=== PATIENT | female | born 1960 | race Caucasian/White ===

== ENCOUNTER 2018-09-12 11:31 | Outpatient (CLI) | payer BC, SELFPAY ==
--- NOTE | 2018-09-12 11:53 | DI.MAMMO_ITS ---
SYMPTOMS/DIAGNOSIS: SCREENING, Z12.31 MAMMOGRAMS: Mammograms were interpreted according to the usual protocol including computer analysis with CAD system, tomosynthesis and C view imaging. The breast tissue is radiodense, which lowers the sensitivity of the study. There is no dominant mass or suspicious calcification. SUMMARY: No evidence of malignancy, category 1, yearly screening mammography is recommended. Breast density category C. MQSA ASSESSMENT OF FINDINGS: Negative. Category 1. Patient will receive a letter notifying them of these results. Bi-RADS category C. The breasts are heterogeneously dense, which may obscure small masses.
== END 2018-09-12 11:51 ==
PROVIDERS: PCP Family Medicine; Visit Provider Family Medicine
DX: Z12.31 Encounter for screening mammogram for malignant neoplasm of breast (principal)
CPT/HCPCS: 77063; 77067

== ENCOUNTER 2019-01-11 06:03 | Day surgery (SDC) | payer BC, SELFPAY ==
[2019-01-11 06:29] VITALS: BP 121/80; PULSE 64; RESP 18; TEMP 36.5; O2SAT 99
[2019-01-11] MEDS: Lactated Ringers 1,000 ML 80 ML IV (06:42)
--- NOTE | 2019-01-11 08:18 | PDOC.DSDIS_ITS ---
Discharge Plan Disposition Patient Disposition: HOME Condition: Good Discharge Details Reason For Visit: Colonoscopy Attending Provider: Ciara Kohler Primary Care Provider: Bhakti Nieves Home Meds and New Rx's Prescriptions: Continued aspirin [Adult Low Dose Aspirin] 81 mg tablet,delayed release (DR/EC) 81 mg PO DAILY RF: 0 sumatriptan [Imitrex] 5 mg/actuation [place],Non-Aerosol 5 mg INTRANASAL ONCE RF: 0 Discontinued polyethylene glycol 3350 17 gram/dose powder 238 g PO ONCE Qty: 238 RF: 0 bisacodyl [Dulcolax (bisacodyl)] 5 mg tablet,delayed release (DR/EC) 5 mg PO ONCE Qty: 4 RF: 0 Discharge Instructions Additional Instructions: Findings: Your colonoscopy was normal. Follow up: Plan for follow up colonoscopy in 5 years Please call if you develop: fevers >101.5 Nausea or Vomiting Abdominal pain that is not transient DAY SURGERY UNIT POST COLONOSCOPY INSTRUCTIONS 1. Because there will be medication in your system for the next 24 hours, you may feel a little sleepy. Your coordination will be affected. Therefore: a. Do not drive or operate dangerous equipment for 24 hours. b. Do not drink alcohol beverages for 24 hours (not even beer). c. Plan to go home and rest for the day. 2. Generally there are no restrictions on your activity after a day or so has gone by, but you may feel a bit fatigued for a few days. 3 After you arrive home you may have a light meal and return to a normal diet as you can tolerate it without feeling sick to your stomach. 4. After surgery, you may feel pain or discomfort. This should be only transient, but if it persists please contact your doctor. 5. If there are any questions regarding the findings of your procedure, please feel free to contact your doctor. 6. If you are unable to contact your doctor with a problem, contact the hospital at [phone]. 7. Continue all your regular medications unless directed otherwise. I understand the above instructions and have no questions. Signature of Patient or Responsible Adult Escort Date/Time Name of Responsible Adult Escort Signature of Nurse Date/Time Activity:: Activity as Tolerated Diet:: As Tolerated Discharge Orders Discharge Orders: Discharge Order (Routine); Ordered 01/11/19 Ordered By: Ciara Kohler DS: Diagnosis Discharge Diagnosis (1) History of colon polyps: Status: Acute
[2019-01-11 09:25] VITALS: BP 121/86; PULSE 61; RESP 16; TEMP 36.4; O2SAT 100
--- NOTE | 2019-01-11 10:10 | COLE_ITS ---
DATE OF PROCEDURE: January 11, 2019 PREOPERATIVE DIAGNOSIS: History of colon polyps. POSTOPERATIVE DIAGNOSIS: Normal colon. PROCEDURE: Colonoscopy. SURGEON: Ciara Kohler M.D. ANESTHESIA: General. INDICATIONS: This is a 58-year-old woman whose previous colonoscopy in 2012 showed an adenomatous po lyp. She presents for routine follow-up. PROCEDURE: She was placed in the left Harper position. Propofol was titrated to sedation. Digital re ctal examination revealed no abnormalities. The scope was advanced to the cecum without difficulty. The ileocecal valve and appendiceal orifice were clearly identified. Her prep was adequate, althoug h there were some areas of fluid that had to be suctioned. The scope was slowly withdrawn with no ab normalities seen within the ascending, transverse, descending, and sigmoid colon and rectum, includin g on retroflex view. She tolerated the procedure well and was stable to recovery. With her prior history of polyps, she will need a colonoscopy again in five years. cc: Bhakti Nieves M.D.
== END 2019-01-11 09:57 | disposition home or self-care (01) ==
PROVIDERS: PCP Family Medicine; Visit Provider Surgery
PROC: 0DJD8ZZ Inspection of Lower Intestinal Tract, Via Natural or Artificial Opening Endoscopic (ICD-10-PCS; CPT 45378; principal; 2019-01-11 07:30)
DX: Z12.11 Encounter for screening for malignant neoplasm of colon (principal); Z86.010 Personal history of colon polyps
CPT/HCPCS: 45378

== ENCOUNTER 2020-01-22 01:25 | Outpatient (CLI) | payer BC, SELFPAY ==
--- NOTE | 2020-01-22 | DI.MAMMO_ITS ---
EXAM: MG MAMMO SCREENING CLINICAL HISTORY: SCREENING,Z12.31 TECHNIQUE: Bilateral full field digital CC and MLO mammographic images were obtained with 3D tomosyn thesis and utilizing computer aided detection (CAD). COMPARISON: Available for comparison. FINDINGS: Masses/Architectural Distortion: None seen. Microcalcifications: No suspicious pleomorphic-type are seen. Skin Thickening/Nipple Retraction: None. IMPRESSION: 1. No significant interval change with no specific features of malignancy noted. 2. Unless there is more urgent need, screening mammography is recommended, as per [place] [employer] guidelines. BI-RADS Category 1 - Negative Breast Density - Category C - Heterogeneously dense The mammogram demonstrates the patient's breast tissue is dense. Dense breast tissue is very common a nd is not abnormal but dense breast tissue can make it harder to find cancer on a mammogram. Also, de nse breast tissue may increase their breast cancer risk. This information about the result of the [facility] mogram report was provided to the patient to raise their awareness. Use this report when you speak wi th the patient about their risks for breast cancer, which includes their family history. At that time , you may recommend for more screening tests (Ultrasound or MRI) as they might be useful based on the ir risk. A negative radiographic report should not delay biopsy if a dominant or clinically suspicious mass is present. Up to ten percent of cancers are not identified on mammography. A negative report may reinforce clinical impression. Adenosis and dense breasts may obscure an underlying neoplasm. False positive reports average 6 to 10%. Patient will receive a letter notifying them of these results.
== END 2020-01-22 01:45 ==
PROVIDERS: PCP Family Medicine; Visit Provider Family Medicine
DX: Z12.31 Encounter for screening mammogram for malignant neoplasm of breast (principal); R92.2 Inconclusive mammogram
CPT/HCPCS: 77063; 77067

== ENCOUNTER 2021-01-21 09:30 | Outpatient (REF) | payer BC, SELFPAY ==
[2021-01-21 21:53] LABS: ALT 39 U/L (14-59); AST 23 U/L (15-37); Albumin 3.7 g/dL (3.4-5.0); Alkaline Phosphatase 68 U/L (46-116); Anion Gap 6.4 mmol/L (3-11); BUN 25 mg/dL (7-18); Bilirubin, Total 0.6 mg/dL (0.2-1.0); CO2 28.6 mmol/L (21.0-32.0); Calcium 9.1 mg/dL (8.5-10.1); Calculated LDL 139 mg/dL (<100); Chloride 107 mmol/L (98-107); Cholesterol 229 mg/dL (<200); Estimated GFR 56.95 (mL/min/1.73m2); Glucose 99 mg/dL (74-106); HDL Cholesterol 82 mg/dL (40-60); Potassium 4.8 mmol/L (3.5-5.1); Sodium 142 mmol/L (136-145); Total Protein 6.7 g/dL (6.4-8.2); Triglyceride 44 mg/dL (<150)
== END 2021-01-21 09:31 | disposition home or self-care (01) ==
LOC: NCHCN 09:30
PROVIDERS: PCP Family Medicine; Visit Provider Family Medicine
DX: Z00.00 Encounter for general adult medical examination without abnormal findings (principal); I35.1 Nonrheumatic aortic (valve) insufficiency; Z13.220 Encounter for screening for lipoid disorders
CPT/HCPCS: 80053; 80061

== ENCOUNTER 2021-02-19 01:12 | Outpatient (CLI) | payer BC, SELFPAY ==
--- NOTE | 2021-02-19 | DI.MAMMO_ITS ---
Exam(s) MAMMO SCREENING EXAM: MAMMO SCREENING CLINICAL HISTORY: SCREENING, Z12.31 TECHNIQUE: Bilateral full field digital CC and MLO mammographic images were obtained with 3D tomosyn thesis and utilizing computer aided detection (CAD). COMPARISON: Available for comparison. FINDINGS: Masses/Architectural Distortion: None seen. Microcalcifications: No suspicious pleomorphic-type are seen. Skin Thickening/Nipple Retraction: None. IMPRESSION: 1. No significant interval change with no specific features of malignancy noted. 2. Unless there is more urgent need, screening mammography is recommended, as per [place] [employer] guidelines. BI-RADS Category 1 - Negative Breast Density - Category C - Heterogeneously dense Breast density category C or D implies that the patient has dense breast tissue. Dense breast tissue is very common and is not abnormal but dense breast tissue can make it harder to find cancer on a ma mmogram. Also, dense breast tissue may increase their breast cancer risk. This information about the result of the mammogram report was provided to the patient to raise their awareness. Use this report when you speak with the patient about their risks for breast cancer, which includes their family hist ory. At that time, you may recommend for more screening tests (Ultrasound or MRI) as they might be us eful based on their risk. A negative radiographic report should not delay biopsy if a dominant or clinically suspicious mass is present. Up to ten percent of cancers are not identified on mammography. A negative report may reinforce clinical impression. Adenosis and dense breasts may obscure an underlying neoplasm. False positive reports average 6 to 10%. Patient will receive a letter notifying them of these results.
== END 2021-02-19 01:32 ==
PROVIDERS: PCP Family Medicine; Visit Provider Family Medicine
DX: Z12.31 Encounter for screening mammogram for malignant neoplasm of breast (principal); R92.8 Other abnormal and inconclusive findings on diagnostic imaging of breast
CPT/HCPCS: 77063; 77067

== ENCOUNTER 2022-01-19 08:50 | Outpatient (REF) | payer BC, SELFPAY ==
[2022-01-19 16:07] LABS: ALT 49 U/L (14-59); AST 27 U/L (15-37); Albumin 4.1 g/dL (3.4-5.0); Alkaline Phosphatase 76 U/L (46-116); Anion Gap 5.9 mmol/L (3-11); BUN 17 mg/dL (7-18); Bilirubin, Total 0.9 mg/dL (0.2-1.0); CO2 31.1 mmol/L (21.0-32.0); CREATININE 0.9 mg/dL (0.55-1.02); Calcium 9.4 mg/dL (8.5-10.1); Calculated LDL 157 mg/dL (<100); Chloride 105 mmol/L (98-107); Cholesterol 258 mg/dL (<200); Estimated GFR 73.64 (mL/min/1.73m2); Glucose 89 mg/dL (74-106); HDL Cholesterol 92 mg/dL (40-60); Potassium 4.7 mmol/L (3.5-5.1); Sodium 142 mmol/L (136-145); Total Protein 7.1 g/dL (6.4-8.2); Triglyceride 48 mg/dL (<150)
== END 2022-01-19 08:51 | disposition home or self-care (01) ==
LOC: NCHCN 08:50
PROVIDERS: PCP Family Medicine; Visit Provider Family Medicine
DX: Z00.00 Encounter for general adult medical examination without abnormal findings (principal); Z13.220 Encounter for screening for lipoid disorders
CPT/HCPCS: 80053; 80061

== ENCOUNTER 2022-02-23 15:01 | Outpatient (REF) | payer BC, SELFPAY ==
--- NOTE | 2022-02-23 08:30 | PAPFT_PTH ---
PATIENT: Alyson Valverde LOC: [facility]#:[id number] AGE/SX: 61/F ROOM: RE02/23/[address]: Devonte Contreras : 1960 BED: DIS: 02/23/2022 SPEC #: [id number] RECD: 02/23/22 17:59 STATUS: MULU REQ #: [id number] FOREIGN: 02/23/22 08:[address]: Devonte Contreras DEPT: [facility] Cytology RECD BY: Edie Wiggins ENTERED: 02/23/22 18:00 SP TYPE: PAPFT OTHR DR: Bhakti Nieves Tissues: 1 - CX/ENDOCX FOR PAP SMEARS Procedures: PAP THIN PREP/UVM Screening HPV DNA PROBE Comments: [id number]
== END 2022-02-23 15:02 | disposition home or self-care (01) ==
LOC: NCHCN 15:01
PROVIDERS: PCP Family Medicine; Visit Provider Family Medicine
DX: Z00.00 Encounter for general adult medical examination without abnormal findings (principal); Z12.4 Encounter for screening for malignant neoplasm of cervix; Z01.419 Encounter for gynecological examination (general) (routine) without abnormal findings; Z11.51 Encounter for screening for human papillomavirus (HPV)
CPT/HCPCS: 88142; 87624

== ENCOUNTER → 2022-03-14 01:44 | Outpatient (CLI) | payer BC, SELFPAY ==
--- NOTE | 2022-03-14 08:00 | DI.MAMMO_ITS ---
Exam(s) MAMMO SCREENING EXAM: MAMMO SCREENING CLINICAL HISTORY: SCREENING, Z12.39 TECHNIQUE: Mammograms were interpreted according to the usual protocol including computer analysis w [employer] CAD system, tomosynthesis and C-view imaging. COMPARISON: 2018 through 2020 FINDINGS: The breasts are composed of heterogeneously dense fibroglandular densities, Breast Density category C . No suspicious masses or suspicious microcalcifications are seen. No skin thickening or abnormal axillary lymph nodes are seen. There has been no significant change from prior exams. IMPRESSION: BI-RADS Category 1, Negative mammogram. Yearly screening mammography is recommended. Breast Density Category C, heterogeneously Dense. The mammogram demonstrates the patient's breast tissue is dense. Dense breast tissue is very common a nd is not abnormal but dense breast tissue can make it harder to find cancer on a mammogram. Also, de nse breast tissue may increase breast cancer risk. This information about the result of the mammogram report was provided to the patient to raise their awareness. Use this report when you speak with the patient about their risks for breast cancer, which includes their family history. At that time, you may recommend additional screening tests (Ultrasound or MRI) as they might be useful based on their r isk. A negative radiographic report should not delay biopsy if a dominant or clinically suspicious mass is present. Up to ten percent of cancers are not identified on mammography. A negative report may reinforce clinical impression. Adenosis and dense breasts may obscure an underlying neoplasm. False positive reports average 6 to 10%.
--- NOTE | 2022-03-14 08:30 | DI.RAD_ITS ---
Exam(s) XR KNEE RT 3V AP,LAT,TREVOR EXAM: XR KNEE RT 3V AP,LAT,TREVOR CLINICAL HISTORY: KNEE PAIN, M25.569. TECHNIQUE: 2D digital imaging was performed. Three views. COMPARISON: No exams were available for comparison FINDINGS: BONES: No acute fracture is present. No bony destructive lesion is seen. Prominent enthesophytes ar e noted at the superior and inferior aspects of the patella. JOINTS: Moderate narrowing of the medial femoral tibial joint space. Prominent periarticular spurrin g throughout.. A minimal joint effusion is seen. SOFT TISSUE: Calcification seen posteriorly which may represent a loose body within a Tellez cyst. IMPRESSION: Moderate degenerative changes. Question of loose body in a Tellez's cyst. DATA REPOSITORY: RADIATION DOSE DELIVERED:
--- NOTE | 2022-03-14 08:30 | DI.RAD_ITS ---
Exam(s) XR KNEE LT 3V AP,LAT,TREVOR EXAM: XR KNEE LT 3V AP,LAT,TREVOR CLINICAL HISTORY: KNEE PAIN, M25.569. TECHNIQUE: 2D digital imaging was performed. Three views. COMPARISON: CR XR KNEE RT 3V AP,LAT,TREVOR from 03/14/2022 FINDINGS: BONES: No acute fracture is present. No bony destructive lesion is seen. There is prominent spurring at at the medial femoral condyle medial tibial plateau. Prominent enthesophytes are seen at the sup erior and inferior poles of the patella. There is also spurring at the articular aspect of the hair la. JOINTS: There is severe narrowing of the medial femoral tibial joint space. A large joint effusion i s seen. SOFT TISSUE: Normal. IMPRESSION: Severe degenerative changes of the medial femoral tibial joint. Prominent patellar enthesophytes. DATA REPOSITORY: RADIATION DOSE DELIVERED:
== END ==
PROVIDERS: PCP Family Medicine; Visit Provider Family Medicine
DX: M17.0 Bilateral primary osteoarthritis of knee (principal); Z12.31 Encounter for screening mammogram for malignant neoplasm of breast; R92.8 Other abnormal and inconclusive findings on diagnostic imaging of breast
CPT/HCPCS: 73562; 77063; 77067

== ENCOUNTER 2023-02-27 11:25 | Outpatient (REF) | payer BC, SELFPAY ==
[2023-02-27 15:47] LABS: HCT 37.1 % (36.0-46.0); HGB 12.2 g/dL (11.2-15.7); MCH 30.5 pg (27.0-33.0); MCHC 32.9 % (32.0-36.0); MCV 93 fL (80-95); MPV 10.9 fL (8.0-11.0); Platelet Count 234 10^3/uL (130-400); RDW 12.3 % (11.7-14.6); RDW-SD 42.1 fL; WBC 3.61 10^3/uL (4.4-10.8)
[2023-02-27 15:50] LABS: Anion Gap 8.3 mmol/L (3-11); BUN 17 mg/dL (7-18); CO2 28.7 mmol/L (21.0-32.0); CREATININE 0.9 mg/dL (0.55-1.02); Calcium 9.6 mg/dL (8.5-10.1); Chloride 104 mmol/L (98-107); Estimated GFR 73.19 (mL/min/1.73m2); Glucose 92 mg/dL (74-106); Potassium 4.1 mmol/L (3.5-5.1); Sodium 141 mmol/L (136-145)
== END 2023-02-27 11:26 | disposition home or self-care (01) ==
LOC: NCHCN 11:25
PROVIDERS: PCP Family Medicine; Visit Provider Family Medicine
DX: Z00.00 Encounter for general adult medical examination without abnormal findings (principal); I35.1 Nonrheumatic aortic (valve) insufficiency
CPT/HCPCS: 80048; 85027

== ENCOUNTER → 2023-03-16 03:00 | Outpatient (CLI) | payer BC, SELFPAY ==
--- NOTE | 2023-03-16 08:25 | DI.MAMMO_ITS ---
Exam(s) MAMMO SCREENING EXAM: MAMMO SCREENING CLINICAL HISTORY: Z00.00 Well adult preventative,Z80.3 FA HX Breast CA TECHNIQUE: Mammograms were interpreted according to the usual protocol including computer analysis w [employer] CAD system, tomosynthesis and C-view imaging. COMPARISON: 2018 through 2021 FINDINGS: The breasts are composed of heterogeneously dense fibroglandular densities, Breast Density category C . No suspicious masses or suspicious microcalcifications are seen. No skin thickening or abnormal axillary lymph nodes are seen. There has been no significant change from prior exams. IMPRESSION: BI-RADS Category 1, Negative mammogram. Yearly screening mammography is recommended. Breast Density Category C, heterogeneously Dense. The mammogram demonstrates the patient's breast tissue is dense. Dense breast tissue is very common a nd is not abnormal but dense breast tissue can make it harder to find cancer on a mammogram. Also, de nse breast tissue may increase breast cancer risk. This information about the result of the mammogram report was provided to the patient to raise their awareness. Use this report when you speak with the patient about their risks for breast cancer, which includes their family history. At that time, you may recommend additional screening tests (Ultrasound or MRI) as they might be useful based on their r isk. A negative radiographic report should not delay biopsy if a dominant or clinically suspicious mass is present. Up to ten percent of cancers are not identified on mammography. A negative report may reinforce clinical impression. Adenosis and dense breasts may obscure an underlying neoplasm. False positive reports average 6 to 10%.
== END ==
PROVIDERS: PCP Family Medicine; Visit Provider Family Medicine
DX: Z12.31 Encounter for screening mammogram for malignant neoplasm of breast (principal); Z80.3 Family history of malignant neoplasm of breast; R92.333 Mammographic heterogeneous density, bilateral breasts
CPT/HCPCS: 77063; 77067

== ENCOUNTER 2023-12-05 13:24 | Emergency (ER) | payer BC, SELFPAY ==
[2023-12-05] VITALS (73 sets, daily range): BP systolic 122–159; BP diastolic 71–106; PULSE 61–99; RESP 8–23; TEMP 36.7; O2SAT 96–100
[2023-12-05 13:50] LABS: Absolute Basophil Count 0.03 10^3/uL (0.0-0.2); Absolute Eosinophil Count 0.09 10^3/uL (0.0-0.7); Absolute Lymphocyte Count 0.81 10^3/uL (1.2-3.4); Absolute Monocyte Count 0.59 10^3/uL (0.1-0.8); Absolute Neutrophil Count 7.82 10^3/uL (1.2-6.7); Basophils % 0.3 %; HCT 35.6 % (36.0-46.0); HGB 12.1 g/dL (11.2-15.7); Immature Grans % 1.1 %; Lymphocytes % 8.6 %; MCH 30.9 pg (27.0-33.0); MCV 91 fL (80-95); MPV 10.5 fL (8.0-11.0); Monocytes % 6.3 %; Neutrophils % 82.7 %; Platelet Count 272 10^3/uL (130-400); RBC 3.92 10^6/uL (3.93-5.22); RDW 12.6 % (11.7-14.6); RDW-SD 41.5 fL; WBC 9.44 10^3/uL (4.4-10.8)
[2023-12-05] MEDS: Lactated Ringers 1,000 ML 1000 ML IV (13:58)
--- NOTE | 2023-12-05 14:00 | DI.CT_ITS ---
Exam(s) CT HEAD CERV SPINE FACIAL WO EXAM: CT HEAD CERV SPINE FACIAL WO CLINICAL HISTORY: bucked off horse, hit head, altered. TECHNIQUE: Imaging Protocol: Axial computed tomography images with coronal and sagittal reformatted images were created and reviewed COMPARISON: CT HEAD WITHOUT STROKE PROTOCOL from 06/10/[address] THORACIC LUMBAR SPINE REC from 12/05/[address] CHEST/ABD/PEL W from 12/05/2023 FINDINGS: CT Head: Ventricles and Extra axial spaces: Large right frontal cystic lesion causes compression of the right lateral ventricle. Hemorrhage: Small amount of hemorrhage is seen layering within the large right frontal cystic lesion. No additional areas of hemorrhage elsewhere in the brain. Cerebral parenchyma: Large cystic lesion noted in right frontal lobe. This was present previously bu t has increased in size, now measuring 8.1 x 5.7 x 6.5 cm compared to 5.2 x 4.3 by 5.5 cm.. This cau ses significant mass effect upon the right lateral ventricle as well as midline shift right to left o f approximately 10 - 13 millimeters. Brainstem/Cerebellum: Normal. Calvarium: Normal. Visualized Paranasal sinuses/Mastoids: Clear. Soft Tissues: Unremarkable. CT Face: Facial Bones: No fracture is noted in facial bones. Sinuses and Mastoids: Unremarkable. Globes, extraocular muscles, optic nerves and retrobulbar fat: Normal. Upper aerodigestive tract: Normal. Mandible and bilateral temporomandibular joints: Normal. Soft tissues: Normal. CT Cervical Spine: Bones: No acute fracture or subluxation. Degenerative disc changes. Soft Tissues: Unremarkable. Lung Apices: Clear. IMPRESSION: 1. Interval increase in size previously noted cystic lesion in the right frontal lobe causing signifi cant mass effect upon the right lateral ventricle and midline shift of 10-13 millimeters. Acute hemo rrhage seen layering within dependent portion of cyst. 2. No acute fracture or subluxation in the cervical spine. 3. No acute facial fracture. 4. Findings called to Dr. Banerjee of the emergency department. RADIATION DOSE DELIVERED: Total DLP DATA REPOSITORY: All CT scans at this facility are submitted to the National Radiology Data Registry (NRDR) Dose Index Registry (DIR) with the [employer] (ACR). RADIATION OPTIMIZATION: All CT scans at this facility use at least one of these dose optimization te chniques: automated exposure control; mA and/or kV adjustment per patient size (includes targeted exa ms where dose is matched to clinical indication); or iterative reconstruction.
--- NOTE | 2023-12-05 14:04 | ED.GENADUL_ITS ---
Discharge Plan Discharge Details Chief Complaint: Trauma Clinical Impression: Acute intra-cranial hemorrhage, Brain cyst Primary Care Provider: Bhakti Nieves ED Provider: Tristen Banerjee Home Meds and New Rx's Prescriptions: No Action sumatriptan [Imitrex] 5 mg/actuation [facility],Non-Aerosol 5 mg INTRANASAL ONCE HPI General Date/Time Provider Initiated Documentation: 12/05/23 13:32 . HPI Narrative: 63-year-old female with no significant past medical history except for migraines who presents today for evaluation of trauma after being thrown from horse. Patient states that she was riding a horse that was 72 inches high, when the horse got spooked by an animal that ran out into the [place], and started bucking. Patient was thrown off the horse and landed straight/flat against a plywood wall. She had her helmet on, she hit the ground. She got up, was quite wobbly, she then had a shaking-like movement for about 60 seconds and after this had about 5 minutes of unconsciousness. EMS was called, and she was brought to the ER for further assessment. She had stable vital signs upon arrival. She has no complaints whatsoever but is slightly confused. She denies any headache, neck pain, chest pain, vomiting, diarrhea, extremity pain. No modifying factors. She is not on blood thinners. Related Data Home Medications ?Medication ?Instructions ?Recorded ?Confirmed sumatriptan 5 mg/actuation nasal 5 mg intranasal ONCE 01/08/19 12/05/23 spray (Imitrex) Allergies Allergy/AdvReac Type Severity Reaction Status Date / Time povidone-iodine (From Allergy Mild itchy and Verified 12/05/23 13:32 Betadine) red soap (From Betadine) Allergy Mild itchy and Verified 12/05/23 13:32 red General Stated Complaint: Trauma IKER: 2 Review of Systems All systems reviewed & are unremarkable except as noted in HPI and below Exam Narrative Exam Narrative: 1.Const: Well-nourished, Well-developed, appearing stated age 2.Eyes: PERRL, no conjunctival injection, and symmetrical lids. 3.ENT: Atraumatic external nose and ears. Moist MM. Neck: Symmetric, trachea midline, No thyromegaly. There is no evidence of raccoon eyes, arana sign, CSF rhinorrhea, mastoid tenderness, cranial crepitus, hemotympanum, exophthalmos, or hyphema. Patient demonstrates intact dentition with no signs of tooth avulsion or fracture, no signs of jaw deformity, no evidence of a LeFort's fracture, with an intact palate, nose and orbital region. There is no evidence of a nasal septal hematoma. No proptosis. Jaw closes symmetrically. Airway is clear. 4.CVS: Regular rate and rhythm, Normal s1 and s2. No murmurs, carotid bruits, rubs, or gallops. Radial pulses 2+ bilaterally and symmetric. Dorsalis pedis pulses 2+ bilaterally and symmetric. 2+ capillary refill. No evidence of distant heart sounds. No extremity edema. No evidence of gross hemorrhage. 5.RESP: Airway clear, no obstructions. No abrasions or ecchymosis. Chest movement symmetric with respirations. No chest wall tenderness. Trachea midline. No crepitus. No step offs. No paradoxical movements. Lungs are clear to auscultation bilaterally. No rales, rhonchi, wheezing or stridor. Breath sound symmetric. No Sucking chest wounds. No clinical evidence of significant chest trauma. 6.GI: Soft, nondistended, nontender. Bowel tones normoactive. No masses or organomegaly. No ecchymosis or abrasions. No periumbilical ecchymosis or seatbelt sign. No flank or CVA tenderness. No clinical signs of significant trauma. Genital Exam: Intact and traumatically unremarkable genital and rectal exam with no significant bruising, blood, or deformity. Rectal tone normal, stool without gross blood. No clinical evidence of significant abdominal trauma. 7.MSK: No gross deformities or discolorations or lesions. Tolerates full range of motion of extremities without tenderness. All compartments of upper and lower extremities are soft with no tenderness. Vascular exam demonstrates brisk capillary refill and intact pulses in all extremities. Pelvic exam demonstrates a stable pelvis, nontender to lateral compression and palpation of symphysis pubis.. No clinical evidence of significant musculoskeletal trauma. 8.Skin: Warm, Dry. No rashes or lesions. 9.Neuro: individual small group instructor II-XII grossly intact. Sensation grossly intact, no focal neurologic deficits. 10.Psych: (AAO) x3. Appropriate mood and affect Course Vital Signs Vital signs: Vital Signs Temperature 36.7 C 12/05/23 13:24 Pulse 89 12/05/23 13:24 Respiratory Rate 20 12/05/23 13:24 Blood Pressure 144/90 H 12/05/23 13:24 Pulse Oximetry 98 12/05/23 13:24 Temperature 36.7 C 12/05/23 13:24 Temperature Source Temporal Artery Scan 12/05/23 13:24 Pulse 89 12/05/23 13:24 Respiratory Rate 20 12/05/23 13:24 Respiratory Effort Normal 12/05/23 13:48 Respiratory Depth Normal 12/05/23 13:48 Respiratory Pattern Normal 12/05/23 13:48 Blood Pressure 144/90 H 12/05/23 13:24 Blood Pressure Position Supine 12/05/23 13:24 Pulse Oximetry 98 12/05/23 13:24 Oxygen Delivery Method Room Air 12/05/23 13:24 Oxygen Flow Rate 0 12/05/23 13:24 Pain Level 0 12/05/23 13:24 Lab/Test Results Lab/Test Results: Laboratory Tests Range/Units 12/05/23 13:42 WBC (4.4-10.8) 10^3/uL 9.44 RBC (3.93-5.22) 10^6/uL 3.92 L Hgb (11.2-15.7) g/dL 12.1 Hct (36.0-46.0) % 35.6 L MCV (80-95) fL 91 MCH (27.0-33.0) pg 30.9 MCHC (32.0-36.0) % 34.0 RDW (11.7-14.6) % 12.6 Plt Count (130-400) 10^3/uL 272 MPV (8.0-11.0) fL 10.5 Immature Gran % % 1.1 Neutrophils % % 82.7 Lymphocytes % % 8.6 Monocytes % % 6.3 Eosinophils % % 1.0 Basophils % % 0.3 Nucleated RBC % (0.0-0.3) % 0.0 Absolute Neutrophils (1.2-6.7) 10^3/uL 7.82 H Absolute Lymphocytes (1.2-3.4) 10^3/uL 0.81 L Absolute Monocytes (0.1-0.8) 10^3/uL 0.59 Absolute Eosinophils (0.0-0.7) 10^3/uL 0.09 Absolute Basophils (0.0-0.2) 10^3/uL 0.03 Medical Decision Making 63-year-old female with no significant past medical history except for migraines who presents today for evaluation of trauma after being thrown from horse. Patient states that she was riding a horse that was 72 inches high, when the horse got spooked by an animal that ran out into the [place], and started bucking. Patient was thrown off the horse and landed straight/flat against a plywood wall. She had her helmet on, she hit the ground. She got up, was quite wobbly, she then had a shaking-like movement for about 60 seconds and after this had about 5 minutes of unconsciousness. EMS was called, and she was brought to the ER for further assessment. She had stable vital signs upon arrival. She has no complaints whatsoever but is slightly confused. She denies any headache, neck pain, chest pain, vomiting, diarrhea, extremity pain. No modifying factors. She is not on blood thinners. Physical exam demonstrates well-appearing female, no acute distress, no overt signs of trauma or tenderness. Concern for potential intracranial injury with the atypical episode of syncope that she After the event. We will get CT scans of the head neck chest abdomen pelvis secondary to the mechanism of the fall. Will monitor closely gently rehydrate and reassess. CT scan shows evidence of a large cyst in the right frontal lobe, currently 8 x 5.7 x 6.5 cm, which is a 1 to 3 cm increase compared to his previous measurement 6 years ago. There also appears to be a mass effect and midline shift right to left of approximately 1 cm. There is a small amount of hemorrhage seen layering within the large right frontal cystic lesion, no other areas of intracranial hemorrhage though. Repeat exam demonstrates a stable patient, who is actually looking better than before. She is conversant, interactive, remembers my name and other questions. She shows no signs of altered mental status at this time, and actually shows some clinical improvement. Patient does complain of a very mild headache, we will give a gram of Tylenol. The remainder of her CT scans including of the chest neck abdomen and pelvis are normal in appearance per radiology. Will reach out to [facility] neurosurgery for further discussion. Patient's head has been elevated she is now sitting at a 45 degree angle. 4:50 PM I spoke with neurosurgery at [facility] Dr. Jose Palomino, he reviewed the images. He does recommend loading with Keppra, we will give 2 g. He does recommend potential outpatient Keppra therapy at 500 twice daily as well. He recommends keeping blood pressure at or lower than 140-145 systolic. He also recommends getting a repeat CT scan at [facility] for evaluation of change in bleeding or cyst size. Additionally I did discuss with the patient her headaches and the cyst, the cyst is notably larger than before, she states that her headaches have slightly been worsening over the last year or so. She also states that the headaches are better when she lies flat and not when she sits upright. Case will be signed out to my colleague Dr. Real for follow-up on CT imaging. I discussed the plan with family and they agree. All questions were answered. FINDINGS: CT Head: Ventricles and Extra axial spaces: Large right frontal cystic lesion causes compression of the right lateral ventricle. Hemorrhage: Small amount of hemorrhage is seen layering within the large right frontal cystic lesion. No additional areas of hemorrhage elsewhere in the brain. Cerebral parenchyma: Large cystic lesion noted in right frontal lobe. This was present previously but has increased in size, now measuring 8.1 x 5.7 x 6.5 cm compared to 5.2 x 4.3 by 5.5 cm.. This causes significant mass effect upon the right lateral ventricle as well as midline shift right to left of approximately 10 - 13 millimeters. Brainstem/Cerebellum: Normal. Calvarium: Normal. Visualized Paranasal sinuses/Mastoids: Clear. Soft Tissues: Unremarkable. CT Face: Facial Bones: No fracture is noted in facial bones. Sinuses and Mastoids: Unremarkable. Globes, extraocular muscles, optic nerves and retrobulbar fat: Normal. Upper aerodigestive tract: Normal. Mandible and bilateral temporomandibular joints: Normal. Soft tissues: Normal. CT Cervical Spine: Bones: No acute fracture or subluxation. Degenerative disc changes. Soft Tissues: Unremarkable. Lung Apices: Clear. IMPRESSION: 1. Interval increase in size previously noted cystic lesion in the right frontal lobe causing significant mass effect upon the right lateral ventricle and midline shift of 10-13 millimeters. Acute hemorrhage seen layering within dependent portion of cyst. 2. No acute fracture or subluxation in the cervical spine. 3. No acute facial fracture. 4. Findings called to Dr. Banerjee of the emergency department. FINDINGS: CHEST: Exam is limited by streak artifact caused by patient arm positioning. Tracheobronchial tree: Patent. Pulmonary parenchyma: No consolidation or dominant measurable mass. Pleura: No effusion or pneumothorax. Mediastinum: No adenopathy. Small amount of fluid is noted in the esophagus could indicate reflux. Small hiatal hernia. Aorta: Thoracic portion non-dilated. Pulmonary arteries: No gross evidence of visible emboli. Heart: No pericardial effusion. Bones: Unremarkable for age. No lytic or blastic lesions.No compression fractures. No rib fracture visible. Soft tissues: Unremarkable. ABDOMEN and PELVIS: Liver: Normal density. No measurable mass. Gallbladder and biliary tract: No evidence of stones or wall thickening. No biliary dilatation. Pancreas: Normal density, no abnormal calcifications or inflammatory process. Spleen: Normal. Kidneys: Normal size, contour and axis. No radiodense stones. No obstructive uropathy. No suspicious masses seen. Adrenal glands: No masses seen. Aorta: Abdominal portion non-dilated. Lymph nodes: Within normal limits. Soft tissues: Unremarkable. Bladder: Unremarkable. Bowel: No obstruction or bowel wall thickening. Large quantity of stool noted in rectum. Rectum is distended to 7.3 cm. Moderate quantity of stool elsewhere. Appendix normal. Peritoneal cavity: No ascites. No focal collection. No mesenteric inflammatory response. No free air. Bones: Unremarkable for age. No evidence of spine or pelvic fracture. Mild degenerative disc changes at L4-5 and L5-S1. Reproductive organs: Within normal limits. IMPRESSION: No acute abnormality in the chest, abdomen or pelvis. FINDINGS: CHEST: Exam is limited by streak artifact caused by patient arm positioning. Tracheobronchial tree: Patent. Pulmonary parenchyma: No consolidation or dominant measurable mass. Pleura: No effusion or pneumothorax. Mediastinum: No adenopathy. Small amount of fluid is noted in the esophagus could indicate reflux. Small hiatal hernia. Aorta: Thoracic portion non-dilated. Pulmonary arteries: No gross evidence of visible emboli. Heart: No pericardial effusion. Bones: Unremarkable for age. No lytic or blastic lesions.No compression fractures. No rib fracture visible. Soft tissues: Unremarkable. ABDOMEN and PELVIS: Liver: Normal density. No measurable mass. Gallbladder and biliary tract: No evidence of stones or wall thickening. No biliary dilatation. Pancreas: Normal density, no abnormal calcifications or inflammatory process. Spleen: Normal. Kidneys: Normal size, contour and axis. No radiodense stones. No obstructive uropathy. No suspicious masses seen. Adrenal glands: No masses seen. Aorta: Abdominal portion non-dilated. Lymph nodes: Within normal limits. Soft tissues: Unremarkable. Bladder: Unremarkable. Bowel: No obstruction or bowel wall thickening. Large quantity of stool noted in rectum. Rectum is distended to 7.3 cm. Moderate quantity of stool elsewhere. Appendix normal. Peritoneal cavity: No ascites. No focal collection. No mesenteric inflammatory response. No free air. Bones: Unremarkable for age. No evidence of spine or pelvic fracture. Mild degenerative disc changes at L4-5 and L5-S1. Reproductive organs: Within normal limits. IMPRESSION: No acute abnormality in the chest, abdomen or pelvis. Quality:[facility] Health Related Social Needs: No Data to Display PFSH All Active Problems (Updated 12/05/23 @ 16:54 by Tristen Banerjee DO) Brain cyst (Acute) Acute intra-cranial hemorrhage (Acute) History of colon polyps (Acute) Medical History Amaurosis fugax Aortic insufficiency Migraine Adenomatous polyps 03/13/13 w/ Dr. Galen Hickey @ [facility], Tubular adenoma 01/11/19 Dr Ciara Kohler, normal, repeat 5 years due to hx of tubular adenoma Surgical History Omega teeth extracted History of removal of ovarian cyst History of tubal ligation History of colonoscopy Social History Smoking/Tobacco Use Status: Never Smoking risk assessment performed?: Yes Alcohol Intake: current Alcohol Intake frequency: holidays/special occasions only Alcohol type: wine Substance use type: does not use Do you feel safe at home: Yes Do you feel safe in your relationship?: Yes
[2023-12-05 14:05] LABS: ALT 41 U/L (14-59); AST 22 U/L (15-37); Albumin 3.9 g/dL (3.4-5.0); Alkaline Phosphatase 94 U/L (46-116); Anion Gap 12.2 mmol/L (3-11); BUN 16 mg/dL (7-18); Bilirubin, Total 0.76 mg/dL (0.2-1.0); CO2 23.8 mmol/L (21.0-32.0); Calcium 9.2 mg/dL (8.5-10.1); Chloride 106 mmol/L (98-107); Estimated GFR 64.09 (mL/min/1.73m2); Glucose 104 mg/dL (74-106); Lipase 34 U/L (16-77); Potassium 3.8 mmol/L (3.5-5.1); Sodium 142 mmol/L (136-145); Total Protein 7.1 g/dL (6.4-8.2)
--- NOTE | 2023-12-05 14:10 | DI.CT_ITS ---
Exam(s) CT CHEST/ABD/PEL W CT THORACIC LUMBAR SPINE REC EXAM: CT CHEST/ABD/PEL W CLINICAL HISTORY: bucked off horse, hit head, altered. TECHNIQUE: Imaging Protocol: Axial computed tomography images with coronal and sagittal reformatted images were created and reviewed Axial, coronal and sagittal images of the thoracic and lumbar spine were reconstructed in bone and so ft tissue algorithm. CONTRAST MATERIAL: Intravenous: Omnipaque 350 Contrast volume:100 ml Oral: no COMPARISON: CT CT THORACIC LUMBAR SPINE REC from 12/05/2023 FINDINGS: CHEST: Exam is limited by streak artifact caused by patient arm positioning. Tracheobronchial tree: Patent. Pulmonary parenchyma: No consolidation or dominant measurable mass. Pleura: No effusion or pneumothorax. Mediastinum: No adenopathy. Small amount of fluid is noted in the esophagus could indicate reflux. Small hiatal hernia. Aorta: Thoracic portion non-dilated. Pulmonary arteries: No gross evidence of visible emboli. Heart: No pericardial effusion. Bones: Unremarkable for age. No lytic or blastic lesions.No compression fractures. No rib fracture visible. Soft tissues: Unremarkable. ABDOMEN and PELVIS: Liver: Normal density. No measurable mass. Gallbladder and biliary tract: No evidence of stones or wall thickening. No biliary dilatation. Pancreas: Normal density, no abnormal calcifications or inflammatory process. Spleen: Normal. Kidneys: Normal size, contour and axis. No radiodense stones. No obstructive uropathy. No suspicious masses seen. Adrenal glands: No masses seen. Aorta: Abdominal portion non-dilated. Lymph nodes: Within normal limits. Soft tissues: Unremarkable. Bladder: Unremarkable. Bowel: No obstruction or bowel wall thickening. Large quantity of stool noted in rectum. Rectum is d istended to 7.3 cm. Moderate quantity of stool elsewhere. Appendix normal. Peritoneal cavity: No ascites. No focal collection. No mesenteric inflammatory response. No free ai r. Bones: Unremarkable for age. No evidence of spine or pelvic fracture. Mild degenerative disc change s at L4-5 and L5-S1. Reproductive organs: Within normal limits. IMPRESSION: No acute abnormality in the chest, abdomen or pelvis. RADIATION DOSE DELIVERED: Total DLP DATA REPOSITORY: All CT scans at this facility are submitted to the National Radiology Data Registry (NRDR) Dose Index Registry (DIR) with the [employer] (ACR). RADIATION OPTIMIZATION: All CT scans at this facility use at least one of these dose optimization te chniques: automated exposure control; mA and/or kV adjustment per patient size (includes targeted exa ms where dose is matched to clinical indication); or iterative reconstruction.
[2023-12-05] MEDS: Omnipaque 350 MG/ML 100 ML BTL IJ (14:28)
[2023-12-05] MEDS: Normal Saline - Diluent 50 ML VIAL IJ (14:31)
[2023-12-05] MEDS: Acetaminophen 500 MG TAB 1000 MG PO (15:57)
[2023-12-05 16:03] LABS: Bilirubin Negative (Negative); Blood Negative (Negative); Clarity Clear (Clear); Glucose Negative (Negative); Ketones Trace mg/dL (Negative); Leukocyte Esterase Negative (Negative); Nitrite Negative (Negative); Urobilinogen 0.2 mg/dL (Up to 0.2); pH 6.5 (5-8)
--- NOTE | 2023-12-05 16:45 | DI.CT_ITS ---
Exam(s) CT HEAD WO EXAM: CT HEAD WO CLINICAL HISTORY: eval for changing bleed. TECHNIQUE: Imaging Protocol: Axial computed tomography images with coronal and sagittal reformatted images were created and reviewed COMPARISON: CT CT HEAD CERV SPINE FACIAL WO from 12/05/2023 FINDINGS: The previously noted large cystic lesion in the right frontal lobe is unchanged in size. There is a curvilinear area of high signal in the dependent portion of the cyst which could represent hemorrhage which is seng into a clot rather than layering as it was on the previous exam. There is no c hange in mass effect or midline shift. Ventricular compression is unchanged. No new areas of hemorr jennifer. No acute infarct. IMPRESSION: No further increase in hemorrhage or areas of new hemorrhage. Stable midline shift and ventricular c ompression. Findings called to Dr. Real of the emergency department.. RADIATION DOSE DELIVERED: Total DLP DATA REPOSITORY: All CT scans at this facility are submitted to the National Radiology Data Registry (NRDR) Dose Index Registry (DIR) with the [employer] (ACR). RADIATION OPTIMIZATION: All CT scans at this facility use at least one of these dose optimization te chniques: automated exposure control; mA and/or kV adjustment per patient size (includes targeted exa ms where dose is matched to clinical indication); or iterative reconstruction.
[2023-12-05] MEDS: levETIRAcetam 2,000 MG in Normal Saline 100 ML 400 MG IVPB (16:57)
--- NOTE | 2023-12-05 19:25 | W.EDPROG ---
Date of service: 12/05/23 Time of Service: 19:[address] Patient CT without acute changes from prior CT. Patient neurologically stable. Will reconsult neurosurgery to see if they have any further ideations spoke with Dr. Jose Palomino from [facility] neurosurgery who reviewed the films and case and recommends placing her on Keppra 500 mg twice daily for a week and she will be discharged to follow-up with them in the clinic and her office will call her with appointment. Patient remained stable and is asymptomatic currently. She does have some mild tenderness at the base of the left thumb she has full range of motion of the thumb no visible palpable deformities, intact sensation. Suspect sprain I did offer to do x-ray though my suspicion for fracture or dislocation is low and she declines. She will follow-up with her PCP if she still in pain in a week. Return precautions given Imaging Data Radiologic Study: Attestation: I personally reviewed and interpreted this imaging study as follows: Imaging: CT Scan Radiologist's impression: Patient Name: Alyson Valverde Unit #: [id number] Loc: ER Ordering Provider: Tristen Banerjee DO Status: REG ER Primary Care Provider: Bhakti Nieves Date of Exam: 12/05/23 Sex: F : 1960 Age: 63 Exam(s) a CT:CT head wo Exam(s) CT HEAD WO EXAM: CT HEAD WO CLINICAL HISTORY: eval for changing bleed. TECHNIQUE: Imaging Protocol: Axial computed tomography images with coronal and sagittal reformatted images were created and reviewed COMPARISON: CT CT HEAD CERV SPINE FACIAL WO from 12/05/2023 FINDINGS: The previously noted large cystic lesion in the right frontal lobe is unchanged in size. There is a curvilinear area of high signal in the dependent portion of the cyst which could represent hemorrhage which is seng into a clot rather than layering as it was on the previous exam. There is no change in mass effect or midline shift. Ventricular compression is unchanged. No new areas of hemorrhage. No acute infarct. IMPRESSION: No further increase in hemorrhage or areas of new hemorrhage. Stable midline shift and ventricular compression. Findings called to Dr. Real of the emergency department.. Quality:[facility] Health Related Social Needs: No Data to Display Sign Out Sign Out Data: Sign Out Comment: Thrown from horse, large brain cyst, small bleed noted. Repeat CT scan at 630, follow-up with [facility] neurosurgery. Patient remained stable. Keep blood pressure lower than 145 systolic. Last updated by Tristen Banerjee DO at 12/05/23 17:03 Discharge Plan Disposition Patient Disposition: Home Condition: Stable Discharge Details Clinical Impression: Acute intra-cranial hemorrhage, Brain cyst Primary Care Provider: Bhakti Nieves ED Provider: Parish Real Home Meds and New Rx's Prescriptions: New levetiracetam [Keppra] 500 mg tablet 500 mg PO BID Qty: 14 0RF Continued sumatriptan [Imitrex] 5 mg/actuation [place],Non-Aerosol 5 mg INTRANASAL ONCE Discharge Instructions Additional Instructions: Your CAT scan showed that your cyst in your head is larger than before and there is a small amount of bleeding. On your repeat CAT scan there was no significant change. Your case was reviewed with the neurosurgery team at [facility] who recommended placing him on an antiseizure medicine called Keppra for 1 week. Their office will reach out to you for arranging follow-up If your left thumb is still bothering you after a week follow-up with your primary care provider or express care If you feel more ill or have severe worsening pain or new symptoms such as persistent vomiting return to the emergency department for reevaluation
== END 2023-12-05 20:06 | disposition home or self-care (01) ==
PROVIDERS: Student in an Organized Health Care Education/Training Program; Emergency Provider Emergency Medicine; PCP Family Medicine
DX: M79.645 Pain in left finger(s) (principal); I62.9 Nontraumatic intracranial hemorrhage, unspecified; G93.0 Cerebral cysts; W22.8XXA Striking against or struck by other objects, initial encounter; V80.010A Animal-rider injured by fall from or being thrown from horse in noncollision accident, initial encounter; R56.1 Post traumatic seizures
CPT/HCPCS: 00123; 74177; 80053; 83690; 96360; 96361; 96372; 99284; 99285; 70450; 70486; 71260; 72125; 81003; 85025; 99283; J1953; J3490

== ENCOUNTER 2023-12-11 09:17 | Emergency (ER) | payer BC, SELFPAY ==
[2023-12-11 09:23] VITALS: BP 150/88; PULSE 59; RESP 20; O2SAT 98
[2023-12-11 09:30] VITALS: BP 150/92; PULSE 61; RESP 15
[2023-12-11 09:45] VITALS: BP 148/92; PULSE 57; RESP 15; O2SAT 99
--- NOTE | 2023-12-11 09:45 | DI.CT_ITS ---
Exam(s) CT HEAD WO EXAM: CT HEAD WO CLINICAL HISTORY: seizure, recent trauma. TECHNIQUE: Imaging Protocol: Axial computed tomography images with coronal and sagittal reformatted images were created and reviewed COMPARISON: CT HEAD WITHOUT STROKE PROTOCOL from 06/10/[address] HEAD CERV SPINE FACIAL WO from 12/05/[address] HEAD WO from 12/05/2023 FINDINGS: Ventricles and Extra axial spaces: There is again seen a large cystic structure in the frontal lobe w hich is unchanged in size. There is persistent right to left midline shift and effacement of the rig ht lateral ventricle and the anterior horn of the left lateral ventricle. The left right midline tasia ft is stable at 1.5 cm. There has been interval slight increase in the hemorrhage within the cyst si nce 12/05/2023. There is new rounded area of hemorrhage in the inferior aspect of the cystic lesion. Hemorrhage: Please see above under ventricles and extra-axial spaces. Cerebral parenchyma: Normal. Midline shift: Please see above under ventricles and extra-axial spaces. Brainstem/Cerebellum: Normal. Calvarium: Normal. Visualized Paranasal sinuses/Mastoids: Clear. Soft Tissues: Unremarkable. IMPRESSION: 1. Slight interval increase in the hemorrhage within the right frontal lobe cyst since 12/05/2023. No change in the mass effect or midline shift. 2. Findings were discussed with Dr. Amin at 10:54 a.m. on 12/11/2023. RADIATION DOSE DELIVERED: Total DLP DATA REPOSITORY: All CT scans at this facility are submitted to the National Radiology Data Registry (NRDR) Dose Index Registry (DIR) with the [employer] (ACR). RADIATION OPTIMIZATION: All CT scans at this facility use at least one of these dose optimization te chniques: automated exposure control; mA and/or kV adjustment per patient size (includes targeted exa ms where dose is matched to clinical indication); or iterative reconstruction.
[2023-12-11 10:00] VITALS: BP 135/90; PULSE 55; RESP 17; O2SAT 99
[2023-12-11 10:04] LABS: Abs Immature Grans 0.01 10^3/uL (0.0-0.06); Absolute Basophil Count 0.04 10^3/uL (0.0-0.2); Absolute Eosinophil Count 0.24 10^3/uL (0.0-0.7); Absolute Lymphocyte Count 1.04 10^3/uL (1.2-3.4); Absolute Monocyte Count 0.46 10^3/uL (0.1-0.8); Absolute Neutrophil Count 2.76 10^3/uL (1.2-6.7); Basophils % 0.9 %; Eosinophils % 5.3 %; HCT 36.7 % (36.0-46.0); HGB 12.5 g/dL (11.2-15.7); Immature Grans % 0.2 %; Lymphocytes % 22.9 %; MCH 30.4 pg (27.0-33.0); MCHC 34.1 % (32.0-36.0); MCV 89 fL (80-95); MPV 11.2 fL (8.0-11.0); Monocytes % 10.1 %; Neutrophils % 60.6 %; Platelet Count 253 10^3/uL (130-400); RBC 4.11 10^6/uL (3.93-5.22); RDW 12.6 % (11.7-14.6); WBC 4.55 10^3/uL (4.4-10.8)
[2023-12-11 10:22] LABS: ALT 34 U/L (14-59); AST 42 U/L (15-37); Albumin 3.9 g/dL (3.4-5.0); Alkaline Phosphatase 85 U/L (46-116); Anion Gap 6.9 mmol/L (3-11); BUN 11 mg/dL (7-18); Bilirubin, Total 0.74 mg/dL (0.2-1.0); CO2 30.1 mmol/L (21.0-32.0); CREATININE 0.8 mg/dL (0.55-1.02); Calcium 9.1 mg/dL (8.5-10.1); Chloride 106 mmol/L (98-107); Estimated GFR 83.78 (mL/min/1.73m2); Glucose 104 mg/dL (74-106); Magnesium 1.4 mg/dL (1.8-2.4); Potassium 3.3 mmol/L (3.5-5.1); Sodium 143 mmol/L (136-145); Total Protein 7.1 g/dL (6.4-8.2)
--- NOTE | 2023-12-11 10:43 | W.ED.GENAD ---
Discharge Plan Disposition Patient Disposition: Transfer-Acute Inpatient Care Specific Acute Inpt Facility: [facility] Discharge Details Clinical Impression: Arachnoid cyst, Intracranial hemorrhage, Hypomagnesemia, Acute hypokalemia, Seizure after head injury Primary Care Provider: Bhakti Nieves ED Provider: Viraj Amin Home Meds and New Rx's Prescriptions: No Action sumatriptan [Imitrex] 5 mg/actuation [place],Non-Aerosol 5 mg INTRANASAL ONCE levetiracetam [Keppra] 500 mg tablet 500 mg PO BID Qty: 14 0RF Discharge Data Discharge Date/Time-TO BE ENTERED AT DEPARTURE: 12/11/23 14:14 HPI General Mode of arrival: ambulatory. Date/Time Provider Initiated Documentation: 12/11/23 09:47. Limitations to Documentation: no limitations. Information obtained by: patient. HPI Narrative: 63-year-old female presents with deteriorating mentation and recurrent seizure, 1 week after thrown from horse with head trauma. Patient was seen here in the emergency department on 12/05/2023 after being thrown from a horse, sustaining head injury, and experiencing loss of consciousness with seizure activity. On head CT, patient was found to have cystic lesion right frontal lobe causing significant mass effect upon the right lateral ventricle with midline shift of 10 to 13 mm. Acute hemorrhage was seen layering within the dependent portion of the cyst. The cyst had been seen 6 years prior and had increased in size. Patient was doing quite well, mentating normally and ambulating without difficulty at time of discharge. Patient and notes significant decline over the past week. Patient is now having difficulty ambulating. He is concerned she may be dragging her left leg. He notes increased confusion. Patient notes intermittent headache. She has low energy. She did have an episode of vomiting last week. Related Data Home Medications ?Medication ?Instructions ?Recorded ?Confirmed sumatriptan 5 mg/actuation nasal 5 mg intranasal ONCE 01/08/19 12/11/23 spray (Imitrex) levetiracetam 500 mg tablet 500 mg PO BID #14 tabs 12/05/23 12/11/23 (Keppra) Previous Rx's ?Medication ?Instructions ?Recorded levetiracetam 500 mg tablet 500 mg PO BID #14 tabs 12/05/23 (Keppra) Allergies Allergy/AdvReac Type Severity Reaction Status Date / Time povidone-iodine (From Allergy Mild itchy and Verified 12/11/23 09:27 Betadine) red soap (From Betadine) Allergy Mild itchy and Verified 12/11/23 09:27 red General Stated Complaint: AMS/LOC IKER: 2 Review of Systems All systems reviewed & are unremarkable except as noted in HPI and below Constitutional Constitutional: Denies fever(s) Neurologic Neurologic: Reports as per HPI Exam Const General: cooperative and no acute distress [facility] Head: normocephalic and atraumatic Mouth: moist mucous membranes Eyes Conjunctivae: normal conjunctivae Sclera: normal sclerae EOM: EOM intact bilaterally Resp Auscultation: clear to auscultation bilaterally, no rales, no rhonchi and no wheezes Cardio Rate: regular rate and not tachycardic Rhythm: regular rhythm GI Palpation: soft, not firm, no guarding, no masses, not rigid and nontender Skin General skin exam: no rashes or lesions noted Neuro General: patient alert, patient awake, oriented (monday) Patient Orientation: Person, Place and Confused and tone normal Cognition: abnormal cognition (Slowed responses, flat affect) Speech: speech normal Motor: strength not 5/5 throughout and other (Subtle weakness left upper and left lower extremity compared to right) Sensory Exam: no sensory deficits noted Extrem General: no edema Psych Appearance: grossly normal Mental Status: mental status grossly abnormal (Slowed responses) Course Vital Signs Vital signs: Vital Signs Pulse 59 L 12/11/23 09:23 Respiratory Rate 20 12/11/23 09:23 Blood Pressure 150/88 H 12/11/23 09:23 Pulse Oximetry 98 12/11/23 09:23 Pulse 55 L 12/11/23 10:00 Respiratory Rate 17 12/11/23 10:00 Respiratory Effort Normal, Non-Labored 12/11/23 09:27 Blood Pressure 135/90 12/11/23 10:00 Blood Pressure Position Sitting 12/11/23 09:23 Pulse Oximetry 99 12/11/23 10:00 Oxygen Delivery Method Room Air 12/11/23 10:00 Oxygen Flow Rate 0 12/11/23 10:00 Pain Level 0 12/11/23 09:23 Lab/Test Results Lab/Test Results: Laboratory Tests Range/Units 12/11/23 09:32 WBC (4.4-10.8) 10^3/uL 4.55 RBC (3.93-5.22) 10^6/uL 4.11 Hgb (11.2-15.7) g/dL 12.5 Hct (36.0-46.0) % 36.7 MCV (80-95) fL 89 MCH (27.0-33.0) pg 30.4 MCHC (32.0-36.0) % 34.1 RDW (11.7-14.6) % 12.6 Plt Count (130-400) 10^3/uL 253 MPV (8.0-11.0) fL 11.2 H Immature Gran % % 0.2 Neutrophils % % 60.6 Lymphocytes % % 22.9 Monocytes % % 10.1 Eosinophils % % 5.3 Basophils % % 0.9 Nucleated RBC % (0.0-0.3) % 0.0 Absolute Neutrophils (1.2-6.7) 10^3/uL 2.76 Absolute Lymphocytes (1.2-3.4) 10^3/uL 1.04 L Absolute Monocytes (0.1-0.8) 10^3/uL 0.46 Absolute Eosinophils (0.0-0.7) 10^3/uL 0.24 Absolute Basophils (0.0-0.2) 10^3/uL 0.04 Sodium (136-145) mmol/L 143 Potassium (3.5-5.1) mmol/L 3.3 L Chloride (98-107) mmol/L 106 Carbon Dioxide (21.0-32.0) mmol/L 30.1 Anion Gap (3-11) mmol/L 6.9 BUN (7-18) mg/dL 11 Creatinine (0.55-1.02) mg/dL 0.8 Est GFR (CKD-EPI 2020) (mL/min/1.73m2) 83.78 Glucose (74-106) mg/dL 104 Calcium (8.5-10.1) mg/dL 9.1 Magnesium (1.8-2.4) mg/dL 1.4 L Total Bilirubin (0.2-1.0) mg/dL 0.74 AST (15-37) U/L 42 H ALT (14-59) U/L 34 Alkaline Phosphatase (46-116) U/L 85 Total Protein (6.4-8.2) g/dL 7.1 Albumin (3.4-5.0) g/dL 3.9 Medical Decision Making 1055 --63-year-old female presents 6 days status post traumatic head injury with worsening mentation, headache, subtle left sided weakness, and recurrent seizure today. Patient has been taking Keppra as prescribed. Patient is hemodynamically stable. Saturating well in no respiratory distress. I do appreciate subtle weakness left upper and left lower extremity compared to right. CT of the head to assess for worsening hemorrhage or swelling was interpreted by radiology: Small increased area of hemorrhage, no change in mass effect. HOB [address] imaging sent to [facility]. I will contact for stat consult with neurosurgery. 1113 --awaiting callback from [facility] neurosurgery. Labs reviewed and hypomagnesemia noted. Hypokalemia noted. I will give IV magnesium and potassium. 1140 --I spoke with neurosurgery at [facility], discussed ED presentation course, requested transfer, they will review imaging and be calling back. They recommended obtaining neuro consult. I will initiate teleneurology consultation. 1211 -- Spoke with Dr. Aparicio, discussed ED presentation and course, he recommends loading with keppra and transfer to [facility] ED. Dr. Desir to accept patient in transfer. Lab Data Lab results reviewed: Yes I reviewed the patient's lab results. Labs: Laboratory Tests Range/Units 12/11/23 09:32 WBC (4.4-10.8) 10^3/uL 4.55 RBC (3.93-5.22) 10^6/uL 4.11 Hgb (11.2-15.7) g/dL 12.5 Hct (36.0-46.0) % 36.7 MCV (80-95) fL 89 MCH (27.0-33.0) pg 30.4 MCHC (32.0-36.0) % 34.1 RDW (11.7-14.6) % 12.6 Plt Count (130-400) 10^3/uL 253 MPV (8.0-11.0) fL 11.2 H Immature Gran % % 0.2 Neutrophils % % 60.6 Lymphocytes % % 22.9 Monocytes % % 10.1 Eosinophils % % 5.3 Basophils % % 0.9 Nucleated RBC % (0.0-0.3) % 0.0 Absolute Neutrophils (1.2-6.7) 10^3/uL 2.76 Absolute Lymphocytes (1.2-3.4) 10^3/uL 1.04 L Absolute Monocytes (0.1-0.8) 10^3/uL 0.46 Absolute Eosinophils (0.0-0.7) 10^3/uL 0.24 Absolute Basophils (0.0-0.2) 10^3/uL 0.04 Sodium (136-145) mmol/L 143 Potassium (3.5-5.1) mmol/L 3.3 L Chloride (98-107) mmol/L 106 Carbon Dioxide (21.0-32.0) mmol/L 30.1 Anion Gap (3-11) mmol/L 6.9 BUN (7-18) mg/dL 11 Creatinine (0.55-1.02) mg/dL 0.8 Est GFR (CKD-EPI 2020) (mL/min/1.73m2) 83.78 Glucose (74-106) mg/dL 104 Calcium (8.5-10.1) mg/dL 9.1 Magnesium (1.8-2.4) mg/dL 1.4 L Total Bilirubin (0.2-1.0) mg/dL 0.74 AST (15-37) U/L 42 H ALT (14-59) U/L 34 Alkaline Phosphatase (46-116) U/L 85 Total Protein (6.4-8.2) g/dL 7.1 Albumin (3.4-5.0) g/dL 3.9 Quality:SDOH Health Related Social Needs: No Data to Display Critical Care Time Critical Care Time Critical Care Time: Yes Total Critical Care Time: 40 Attestation: I spent 40 minutes addressing this patient's immediate life threats - see [facility] All Active Problems (Updated 12/11/23 @ 12:13 by Viraj Amin MD) Seizure after head injury (Acute) Acute hypokalemia (Acute) Hypomagnesemia (Acute) Intracranial hemorrhage (Acute) Arachnoid cyst (Acute) Brain cyst (Acute) Acute intra-cranial hemorrhage (Acute) History of colon polyps (Acute) Medical History Amaurosis fugax Aortic insufficiency Migraine Adenomatous polyps 03/13/13 w/ Dr. Galen Hickey @ [facility], Tubular adenoma 01/11/19 Dr Ciara Kohler, normal, repeat 5 years due to hx of tubular adenoma Surgical History [place] teeth extracted History of removal of ovarian cyst History of tubal ligation History of colonoscopy Social History Smoking/Tobacco Use Status: Never Smoking risk assessment performed?: Yes Alcohol Intake: current Alcohol Intake frequency: holidays/special occasions only Alcohol type: wine Substance use type: does not use Do you feel safe at home: Yes Do you feel safe in your relationship?: Yes
[2023-12-11] MEDS: MAGNESIUM SULFATE 1 GM/100 ML BAG IVINF (12:04)
[2023-12-11] MEDS: Potassium Chloride 20 MEQ TABCR PO (12:04)
[2023-12-11] MEDS: levETIRAcetam 1,000 MG in Normal Saline 100 ML 400 MG IVPB ×2 (12:34→14:10)
[2023-12-11] MEDS: ACETAMINOPHEN 1,000 MG/100 ML BTL 400 MG IVPB (13:40)
--- NOTE | 2023-12-11 14:12 | NUR.NOTE ---
Nursing Note: pt able to stand and pivot to ambulance stretcher. Stood and ambulated short distance to bathroom prior to boarding ambulance; standby assist provided and patient remained steady. Ambulated short distance back to stretcher with standby assist.
[2023-12-11 14:14] VITALS: BP 135/90; PULSE 55; RESP 16; RESP 17; O2SAT 99
== END 2023-12-11 14:14 | disposition short-term general hospital (02) ==
PROVIDERS: Emergency Provider Student in an Organized Health Care Education/Training Program; PCP Family Medicine
DX: R56.1 Post traumatic seizures (principal); I62.9 Nontraumatic intracranial hemorrhage, unspecified; R51.9 Headache, unspecified; R53.1 Weakness; E87.6 Hypokalemia; E83.42 Hypomagnesemia; G93.0 Cerebral cysts; Z91.81 History of falling
CPT/HCPCS: 36415; 80053; 96365; 96366; 96368; 96375; 99291; 70450; 83735; 85025; J0131; J1953; J3475

== ENCOUNTER 2024-02-19 11:13 | Outpatient (CLI) | payer BC, SELFPAY ==
[2024-02-19 10:07] LABS: Abs Immature Grans 0.01 10^3/uL (0.0-0.06); Absolute Basophil Count 0.03 10^3/uL (0.0-0.2); Absolute Lymphocyte Count 1.01 10^3/uL (1.2-3.4); Absolute Monocyte Count 0.52 10^3/uL (0.1-0.8); Absolute Neutrophil Count 2.43 10^3/uL (1.2-6.7); Basophils % 0.7 %; Eosinophils % 4.8 %; HCT 35.3 % (36.0-46.0); HGB 11.7 g/dL (11.2-15.7); Immature Grans % 0.2 %; MCH 30.9 pg (27.0-33.0); MCHC 33.1 % (32.0-36.0); MCV 93 fL (80-95); Monocytes % 12.4 %; Neutrophils % 57.9 %; Platelet Count 237 10^3/uL (130-400); RBC 3.79 10^6/uL (3.93-5.22); RDW 12.4 % (11.7-14.6)
[2024-02-19 11:10] LABS: ALT 51 U/L (14-59); AST 41 U/L (15-37); Albumin 3.9 g/dL (3.4-5.0); Alkaline Phosphatase 120 U/L (46-116); Bilirubin, Direct 0.1 mg/dL (0.0-0.2); Bilirubin, Total 0.71 mg/dL (0.2-1.0)
== END 2024-02-19 11:14 | disposition home or self-care (01) ==
LOC: LBO 11:14
PROVIDERS: PCP Family Medicine; Visit Provider Occupational Therapist
DX: G93.0 Cerebral cysts (principal)
CPT/HCPCS: 36415; 80076; 85025

== ENCOUNTER 2024-04-16 01:40 | Outpatient (CLI) | payer BC, SELFPAY ==
--- NOTE | 2024-04-16 07:30 | DI.RAD_ITS ---
Exam(s) XR FOOT RT COMPLETE EXAM: XR FOOT RT COMPLETE CLINICAL HISTORY: RT FOOT AND TOE PAIN,M79.671.,M79.674. TECHNIQUE: 2D digital imaging was performed. COMPARISON: No exams were available for comparison FINDINGS: 3 views No evidence of fracture or diastasis of the Lisfranc joint. Hallux valgus noted. Mild degenerative changes are evident in the great toe metatarsophalangeal joint. There is a small bony excrescence of f the lateral aspect of the head of the 2nd metatarsal. Also marginal osteophyte off the adjacent la teral aspect of the base of the proximal phalanx of the 2nd toe. Other metatarsal heads appear unrem arkable. There is pes planus. Moderate size inferior calcaneal spur. There are similar appearing smooth eros ions on the dorsal aspects of the navicular and medial cuneiform, probably degenerative. IMPRESSION: No fractures but multilevel findings as described individually above. Also pes planus. DATA REPOSITORY: RADIATION DOSE DELIVERED:
== END 2024-04-16 02:00 ==
LOC: DI 01:41
PROVIDERS: PCP Family Medicine; Visit Provider Podiatrist
DX: M79.671 Pain in right foot (principal)
CPT/HCPCS: 73630

== ENCOUNTER 2024-04-26 01:50 | Outpatient (CLI) | payer BC, SELFPAY ==
--- OUTSIDE RECORDS SUMMARY | 2024-04-26 01:58 | XMS_ITS | Encounter Summary ---
Author Organization [facility] Address [facility] [place] [address] Care Team Providers Care Medical Imaging Technician Name Role Phone Bhakti Nieves MD Primary Care Provider [phone] Encounter Details Date Type Department Care Team (Late st Contact Info) Description 04/05/2024 Orders [place] [address] Diana Ferraro APRN [facility] [place] [address] Chronic pain of both knees Social History Tobacco Use Types Packs/Day Years Used Date Smoking Tobacco: Never Smokeless Tobacco: Never Alcohol Use Standard Drinks/Week Comments Never 0 (1 standard drink = 0.6 oz pur e alcohol) [facility] Utilities Answer Date Recorded In the past 12 months has [employer], gas, oil, or water [employer] threatened to shut off services in your home? No 12/12/2023 Hunger Vital Sign Answer Date Recorded Within the past 12 months, y ou worried that your food would run out before you got the money to buy more. Never true 12/12/19 24 Within the past 12 months, t he food you bought just didn't last and you didn't have money to get more. Never true 12/12/2023 PRAPARE - Transportation Answer Date Re corded In the past 12 months, has l ack of transportation kept you from medical appointments or from getting medications? No 11/29 In the past 12 months, has l ack of transportation kept you from meetings, work, or from getting things needed for daily living? No 12/12/2023 Housing Stability Vital Sign Answer Carlos e Recorded In the last 12 months, was t here a time when you were not able to pay the mortgage or rent on time? No 12/12/2023 In the past 12 months, how m any times have you moved where you were living? 0 12/12/2023 At any time in the past 12 m [facility], were you homeless or living in a intermediate (including now)? No 12/12/2023 IPV Inpatient Questions Answer Date Recorded Does Anyone Try to Keep You From Having Contact with Others or Doing Things Outside Your Home? unable to answer (comment required) 12/25/2023 Feels Threatened by Someone unable to an swer (comment required) 12/25/2023 Feels Unsafe at Home or Work/School unab le to answer (comment required) 12/25/2023 Physical Signs of Abuse Present no 12/25/2023 Sex and Gender Information Value Date Recorded Sex Assigned at Not on file Gender Identity Not on file Sexual Orientation Not on file documented as of this encounter Plan of Treatment Upcoming Encounters Date Type Department Care Team (Late st Contact Info) Description 09/03/2024 9:00 AM EDT Office [place] [address] Zac Rousseau MD [facility] [place] [address] documented as of this encounter Visit Diagnoses Diagnosis Chronic pain of both knees documented in this encounter Care Teams Medical Imaging Technician Relationship Specialty Start Date End Date Bhakti Nieves MD [address] [place] [address] PCP - General Family Medicine 04/08/22 documented as of this encounter
--- OUTSIDE RECORDS SUMMARY | 2024-04-26 01:58 | XMS_ITS | Encounter Summary ---
Author Organization [facility] Address [facility] [place] [address] Care Team Providers Care Workers Compensation Defense Attorney Name Role Phone Bhakti Nieves MD Primary Care Provider [phone] Reason for Visit * Reason Onset Date Comments Other 04/18/2024 Encounter Details Date Type Department Care Team (Late st Contact Info) Description 04/18/2024 Telephone [place] [phone] Zac Rousseau MD [facility] [place] [address] Other Social History Tobacco Use Types Packs/Day Years Used Date Smoking Tobacco: Never Smokeless Tobacco: Never Alcohol Use Standard Drinks/Week Comments Never 0 (1 standard drink = 0.6 oz pur e alcohol) [facility] Utilities Answer Date Recorded In the past 12 months has e [facility], gas, oil, or water [email or web address] threatened to shut off services in your [...] any time in the past 12 m onths, were you homeless or living in a custodial (including now)? No 12/12/2023 DH IPV Inpatient Questions Answer Date Recorded Does [...] on file documented as of this encounter Miscellaneous Notes * Telephone Encounter - Arleen Concepcion RN - 04/19/2024 10:31 AM EST Spoke with patient. Made aware that per Dr. Rousseau: ok to have the labs and EKG done at [facility]. Patient/caller in agreement and verbalized understanding of the plan. Orders electronically faxed to [facility]. * Telephone Encounter - Gilma Gaytan RN - 04/18/2024 3:13 PM EST Copied from [facility] #[id number]. Topic: Specialty Dept CRMs - Orders >> Apr 18, 2024 2:08 PM Rizwana Wood wrote: Orders Request Specialist: Zac Rousseau MD Relationship (if other than patient-full name): patient Type of Request: [x] Input orders - At patient's TH on 04/16/24 Dr. Rousseau noted: At ten days' time, if tolerating medication would check blood levels of lacosamide and levetiracetam as well as EKG (both ordered now). The Levetiracetam level lab order is not in chart. Type/Name of Order: Other: EKG 12 Lead, Lacosamide Level, Levetiracetam level Patient Requesting to Have Orders Sent to Facility Outside of [facility]: Yes If Yes, Name of Facility: [facility] Address: [address] [place] [address] Dr, [place] [address] Phone #: [phone] Fax #: unsure Patient wasn't sure if Dr. Rousseau wanted her to have all this done at but patient would like to get it done at [facility] because it is much closer to her home. Please call patient to advise. Thanks! 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
--- OUTSIDE RECORDS SUMMARY | 2024-04-26 01:58 | XMS_ITS | Encounter Summary ---
Author Organization [facility] Address [facility] [place] [address] Care Team Providers Care Drywall Taper Helper Name Role Phone Bhakti Nieves MD Primary Care Provider [phone] Encounter Details Date Type Department Care Team (Latest Contact Info) Description 04/16/2024 10:30 AM EST TH Visit (TeleHealth) [place] [address] Zac Rousesau MD [facility] [place] [address] Focal epilepsy (Primary Dx); Encounter for medication monitoring Social History Tobacco Use Types Packs/Day Years Used Date Smoking Tobacco: Never Smokeless Tobacco: Never Alcohol Use Standard Drinks/Week Comments Never 0 (1 standard drink = 0.6 oz pur e alcohol) [facility] Utilities Answer Date Recorded In the past 12 months has th e [employer], gas, oil, or water [employer] threatened to shut off services in your [...] any time in the past 12 m [facility], were you homeless or living in a chcf (including now)? No 12/12/2023 [facility] Inpatient Questions Answer Date Recorded Does Anyone [...] on file documented as of this encounter Patient Instructions * Patient Instructions* Zac Rousseau MD - 04/16/2024 10:[address] Valverde, It was a pleasure to see you in clinic today. As a summary: Start lacosamide (Vimpat) 50 mg (1/2 tablet) every 12 hours After 5 days, can increase to 100 mg (1 tablet) every 12 hours. At ten days' time, if tolerating medication would check blood levels of lacosamide and levetiracetam as well as EKG. Would then decrease levetiracetam to 250 mg every 12 hours. Further wean based on levels and tolerability (please reach out to office to discuss.) Follow-up scheduled in August. Zac Rousseau MD [facility] Neurology documented in this encounter Progress Notes * Zac Rousseau MD - 04/16/2024 10:30 AM EST Images from the original note were not included. [facility] Department of Neurology Interval history: - had persistent fatigue, personality/mood changes, and vivid disruptive dreams on LEV. Self-decreased to 500/250 on Sep 6 for this reason, but some side effects persist - interested in trying alternate medication - no additional seizures reported Presenting history 63yo female with hx of an arachnoid cyst, dx at [facility], lost to follow-up since 2018, which was found to be enlarged compared to prior imaging on work-up for concern for seizure activity with LEFT sided weakness after a fall off a horse on 12/05/2023 s/p fenestration on 12/25/[address] Miranda with interval CT Head continue to show improvement in mass effect with partial drainage of cyst. Referred to neurology for anti-seizure medication management. As per Dr. Tomlinson's 12/11/2023 consult: She presented to the emergency room and there was bleeding in the right hemisphere that was considered either consistent with subarachnoid hemorrhage versus intracystic. Neurosurgery consultation suggested brain MRI and a visit with Dr. Miranda as outpatient. Yesterday around 5 PM she had another generalized convulsive seizure lasted for 45 seconds at least and resulted in loss of consciousness. Itwas witnessed by her daughter. ... She received a loading dose of 2g Keppra at outside hospital 12/10, 12/11 Keppra dose increased from 500mg BID to 1000mg BID. Video EEG with right hemispheric LPDs, that improved with Keppra dosing. Reassuringly, no seizures seen during hospitalization and LPDs were no longer seen on EEG since increasing Keppra dose. She was discharged on this dose. Level was 35.2 on 12/12. Since discharge, has had persistent side effects attributed in part to the levetiracetam. She had eventually reduced dosing to 500 mg bid from 1000 mg bid with improvement in these symptoms. Today's level is 17.8 mid-day. She had discussed starting valproic acid with neurosurgery but deferred that decision until this appointment. No childhood seizures, lifetime history of staring spells. No nocturnal convulsions/events. No auras or sudden autonomic symptoms. Doing very well overall after ventricular procedure. Review of Systems: ROS Allergies: Allergies Allergen Reactions Betadine [Povidone-Iodine] Rash Medications: Current Outpatient Medications: lacosamide (Vimpat) 100 mg tablet, Take 1 tablet by mouth every 12 hours. Indications: additional medication to treat partial seizures, Disp: 60 tablet, Rfl: 2 Ibuprofen 200 mg Capsule, Take 200 mg by mouth as needed., Disp: , Rfl: levETIRAcetam (Keppra) 500 mg tablet, Take 1 tablet by mouth 2 times daily., Disp: 60 tablet, Rfl: 12 multivitamin (THERAGRAN) Tablet, Take 1 tablet by mouth daily., Disp: , Rfl: SUMAtriptan (IMITREX) 5 mg/actuation [place], Non-Aerosol, USE 2 SPRAYS IN EACH NOSTRIL ONCE DAILY ASNEEDED, Disp: , Rfl: Medical history & active problems Patient Active Problem List Diagnosis Code Primary osteoarthritis of left knee M17.12 Primary osteoarthritis of right knee M17.11 Arachnoid cyst G93.0 Intracranial arachnoid cysts G93.0 Chronic pain of both knees M25.561, M25.562, G89.29 No past medical history on file. Past Surgical History: Procedure Laterality Date PRO NEUROENDOSCOP, DISS ADHESION/FENESTRATION Right 12/25/2023 @NEUROENDOSCOPY, IC, W/ DISSECT ADHESIONS, FENESTRATION PELLUCIDUM OR CYSTS (WRVU 21.23) performed by Daniel Miranda MD at [facility] PRO STEREOTACTIC CPTR ASSTD PX CRANIAL, INTRADURAL N/A 12/25/2023 STEREOTACTIC COMPUTER-ASSTD NAVIGATIONAL CRANIAL INTRADURAL (WRVU 3.75) performed by Daniel Miranda MD at [facility] OBGYN: Postmenopausal Social History Socioeconomic History Marital status: Spouse name: Not on file Number of children: Not on file Years of education: Not on file Highest education level: Not on file Occupational History Not on file Tobacco Use Smoking status: Never Smokeless tobacco: Never Vaping Use Vaping status: Never Used Substance and Sexual Activity Alcohol use: Never Drug use: Never Sexual activity: Never Other Topics Concern Not on file Social History Narrative Not on file Social Determinants of Health Financial Resource Strain: Not on file Food Insecurity: No Food Insecurity (12/12/2023) Hunger Vital Sign Worried About Running Out of Food in the Last Year: Never true Ran Out of Food in the Last Year: Never true Transportation Needs: No Transportation Needs (12/12/2023) PRAPARE - Transportation Lack of Transportation (Medical): No Lack of Transportation (Non-Medical): No Physical Activity: Not on file Intimate Partner Violence: Patient Unable To Answer (12/25/2023) DH IPV Inpatient Questions Prevent Contact with Others: unable to answer (comment required) Feels Threatened by Someone: unable to answer (comment required) Feels Unsafe at Home: unable to answer (comment required) Physical Signs of Abuse Present: no Housing Stability: Low Risk (12/12/2023) Housing Stability Vital Sign Unable to Pay for Housing in the Last Year: No Number of Times Moved in the Last Year: 0 Homeless in the Last Year: No Physical Examination: Vital signs: There were no vitals taken for this visit. GEN: well-appearing, sitting in examination room. Posture is upright while sitting. No assistive devices. SKIN: no rashes or lesions on face/neck or exposed skin. HEENT: : - Nonicteric sclerae, conjunctivae clear. - Visualized fundus with normal appearing vessels OU - Oropharynx clear with moist mucous membranes. - No nasal discharge. External auditory canals unremarkable. - Full ROM in neck. No cervical point tenderness. HEART: Regular rate. LUNGS: No coughing or wheezing. Non-labored breathing. Equal air entry bilaterally. SPINE: No apparent gross deformity. Curvature of the cervical, thoracic, and lumbar spine are within normal limits. Bony features of the shoulders and hips are of equal height bilaterally. EXTREMITIES: Warm and dry in all limbs. No clubbing, cyanosis, or edema. Mental status: Alert, fully oriented to person, day of week, date/month/year, building/floor. Attentive; serial 7 & RABBIT backwards intact Autobiographical and short-term memory intact; registration 3/3, recall 3/3 Follows simple and complex commands across midline. Language fluent in conversation. No dysarthria or paraphasic errors. Repetition and naming intact. Cranial nerves: II: visual acuity grossly intact. Peripheral vision intact to counting. Optic disks with sharp margins/no papilledema OU III/IV/: Pupils equal. Brisk direct & consensual response to light. Full EOM including upgaze. Normal accomodation. Normal smooth pursuit without saccadic breakdown. No nystagmus. No ptosis V: facial sensation intact/symmetric to touch. Normal masseter activation VII: Expression symmetric at rest. Brisk, symmetric activation. VIII: Hearing intact to finger rub. IX, X: Uvula midline. Palate elevates symmetrically. Normophonic. XI - Normal trapezius activation and strength XII - Tongue protrudes midline. Motor: Normal bulk. Normal tone in arms and legs. Pronator drift absent Fine motor movements intact. No bradykinesia. Normal facial expression No abnormal involuntary movements at rest or intention Power is full to confrontation in major muscle groups. Sensory: Intact to light touch, pain/temperature Romberg absent No extinction to double simultaneous stimulation across midline Deep tendon reflexes: symmetric Coordination: Igecwb-vwbe-[id number] testing intact Ppwb-bh-[id number] No truncal ataxia Finger tapping with normal amplitude and speed, symmetric Gait/station: Normal based stance, upright posture Equal stride length with symmetric armswing. Steady gait, turns easily without pivoting Diagnostic Studies: Recent/relevant labs Latest Reference Range & Units 12/13/23 13:37 03/01/24 11:00 Levetiracetam Lvl (AUGUST) 10.0 - 40.0 mcg/mL 35.2 17.8 Recent CrCl CrCl cannot be calculated (Patient's most recent lab result is older than the maximum 30 days allowed.). Recent EKG Latest Reference Range & Units 12/11/23 16:10 12/11/23 20:12 12/13/23 11:09 Ventricular rate BPM 67 48 52 Atrial Rate BPM 67 48 52 P-R Interval ms 152 160 154 QRS Duration ms 72 74 88 Q-T Interval ms 432 450 472 QTC Calculated (Bezet) ms 456 402 438 Calculated P [place] degrees 70 62 61 Calculated R [place] degrees 61 49 40 Calculated T [place] degrees 49 39 35 Recent neuroimaging & neurophysiology No results found. VEEG 12/11/2023 Background: The background was continuous and spontaneously reactive composed of normal voltage, with well organized anterior to posterior gradient with frontally predominant beta and posterior alpha frequencies. There was a 9-10 Hz posterior dominant rhythm that attenuated with eye opening. Focal Asymmetries: Continuous slowing and attenuation of R hemisphere Sleep: Sleep was marked by decreased myogenic artifact and increased slowing. Asymmetric N2 sleep transients including sleep spindles and K complexes, attenuated over the R hemisphere. REM was not recorded. Interictal Activity: 1) Frequent-abundant R parietal maximal lateralized periodic discharges (LPDs) with 1.5-2Hz frequency 2)Occassional-frequent moderate amplitude sporadic sharp waves arising from the R parietal region (P4 maximal) Patient Events or Seizures: No patient events or electrographic seizures were recorded. Provocative Maneuvers: Hyperventilation and photic stimulation were not performed. EKG: Single lead EKG was regular Technical Limitations: None INTERPRETATION: This 7 hour 1 minute recording of continuous video EEG was abnormal due to the presence of: Interictal: 1)Frequent-abundant R parietal sharp waves and LPDs 2)Continuous R hemispheric slowing and attenuation Ictal: 1)No discrete seizures were seen CTH w/o 01/23/2024 COMPARISON: CT head 12/25/2023, 12/11/2023 FINDINGS: Marked interval decrease in size of known right frontal cyst to 41 mm from 58 mm. Interval decrease in right to left midline shift to 4 mm from 15 mm. Interval decrease in mass effect upon adjacent sulci and right lateral ventricle. Resolution of intralesional gas. Basal cisterns are now patent. Interval resolution of downward and leftward brainstem displacement. Weaver-white differentiation is preserved. No new intracranial hemorrhage or extra-axial fluid collection. Orbits of normal appearance. Minimal scattered ethmoid sinus mucosal thickening. Paranasal sinuses otherwise clear. Right frontal rosa elena hole for fenestration/drainage of large right cyst again seen. IMPRESSION Interval partial drainage/fenestration of large right frontal cyst with decreased mass effect. 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 She has been seizure and aura free since the event and tolerating LEV 500 bid slightly better than prior 1000 mg bid dosing, but still with persistent side effects. Now on 750 mg TDD. Discussed lacosamide (Vimpat), oxcarbazepine, lamotrigine, as alternatives. She had a slight preference for lacosamide based on mild side effect profile and speed of cross-titration. This would be myrecommendation as well. Start lacosamide (Vimpat) 50 mg (1/2 tablet) every 12 hours After 5 days, can increase to 100 mg (1 tablet) every 12 hours. At ten days' time, if tolerating medication would check blood levels of lacosamide and levetiracetam as well as EKG (both ordered now) Would then decrease levetiracetam to 250 mg every 12 hours. Further wean based on levels and tolerability (please reach out to office to discuss.) Return to care 3-4 months' time. I spent a total of 35 minutes on this [id number] encounter on the date of service. This included: [x] Preparing to see the patient, review of laboratory test results and medical record [x] Independently interpreting neuroimaging or neurophysiological results [] Obtaining and/or reviewing separately obtained history (eg, outside records, caregiver) [x] Counseling and educating the patient/family/caregiver [] Referring and communicating with other health director critical care [x] Documenting clinical information in the electronic or other health record [] Care coordination Zac Rousseau MD [employer] Department of Neurology [facility] documented in this encounter Plan of Treatment Upcoming Encounters Date Type Department Care Team (Late st Contact Info) Description 09/03/2024 9:00 AM EDT Office [place] [address] Zac Rousseau MD [facility] [place] [address] Scheduled Orders Name Type Priority Associated Diagnoses Orde r Schedule Lacosamide Level Lab Routine Focal epilepsy Encounter for medication monitoring Expected: 04/30/2024 (Approximate), Expires: 10/30/2024 EKG 12 Lead ECG Routine Focal epilepsy Encounter for medication monitoring Expected: 04/30/2024, Expires: 10/15/2024 documented as of this encounter Visit Diagnoses Diagnosis Focal epilepsy- Primary Localization-related (focal) (partial) epilepsy and epileptic syndromes with simple partial seizures, without mention of intractable epilepsy Encounter for medication monitoring Encounter for therapeutic drug monitoring documented in this encounter Care Teams Drywall Taper Helper Relationship Specialty Start Date End Date Bhakti Nieves MD [address] [place] [address] PCP - General Family Medicine 04/08/22 documented as of this encounter
--- OUTSIDE RECORDS SUMMARY | 2024-04-26 01:58 | XMS_ITS | Clinical Summary ---
Author Organization [facility] Address One [facility] [place] [address] Care Team Providers Care Terrazzo Journeyman Name Role Phone Bhakti Nieves MD Primary Care Provider [phone] Allergies Active Allergy Reactions Criticality Noted Date Comments Povidone-Iodine Rash Low 12/25/2023 Medications Medication Sig Dispensed Refills Start Date End Date Status SUMAtriptan (IMITREX) 5 mg/actuation [place], Non-Aerosol USE 2 SPRAYS IN EACH NOSTRIL ONCE DAILY NEEDED 04/27/2022 Active multivitamin (THERAGRAN) Tablet Take 1 tablet by mouth daily. Active levETIRAcetam (Keppra) 500 mg tablet Take 1 tablet by mouth 2 times daily. 60 tablet 12 03/04/2024 Active Ibuprofen 200 mg Capsule Take 200 mg by mouth as needed. Active lacosamide (Vimpat) 100 mg tabletIndications:p artial epilepsy treatment adjunct Take 1 tablet by mouth every 12 hours. Indications: additional medication to treat partial seizures 60 tablet 2 04/16/2024 Active Active Problems Problem Noted Date Diagnosed Date Chronic pain of both knees 04/05/2024 Intracranial arachnoid cysts 12/25/2023 Overview (01/30/2024): an arachnoid cyst, dx at [facility], lost to follow-up since 2018, which was found to be enlarged compared to prior imaging on work-up for concern for seizure activity with LEFT sided weakness after a fall off a horse on 12/05/2023 s/p fenestration on 12/25/[address] Miranda Arachnoid cyst 12/11/2023 Primary osteoarthritis of left knee 05/05/2022 Primary osteoarthritis of right knee 05/05/2022 Encounters Date Type Department Care Team Description 04/18/2024 Telephone Neurology at [place] [phone] Zac Rousseau MD Other 04/16/2024 10:30 AM EST TH Visit (TeleHealth) [place] [address] Zac Rousseau MD Focal epilepsy (Primary Dx); Encounter for medication monitoring 04/05/2024 9:04 AM EST - 04/05/2024 11:59 PM EST Hospital Encounter XRay at [address] [place] [address] Chronic pain of both knees Discharge Disposition: Home 04/05/2024 8:30 AM EST Office Visit Orthopaedics at [place] [phone] Diana Ferraro APRN Chronic pain of both knees 04/05/2024 Orders [place] [address] Diana Ferraro APRN Chronic pain of both knees 04/05/2024 Travel 04/04/2024 [place] [address] Zac Rousseau MD Other; Anxiety ( Anxiety and Nightmares ) 03/29/2024 Travel 03/08/2024 Telephone [place] [address] Jaguar Morrison MD 03/01/2024 11:35 AM EDT Laboratory Appointment Lab [address] [place] [address] Seizures 03/01/2024 9:30 AM EDT Office [place] [address] Zac Rousseau MD Focal epilepsy; Seizures 03/01/2024 Travel 02/24/2024 Travel 02/19/2024 [place] [address] Alice Flowers RN 02/16/2024 [place] [address] Alice Flowers RN 02/16/2024 Orders [place] [address] Maria R Robertson APRN Arachnoid cyst 02/16/2024 [place] [address] Gilma Gaytan RN Medication Reaction 01/30/2024 2:20 PM EDT Office [place] [address] Alison Ramos PA Intracranial arachnoid cysts 01/30/2024 Travel from Last 3 Months Social History Tobacco Use Types Packs/Day Years Used Date Smoking Tobacco: Never Smokeless Tobacco: Never Tobacco Cessation:Counseling Given: No Alcohol Use Standard Drinks/Week Comments Never 0 (1 standard drink = 0.6 oz pur e alcohol) [facility] Utilities Answer Date Recorded In the past 12 months has th e [employer], gas, oil, or water [employer] threatened to shut off services in your [...] any time in the past 12 m [facility], were you homeless or living in a alf (including now)? No 12/12/2023 IPV Inpatient Questions [...] on file Sexual Orientation Not on file Last Filed Vital Signs Vital Sign Reading Time Taken Comments Blood Pressure 116/77 03/01/2024 9:22 AM EDT Pulse 70 03/01/2024 9:22 AM EDT Temperature 36.1 ??C (97 ??F) 01/30/2024 2:24 PM EDT Respiratory Rate 16 01/30/2024 2:24 PM EDT Oxygen Saturation 99% 01/30/2024 2:24 PM EDT Inhaled Oxygen Concentration - - Weight 60.8 kg (134 lb) 04/05/2024 8:22 AM EST v erbal Height 170.2 cm (5' 7) 04/05/2024 8:22 AM EST v erbal Body Mass Index 20.99 04/05/2024 8:22 AM EST Plan of Treatment Upcoming Encounters Date Type Department Care Team (Late st Contact Info) Description 09/03/2024 9:00 AM EDT Office [place] [phone] Zac Rousseau MD [facility] [place] [address] Health Maintenance Due Date Last Done Comments CT Colonography 1962 Colonoscopy 1962 Colorectal Cancer Screening 1962 FIT DNA 1962 FIT 1962 Sigmoidoscopy (10 year) with FIT yearly 1962 Sigmoidoscopy 1962 HIV screen 1980 Hepatitis C Screening 1980 Tetanus/Diphtheria/Pertussis Vaccines (1 - Tdap) 12/02 HPV test 1992 PAP Smear 1992 Breast Cancer Share Decision Needed 2002 Breast Cancer screening 2002 Zoster vaccine (1 of 2) 2012 Advance Directive 2017 Covid-19 Vaccine ( - 2023- season) 2023 Influenza (Flu) vaccine (1 o f 1 - Influenza standard series) 12/31/2023 Medical Devices Implanted Type Area Senior Informatica Developer Device Identifier Shelf Expiration Date Model / Serial / Lot Cover [place] Cranial 0.4x10mm Low Profile With Tab Ti ([id number]) - [id number] Implanted:Qty : 1 on 12/25/2023 by Daniel Miranda MD at [facility] IMPLANTS Right: Cranial Skills[employer]k FENG [id number] / / Screw Cmf 1.5x4mm Cranial Self Drilling Ti ([id number]) - [id number] Implanted:Qty : 2 on 12/25/2023 by Daniel Miranda MD at [facility] IMPLANTS Right: Cranial FENGSK biopharmaceuticalsYKER [id number] / / Procedures Procedure Name Priority Date/Time Associated Diagnosis Comments XR KNEE STANDING ALIGNMENT AP LAT [place] SKYLINE BILAT Routine 04/05/2024 9:31 AM EST Chronic pain of both knees LEVETIRACETAM LEVEL Routine 03/01/2024 1 1:00 AM EDT Seizures LAB SCAN 02/19/2024 12:00 AM EDT from Last 3 Months Results * XR Knee Standing Alignment AP Lat [place] Bilat (04/05/2024 9:31 AM EST) WORKSTATION ID [id number] RAD Anatomical Region Laterality Modality Bilateral Digital Radiogra phy Impressions 04/05/2024 11:57 AM EST Moderate bilateral knee osteoarthropathy with lower extremity varus alignment. I have personally reviewed the image(s) and the resident's interpretation and agree with the findings, Sandy Clemons MD at 04/05/2024 11:57 AM Thank you for letting us participate in the care of this patient. ??If you are a health care provider and have any questions regarding this report, please contact the number below. ??For patients who have questions please contact the health progressive care manager that requested your imaging first. ? Electronically signed by: Sandy Clemons MD, [facility] ([phone]), at 04/05/2024 11:57 AM Narrative 04/05/2024 11:57 AM EST EXAMINATION: XR KNEE STANDING ALIGNMENT AP LAT [place] SKYLINE BILAT CLINICAL HISTORY: bilat OA M25.561, Pain in right knee - M25.562, Pain in left knee - G89.29, Other chronic pain EXAMINATION: XR KNEE STANDING ALIGNMENT AP LAT [place] SKYLINE BILAT CLINICAL HISTORY: bilat OA TECHNIQUE: Separate images of the pelvis, knees and feet were acquired in the AP projection with the patient standing. These images were stitched together to form a composite image of the pelvis and legs allowing for evaluation of lower extremity alignment in the weight bearing position. Bilateral AP, PA Pearson, skyline and lateral knee radiographs are included. COMPARISON: Knee radiographs 03/14/2022 FINDINGS: Survey: Mild bilateral hip joint space narrowing with marginal osteophytes and subchondral sclerosis. Heterotopic calcification posterior to the right knee. Right knee: No acute fracture or dislocation. Moderate joint space narrowing with marginal osteophytes, subchondral cysts and sclerosis. Alignment is preserved. Small joint effusion. Left knee: No acute fracture or dislocation. Progression of moderate joint space narrowing of the medial compartment with marginal osteophytes and subchondral sclerosis. Alignment is preserved. Moderate joint effusion. Alignment: Right mechanical axis passes through the medial third of the tibial plateau. Left mechanical axis passes through the medial third of the tibial plateau. Procedure Note Sandy Clemons MD - 04/05/2024 EXAMINATION: XR KNEE STANDING ALIGNMENT AP LAT [place] SKYLINE BILAT CLINICAL HISTORY: bilat OA M25.561, Pain in right knee - M25.562, Pain in left knee - G89.29, Otherchronic pain EXAMINATION: XR KNEE STANDING ALIGNMENT AP LAT [place] SKYLINE BILAT CLINICAL HISTORY: bilat OA TECHNIQUE: Separate images of the pelvis, knees and feet were acquired inthe AP projection with the patient standing. These images were stitched togetherto form a composite image of the pelvis and legs allowing for evaluation oflower extremity alignment in the weight bearing position. Bilateral AP, [place], skyline and lateral knee radiographs are included. COMPARISON: Knee radiographs 03/14/2022 FINDINGS: Survey: Mild bilateral hip joint space narrowing with marginal osteophytesand subchondral sclerosis. Heterotopic calcification posterior to the rightknee. Right knee: No acute fracture or dislocation. Moderate joint spacenarrowing with marginal osteophytes, subchondral cysts and sclerosis. Alignment is preserved. Small joint effusion. Left knee: No acute fracture or dislocation. Progression of moderate jointspace narrowing of the medial compartment with marginal osteophytes andsubchondral sclerosis. Alignment is preserved. Moderate joint effusion. Alignment: Right mechanical axis passes through the medial third of the tibialplateau. Left mechanical axis passes through the medial third of the tibialplateau. IMPRESSION Moderate bilateral knee osteoarthropathy with lower extremity varusalignment. I have personally reviewed the image(s) and the resident's interpretationand agree with the findings, Sandy Clemons MD at 04/05/2024 11:57 AM Thank you for letting us participate in the care of this patient. If youare a health care provider and have any questions regarding this report,please contact the number below. For patients who have questions please contactthe health progressive care manager that requested your imaging first. Electronically signed by: Sandy Clemons MD, [facility]([phone]), at 04/05/2024 11:57 AM Diana Ferraro CASING RUNNING MACHINE TENDER IMG DX ORDERABLES * Levetiracetam level (03/01/2024 11:00 AM EDT) Levetiracetam Lvl August 17.8 10.0 - 40.0 mcg/mL 03/03/2024 1:04 PM EST REF [facility] Comment: ADDITIONAL INFORMATION This test was developed and its performance characteristics determined by [facility] in a manner consistent with CLIA requirements. This test has not been cleared or approved by the U.S. Food and Drug Administration. Blood VENOUS BLOOD SPECIMEN / Unknown Venipuncture / Unknown 03/01/2024 11:00 AM EDT 03/01/2024 11:00 AM EDT Narrative REF [facility] - 03/03/2024 1:04 PM EST Test Performed by: [place] [address] Outreach Educator: Manny Gabriel Ph.D.; CLIA# [id number] Zac Rousseau MD LAB SEND OUT ORDERAB LES REF LAB [address] * Scan Doc: Lab (02/19/2024 12:00 AM EDT) Narrative 02/19/2024 12:00 AM EDT Ordered by an unspecified provider. Scanning Provider MEDIA MGR SCAN EXT O RDR/RSLT from Last 3 Months Advance Directives Documents on File Type Date Recorded Patient Car Sander Expl anation Personal Car Sander 01/30/2024 3:24 PM zac dasilva * Attempt Cardiopulmonary Resuscitation - Inpatient (Latest Code Status on File) Date Activated Date Inactivated Comments 12/25/2023 1:03 PM 12/26/2023 2:49 PM Question Answer Comments Code Status decision made by: Patient Content of discussion: chest compressions if car diac arrest * Attempt Cardiopulmonary Resuscitation - Inpatient Date Activated Date Inactivated Comments 12/25/2023 7:07 AM 12/25/2023 1:03 PM Question Answer Comments Code Status decision made by: Patient Content of discussion: Chest compressions if car diac arrest * Attempt Cardiopulmonary Resuscitation - Inpatient Date Activated Date Inactivated Comments 12/11/2023 6:51 PM 12/14/2023 5:30 PM Question Answer Comments Code Status decision made by: Patient Content of discussion: full code Care Teams Terrazzo Journeyman Relationship Specialty Start Date End Date Bhakti Nieves MD [address] [place] [address] PCP - General Family Medicine 04/08/22
--- OUTSIDE RECORDS SUMMARY | 2024-04-26 01:59 | XMS_ITS | Encounter Summary ---
Author Organization [facility] [place] [address] Care Team Providers Care Electromechanical Engineer Name Role Phone Bhakti Nieves MD Primary Care Provider [phone] Reason for Visit * Reason Onset Date Comments Medication Reaction 02/16/2024 Encounter Details Date Type Department Care Team (Late st Contact Info) Description 02/16/2024 [place] [phone] Gilma Gaytan soa integration architect Reaction Social History Tobacco Use Types Packs/Day Years Used Date Smoking Tobacco: Never Smokeless Tobacco: Never Alcohol Use Standard Drinks/Week Comments Never 0 (1 standard drink = 0.6 oz pur e alcohol) [facility] Utilities Answer Date Recorded In the past 12 months has e [employer], gas, oil, or water [employer] threatened to shut off services in your [...] any time in the past 12 m [facility], were you homeless or living in a senior living (including now)? No 12/12/2023 DH IPV Inpatient [...] encounter Miscellaneous Notes * Telephone Encounter - Gilma Gaytan RN - 02/16/2024 9:39 AM EDT +++Hot Call+++ Call received from transfer center. Spoke with pt. States she was on Keppra 500mg BID prior to surgery and tolerated the medication did have ome headaches and brain fog but nothing unmanageable. Had her surgery in November (she doesn't really remember any of November) Started noticing they symptoms after surgery. Pt having paranoia, has the thoughts that she has a tumor that she was not told about and her was told and that she is going to . She knows this is not correct, but the thought is still there. Having other symptoms of paranoia. She states she is aware enough to know these are not true and when they started she knew something wasn't right so she read the medication insert and saw the side effects that can happen fro keppra. Neurosurgery instructed her to reach out to neurology regarding medication and pt does not feel shecan wait with these side effects until March appointment. Other side effects include insomnia, headaches, brain fog, but the paranoia is the worse. If blood work is needed she can have done at [facility] or [facility] if needed. Will be awaiting call back. documented in this encounter Plan of Treatment Upcoming Encounters Date Type Department Care Team (Late st Contact Info) Description 09/03/2024 9:00 AM EDT [place] [address] Zac Rousseau MD [facility] [place] [address] documented as of this encounter Visit Diagnoses Not on filedocumented in this encounter Care Teams Electromechanical Engineer Relationship Specialty Start Date End Date Bhakti Nieves MD [address] [place] [address] PCP - General Family Medicine 04/08/22 documented as of this encounter
--- OUTSIDE RECORDS SUMMARY | 2024-04-26 01:59 | XMS_ITS | Encounter Summary ---
Author Organization [facility] [place] [address] Care Team Providers Care Cover Cutter Machine Name Role Phone Bhakti Nieves MD Primary Care Provider [phone] Reason for Referral * Diagnostic Test (Routine) - Closed Specialty Diagnoses / Procedures Referred By Capo reyna Referred To Contact Radiology Diagnoses Arachnoid cyst Procedures CT Head wo Contrast (Generic) Alison Ramos PA [facility] [place] [address] [facility] [place] [address] Referral ID Status Reason Start Date Expiration Date V isits Requested Visits Authorized [id number] Closed Specialty Service Requested 01/12/2024 03/11/2024 1 1 Encounter Details Date Type Department Care Team (Late st Contact Info) Description 01/03/2024 3:40 PM EDT TH Visit (TeleHealth) [place] [address] Alison Ramos PA [facility] [place] [address] Arachnoid cyst Social History Tobacco Use Types Packs/Day Years Used Date Smoking Tobacco: Never Smokeless Tobacco: Never Alcohol Use Standard Drinks/Week Comments Never 0 (1 standard drink = 0.6 oz pur e alcohol) [facility] Utilities Answer Date Recorded In the past 12 months has th e electric, gas, oil, or water company threatened to shut off services in your [...] any time in the past 12 m [facility], were you homeless or living in a long-term (including now)? No 12/12/2023 DH IPV Inpatient [...] on file documented as of this encounter Progress Notes * Alison Ramos PA - 01/03/2024 3:40 PM EDT Images from the original note were not included. SECTION OF NEUROSURGERY Alyson Ridley Chasidymackenzie is a 63 yo female with hx of an arachnoid cyst, dx at [facility], lost to follow-upsince 2018, which was found to be enlarged compared to prior imaging on work-up for concern for seizure activity with LEFT sided weakness after a fall off a horse on 12/05/2023 s/p fenestration on 12/25/[address] Miranda with post-op CT Head showing interval partial drainage. Today Alyson reports that she is doing well. Reports developing diarrhea after discharge from the hospital, which has since resolved. Notes low grade headaches that respond to Tylenol and Celebrex. Endorses increased thirstiness and intermittent lightheadedness. Denies positional headaches or recent seizure-like activity. Notes the [facility] is likely going to be discharging her from home PT/OT in the next day or so. Continues to take diamox twice daily. No concerns with incision, is healing well.Is wondering how long she will need to be on keppra. Plan to decrease diamox to once daily, and keep suture removal and HCK as scheduled with CT Head woprior to HCK. Follow-up with Neurology to discuss plan for Keppra; referral was placed previously. Alison Ramos PA-C documented in this encounter Plan of Treatment Upcoming Encounters Date Type Department Care Team (Late st Contact Info) Description 09/03/2024 9:00 AM EDT [place] [address] Zac Rousseau MD [facility] [place] [address] documented as of this encounter Results * CT Head wo Contrast (Generic) (01/23/2024 9:29 AM EDT) WORKSTATION ID [id number] [facility] Anatomical Region Laterality Modality Head Computed Tomogra phy Impressions 01/23/2024 4:36 PM EDT Interval partial drainage/fenestration of large right frontal cyst with decreased mass effect. I have personally reviewed the image(s) and the resident's interpretation and agree with the findings, Jose Grant MD at 01/23/2024 4:36 PM Thank you for letting us participate in the care of this patient. ??If you are a health care provider and have any questions regarding this report, please contact the number below. ??For patients who have questions please contact the health med care manager that requested your imaging first. ? Narrative 01/23/2024 4:36 PM EDT EXAMINATION: CT HEAD WO CONTRAST (GENERIC) CLINICAL HISTORY: surveillance, arachnoid cyst s/p fenestration G93.0, Cerebral cysts TECHNIQUE: CT head performed without intravenous contrast administration. COMPARISON: CT head 12/25/2023, 12/11/2023 FINDINGS: Marked [...] fenestration/drainage of large right cyst again seen. Procedure Note Jose Grant MD - 01/23/2024 EXAMINATION: CT HEAD WO CONTRAST (GENERIC) CLINICAL HISTORY: surveillance, arachnoid cyst s/p fenestration G93.0, Cerebral cysts TECHNIQUE: CT head performed without intravenous contrast administration. COMPARISON: CT head 12/25/2023, 12/11/2023 FINDINGS: Marked interval decrease in size of known right frontal cyst to 41 mm from58 mm. Interval decrease in right to left midline shift to 4 mm from 15 mm. Interval decrease in mass effect upon adjacent sulci and right lateral ventricle. Resolution of intralesional gas. Basal cisterns are nowpatent. Interval resolution of downward and leftward brainstem displacement. Weaver-white differentiation is preserved. No new intracranial hemorrhageor extra-axial fluid collection. Orbits of normal appearance. Minimalscattered ethmoid sinus mucosal thickening. Paranasal sinuses otherwise clear.Right frontal rosa elena hole for fenestration/drainage of large right cyst againseen. IMPRESSION Interval partial drainage/fenestration of large right frontal cyst with decreased mass effect. I have personally reviewed the image(s) and the resident's interpretationand agree with the findings, Jose Grant MD at 01/23/2024 4:36 PM Thank you for letting us participate in the care of this patient. If youare a health care provider and have any questions regarding this report,please contact the number below. For patients who have questions please contactthe health med care manager that requested your imaging first. Daniel Miranda MD IMG CT ORDERABLES documented in this encounter Visit Diagnoses Diagnosis Arachnoid cyst Cerebral cysts Arachnoid cyst Cerebral cysts documented in this encounter Care Teams Cover Cutter Machine Relationship Specialty Start Date End Date Bhakti Nieves MD [address] [place] [id number] PCP - General Family Medicine 04/08/22 documented as of this encounter
--- OUTSIDE RECORDS SUMMARY | 2024-04-26 01:59 | XMS_ITS | Encounter Summary ---
[place] [address] Care Team Providers Care Commodity Director Name Role Phone Bhakti Nieves MD Primary Care Provider [phone] Reason for Referral * Consultation (Routine) - Closed Specialty Diagnoses / Procedures Referred By Contac t Referred To Contact Neurology Diagnoses Intracranial arachnoid cysts Karen Hillman, [facility] [address] [facility] [place] Neurology [address] [place] [phone] Referral ID Status Reason Start Date Expiration Date V isits Requested Visits Authorized [id number] Closed Consult, Test & Treat 12/26/2023 12/25/2024 1 1 * Home Health Care (Routine) - Authorized Specialty Diagnoses / Procedures Referred By Capo t Referred To Contact Diagnoses Intracranial arachnoid cysts Bhakti Nieves MD [address] [place] [address] [facility] & [address] [place] [address] Referral ID Status Reason Start Date Expiration Date Visits Requested Visits Authorized [id number] Authorized Consult, Test & Treat 12/26/2023 06/23/2024 999 999 Reason for Visit * Auth/Cert (Routine) Specialty Diagnoses / Procedures Referred By Capo reyna Referred To Contact Diagnoses Arachnoid cyst arachnoid cyst. increased intracranial pressure Procedures PRO NEUROENDOSCOP, DISS ADHESION/FENESTRATION PRO STEREOTACTIC CPTR ASSTD PX CRANIAL, INTRADURAL @NEUROENDOSCOPY, IC, W/ DISSECT ADHESIONS, FENESTRATION PELLUCIDUM OR CYSTS (WRVU 21.23) STEREOTACTIC COMPUTER-ASSTD NAVIGATIONAL CRANIAL INTRADURAL (WRVU 3.75) MODIFIER, AXIEM, SHUNT Daniel Miranda MD [facility] [place] [address] [facility] Referral ID Status Reason Start Date Expiration Date Visits Re quested Visits Authorized [id number] 1 1 Encounter Details Date Type Department Care Team (Latest Contact Info) Description 12/25/2023 6:09 AM EDT - 12/26/2023 12:44 PM EDT Hospital [place] [address] Daniel Miranda MD [facility] [place] [address] Arachnoid cyst; Intracranial arachnoid cysts Discharge Disposition: Home Social History Tobacco Use Types Packs/Day Years Used Date Smoking Tobacco: Never Smokeless Tobacco: Never Alcohol Use Standard Drinks/Week Comments Never 0 (1 standard drink = 0.6 oz pur e alcohol) [facility] Utilities Answer Date Recorded In the past 12 months has [employer], gas, oil, or water [employer] threatened to shut off services in your [...] were you homeless or living in a penitentiary (including now)? No 12/12/2023 DH IPV Inpatient [...] on file documented as of this encounter Last Filed Vital Signs Vital Sign Reading Time Taken Comments Blood Pressure 118/82 12/26/2023 8:00 AM EDT Pulse 54 12/25/2023 12:00 PM EDT Temperature 36.3 ??C (97.3 ??F) 12/26/2023 8:00 AM ED T Respiratory Rate 16 12/26/2023 8:00 AM EDT Oxygen Saturation 100% 12/26/2023 8:00 AM EDT Inhaled Oxygen Concentration - - Weight 60.5 kg (133 lb 6.4 oz) 12/25/2023 6:31 A M EDT Height 170.2 cm (5' 7) 12/25/2023 6:31 AM EDT Body Mass Index 20.89 12/25/2023 6:31 AM EDT documented in this encounter Discharge Summaries * Karen Hillman PA - 12/26/2023 12:07 PM EDT Patient Name: Alyson Valverde Patient Age: 63 y.o. Admit date: 12/25/2023 Discharge Date and Time: 12/26/23 12:07 PM Attending Physician: Daniel Miranda MD Discharging Provider: DIANA Loja Discharging Service: NEUROSURGERY Operations/Major Procedures: Procedure(s) (LRB): @NEUROENDOSCOPY, IC, W/ DISSECT ADHESIONS, FENESTRATION PELLUCIDUM OR CYSTS (WRVU 21.23) (Right) STEREOTACTIC COMPUTER-ASSTD NAVIGATIONAL CRANIAL INTRADURAL (WRVU 3.75) (N/A) MODIFIER, AXIEM, SHUNT (Right) Active Hospital Problems: Active Hospital Problems Diagnosis Intracranial arachnoid cysts Resolved Hospital Problems No resolved problems to display. Active Non Hospital Problems: Active Non-Hospital Problems Diagnosis Arachnoid cyst Primary osteoarthritis of left knee Primary osteoarthritis of right knee History of Presentation: Per review of relevant records: Alyson Valverde is an 63 y.o. female with the above past medical history who presented to OSH 12/05/23 after a fall off a horse and concern for seizure like activity with left sided weakness, AMS and HCT noting large right frontal cystic lesion. Prior to this presentation, she had been diagnosedwith an arachnoid cyst at [facility], lost to f/u since 2018. Cyst appears to have enlarged since prior imaging. A craniotomy for arachnoid cyst fenestration operation was offered and the patient elected to proceed. Hospital Course: On 12/25/23, Alyson Valverde was admitted to [facility] for Right craniotomy for arachnoid cyst fenestration; there were no apparent complications intraoperatively. The incision closed with prolene (marvin removed on 01/08/24). Post-operatively, she was extubated and recovered well in PACU. On neurologic exam, she was intact. Post-operative imaging demonstrated expected surgical changes with decrease in size of cyst. Post op CTH noted a suture needle near the scalp incision which was removed at bedside. Home medications were administered during the hospitalization and will be continued after discharge. At time of discharge patient is afebrile, neurologically stable, tolerating a regular diet, ambulating independently, voiding spontaneously, and managing pain with oral pain medications. Important Studies and Lab Data: Labs: No results found for this or any previous visit (from the past 24 hour(s)). Studies: CT Head wo Contrast (Generic) Result Date: 12/25/2023 EXAMINATION: CT HEAD WO CONTRAST (GENERIC) CLINICAL HISTORY: Sp craniotomy TECHNIQUE: CT head performed without intravenous contrast administration. COMPARISON: CT head and MRI brain 12/11/2023 FINDINGS: There is a new right frontal rosa elena hole for fenestration/partial drainage of the large right frontal cystic lesion. There is a fluid level within the lesion, and persistent, though overall decreased, blood products at the posterior periphery. There is unchanged mass effect on and effacement of the lateral ventricle. Unchanged 1.5 cm right to left shift at the level of the third ventricle mild prominence of the lateral ventricle and no periventricular CSF accumulation. Effacement of the ambient cisterns, downward and leftward displacement of the brainstem and subfalcine herniation, unchanged. No new intracranial hemorrhage or loss of kirk-white differentiation. Foramen magnum is patent. Interval partial drainage/fenestration of large right frontal cyst with residual intralesional hemorrhage. Unchanged mass effect. Thank you for letting us participate in the care of this patient. If you are a health care provider and have any questions regarding this report, please contact the number below. For patients who have questions please contact the health healthcare corporate account director that requestedyour imaging first. Electronically signed by: Gaby Moore MD, [facility] ([phone]), at 12/25/2023 1:26 PM Scan Doc: Telemetry Strips Result Date: 12/25/2023 Ordered by an unspecified provider. Scan Doc: Telemetry Strips Result Date: 12/12/2023 Ordered by an unspecified provider. MRI Brain wwo Contrast (Generic) Result Date: 12/11/2023 EXAMINATION: . CLINICAL HISTORY: ICH, head trauma, known cystic lesion, study to better characterize location of hemorrhage and cyst TECHNIQUE: MRI of the brain was performed before and after the intravenous administration of cc Dotarem. COMPARISON: CT the brain 12/11/2023 CT of the brain 2018 FINDINGS: Large right frontal region extra-axial cyst is identified. It is extra-axial appearances best appreciated on the old study of 06/10/2017. This cyst measures 6 cm in transverse diameter by 6.5 cm in height by 8.4 cm in anteroposterior diameter. It has signal intensity slightly greater than CSF onT1-weighted images except for layering blood products identified in the dependent aspect. On T2-weighted images it is hyperintense again with blood products seen posteriorly. Findings are consistent with hemorrhage into an arachnoid cyst. There is a significant midline shift from right to left. Measured at the level of the anterior septal callosal interface this is approximately 1.5 cm. This cystcompresses the right lateral ventricular body and frontal horn. It also results in mass effect on the left lateral ventricular system. Dilatation of the left lateral ventricle particularly in the occipital region and lateral ventricular body may indicate obstruction at the foramen of Burton. This however is not changed since the study earlier today at 4:06 PM No abnormal enhancement of the cyst is identified. There is no restricted diffusion impression: Similar appearance of large right frontal region arachnoid cyst compared to the CT performed today, but it has increased in size when compared with the study of 06/10/2017 and now has considerable mass effect as well as evidence of hemorrhage within the cyst. Thank you for letting us participate in the care of this patient. If you are a health care provider and have any questions regarding this report, please contact the number below. For patients who have questions please contact the health healthcare corporate account director that requested your imaging first. Electronically signed by: Daquan Beasley MD, [facility] ([phone]), at 12/11/2023 8:[address] Head & Cervical Spine wo Contrast (Generic) Result Date: 12/11/2023 EXAMINATION: CT HEAD AND CERVICAL SPINE WO CONTRAST (GENERIC) CLINICAL HISTORY: seizure, Fall, neckpain, known R frontal arachnoid cyst with traumatic hemorrhage ~1 week ago TECHNIQUE: CT head and cervical spine performed without intravenous contrast administration. COMPARISON: CT head 12/11/2023 at 1020 FINDINGS: CT head: A large right frontal arachnoid cyst is again seen. Small amount of internal hemorrhage is again noted which is slightly decreased in density but similar in volume. Local mass effect from the cyst is unchanged including right to left midline shift on the order of 14 mm. Thebasal cisterns are crowded but there is no downward transtentorial herniation. No hydrocephalus or evidence of large acute infarction. No acute osseous abnormality. CT cervical spine: No acute fracture or subluxation. The vertebral bodies are maintained in height. No prevertebral soft tissue swelling. Moderate degenerative disc changes in the mid to lower cervical spine. No significant osseous spinal canal stenosis. CT head: 1. Acute hemorrhage within the large right frontal arachnoid cyst is similar in volume butslightly decreased in density. 2. No additional significant change. CT cervical spine: No acute fracture or subluxation. Thank you for letting us participate in the care of this patient. If you are [facility] care provider and have any questions regarding this report, please contact the number below.For patients who have questions please contact the health healthcare corporate account director that requested your imaging first. Electronically signed by: Henrry Acosta MD, [facility] ([phone]), at 12/11/2023 4:29 PM Film Library- Storage Only CT Head Result Date: 12/11/2023 This exam is auto-finalizing. It's purpose is for storage only. Film Library- Storage Only CT Head Result Date: 12/05/2023 This exam is auto-finalizing. It's purpose is for storage only. Film Library-Storage Only CT Face Result Date: 12/05/2023 This exam is auto-finalizing. It's purpose is for storage only. Film Library- Storage Only CT Spine Result Date: 12/05/2023 This exam is auto-finalizing. It's purpose is for storage only. Film Library- Storage Only CT Head And Spine Result Date: 12/05/2023 This exam is auto-finalizing. It's purpose is for storage only. Film Library- Storage Only CT Chest Abdomen Pelvis Result Date: 12/05/2023 This exam is auto-finalizing. It's purpose is for storage only. Pending Studies and Lab Data: none Discharge Condition: Good Discharge to: Home with VNA Future Appointments and Orders Future Orders Complete By Expires Referral to [facility] [REF34 Custom] As directed Process Instructions: If no progress note charted, please enter Clinical details in comments. Scheduling Instructions: Comments: Please evaluate Alyson Ridley Chasidymackenzie for admission to [facility]. [facility] [phone] (home) Date of : 1960 Inpatient DOCUMENTATION FOR VNA SERVICES (INCLUDING THOSE PATIENTS WITH MEDICARE COVERAGE REQUIRING HOME VNA SERVICES AND/OR HOSPICE SERVICES) PATIENT'S LOCATION: Alyson Valverde [address] [facility] [phone] (home) Cell: Telephone Information: Carton Maker's Name: Alyson In discussion with the attending physician, it is certified that this patient is under their care and that they, or a Nurse Practitioner, Clinical Nurse specialist or Physician Cad Designer Drafter who is working directly with them, had a face to face encounter that meets the physician face to face encounter requirements with this patient on 12/26/23 (MD please enter DC date here) The encounter with the patient was in whole, or in part, for the following medical condition, whichis the primary reason for home health care services: resume prior services, post surgical care In discussion with the provider, it is certified that, based on their findings, the following services are medically necessary for home health services. To provide the following care/treatments with the clinical findings supporting the need for services as follows: HOME CARE ORDERS: PT ORDERS: Continue rehab for endurance, gait stability and strength with mobility and transfers. Home safety evaluation. Home exercise program if appropriate. OT ORDERS: Assess and continue rehab for managing ADLs. HOME HEALTH CARE AGENCY: [facility] [address] [place] [id number] START OF CARE: Home Health services requested to start in 24-48 hours but Home Health, with limited availability of this service at this time, plan for a SOC (12/27/23). The multidisciplinary team members and patient are aware. Please note that any additional orders needs or changes will need to be obtained from this patient's PCP: Bhakti Nieves MD [address] / [facility] [address] . All VNA agencies which cover the area of patient's residence have been reviewed, either verbally or in writing, and patient/family have chosen the home health care agency noted. Questions: Disciplines Requested: Physical Therapy Occupational Therapy Referral to Neurology [REF46 Custom] As directed Process Instructions: If no progress note charted, please enter Clinical details in comments. Scheduling Instructions: Questions: Requested department: [facility] NEUROLOGY 3C Speciality Clinic: Epilepsy My question or request is: seizure managment Discharge Medications: Your Medications Continued medications, unchanged Dose Details acetaminophen 500 mg tablet Commonly known as: Tylenol Take 2 tablets by mouth every 6 hours as needed for Pain. 1,000 mg Quantity: 30 tablet Refills: 1 acetaZOLAMIDE 250 mg tablet Commonly known as: Diamox Take 1 tablet by mouth 2 times daily. 250 mg Quantity: 14 tablet Refills: 0 celecoxib 200 mg capsule Commonly known as: CeleBREX Take 1 capsule by mouth 2 times daily. 200 mg Quantity: 30 capsule Refills: 1 levETIRAcetam 1,000 mg tablet Commonly known as: Keppra Take 1 tablet by mouth 2 times daily. 1,000 mg Quantity: 60 tablet Refills: 12 multivitamin Tablet Commonly known as: THERAGRAN Take 1 tablet by mouth daily. 1 tablet Refills: 0 pantoprazole EC [address] tablet Commonly known as: Protonix Take 1 tablet by mouth daily. While taking steroids (dexamethasone) 40 mg Quantity: 90 tablet Refills: 0 polyethylene glycoL 17 gram oral powder packet Commonly known as: Miralax Take 17 g by mouth daily as needed (constipation). 17 g Refills: 0 senna-docusate 8.6-50 mg Tablet Commonly known as: Pericolace Take 1 tablet by mouth daily. 1 tablet Quantity: 14 tablet Refills: 0 SUMAtriptan 5 mg/actuation nasal spray Commonly known as: Imitrex USE 2 SPRAYS IN EACH NOSTRIL ONCE DAILY NEEDED Refills: 0 STOPPED Medications dexAMETHasone 1 mg tablet Commonly known as: Decadron Updated Allergies/ADRs: Allergies Allergen Reactions Betadine [Povidone-Iodine] Rash Commonly used phone numbers Neuro-oncology [phone] Radiation oncology [phone] Endocrinology [phone] Infectious disease [phone] Neurology [phone] Hematology/Oncology [phone] Plastic Surgery [phone] Trauma/General Surgery [phone] Urology [phone] Instructions Given to Patient at Discharge: Patient Instructions CRANIOTOMY FOR ARACHNOID CYST FENESTRATION DISCHARGE INSTRUCTIONS PRESCRIPTION INSTRUCTIONS: Please see the medication reconciliation list on this discharge summary for a current list of your medications. Stop the use of blood thinning medications until instructed otherwise by your surgical team. This includes medications known as antiplatelet, anticoagulant, and non-steroidal anti-inflammatory (NSAIDs) drugs. Common voqs-dkk-fsguetr medications which should be avoided include Aspirin, ibuprofen, and naproxen among others. These medications are sometimes combined with other drugs or are sold under a trade name. Common prescription medications which should be avoided include Plavix (clopidogrel) and Coumadin (warfarin) among others. The following medications are commonly prescribed after surgery. An [x] indicates that these medications have been prescribed for you. [x] Anti-seizure medication - seizure prophylaxis: Keppra (levetiracetam) or Dilantin (phenytoin) Anti-seizure medication is commonly prescribed after surgery to prevent seizures, or to prevent seizures from recurring in patients who have have experienced a seizure. Take the medication as directed. These medications are well tolerated but may have side effects such as fatigue, drowsiness, ???fog gy?? thinking, mood changes, or dizziness. At your follow-up appointment with Neurosurgery, ask how long you need to continue taking this medication. For patients who have had a seizure, the medication may be continued for months or years. If you have difficulty affording this medication please contact us for prescription assistance. [x] Diamox (acetazolamide) - diuretic Continue taking this medication until your post op appointment. Please discuss with your provider at that time if you should continue or discontinue taking this medication. [x] Celebrex - Pain relief: Take for 1-2 weeks after surgery for pain control then stop. May take over the counter tylenol in addition if needed. WHEN TO SEEK MEDICAL CARE: Signs or symptoms of an infection - Fever over 101F - Redness, swelling, or increasing pain around your incision - Drainage of pus, blood, or clear fluid from your incision New neurologic symptoms - Worsening headaches not controlled with your pain medication - Drowsiness, confusion, and lethargy - Visual changes - Difficulty speaking or slurred speech - Facial droop - New weakness or sensory changes - New unsteadiness when walking - Seizures Constipation not relieved by diet and over the counter stool softeners and laxatives Nausea/vomiting (upset stomach) not controlled with anti-nausea medication Symptoms of a deep venous thrombosis (DVT) or pulmonary embolism (PE): - Swelling/warmth/redness of the leg - Pain in the leg, which can be worse with standing or walking - Chest pain or shortness of breath WOUND CARE: - Keep incisional site clean and dry. You can remove your dressing 2 days after surgery, if not removed prior to discharge. - You may shower and shampoo incisional site, per your usual routine, 4 days after surgery. - Do NOT submerge your head in water until after your sutures/belinda are removed. DIET: - You may resume your usual diet. - A well-balanced diet is recommended for wound healing. - Prune juice or prunes can be added to your diet to assist with any constipation. ACTIVITY: - You may increase your activities as tolerated. - Restrict strenuous activity (such as running, jumping, jogging, shoveling, etc.) until cleared byyour surgical team. - To help prevent a DVT: - Exercise regularly. Walking, at least several times daily, is helpful. - Ankle pump exercises (like pressing and releasing the gas pedal) should be done regularly. - Keep hydrated with water or other clear liquids (coffee/tea/cola can dehydrate you). - Avoid alcohol and crossing your legs. - Remember not to sit or lay in bed, while awake, for prolonged amounts of time. DRIVING: - Do not drive while taking narcotic pain medication. [x] Do NOT drive until cleared by Neurosurgery. [] You have had a seizure and driving is prohibited (see state regulations). Speak to your doctor for further recommendations. FOLLOW UP PLAN: Incision: [] Your sutures are absorbable and do not need to be removed. [x] Please follow up for suture/staple removal in 10-14 days with the Neurosurgery RN. Appointments: No future appointments. [x] Please follow up in the Neurosurgery Clinic in 1 week for telehealth appointment with Dr. Trivedi in 4-6 weeks with STEPHON. Please call the Neurosurgery Office at [phone] if you do not receive a scheduled appointment within two weeks. Your follow-up appointment will be with: [] Dr. Enamorado [] Dr. Arauz [] Dr. Ayers [] Dr. Morin [x] Dr. Miranda [] Dr. Zelaya [] Dr. Alvarez [x] Associate Provider Imaging: [x] No Imaging required at follow-up. [] Head CT [] MRI Brain HOW TO REACH NEUROSURGERY Office Hours (Monday through Monday 8am-5pm): Call On weekends or after office hours (after 5pm or before 8am): Call [phone] and ask the gun sealing machine operator to page the Neurosurgery Resident/Advanced Practice Provider salesperson household appliances. *Your surgeon may not be seamless tube roller (especially after office hours or on the weekend) so be ready totell about yourself and your surgery when you call. Neurosurgery Providers Adult Neurosurgery Dr. Lv Mehta Pediatric Neurosurgery Dr. Ria Gracia Advanced Practice Providers Alyson Gonzáles, Nurse Practitioner (outpatient telehealth) Alison Ramos, Physician Cad Designer Drafter (inpatient/outpatient: neuro-oncology) Karen Hillman, Physician Cad Designer Drafter (inpatient) Irena Hunt, Physician Cad Designer Drafter (inpatient) Nakul Mariee, Physician Cad Designer Drafter (inpatient) Mart Abbasi, Nurse Practitioner (outpatient: pediatric) Maria R Robertson, Nurse Practitioner (outpatient: vascular) Tessa Moscoso, Physician Cad Designer Drafter (outpatient: spine) Chaim Carrasco, Physician Cad Designer Drafter (outpatient) Outpatient Nurses DIANA Loja 12/26/2023 A total of 45 minutes was spent performing discharge day services, greater than 30% of which was spent in direct zsxm-pv-kyfn education and coordination of care. documented in this encounter Discharge Instructions * Patient Instructions* Karen Hillman PA - 12/26/2023 11:30 AM EDT CRANIOTOMY FOR ARACHNOID CYST FENESTRATION DISCHARGE INSTRUCTIONS PRESCRIPTION INSTRUCTIONS: Please see the medication reconciliation list on this discharge summary for a current list of your medications. Stop the use of blood thinning medications until instructed otherwise by your surgical team. This includes medications known as antiplatelet, anticoagulant, and non-steroidal anti-inflammatory (NSAIDs) drugs. Common ijtx-fea-ewqsewf medications which should be avoided include Aspirin, ibuprofen, and naproxen among others. These medications are sometimes combined with other drugs or are sold under a trade name. Common prescription medications which should be avoided include Plavix (clopidogrel) and Coumadin (warfarin) among others. The following medications are commonly prescribed after surgery. An [x] indicates that these medications have been prescribed for you. [x] Anti-seizure medication - seizure prophylaxis: Keppra (levetiracetam) or Dilantin (phenytoin) Anti-seizure medication is commonly prescribed after surgery to prevent seizures, or to prevent seizures from recurring in patients who have have experienced a seizure. Take the medication as directed. These medications are well tolerated but may have side effects such as fatigue, drowsiness, ???fog gy?? thinking, mood changes, or dizziness. At your follow-up appointment with Neurosurgery, ask how long you need to continue taking this medication. For patients who have had a seizure, the medication may be continued for months or years. If you have difficulty affording this medication please contact us for prescription assistance. [x] Diamox (acetazolamide) - diuretic Continue taking this medication until your post op appointment. Please discuss with your provider at that time if you should continue or discontinue taking this medication. [x] Celebrex - Pain relief: Take for 1-2 weeks after surgery for pain control then stop. May take over the counter tylenol in addition if needed. WHEN TO SEEK MEDICAL CARE: Signs or symptoms of an infection - Fever over 101F - Redness, swelling, or increasing pain around your incision - Drainage of pus, blood, or clear fluid from your incision New neurologic symptoms - Worsening headaches not controlled with your pain medication - Drowsiness, confusion, and lethargy - Visual changes - Difficulty speaking or slurred speech - Facial droop - New weakness or sensory changes - New unsteadiness when walking - Seizures Constipation not relieved by diet and over the counter stool softeners and laxatives Nausea/vomiting (upset stomach) not controlled with anti-nausea medication Symptoms of a deep venous thrombosis (DVT) or pulmonary embolism (PE): - Swelling/warmth/redness of the leg - Pain in the leg, which can be worse with standing or walking - Chest pain or shortness of breath WOUND CARE: - Keep incisional site clean and dry. You can remove your dressing 2 days after surgery, if not removed prior to discharge. - You may shower and shampoo incisional site, per your usual routine, 4 days after surgery. - Do NOT submerge your head in water until after your sutures/belinda are removed. DIET: - You may resume your usual diet. - A well-balanced diet is recommended for wound healing. - Prune juice or prunes can be added to your diet to assist with any constipation. ACTIVITY: - You may increase your activities as tolerated. - Restrict strenuous activity (such as running, jumping, jogging, shoveling, etc.) until cleared byyour surgical team. - To help prevent a DVT: - Exercise regularly. Walking, at least several times daily, is helpful. - Ankle pump exercises (like pressing and releasing the gas pedal) should be done regularly. - Keep hydrated with water or other clear liquids (coffee/tea/cola can dehydrate you). - Avoid alcohol and crossing your legs. - Remember not to sit or lay in bed, while awake, for prolonged amounts of time. DRIVING: - Do not drive while taking narcotic pain medication. [x] Do NOT drive until cleared by Neurosurgery. [] You have had a seizure and driving is prohibited (see state regulations). Speak to your doctor for further recommendations. FOLLOW UP PLAN: Incision: [] Your sutures are absorbable and do not need to be removed. [x] Please follow up for suture/staple removal in 10-14 days with the Neurosurgery RN. Appointments: No future appointments. [x] Please follow up in the Neurosurgery Clinic in 1 week for telehealth appointment with Dr. Trivedi in 4-6 weeks with STEPH[facility]. Please call the Neurosurgery Office at [phone] if you do not receive a scheduled appointment within two weeks. Your follow-up appointment will be with: [] Dr. Enamorado [] Dr. Arauz [] Dr. Ayers [] Dr. Morin [x] Dr. Miranda [] Dr. Zelaya [] Dr. Alvarez [x] Associate Provider Imaging: [x] No Imaging required at follow-up. [] Head CT [] MRI Brain HOW TO REACH NEUROSURGERY Office Hours (Monday through Monday 8am-5pm): Call On weekends or after office hours (after 5pm or before 8am): Call [phone] and ask the gun sealing machine operator to page the Neurosurgery Resident/Advanced Practice Provider salesperson household appliances. *Your surgeon may not be seamless tube roller (especially after office hours or on the weekend) so be ready totell about yourself and your surgery when you call. Neurosurgery Providers Adult Neurosurgery Dr. Lv Mehta Pediatric Neurosurgery Dr. Ria Gracia Advanced Practice Providers Alyson Gonzáles, Nurse Practitioner (outpatient telehealth) Alison Ramos, Physician Cad Designer Drafter (inpatient/outpatient: neuro-oncology) Karen Hillman, Physician Cad Designer Drafter (inpatient) Irena Hunt, Physician Cad Designer Drafter (inpatient) Nakul Mariee, Physician Cad Designer Drafter (inpatient) Mart Abbasi, Nurse Practitioner (outpatient: pediatric) Maria R Robertson, Nurse Practitioner (outpatient: vascular) Tessa Moscoso, Physician Cad Designer Drafter (outpatient: spine) Chaim Carrasco, Physician Cad Designer Drafter (outpatient) Outpatient Nurses documented in this encounter Medications at Time of Discharge Medication Sig Dispensed Refills Start Date End Date multivitamin (THERAGRAN) Tablet Take 1 tablet by mouth daily. SUMAtriptan (IMITREX) 5 mg/actuation Ovid, Non-Aerosol USE 2 SPRAYS IN EACH NOSTRIL ONCE DAILY NEEDED 04/27/2022 acetaZOLAMIDE (Diamox) 250 mg tablet Take 1 tablet by mouth 2 times daily. 14 tablet 12/21/2023 01/03/2024 acetaminophen (Tylenol) 500 mg tablet Take 2 tablets by mouth every 6 hours as needed for Pain. 30 tablet 1 12/14/2023 03/04/2024 celecoxib (CeleBREX) 200 mg capsule Take 1 capsule by mouth 2 times daily. 30 capsule 1 12/14/2023 03/01/2024 polyethylene glycoL (Miralax) 17 gram oral powder packet Take 17 g by mouth daily as needed (constipation). 12/14/2023 01/03/2024 levETIRAcetam (Keppra) 1,000 mg tablet Take 1 tablet by mouth 2 times daily. 60 tablet 12 12/14/2023 03/04/2024 documented as of this encounter Progress Notes * Ivone Harris RN - 12/26/2023 12:43 PM EDT Educated patient and family on discharge instructions. Ensured all questions were answered. Discontinued IV. Patient and family acknowledged an understanding of information. * Berry Blake MD - 12/26/2023 10:15 AM EDT [facility] NEUROSURGERY Progress NOTE ID: Alyson Valverde, 63 y.o. female. Interval History: s/p craniotomy for arachnoid cyst fenestration S: NAEON. Ambulating. Pain well controlled. Neurostable compared to preop. Wound cdi. Diet tolerated sodium chloride 0.9 % (flush) 5 mL Intravenous BID sodium chloride 0.9 % (flush) 5 mL Intravenous BID polyethylene glycoL 17 g Oral Daily celecoxib 200 mg Oral BID acetaZOLAMIDE 250 mg Oral BID pantoprazole EC 40 mg Oral Daily levETIRAcetam 1,000 mg Oral BID acetaminophen 975 mg Oral Q8H senna-docusate 2 tablet Oral BID polyethylene glycoL (MIRALAX) oral powder 17 g Oral Daily Temp: [36.3 ??C (97.3 ??F)-37 ??C (98.6 ??F)] Heart Rate: [54-69] Resp: [9-20] BP: (109-154)/(77-101) SpO2: [96 %-100 %] Heart Rate from SpO2: [54 bpm-70 bpm] I/O last 3 completed shifts: In: 800 [I.V.:800] Out: 1670 [Urine:1650; Blood:20] I/O this shift: In: 240 [P.O.:240] Out: - General: NAD Neuro Exam: RA, HD stable Wide awake, alert, oriented x4 Conversational, speech fluent, naming & repetition intact PERRL, EOMI, VFF, FS, TML, UPML, Shoulder shrug 5/5 No pronator drift, full strength throughout x4 Sensation grossly intact to light touch x4 Wound cdi No results found for this or any previous visit (from the past 24 hour(s)). A/P: 63 y.o. female POD1. Neurologically stable. - Pt can dc home this am - celebrex for pain/tylenol - SBP 90-160 - home keppra Neurosurgery Pagers New Consults: [id number] Established Patients: [id number] Berry Blake MD 12/26/2023 10:15 AM * Berry Blake MD - 12/25/2023 11:54 AM EDT [facility] NEUROSURGERY POST-OP NOTE ID: Alyson Valverde, 63 y.o. female. HPI: Alyson Valverde is a 63 y.o. female 63-year-old woman with past medical history of migraines, large right frontal cystic lesion, and head trauma following fall of a horse 12/04 presented to an [place] with an episode concerning for seizure, LUE/LLE weakness, AMS, and HCT showing a large right frontalcyst with intracystic hemorrhage evolution and MLS. We recommended transfer to our ED for further evaluation. The right frontal cystic lesion has been diagnosed as an arachnoid cyst in [place] and pt patient was managed getting f/u with imaging studies until 2018. Patient had who presented last timeto the emergency room on 12/04 after she fell off her horse with symptoms concerning for concussion and seizure. At that time CTH was concerning for enlarging R frontal arachnoid cyst w/ acute SAH vs intracystic hemorrhage and was stable at 6hrs rCTH. We had recommended Keppra loading dose, followed by 500 BID x 7 days and f/u o/p w/ Dr. Mrianda and MRI wwo in 2 weeks. Interval History: s/p craniotomy for arachnoid cyst fenestration Stable since surgery. Neurostable sodium chloride 0.9 % (flush) 5 mL Intravenous BID Temp: [36.1 ??C (97 ??F)-36.4 ??C (97.5 ??F)] Heart Rate: [50-69] Resp: [9-20] BP: (136-156)/(86-101) SpO2: [97 %-100 %] Heart Rate from SpO2: [54 bpm-70 bpm] No intake/output data recorded. I/O this shift: In: 800 [I.V.:800] Out: 20 [Blood:20] General: NAD Neuro Exam: RA, HD stable Wide awake, alert, oriented x4 Conversational, speech fluent, naming & repetition intact PERRL, EOMI, VFF, FS, TML, UPML, Shoulder shrug 5/5 No pronator drift, full strength throughout x4 Sensation grossly intact to light touch x4 Wound cdi No results found for this or any previous visit (from the past 24 hour(s)). A/P: 63 y.o. female POD0. Neurologically stable. - Neuro checks - CTH PACU; if cleared then q4h neurochecks - Post-op imaging - Dianne-op abx - Sips and chips - mIVF - celebrex for pain/tylenol - SBP 90-160 - [facility] Neurosurgery Pagers New Consults: [phone] Established Patients: [id number] Berry Blake MD 12/25/2023 11:55 AM * Katelyn Joshi RN - 12/25/2023 11:11 AM EDT 1100: RN break relief. PRNs given per MAR for headache. VSS. * Marichuy Cosme RN - 12/25/2023 10:49 AM EDT Pt arrived from the OR in a bed with service and anesthesia in attendance. Monitors attached. Alarms on and audible. Neuro WDL. OOB to walk to BR without difficulty. CT scan completed. Report given to oncoming RN. documented in this encounter H&P Notes * Berry Blake MD - 12/25/2023 7:02 AM EDT [facility] Neurosurgery Pre-Op H&P Alyson Valverde was seen and examined in pre-operative area at bedside. No interval events or changes in health status since preoperative note (see EPIC note dated 12/11/[address] Zelaya). All questions were answered. Stable for procedure as scheduled. HPI: Alyson Valverde is a 63 y.o. female 63-year-old woman with past medical history of migraines, large right frontal cystic lesion, and head trauma following fall of a horse 12/04 presented to [place] with an episode concerning for seizure, LUE/LLE weakness, AMS, and HCT showing a large right frontalcyst with intracystic hemorrhage evolution and MLS. We recommended transfer to our ED for further evaluation. The right frontal cystic lesion has been diagnosed as an arachnoid cyst in [place] and pt patient was managed getting f/u with imaging studies until 2018. Patient had who presented last timeto the emergency room on 12/04 after she fell off her horse with symptoms concerning for concussion and seizure. At that time CTH was concerning for enlarging R frontal arachnoid cyst w/ acute SAH vs intracystic hemorrhage and was stable at 6hrs rCTH. We had recommended Keppra loading dose, followed by 500 BID x 7 days and f/u o/p w/ Dr. Miranda and MRI wwo in 2 weeks. Pt returns to [facility] for R cyst fenestration 12/25/23 Exam: NAD RRR CTAB GEN:NAD Wide awake, alert, oriented x4 Conversational, speech slow PERRL, EOMI Face symmetric Tongue midline Mild Left pronator drift MOTOR: Power 5/5; exception 4+/5 LUE Sensation grossly intact to light touch x4 A/P: -Proceed with procedure as planned. -NPO midnight -Marked and consented Berry Blake MD 12/25/23 7:02 AM Past Medical History: History reviewed. No pertinent past medical history. Past Surgical History: History reviewed. No pertinent surgical history. Medications: No current facility-administered medications on file prior to encounter. Current Outpatient Medications on File Prior to Encounter Medication Sig Dispense Refill acetaZOLAMIDE (Diamox) 250 mg tablet Take 1 tablet by mouth 2 times daily. 14 tablet 0 senna-docusate (Pericolace) 8.6-50 mg Tablet Take 1 tablet by mouth daily. 14 tablet 0 acetaminophen (Tylenol) 500 mg tablet Take 2 tablets by mouth every 6 hours as needed for Pain. 30 tablet 1 celecoxib (CeleBREX) 200 mg capsule Take 1 capsule by mouth 2 times daily. 30 capsule 1 pantoprazole EC (Protonix) [address] tablet Take 1 tablet by mouth daily. While taking steroids (dexamethasone) 90 tablet 0 polyethylene glycoL (Miralax) 17 gram oral powder packet Take 17 g by mouth daily as needed (constipation). dexAMETHasone (Decadron) 1 mg tablet 4tabs tonight, then 4 tabs twice daily for 3 days, 2 tabs twice daily for 3 days, 1 tab twice daily for 3 days, 1 tab daily for 3 days, then stop. 49 tablet 0 levETIRAcetam (Keppra) 1,000 mg tablet Take 1 tablet by mouth 2 times daily. 60 tablet 12 multivitamin (THERAGRAN) Tablet Take 1 tablet by mouth daily. SUMAtriptan (IMITREX) 5 mg/actuation Ovid, Non-Aerosol USE 2 SPRAYS IN EACH NOSTRIL ONCE DAILY NEEDED Allergies: Allergies Allergen Reactions Betadine [Povidone-Iodine] Rash Family History: History reviewed. No pertinent family history. Social History: Social History Socioeconomic History Marital status: Spouse [...] 0 Homeless in the Last Year: No Review of Systems: As above, otherwise noncontributory. Vital Signs: Visit Vitals BP 156/88 Pulse 50 Temp 36.1 ??C (97 ??F) (Temporal) Resp 17 Ht 170.2 cm (5' 7) Wt 60.5 kg (133 lb 6.4 oz) SpO2 100% BMI 20.89 kg/m?? Labs: CBC: Lab Results Component Value Date/Time WBC 5.64 12/12/2023 01:15 AM HGB 12.7 12/12/2023 01:15 AM PLATELET 231 12/12/2023 01:15 AM BMP: Lab Results Component Value Date/Time NA 141 12/12/2023 12:06 AM K 3.8 12/12/2023 12:06 AM CL 106 12/12/2023 12:06 AM CO2 24 12/12/2023 12:06 AM BUN 9 12/12/2023 12:06 AM CREATININE 0.63 (L) 12/12/2023 12:06 AM Coags: No results found for: INR, PT, PTT documented in this encounter Procedure Notes * Berry Blake MD - 12/25/2023 5:49 PM EDTPre-Procedure Diagnose(s): S/P craniotomy Post-Procedure Diagnose(s): S/P craniotomy NSGY S/p craniotomy for arachnoid cyst fenestration Post op CTH showed suture needle near scalp incision. Pt notified of finding and verbal consent wasobtained to retrieve needle. Needle identified on ultrasound along right posterior incisional edge.Incision cleaned with chloraprep scrub with 1cc local lidocaine injected. Suture removed along areaof interest. Suture needle palpated and removed using hemostat and forceps. Wound closed with prolen e. Hair cleaned with hydrogen peroxide. Pt reported no complaints following procedure. documented in this encounter Miscellaneous Notes * Care Management - Kamilah Spain RN - 12/26/2023 11:39 AM EDT OFFICE OF CARE MANAGEMENT PROGRESS NOTE LOS: Hospital Day 1 day Chart reviewed, care reviewed with primary team and at interdisciplinary rounds. Patient continues to meet inpatient level of care related to: Intracranial arachnoid cysts. Decision Maker: Self Functional status prior to admission: Home Environment: . . Accessibility Concerns: . Current Functional Ability: DME used at home: DME Needed at Discharge: Patient is insured through: Primary Insurance: [employer] [place] Payor: [employer] [place] / Plan[place] [employer] [place] EXCHANGE / Product Type: *No Product type* / Secondary Insurance: N/A Last Physical Therapy Recommendation: with Last Occupational Therapy Recommendation: with Plan for discharge is: Home w/ Services Outpatient Agency/Support Group Needs: Homecare agency Agency Referrals: I have met with the patient to: discuss discharge planning needs. provide the [facility], Office of Care Management letter from the Friction Welding Machine Operator pertaining to rehab referrals. provide a letter describing our affiliations within the [facility] and educate about their right to choose where referrals are sent. provide a list of Home Health Agencies / Durable Medical Equipment vendors which serve their preferred geographic area. provided patient with CMS Star Quality Rating handout. They have requested referrals to: [facility]. [address] [place] [address] Note routed to a Pie Dough Roller who will communicate referrals to facilities and provide any required information. Transportation: Barriers to discharge: None ICU Needs: none / ready for downgrade Plan going forward: dc to home with resumption of VNA services Anticipated Date of Discharge: 01/01/2024 * Plan of Care - Ivone Harris RN - 12/26/2023 11:06 AM EDT Problem: Adult Inpatient Plan of Care Goal: Plan of Care Review Outcome: Ongoing (Interventions Implemented as Appropriate) Goal: Patient-Specific Goal (Individualized) Outcome: Ongoing (Interventions Implemented as Appropriate) Goal: Absence of Hospital-Acquired Illness or Injury Outcome: Ongoing (Interventions Implemented as Appropriate) Goal: Optimal Comfort and Wellbeing Outcome: Ongoing (Interventions Implemented as Appropriate) Goal: Readiness for Transition of Care Outcome: Ongoing (Interventions Implemented as Appropriate) Problem: Pain Acute Goal: Acceptable Pain Control and Functional Ability Outcome: Ongoing (Interventions Implemented as Appropriate) * Plan of Care - Shaquille Suero RN - 12/25/2023 11:59 PM EDT Pt is A&O X4 pleasant, calm, cooperative. Able to make needs known. Encouraged to call for assistance. Patient ambulates w/ standby assistance. Denied Pain . Bed is locked and in lowest position.VSS on RA, Denied Chest pain or SOB. No acute distress observed. Call light and personal items within reach. Problem: Adult Inpatient Plan of Care Goal: Plan of Care Review Outcome: Ongoing (Interventions Implemented as Appropriate) Goal: Optimal Comfort and Wellbeing Outcome: Ongoing (Interventions Implemented as Appropriate) Problem: Pain Acute Goal: Acceptable Pain Control and Functional Ability Outcome: Ongoing (Interventions Implemented as Appropriate) * Op Note - Daniel Miranda MD - 12/25/2023 10:04 PM EDT [facility] SECTION OF NEUROSURGERY DATE: 12/25/2023 NAME: Alyson Valverde SURGEONS: MD Berry Avilez MD PRE-OP DIAGNOSIS: Arachnoid cyst Mass effect w/ brain compression Seizures POST-OP DIAGNOSIS: Arachnoid cyst Mass effect w/ brain compression Seizures PROCEDURES: Endoscopic fenestration of arachnoid cyst (55937) Computer-assisted stereotactic neuronavigation (97828) INDICATIONS: 63 y/o female referred for evaluation and management of a large symptomatic R frontal arachnoid cyst. The cyst was associated with hemorrhage as well as significant mass effect w/ midline shift and cerebral compression. After discussing options for management treatment was recommended with plan leslie endoscopic fenestration into the lateral ventricle. DESCRIPTION: Endotracheal intubation was performed. The patient was positioned in the supine position with the head supported on a cerebellar headrest. Image co-registration was performed with acceptable accuracy. The image guidance was used to plan a trajectory from the R frontal region of the cyst into the lateral ventricle through non-eloquent structures and the thinnest cerebral tissue. The entry point was identified at the level of the scalp with the image-guidance and a curvilinear incision was then marked. The surrounding hair was removed. The surrounding region was prepped and draped in the usual manner. A time-out was performed and cefazolin was administered for prophylaxis. The incision was inf iltrated with local anesthetic and dissection proceeded to the level of the pericranium. Vascularized pericranium was preserved and elevated. The craniotome was then used for trephination. Hemostasiswas obtained. The dura was coagulated with the monopolar electrocautery. Once the dura was opened there was egress of xanthochromic fluid under high-pressure. This was irrigated copiously to clear the fluid. Next the endoscope was advanced into the arachnoid cyst under image- guidance and aligned along the trajectory. The endoscope and bipolar were used for cyst fenestration into the R frontal horn of the lateral ventricle. The structures within the ventricle were clearly visualized. There was no evidence of hemorrhage. The stoma was widened and appeared to be widely patent. The endoscope was withdrawn and a titanium implant was placed over the rosa elena hole. The wound was closed in a layered manner. The patient was awakened from anesthesia and extubated with no apparent complications. She wastransported to the recovery area for routine monitoring and observation. EBL: 5cc Attestation: Case Date: 12/25/2023 I was present and I participated during the entire procedure (does not need to include opening and closing). Daniel Miranda MD 12/25/2023 * Brief Op Note - Berry Blake MD - 12/25/2023 11:29 AM EDT Brief Operative Note Patient Name: Alyson Valverde : [id number] MR#: [id number] Case Date: 12/25/2023 Surgeon: Surgeons and Role: * Daniel Miranda MD - Primary * Berry Blake MD - Resident - Assisting Preoperative diagnosis: arachnoid cyst. increased intracranial pressure Postoperative diagnosis: arachnoid cyst. increased intracranial pressure Procedure(s) (LRB): @NEUROENDOSCOPY, IC, W/ DISSECT ADHESIONS, FENESTRATION PELLUCIDUM OR CYSTS (WRVU 21.23) (Right) STEREOTACTIC COMPUTER-ASSTD NAVIGATIONAL CRANIAL INTRADURAL (WRVU 3.75) (N/A) MODIFIER, AXIEM, SHUNT (Right) Anesthesia: General Findings: Right frontal Complications: prolene needle broken on closure Estimated Blood Loss: 20 mL* No values recorded between 12/25/2023 8:50 AM and 12/25/2023 10:27 AM * Specimens removed during surgery: * No specimens in log * Fluids: Intraprocedure Crystalloid Total Intake lactated ringers 800.00 mL Total Intake 800 mL Output Blood Loss 20 mL Total Output 20 mL Net Net Volume 780 mL PRBCs: none (See Anesthesia Record/Report for Other Blood Products) Urine Output: (no urine output recorded) Drains: None Disposition: awakened from anesthesia, extubated and taken to the recovery room in a stable condition, having suffered no apparent untoward event. Condition: doing well without problems (Please see the Surgical Encounter Summary for any Implant and Specimen details pertinent to this patient.) Surgical Infection Prevention Bundle Used? No documented in this encounter Plan of Treatment Upcoming Encounters Date Type Department Care Team (Late st Contact Info) Description 09/03/2024 9:00 AM EDT [place] [address] Zac Rousseau MD [facility] [place] [address] Scheduled Referrals Name Type Priority Associated Diagnoses Orde r Schedule Referral to Home Health Outpatient Referral Routine Intracranial arachnoid cysts Ordered: 12/26/2023 Referral to Neurology Outpatient Referral Routine Intracranial arachnoid cysts Ordered: 12/26/2023 documented as of this encounter Procedures Procedure Name Priority Date/Time Associated Diagnosis Comments CT HEAD WO CONTRAST (GENERIC) STAT 12/25/2023 1:14 PM EDT MODIFIER, AXIEM, SHUNT Yes 12/25/2023 7:34 AM EDT Arachnoid cyst Stereotactic Cptr Asstd Px Cranial, Intradural (73319) Yes 12/25/2023 7:34 AM EDT Arachnoid cyst Neuroendoscop, Diss Adhesion/Fenestration (72193) Yes 12/25/2023 7:34 AM EDT Arachnoid cyst STEREOTACTIC COMPUTER-ASSTD NAVIGATIONAL CRANIAL INTRADURAL Routine 12/25/2023 5:47 AM EDT Arachnoid cyst NEURENDOSC, IC, W/ DISSECT ADHESIONS, FENESTR PELLUCIDUM OR CYSTS Routine 12/25/2023 5:47 AM EDT Arachnoid cyst IMPLANTABLE DEVICES SCAN 12/25/2023 12:00 AM EDT documented in this encounter Results * CT Head wo Contrast (Generic) (12/25/2023 1:14 PM EDT) WORKSTATION ID [id number] RAD Anatomical Region Laterality Modality Head Computed Tomogra phy Impressions 12/25/2023 1:26 PM EDT Interval partial drainage/fenestration of large right frontal cyst with residual intralesional hemorrhage. Unchanged mass effect. Thank you for letting us participate in the care of this patient. ??If you are a health care provider and have any questions regarding this report, please contact the number below. ??For patients who have questions please contact the health healthcare corporate account director that requested your imaging first. ? Electronically signed by: Gaby Moore MD, [facility] ([phone]), at 12/25/2023 1:26 PM Narrative 12/25/2023 1:26 PM EDT EXAMINATION: CT HEAD WO CONTRAST (GENERIC) CLINICAL HISTORY: Sp craniotomy TECHNIQUE: CT head performed without intravenous contrast administration. COMPARISON: CT head and MRI brain 12/11/2023 FINDINGS: There is a new right frontal rosa elena hole for fenestration/partial drainage of the large right frontal cystic lesion. There is a fluid level within the lesion, and persistent, though overall decreased, blood products at the posterior periphery. There is unchanged mass effect on and effacement of the lateral ventricle. Unchanged 1.5 cm right to left shift at the level of the third ventricle mild prominence of the lateral ventricle and no periventricular CSF accumulation. Effacement of the ambient cisterns, downward and leftward displacement of the brainstem and subfalcine herniation, unchanged. No new intracranial hemorrhage or loss of kirk-white differentiation. Foramen magnum is patent. Procedure Note Gaby Moore MD - 12/25/2023 EXAMINATION: CT HEAD WO CONTRAST (GENERIC) CLINICAL HISTORY: Sp craniotomy TECHNIQUE: CT head performed without intravenous contrast administration. COMPARISON: CT head and MRI brain 12/11/2023 FINDINGS: There is a new right frontal rosa elena hole for fenestration/partial drainageof the large right frontal cystic lesion. There is a fluid level within thelesion, and persistent, though overall decreased, blood products at the posteriorperiphery. There is unchanged mass effect on and effacement of the lateralventricle. Unchanged 1.5 cm right to left shift at the level of the third ventriclemild prominence of the lateral ventricle and no periventricular CSFaccumulation. Effacement of the ambient cisterns, downward and leftward displacement ofthe brainstem and subfalcine herniation, unchanged. No new intracranial hemorrhage or loss of kirk-white differentiation.Foramen magnum is patent. IMPRESSION Interval partial drainage/fenestration of large right frontal cyst withresidual intralesional hemorrhage. Unchanged mass effect. Thank you for letting us participate in the care of this patient. If youare a health care provider and have any questions regarding this report,please contact the number below. For patients who have questions please contactthe health healthcare corporate account director that requested your imaging first. Electronically signed by: Gaby Moore MD, [facility]([phone]), at 12/25/2023 1:26 PM Daniel Miranda MD IMG CT ORDERABLES * Scan Doc: Implantable Devices (12/25/2023 12:00 AM EDT) Narrative 12/25/2023 12:00 AM EDT Ordered by an unspecified provider. Scanning Provider MEDIA MGR SCAN EXT O RDR/RSLT documented in this encounter Visit Diagnoses Diagnosis Intracranial arachnoid cysts- Primary Cerebral cysts Arachnoid cyst Cerebral cysts Intracranial arachnoid cysts Cerebral cysts documented in this encounter Admitting Diagnoses Diagnosis Intracranial arachnoid cysts Cerebral cysts documented in this encounter Administered Medications Inactive Administered Medications - up to 3 most recent administrations Medication Order MAR Action Action Date Dose Rate Site acetaminophen (Tylenol) tablet 975 mg 975 mg, Oral, EVERY 8 HOURS, First dose (after last modification) on Mon12/25/23 at 2130, Until Discontinued, - Maximum dose of acetaminophen is 4,000 mg from all sources in 24 hours. - Unless otherwise specified, when ordered PRN for pain, acetaminophen should be given first if other PRN pain medications are ordered., Routine Given 12/26/2023 5:52 AM EDT 975 mg Given 12/25/2023 10:01 PM EDT 975 mg acetaZOLAMIDE (Diamox) tablet 250 mg 250 mg, Oral, 2 TIMES DAILY, First dose on Mon12/25/23 at 2100, Until Discontinued, Routine Given 12/26/2023 8:45 AM EDT 250 mg Given 12/25/2023 8:12 PM EDT 250 mg bisacodyL (Dulcolax) suppository 10 mg 10 mg, Rectal, DAILY PRN, Starting on Mon12/25/23 at 2111, Until Mon12/26/23 at 1444, Constipation, Give if no BM within last 24 hr and rectal fullness is reported or assessed. Give concomitantly with any scheduled bowel medications ordered. , Routine bisacodyl EC (Dulcolax) tablet 10 mg 10 mg, Oral, 2 TIMES DAILY PRN, Starting on Mon12/25/23 at 2111, Until Mon12/26/23 at 1444, Constipation, Give if no BM after 24 hr after prior interventions. BM expected in 6-8 hours. If BM desired sooner, use next ordered agent. Give concomitantly with any scheduled bowel medications ordered., Routine ceFAZolin (Ancef) 2 g vial attach to sodium chloride 0.9% 100 mL Mini-Bag Plus 2 g, Intravenous, EVERY 8 HOURS, 3 doses, First dose on Mon12/25/23 at 1330, Last dose on Mon12/26/23 at 0530, Administer over 30 Minutes, Recovery (Recovery-Hospital Unit), Indication for (Active or Suspected): Prophylaxis New Bag 12/26/2023 5:53 AM EDT 2 g 200 mL/hr New Bag 12/25/2023 10:01 PM EDT 2 g 200 mL/hr New Bag 12/25/2023 2:53 PM EDT 2 g 200 mL/hr celecoxib (CeleBREX) capsule 200 mg 200 mg, Oral, 2 TIMES DAILY, First dose on Mon12/25/23 at 1445, Until Discontinued, Routine Given 12/26/2023 8:45 AM EDT 200 mg Given 12/25/2023 8:12 PM EDT 200 mg Given 12/25/2023 2:47 PM EDT 200 mg hydrALAZINE (Apresoline) (20 mg/mL) injection 10 mg 10 mg, Intravenous, EVERY 2 HOURS PRN, Starting on Mon12/25/23 at 1302, Until Mon12/26/23 at 1444, High Blood Pressure, For systolic blood pressure (SBP) greater than 160 mmHg. May repeat once in 15 minutes if blood pressure remains greater than 160 mmHg. Use if labetaloL ineffective after 2 doses, Routine HYDROmorphone (Dilaudid) (2 mg/mL) multi-dose injection solution 0.2 mg 0.2 mg, Intravenous, EVERY 10 MIN PRN, Starting on Mon12/25/23 at 1106, Until Mon12/25/23 at 1237, Pain, For Mild to Moderate Pain (1-5 out of 10), Hold for respiratory rate less than 10 per minute. Maximum dose 3 mg over one hour including administrations in the OR. If multiple pain medications are ordered, start with HYDROmorphone or morphine and use fentaNYL for breakthrough pain., PACU Recovery, Routine Given 12/25/2023 11:09 AM EDT 0.2 mg labetaloL (Normodyne) (5 mg/mL) injection solution 20 mg 20 mg, Intravenous, EVERY 2 HOURS PRN, Starting on Mon12/25/23 at 1302, Until Mon12/26/23 at 1444, High Blood Pressure, Use for systolic blood pressure (SBP) greater than 160 mmHg. May repeat once in 15 minutes if blood pressure remains greater than 160 mmHg., Routine lactulose (Chronulac) (0.67 gram/mL) oral liquid 20 g 20 g, Oral, DAILY PRN, Starting on Mon12/25/23 at 2111, Until Mon12/26/23 at 1444, Constipation, Give if no BM 24 hr after prior interventions or if BM is desired within 2 hr. Give concomitantly with any scheduled bowel medications ordered, Routine lactulose (Chronulac) (0.67 gram/mL) oral liquid 20 g 20 g, Oral, DAILY PRN, Starting on Mon12/25/23 at 2111, Until Mon12/26/23 at 1444, Constipation, Give an additional (2nd) dose of lactulose 2 hr after 1st dose if still no BM. Disregard if 1st dose of lactulose not ordered. Give concomitantly with any scheduled bowel medications ordered. , Routine levETIRAcetam (Keppra) tablet 1,000 mg 1,000 mg, Oral, 2 TIMES DAILY, First dose on Mon12/25/23 at 1445, Until Discontinued, Routine Given 12/26/2023 8:45 AM EDT 1,000 mg Given 12/25/2023 8:13 PM EDT 1,000 mg Given 12/25/2023 2:47 PM EDT 1,000 mg lidocaine (Xylocaine) 1% (10 mg/mL) injection 3 mg 3 mg (0.3 mL), Subcutaneous, ONCE PRN, 1 dose, Starting on Mon12/25/23 at 0639, Until Mon12/26/23 at 1444, for discomfort with PIV insertion, Recovery (Recovery-Hospital Unit), Routine lidocaine (Xylocaine) 1% (10 mg/mL) injection 3 mg 3 mg (0.3 mL), Subcutaneous, ONCE PRN, 1 dose, Starting on Mon12/25/23 at 1300, Until Mon12/26/23 at 1444, for discomfort with PIV insertion, Recovery (Recovery-Hospital Unit), Routine magnesium citrate oral liquid 296 mL 296 mL, Oral, ONCE PRN, 1 dose, Starting on Mon12/25/23 at 2111, Until Mon12/26/23 at 1444, Constipation, Give if no BM 2 hr after previous interventions. If 2 hr after mag citrate there is still no BM, see order for tap water enema, if placed. Give concomitantly with any scheduled bowel medications ordered., Routine ondansetron (pf) (Zofran) (2 mg/mL) injection 4 mg 4 mg, Intravenous, EVERY 8 HOURS PRN, Starting on Mon12/25/23 at 1302, Until Mon12/26/23 at 1444, Nausea, Vomiting, May repeat times one in 30 minutes if ineffective. If multiple antiemetics are ordered, use ondansetron first, prochlorperazine second, and metoclopramide third. ondansetron ODT (Zofran-ODT) disintegrating tablet 4 mg 4 mg, Oral, EVERY 8 HOURS PRN, Starting on Mon12/25/23 at 1302, Until Mon12/26/23 at 1444, Nausea, May repeat in 30 minutes if ineffective. If multiple antiemetics are ordered, use ondansetron first, prochlorperazine second, and metaclopramide third., Routine pantoprazole EC (Protonix) tablet 40 mg 40 mg, Oral, DAILY, First dose on Mon12/25/23 at 1445, Until Discontinued, DO NOT CRUSH OR OPEN, Routine Given 12/26/2023 8:45 AM EDT 40 mg Given 12/25/2023 2:47 PM EDT 40 mg polyethylene glycoL (Miralax) packet 17 g 17 g, Oral, DAILY, First dose on Mon12/25/23 at 1330, Until Discontinued, Administer if no bowel movement within 48 hours to achieve: (1) One bowel movement at least every 48 hours, AND (2) without straining. If multiple PRN bowel medications ordered, start with polyethylene glycoL, then lactulose, then oral bisacodyL, then bisacodyL suppository, then magnesium citrate, then tap water enema. Multiple medications may be given concomitantly for constipation. Given 12/26/2023 8:45 AM EDT 17 g Given 12/25/2023 2:48 PM EDT 17 g polyethylene glycoL (Miralax) packet 17 g 17 g, Oral, DAILY PRN, Starting on Mon12/25/23 at 2111, Until Mon12/26/23 at 1444, Constipation, Give if no BM within last 24 hr. Give concomitantly with any scheduled bowel medications ordered. , Routine polyethylene glycoL (Miralax) packet 17 g 17 g, Oral, DAILY, First dose on Mon12/26/23 at 0900, Until Discontinued, Hold for loose stool. , Routine senna-docusate (Pericolace) 8.6-50 mg per tablet 2 tablet 2 tablet, Oral, 2 TIMES DAILY, First dose on Mon12/25/23 at 2130, Until Discontinued, Hold for loose stool. , Routine Given 12/26/2023 8:45 AM EDT 2 tablets Given 12/25/2023 10:01 PM EDT 2 tablets sodium chloride 0.9 % (flush) (BD PosiFlush Normal Saline 0.9) flush 5 mL 5 mL, Intravenous, 2 TIMES DAILY, First dose on Mon12/25/23 at 0900, Until Discontinued, Recovery (Recovery-Hospital Unit), Routine Given 12/26/2023 8:46 AM EDT 5 mLs Given 12/25/2023 8:14 PM EDT 5 mLs sodium chloride 0.9 % (flush) (BD PosiFlush Normal Saline 0.9) flush 5 mL 5 mL, Intravenous, 2 TIMES DAILY, First dose on Mon12/25/23 at 1330, Until Discontinued, Recovery (Recovery-Hospital Unit), Routine Given 12/25/2023 8:14 PM EDT 5 mLs Given 12/25/2023 2:57 PM EDT 5 mLs sodium chloride 0.9 % (flush) (BD PosiFlush Normal Saline 0.9) flush 5-20 mL 5-20 mL, Intravenous, EVERY 1 MIN PRN, Starting on Mon12/25/23 at 0639, Until Mon12/26/23 at 1444, flush, Flush pertains to all indwelling lines. Flush per protocol found in the job aid using the link provided on this medication record., Recovery (Recovery-Hospital Unit), Routine sodium chloride 0.9 % (flush) (BD PosiFlush Normal Saline 0.9) flush 5-20 mL 5-20 mL, Intravenous, EVERY 1 MIN PRN, Starting on Mon12/25/23 at 1300, Until Mon12/26/23 at 1444, flush, Flush pertains to all indwelling lines. Flush per protocol found in the job aid using the link provided on this medication record., Recovery (Recovery-Hospital Unit), Routine sodium chloride 0.9% infusion 1,000 mL, at 100 mL/hr, Intravenous, CONTINUOUS, Starting on Mon12/25/23 at 1330, Until Mon12/26/23 at 1444, Recovery (Recovery-Hospital Unit) New Bag 12/25/2023 2:57 PM EDT 1,000 mLs 100 mL/hr documented in this encounter Active and Recently Administered Medications Times are shown in EDT. Scheduled Medication Order 12/24/2023 12/25/2023 12/26/2023 acetaminophen (Tylenol) tablet 975 mg(Linked Group 1) 975 mg, Oral, EVERY 8 HOURS, First dose (after last modification) on Mon12/25/23 at 2130, Until Discontinued, - Maximum dose of acetaminophen is 4,000 mg from all sources in 24 hours. - Unless otherwise specified, when ordered PRN for pain, acetaminophen should be given first if other PRN pain medications are ordered., Routine 2200 (Given - Provider: Shaquille Suero RN) 05 (Given - Provider: Shaquille Suero RN) acetaZOLAMIDE (Diamox) tablet 250 mg 250 mg, Oral, 2 TIMES DAILY, First dose on Mon12/25/23 at 2100, Until Discontinued, Routine 2011 (Given - Provider: Shaquille Suero RN) 0845 (Given - Provider: Ivone Harris, ZEENAT) ceFAZolin (Ancef) 2 g vial attach to sodium chloride 0.9% 100 mL Mini-Bag Plus (COMPLETED) 2 g, Intravenous, EVERY 8 HOURS, 3 doses, First dose on Mon12/25/23 at 1330, Last dose on Mon12/26/23 at 0530, Administer over 30 Minutes, Recovery (Recovery-Hospital Unit), Indication for (Active or Suspected): Prophylaxis 1453 (New Bag - Provider: Marichuy Cosme RN)1523 (Stopped - Provider: Marichuy Cosme RN)2201 (New Bag - Provider: Shaquille Suero RN)2231 (Stopped - Provider: Shaquille Suero RN) 0553 (New Bag - Provider: Shaquille Suero RN)0623 (Stopped - Provider: Shaquille Suero RN) celecoxib (CeleBREX) capsule 200 mg 200 mg, Oral, 2 TIMES DAILY, First dose on Mon12/25/23 at 1445, Until Discontinued, Routine 1447 (Given - Provider: Marichuy Cosme RN)2011 (Given - Provider: Shaquille Suero RN) 0845 (Given - Provider: Ivone Harris RN) levETIRAcetam (Keppra) tablet 1,000 mg 1,000 mg, Oral, 2 TIMES DAILY, First dose on Mon12/25/23 at 1445, Until Discontinued, Routine 1447 (Given - Provider: Marichuy Cosme RN)2012 (Given - Provider: Shaquille Suero RN) 0845 (Given - Provider: Ivone Harris, ZEENAT) lidocaine (pf) (Xylocaine) (10 mg/mL) 1% injection 3 mg 3 mg, Intradermal, ONCE, 1 dose, On Mon12/25/23 at 1700, Routine 1700 (Not Given - Provider: Shaquille Suero RN - Reason: See comment - Comment: Not given om previous shift) pantoprazole EC (Protonix) tablet 40 mg 40 mg, Oral, DAILY, First dose on Mon12/25/23 at 1445, Until Discontinued, DO NOT CRUSH OR OPEN, Routine 1447 (Given - Provider: Marichuy Cosme RN) 0845 (Given - Provider: Ivone Harris RN) polyethylene glycoL (Miralax) packet 17 g 17 g, Oral, DAILY, First dose on Mon12/25/23 at 1330, Until Discontinued, Administer if no bowel movement within 48 hours to achieve: (1) One bowel movement at least every 48 hours, AND (2) without straining. If multiple PRN bowel medications ordered, start with polyethylene glycoL, then lactulose, then oral bisacodyL, then bisacodyL suppository, then magnesium citrate, then tap water enema. Multiple medications may be given concomitantly for constipation. 1448 (Given - Provider: Marichuy Cosme RN) 0845 (Given - Provider: Ivone Harris RN) polyethylene glycoL (Miralax) packet 17 g 17 g, Oral, DAILY, First dose on Mon12/26/23 at 0900, Until Discontinued, Hold for loose stool. , Routine 899 (Not Given - Provider: Ivone Harris RN - Reason: See comment - Comment: duplicate) senna-docusate (Pericolace) 8.6-50 mg per tablet 2 tablet 2 tablet, Oral, 2 TIMES DAILY, First dose on Mon12/25/23 at 2130, Until Discontinued, Hold for loose stool. , Routine 2200 (Given - Provider: Shaquille Suero RN) 0845 (Given - Provider: Ivone Harris RN) sodium chloride 0.9 % (flush) (BD PosiFlush Normal Saline 0.9) flush 5 mL 5 mL, Intravenous, 2 TIMES DAILY, First dose on Mon12/25/23 at 0900, Until Discontinued, Recovery (Recovery-Hospital Unit), Routine 2013 (Given - Provider: Shaquille Suero RN) 0846 (Given - Provider: Ivone Harris RN)0900 (Not Given - Provider: Ivone Harris RN - Reason: See comment - Comment: duplicate) sodium chloride 0.9 % (flush) (BD PosiFlush Normal Saline 0.9) flush 5 mL 5 mL, Intravenous, 2 TIMES DAILY, First dose on Mon12/25/23 at 1330, Until Discontinued, Recovery (Recovery-Hospital Unit), Routine 1457 (Given - Provider: Marichuy Cosme, RN)2013 (Given - Provider: Shaquille Suero RN) 0900 (Not Given - Provider: Ivone Harris RN - Reason: See comment - Comment: duplicate) Continuous Medication Order 12/24/2023 12/25/2023 12/26/2023 sodium chloride 0.9% infusion 1,000 mL, at 100 mL/hr, Intravenous, CONTINUOUS, Starting on Mon12/25/23 at 1330, Until Mon12/26/23 at 1444, Recovery (Recovery-Hospital Unit) 1457 (New Bag - Provider: Odette Cosme RN) PRN Medication Order 12/24/2023 12/25/2023 12/26/2023 bacitracin zinc-polymyxin B (Polysporin) ointment (CANCELED) PRN, Starting on Mon12/25/23 at 1002, Until Mon12/26/23 at 1444, Intra-Operative (Intra-Procedure) 1002 (Given - Provider: Berry Blake MD - Comment: used as part of the dressing) bisacodyL (Dulcolax) suppository 10 mg(Linked Group 2) 10 mg, Rectal, DAILY PRN, Starting on Mon12/25/23 at 2111, Until Mon12/26/23 at 1444, Constipation, Give if no BM within last 24 hr and rectal fullness is reported or assessed. Give concomitantly with any scheduled bowel medications ordered. , Routine bisacodyl EC (Dulcolax) tablet 10 mg(Linked Group 2) 10 mg, Oral, 2 TIMES DAILY PRN, Starting on Mon12/25/23 at 2111, Until Mon12/26/23 at 1444, Constipation, Give if no BM after 24 hr after prior interventions. BM expected in 6-8 hours. If BM desired sooner, use next ordered agent. Give concomitantly with any scheduled bowel medications ordered., Routine BUPivacaine (pf) (Marcaine) (2.5 mg/mL) 0.25% injection (CANCELED) PRN, Starting on Mon12/25/23 at 0850, Until Mon12/26/23 at 1444, Intra-Operative (Intra-Procedure), Routine 0850 (Given - Provider: Daniel Miranda MD) gelatin adsorbable 12-7 mm sponge (CANCELED) PRN, Starting on Mon12/25/23 at 0915, Until Mon12/26/23 at 1444, Intra-Operative (Intra-Procedure) 0915 (Given - Provider: Daniel Miranda MD - Comment: Gelfoam soaked in 5,000 units of thrombin. Used PRN throughout case) hydrALAZINE (Apresoline) (20 mg/mL) injection 10 mg 10 mg, Intravenous, EVERY 2 HOURS PRN, Starting on Mon12/25/23 at 1302, Until Mon12/26/23 at 1444, High Blood Pressure, For systolic blood pressure (SBP) greater than 160 mmHg. May repeat once in 15 minutes if blood pressure remains greater than 160 mmHg. Use if labetaloL ineffective after 2 doses, Routine HYDROmorphone (Dilaudid) (2 mg/mL) multi-dose injection solution 0.2 mg (CANCELED)(Linked Group 3) 0.2 mg, Intravenous, EVERY 10 MIN PRN, Starting on Mon12/25/23 at 1106, Until Mon12/25/23 at 1237, Pain, For Mild to Moderate Pain (1-5 out of 10), Hold for respiratory rate less than 10 per minute. Maximum dose 3 mg over one hour including administrations in the OR. If multiple pain medications are ordered, start with HYDROmorphone or morphine and use fentaNYL for breakthrough pain., PACU Recovery, Routine 1109 (Given - Provider: Katelyn Joshi RN) labetaloL (Normodyne) (5 mg/mL) injection solution 20 mg 20 mg, Intravenous, EVERY 2 HOURS PRN, Starting on Mon12/25/23 at 1302, Until Mon12/26/23 at 1444, High Blood Pressure, Use for systolic blood pressure (SBP) greater than 160 mmHg. May repeat once in 15 minutes if blood pressure remains greater than 160 mmHg., Routine lactulose (Chronulac) (0.67 gram/mL) oral liquid 20 g(Linked Group 2) 20 g, Oral, DAILY PRN, Starting on Mon12/25/23 at 2111, Until Mon12/26/23 at 1444, Constipation, Give if no BM 24 hr after prior interventions or if BM is desired within 2 hr. Give concomitantly with any scheduled bowel medications ordered, Routine lactulose (Chronulac) (0.67 gram/mL) oral liquid 20 g(Linked Group 2) 20 g, Oral, DAILY PRN, Starting on Mon12/25/23 at 2111, Until Mon12/26/23 at 1444, Constipation, Give an additional (2nd) dose of lactulose 2 hr after 1st dose if still no BM. Disregard if 1st dose of lactulose not ordered. Give concomitantly with any scheduled bowel medications ordered. , Routine lidocaine (Xylocaine) 1% (10 mg/mL) injection 3 mg 3 mg (0.3 mL), Subcutaneous, ONCE PRN, 1 dose, Starting on Mon12/25/23 at 0639, Until Mon12/26/23 at 1444, for discomfort with PIV insertion, Recovery (Recovery-Hospital Unit), Routine lidocaine (Xylocaine) 1% (10 mg/mL) injection 3 mg 3 mg (0.3 mL), Subcutaneous, ONCE PRN, 1 dose, Starting on Mon12/25/23 at 1300, Until Mon12/26/23 at 1444, for discomfort with PIV insertion, Recovery (Recovery-Hospital Unit), Routine magnesium citrate oral liquid 296 mL(Linked Group 2) 296 mL, Oral, ONCE PRN, 1 dose, Starting on Mon12/25/23 at 2111, Until Mon12/26/23 at 1444, Constipation, Give if no BM 2 hr after previous interventions. If 2 hr after mag citrate there is still no BM, see order for tap water enema, if placed. Give concomitantly with any scheduled bowel medications ordered., Routine ondansetron (pf) (Zofran) (2 mg/mL) injection 4 mg(Linked Group 4) 4 mg, Intravenous, EVERY 8 HOURS PRN, Starting on Mon12/25/23 at 1302, Until Mon12/26/23 at 1444, Nausea, Vomiting, May repeat times one in 30 minutes if ineffective. If multiple antiemetics are ordered, use ondansetron first, prochlorperazine second, and metoclopramide third. ondansetron ODT (Zofran-ODT) disintegrating tablet 4 mg(Linked Group 4) 4 mg, Oral, EVERY 8 HOURS PRN, Starting on Mon12/25/23 at 1302, Until Mon12/26/23 at 1444, Nausea, May repeat in 30 minutes if ineffective. If multiple antiemetics are ordered, use ondansetron first, prochlorperazine second, and metaclopramide third., Routine polyethylene glycoL (Miralax) packet 17 g(Linked Group 2) 17 g, Oral, DAILY PRN, Starting on Mon12/25/23 at 2111, Until Mon12/26/23 at 1444, Constipation, Give if no BM within last 24 hr. Give concomitantly with any scheduled bowel medications ordered. , Routine sodium chloride 0.9 % (flush) (BD PosiFlush Normal Saline 0.9) flush 5-20 mL 5-20 mL, Intravenous, EVERY 1 MIN PRN, Starting on Mon12/25/23 at 0639, Until Mon12/26/23 at 1444, flush, Flush pertains to all indwelling lines. Flush per protocol found in the job aid using the link provided on this medication record., Recovery (Recovery-Hospital Unit), Routine sodium chloride 0.9 % (flush) (BD PosiFlush Normal Saline 0.9) flush 5-20 mL 5-20 mL, Intravenous, EVERY 1 MIN PRN, Starting on Mon12/25/23 at 1300, Until Mon12/26/23 at 1444, flush, Flush pertains to all indwelling lines. Flush per protocol found in the job aid using the link provided on this medication record., Recovery (Recovery-Hospital Unit), Routine thrombin (bovine) (Thrombin-Jmi) solution (CANCELED) PRN, Starting on Mon12/25/23 at 0915, Until Mon12/26/23 at 1444, Intra-Operative (Intra-Procedure) 0915 (Given - Provider: Daniel Miranda MD - Comment: Gelfoam soaked in 5,000 units of thrombin. Used PRN throughout case) Linked Groups Order Group 1: acetaminophen (Tylenol) tablet 975 mgJump to med 975 mg, Oral, EVERY 8 HOURS, First dose (after last modification) on Mon12/25/23 at 2130, Until Discontinued, - Maximum dose of acetaminophen is 4,000 mg from all sources in 24 hours. - Unless otherwise specified, when ordered PRN for pain, acetaminophen should be given first if other PRN pain medications are ordered., Routine Group 2: polyethylene glycoL (Miralax) packet 17 gJump to med 17 g, Oral, DAILY PRN, Starting on Mon12/25/23 at 2111, Until Mon12/26/23 at 1444, Constipation, Give if no BM within last 24 hr. Give concomitantly with any scheduled bowel medications ordered. , Routine And bisacodyL (Dulcolax) suppository 10 mgJump to med 10 mg, Rectal, DAILY PRN, Starting on Mon12/25/23 at 2111, Until Mon12/26/23 at 1444, Constipation, Give if no BM within last 24 hr and rectal fullness is reported or assessed. Give concomitantly with any scheduled bowel medications ordered. , Routine And bisacodyl EC (Dulcolax) tablet 10 mgJump to med 10 mg, Oral, 2 TIMES DAILY PRN, Starting on Mon12/25/23 at 2111, Until Mon12/26/23 at 1444, Constipation, Give if no BM after 24 hr after prior interventions. BM expected in 6-8 hours. If BM desired sooner, use next ordered agent. Give concomitantly with any scheduled bowel medications ordered., Routine And lactulose (Chronulac) (0.67 gram/mL) oral liquid 20 gJump to med 20 g, Oral, DAILY PRN, Starting on Mon12/25/23 at 2111, Until Mon12/26/23 at 1444, Constipation, Give if no BM 24 hr after prior interventions or if BM is desired within 2 hr. Give concomitantly with any scheduled bowel medications ordered, Routine And lactulose (Chronulac) (0.67 gram/mL) oral liquid 20 gJump to med 20 g, Oral, DAILY PRN, Starting on Mon12/25/23 at 2111, Until Mon12/26/23 at 1444, Constipation, Give an additional (2nd) dose of lactulose 2 hr after 1st dose if still no BM. Disregard if 1st dose of lactulose not ordered. Give concomitantly with any scheduled bowel medications ordered. , Routine And magnesium citrate oral liquid 296 mLJump to med 296 mL, Oral, ONCE PRN, 1 dose, Starting on Mon12/25/23 at 2111, Until Mon12/26/23 at 1444, Constipation, Give if no BM 2 hr after previous interventions. If 2 hr after mag citrate there is still no BM, see order for tap water enema, if placed. Give concomitantly with any scheduled bowel medications ordered., Routine And Tap water enema (CANCELED) Routine, DAILY PRN, Starting on Mon12/25/23 at 2111, Until Specified, Give if no BM in at least 24 hr and all other ordered bowel regimen medications have been unsuccessful. Give concomitantly with any scheduled bowel medications ordered. Group 3: HYDROmorphone (Dilaudid) (2 mg/mL) multi-dose injection solution 0.2 mg (CANCELED)Jump to med 0.2 mg, Intravenous, EVERY 10 MIN PRN, Starting on Mon12/25/23 at 1106, Until Mon12/25/23 at 1237, Pain, For Mild to Moderate Pain (1-5 out of 10), Hold for respiratory rate less than 10 per minute. Maximum dose 3 mg over one hour including administrations in the OR. If multiple pain medications are ordered, start with HYDROmorphone or morphine and use fentaNYL for breakthrough pain., PACU Recovery, Routine Or HYDROmorphone (Dilaudid) (2 mg/mL) multi-dose injection solution 0.4 mg (CANCELED) 0.4 mg, Intravenous, EVERY 10 MIN PRN, Starting on Mon12/25/23 at 1106, Until Mon12/25/23 at 1237, Pain, For Moderate to Severe Pain (6-10 out of 10), Hold for respiratory rate less than 10 per minute. Maximum dose 3 mg over one hour including administrations in the OR. If multiple pain medications are ordered, start with HYDROmorphone or morphine and use fentaNYL for breakthrough pain., PACU Recovery, Routine Group 4: ondansetron ODT (Zofran-ODT) disintegrating tablet 4 mgJump to med 4 mg, Oral, EVERY 8 HOURS PRN, Starting on Mon12/25/23 at 1302, Until Mon12/26/23 at 1444, Nausea, May repeat in 30 minutes if ineffective. If multiple antiemetics are ordered, use ondansetron first, prochlorperazine second, and metaclopramide third., Routine Or ondansetron (pf) (Zofran) (2 mg/mL) injection 4 mgJump to med 4 mg, Intravenous, EVERY 8 HOURS PRN, Starting on Mon12/25/23 at 1302, Until Mon12/26/23 at 1444, Nausea, Vomiting, May repeat times one in 30 minutes if ineffective. If multiple antiemetics are ordered, use ondansetron first, prochlorperazine second, and metoclopramide third. documented in this encounter Care Teams Commodity Director Relationship Specialty Start Date End Date Bhakti Nieves MD [address] [place] [address] PCP - General Family Medicine 04/08/22 documented as of this encounter
--- OUTSIDE RECORDS SUMMARY | 2024-04-26 01:59 | XMS_ITS | Encounter Summary ---
Author Organization [place] [address] Care Team Providers Care Ham Marker Name Role Phone Bhakti Nieves MD Primary Care Provider [phone] Reason for Visit * Auth/Cert (Routine) Specialty Diagnoses / Procedures Referred By Capo reyna Referred To Contact Diagnoses Arachnoid cyst arachnoid cyst. increased intracranial pressure Procedures PRO NEUROENDOSCOP, DISS ADHESION/FENESTRATION PRO STEREOTACTIC CPTR ASSTD PX CRANIAL, INTRADURAL @NEUROENDOSCOPY, IC, W/ DISSECT ADHESIONS, FENESTRATION PELLUCIDUM OR CYSTS (WRVU 21.23) STEREOTACTIC COMPUTER-ASSTD NAVIGATIONAL CRANIAL INTRADURAL (WRVU 3.75) MODIFIER, AXIEM, SHUNT Daniel Miranda MD [facility] [place] [address] [facility] Referral ID Status Reason Start Date Expiration Date Visits Re quested Visits Authorized [id number] 1 1 Encounter Details Date Type Department Care Team (Late st Contact Info) Description 12/25/2023 7:35 AM EDT Anesthesia Event [facility] [place] [id number] Wili Rea MD [facility] [place] [address] Morgan Michaud CRNA [facility] [place] [address] Anesthesia Record Procedure Summary Procedure Name Responsible Anesthesiologist Anesthesia Start Time Anesthesia Stop Time @NEUROENDOSCOPY, IC, W/ DISSECT ADHESIONS, FENESTRATION PELLUCIDUM OR CYSTS (VU 21.23) (Right: Head) Wili Rea MD 12/25/23 0735 12/25/23 1045 Events Date Time Event Comment 12/25/2023 0727 0734 AN Verify 0735 Start 0735 An Start Data 0743 An Induction 0745 An Intubation 0753 Anesthesia Ready 0850 Procedure Start 1032 Extubation/LMA Out Following commands, Vt > 350, oropharynx suctioned and extubated to facemask without event. 1045 an stop data 1045 Recovery or ICU Handoff Kellen ent care was transferred to the destination unit staff after review of the patient's medical history, current anesthetic/surgical status and plan, according to the Provider Handoff Checklist. 1045 Stop Meds Name Total fentaNYL 100 mcg lidocaine IV 100 mg propofoL 120 mg rocuronium 70 mg ePHEDrine 5 mg ondansetron 4 mg dexAMETHasone 8 mg propofol INF 417.45 mg PHENYLephrine INF 540 mcg ceFAZolin 2 g HYDROmorphone 0.4 mg sugammadex 200 mg lactated ringers 200 mL lactated ringers 600 mL * Agents Name O2 * Blood No blood administrations on file. Lines, Drains, and Airways Type Details Placement Removal Incision 12/25/23; 0850; Righ t, upper; head 12/25/23 0850 by Linda Bray RN PIV 12/25/23; 0716; uyfs-qka-uzlvbf catheter system; 20 gauge; median cubital vein (antecubital fossa), left; Anatomical Landmarks; Fredy Phan RN; distraction, topical anesthetic spray applied, tolerated well, appears comfortable; 12/26/23; 1213 12/25/23 0716 by Fredy Ball RN 12/26/23 1213 by Ivone Harris RN ETT Mask Ventilation: Ea sy (1); ETT Type: Cuffed, Oral; ETT Size: 7 mm; Mac Blade: 3; Notes: Asleep, Pre-O2, Stylette; Attempts: 1; Laryngoscopy Grade: 1; ETT Placement Verified By: Auscultation, Capnometry, Visual; Secured at Teeth: 22 cm; Inserted by: AMISH Michaud; Removal Date: 12/25/23; Removal Time: 1032 12/25/23 0745 by Morgan Michaud CRNA 12/25/23 1032 by Morgan Michaud CRNA Urethral Catheter 12/25/23; 0759; uret hral catheter removed; 12/25/23; 1040 12/25/23 0759 by Linda Bray RN 12/25/23 1040 by Linda Bray RN PIV 12/25/23; 0801; tlwv-dwl-afdqmo catheter system; 18 gauge; median cubital vein (antecubital fossa), right; AMISH Michaud; 12/26/23; 1213 12/25/23 0801 by Morgan Michaud CRNA 12/26/23 1213 by Ivone Harris RN documented in this encounter Social History Tobacco Use Types Packs/Day Years Used Date Smoking Tobacco: Never Smokeless Tobacco: Never Alcohol Use Standard Drinks/Week Comments Never 0 (1 standard drink = 0.6 oz pur e alcohol) [facility] Utilities Answer Date Recorded In the past 12 months has th e [employer], gas, oil, or water [email or web address] threatened to shut off services in your [...] any time in the past 12 m ont, were you homeless or living in a residential (including now)? No 12/12/2023 DH IPV Inpatient [...] on file documented as of this encounter OR Notes * Anesthesia Postprocedure Evaluation - Wili Rea MD - 12/25/2023 5:14 PM EDT Department of Anesthesiology Post-procedure Note Patient: Alyson Valverde Procedure Summary Date: 12/25/23 Room / Location: [facility] 2 / [facility] Anesthesia Start: 734 Anesthesia Stop: 1044 Procedures: @NEUROENDOSCOPY, IC, W/ DISSECT ADHESIONS, FENESTRATION PELLUCIDUM OR CYSTS (WRVU 21.23) (Right: Head) STEREOTACTIC COMPUTER-ASSTD NAVIGATIONAL CRANIAL INTRADURAL (WRVU 3.75) MODIFIER, AXIEM, SHUNT (Right) Diagnosis: Arachnoid cyst (arachnoid cyst. increased intracranial pressure) Surgeons: Daniel Miranda MD Responsible Provider: Wili Rea MD Anesthesia Type: general ASA Status: 2 All Anesthesia Providers: Anesthesiologist: Wili Rea MD PRODUCTION GENERALIST: Morgan Michaud CRNA Vitals Value Taken Time BP 129/89 12/25/23 1200 Temp 37 ??C (98.6 ??F) 12/25/23 1200 Pulse 57 12/25/23 1215 Resp 12 12/25/23 1215 SpO2 96 % 12/25/23 1713 Pain Level 2 12/25/23 1447 Vitals shown include unfiled device data. Patient Location: PACU/[facility] Level of Consciousness: Awake and Alert Pain Management: Satisfactory Analgesia PONV: None Cardiovascular Status: At Baseline Respiratory Status: At Baseline Postoperative Fluid Status: Intravascular EUvolemia Possible Anesthetic Complications: NONE apparent at time of evaluation Final Primary Anesthesia Type: General (The anesthetic type performed was the same as planned.) Comments: * Anesthesia Preprocedure Evaluation - Wili Rea MD - 12/25/2023 6:56 AM EDT Pre-Anesthesia Evaluation for: Alyson Valverde a 63 y.o. female. Procedure(s): @NEUROENDOSCOPY, IC, W/ DISSECT ADHESIONS, FENESTRATION PELLUCIDUM OR CYSTS (WRVU 21.23) STEREOTACTIC COMPUTER-ASSTD NAVIGATIONAL CRANIAL INTRADURAL (WRVU 3.75) MODIFIER, AXIEM, SHUNT Patient Active Problem List Diagnosis Date Noted ??? Arachnoid cyst 12/11/2023 ??? Primary osteoarthritis of left knee 05/05/2022 ??? Primary osteoarthritis of right knee 05/05/2022 History reviewed. No pertinent past medical history. History reviewed. No pertinent surgical history. Social History Tobacco Use ??? Smoking status: Never ??? Smokeless tobacco: Never Substance Use Topics ??? Alcohol use: Never Social History Substance and Sexual Activity Drug Use Never Allergies Allergen Reactions ??? Betadine [Povidone-Iodine] Rash Medications: MAR and/or home medications have been reviewed. Physical Exam: Preprocedure Vitals Current as of 12/25/23 0656 BP: 156/88 Pulse: 50 Resp: 17 SpO2: 100 Temp: 36.1 ??C (97 ??F) Height: 170.2 cm (5' 7) (12/25/23) Weight: 60.5 kg (133 lb 6.4 oz) (12/25/23) BMI: 20.89 IBW: 61.6 kg (135 lb 13.5 oz) Last edited 12/25/23 0631 by AD Airway Assessment: Mallampati: II TM distance: >3 FB Neck ROM: full Cardiovascular Assessment: Rhythm: regular Rate: normal Pulmonary Assessment: unlabored breathing Dental Assessment: - normal exam Misc Assessment: Last Filed Perioperative Cognitive Screening None Anesthesia Plan: ASA 2 general, with a(n) intravenous induction Presents for neuroendoscopic fenestration/excision of arachnoid cyst. Anesthetic Hx: No problems reported Functional capacity: excellent NPO status: ok Region - Intracranial (non-vascular) Informed Consent: Anesthetic plan and risks discussed with patient. Plan discussed with PRODUCTION GENERALIST. Anesthesia Screening documented in this encounter Plan of Treatment Upcoming Encounters Date Type Department Care Team (Late st Contact Info) Description 09/03/2024 9:00 AM EDT [place] [address] Zac Rousseau MD [facility] [place] [address] documented as of this encounter Visit Diagnoses Not on filedocumented in this encounter Administered Medications Inactive Administered Medications - up to 3 most recent administrations Medication Order MAR Action Action Date Dose Rate Site ceFAZolin (Ancef) (100 mg/mL) injection solution Intravenous, PRN, Starting on Mon12/25/23 at 0825, Until Mon12/25/23 at 1048, Anesthesia Intra-op, Routine Given 12/25/2023 8:25 AM EDT 2 g dexAMETHasone (Decadron) injection Intravenous, PRN, Starting on Mon12/25/23 at 0750, Until Mon12/25/23 at 1048, Anesthesia Intra-op, Routine Given 12/25/2023 7:50 AM EDT 8 mg ePHEDrine sulfate (5 mg/mL) multi-dose injection Intravenous, PRN, Starting on Mon12/25/23 at 0935, Until Mon12/25/23 at 1048, Anesthesia Intra-op, Routine Given 12/25/2023 9:35 AM EDT 5 mg fentaNYL (pf) (50 mcg/mL) multi-dose injection Intravenous, PRN, Starting on Mon12/25/23 at 0830, Until Mon12/25/23 at 1048, Anesthesia Intra-op, Routine Given 12/25/2023 10:08 AM EDT 25 mcg Given 12/25/2023 9:50 AM EDT 25 mcg Given 12/25/2023 8:30 AM EDT 50 mcg HYDROmorphone (Dilaudid) (2 mg/mL) multi-dose injection solution Intravenous, PRN, Starting on Mon12/25/23 at 1023, Until Mon12/25/23 at 1048, Anesthesia Intra-op, Routine Given 12/25/2023 10:23 AM EDT 0.4 mg lactated ringers infusion Intravenous, CONTINUOUS PRN, Starting on Mon12/25/23 at 0734, Until Mon12/25/23 at 1048, Anesthesia Intra-op New Bag 12/25/2023 7:34 AM EDT lactated ringers infusion Intravenous, CONTINUOUS PRN, Starting on Mon12/25/23 at 0800, Until Mon12/25/23 at 1048, Anesthesia Intra-op New Bag 12/25/2023 8:00 AM EDT lidocaine (pf) (Xylocaine) (20 mg/mL) 2% injection syringe Intravenous, PRN, Starting on Mon12/25/23 at 0743, Until Mon12/25/23 at 1048, Anesthesia Intra-op, Routine Given 12/25/2023 7:43 AM EDT 100 mg ondansetron (pf) (Zofran) (2 mg/mL) injection Intravenous, PRN, Starting on Mon12/25/23 at 0950, Until Mon12/25/23 at 1048, Anesthesia Intra-op, Routine Given 12/25/2023 9:50 AM EDT 4 mg PHENYLephrine (Cain-Synephrine) (80 mcg/mL) in sodium chloride 0.9% 250 mL infusion Intravenous, CONTINUOUS PRN, Starting on Mon12/25/23 at 0935, Until Mon12/25/23 at 1048, Anesthesia Intra-op, Routine Rate/Dose Change 12/25/2023 9:45 AM EDT 20 mcg/min 15 mL/hr New Bag 12/25/2023 9:35 AM EDT 40 mcg/min 30 mL/hr propofoL (Diprivan) (10 mg/mL) infusion Intravenous, CONTINUOUS PRN, Starting on Mon12/25/23 at 0743, Until Mon12/25/23 at 1048, Anesthesia Intra-op, Routine New Bag 12/25/2023 7:43 AM EDT 50 mcg/kg/min 18.15 mL/hr propofoL (Diprivan) 10 mg/mL bolus injection (Anesthesia) Intravenous, PRN, Starting on Mon12/25/23 at 0743, Until Mon12/25/23 at 1048, Anesthesia Intra-op Given 12/25/2023 7:43 AM EDT 120 mg rocuronium (Zemuron) (10 mg/mL) multi-dose injection Intravenous, PRN, Starting on Mon12/25/23 at 0744, Until Mon12/25/23 at 1048, Anesthesia Intra-op, Routine Given 12/25/2023 9:29 AM EDT 10 mg Given 12/25/2023 8:48 AM EDT 10 mg Given 12/25/2023 7:44 AM EDT 50 mg sugammadex (Bridion) 100 mg/mL injection Intravenous, PRN, Starting on Mon12/25/23 at 1029, Until Mon12/25/23 at 1048, Anesthesia Intra-op, Routine Given 12/25/2023 10:29 AM EDT 200 mg documented in this encounter Care Teams Ham Marker Relationship Specialty Start Date End Date Bhakti Nieves MD [address] [place] [address] PCP - General Family Medicine 04/08/22 documented as of this encounter
--- OUTSIDE RECORDS SUMMARY | 2024-04-26 01:59 | XMS_ITS | Encounter Summary ---
Author Organization [facility] Address [address] [facility] [place] [address] Care Team Providers Care Clean Room Operator Name Role Phone Bhakti Nieves MD Primary Care Provider [phone] Encounter Details Date Type Department Care Team (Latest Contact Info) Description 04/05/2024 Travel Social History Tobacco Use Types Packs/Day Years Used Date Smoking Tobacco: Never Smokeless Tobacco: Never Alcohol Use Standard Drinks/Week Comments Never 0 (1 standard drink = 0.6 oz pur e alcohol) [facility] Utilities Answer Date Recorded In the [...] any time in the past 12 m [facility], were you homeless or living in a senior care (including now)? No 12/12/2023 IPV Inpatient Questions [...] 9:00 AM EDT [place] [address] Zac Rousseau MD [facility] [place] [address] documented as of this encounter Visit Diagnoses Not on filedocumented in this encounter Care Teams Clean Room Operator Relationship Specialty Start Date End Date Bhakti Nieves MD [address] [place] [address] PCP - General Family Medicine 04/08/22 documented as of this encounter
--- OUTSIDE RECORDS SUMMARY | 2024-04-26 01:59 | XMS_ITS | Encounter Summary ---
Author Organization [facility] Address [facility] [place] [address] Care Team Providers Care Stove Cleaner Name Role Phone Bhakti Nieves MD Primary Care Provider [phone] Reason for Visit * Reason Comments Follow-up LEFT KNEE INJECTION Encounter Details Date Type Department Care Team (Late st Contact Info) Description 04/05/2024 8:30 AM EST Office [place] [address] Diana Ferraro APRN [facility] [place] [address] Chronic pain of both knees Social History Tobacco Use Types Packs/Day Years Used Date Smoking Tobacco: Never Smokeless Tobacco: Never Alcohol Use Standard Drinks/Week Comments Never 0 (1 standard drink = 0.6 oz pur e alcohol) [facility] Utilities Answer Date Recorded In the past 12 months has th e [employer], gas, oil, or water [facility] threatened to shut off services in your [...] in a chcf (including now)? No 12/12/2023 DH IPV Inpatient [...] Sign Reading Time Taken Comments Blood Pressure - - Pulse - - Temperature - - Respiratory Rate - - Oxygen Saturation - - Inhaled Oxygen Concentration - - Weight 60.8 kg (134 lb) 04/05/2024 8:22 AM EST v erbal Height 170.2 cm (5' 7) 04/05/2024 8:22 AM EST v erbal Body Mass Index 20.99 04/05/2024 8:22 AM EST documented in this encounter Progress Notes * Diana Ferraro, HOME CONNECT LPN - 04/05/2024 8:30 AM EST Images from the original note were not included. ..,.,, ..,.,., .,.. PATIENT NAME: Alyson Valverde AGE: 63 y.o. MR#: [id number] DATE OF VISIT: 04/05/2024 DATE OF INJURY/ONSET: mult years STAFF: Dr. Morrison CHIEF COMPLAINT: Ms. Huibregtse a 63 y.o. year old female comes into clinic today for bilat knee injection, bilat knee pain. HPI: Alyson is a very pleasant 63-year-old female who presents to me for bilateral knee pain, bilateral steroid injection. Has had longstanding bilateral knee pain and gets injections about every 6 months. Last cut injection with Dr. Morrison. Appreciates sustained relief for about 6 months from injection. She is very active, likes to ski, rides horses. Of note, this past summer she got into an accident where she fell off her horse and had to get arachnoid cyst fenestration. She had significant buttransient neuro although she is residual, but feels much better now. She is excited to ski this season and return to riding. Has no other questions today aside from desire to get bilateral knee injection. SIG MED HX: Arachnoid cyst fenestration November 2023 at [facility]: The following imaging was independently interpreted and reviewed by myself , need updated imaging orders placed will get x-ray on the way out today. OBJECTIVE: bilateral Lower Extremity: Full, painless range of motion of the hip. Full painless range of motion of the ankle. Neurovascularly intact distally. 2+ DP pulse. Brisk capillary refill distally. Ankle plantar and dorsiflexion intact. EHL FHL intact and 5 out of 5. Sensation intact light touch in the tibial, superficial peroneal, deep peroneal, sural, saphenous distributions. Knee Effusion trace to superior aspect left knee Tenderness to palpation: Medial Joint Line Tenderness: absent Lateral Joint Line Tenderness: absent Range of Motion Extension 2 deg, slightly contracted bilaterally Flexion: 130 degrees right side, 125 left side Page negative Anterior Drawer negative Pivot Shift not done Varus Stressing: Firm endpoint, no pain Valgus Stressing: Firm endpoint, no pain Posterior Drawer negative Patellar apprehension absent Patellar [place] .5 quadrants Pain with patellar grinding: absent Able to perform a straight leg raise without lag Tenderness to palpation in the patellar tendon in extension: No PROCEDURE: I had a thorough discussion with the patient regarding the risks and benefits of knee joint injection for the diagnosis of osteoarthritis. I discussed the risks including but not limited to: Bleeding, infection, damage to nerves and vessels, risk of raising blood sugar, permanent discoloration of the skin. The patient expressed understanding of these risks and wished to proceed. I marked out my injection site using a pen. The bilateral knee was prepped using chloraprep. A 22-gauge needle was inserted from a superolateral approach into the knee joint. The joint was entered smoothly and without resistance. Medications were injected without resistance. The patient tolerated the procedure well and a Band-Aid was applied after applying pressure to stop bleeding. A combination of the following medications was injected: Kenalomg (1mL) 1% Lidocaine: 4 mL I reviewed with the patient to avoid strenuous activity for the next 48 hours. ASSESSMENT/PLAN: Leslie tolerated bilateral injections well. We reviewed to avoid strenuous activity and avoid submerging for 48 hours. I would like to see Leslie back in about 6 months to see how she isdoing and if she would like to repeat injections at that time. I let her know if she has any questions in the meantime she is welcome to message me or come back and see me in office. All questions and concerns answered. Plan as follows 1. Bilateral steroid injections today 2. Patient to follow-up in 6 months to track how bilateral knee pain symptoms 3. Updated standing alignment films today on the way out Diana Ferraro APRN Department of Orthopaedic Surgery [facility] The above documentation was completed using [employer] voice recognition software. documented in this encounter Plan of Treatment Upcoming Encounters Date Type Department Care Team (Late st Contact Info) Description 09/03/2024 9:00 AM EDT [place] [address] Zac Rousseau MD [facility] [place] [address] Scheduled Orders Name Type Priority Associated Diagnoses Orde r Schedule XR Knee 4 or more views Left Imaging Routine Chronic pain of both knees Expected: 04/05/2024, Expires: 10/05/2024 XR Knee 4 or more views Right Imaging Routine Chronic pain of both knees Expected: 04/05/2024, Expires: 10/05/2024 documented as of this encounter Visit Diagnoses Diagnosis Chronic pain of both knees documented in this encounter Administered Medications Inactive Administered Medications - up to 3 most recent administrations Medication Order MAR Action Action Date Dose Rate Site lidocaine (Xylocaine) 1% (10 mg/mL) injection 30 mg 30 mg (3 mL), Subcutaneous, ONCE, 1 dose, On Mon04/05/24 at 0900, Routine Given 04/05/2024 9:01 AM EST 30 mg lidocaine (Xylocaine) 1% (10 mg/mL) injection 30 mg 30 mg (3 mL), Subcutaneous, ONCE, 1 dose, On Mon04/05/24 at 0900, Routine Given 04/05/2024 9:01 AM EST 30 mg triamcinolone acetonide (Kenalog-40) (40 mg/mL) injection 40 mg 40 mg, Intra-articular, ONCE, 1 dose, On Mon04/05/24 at 0900, Routine Given 04/05/2024 9:01 AM EST 40 mg triamcinolone acetonide (Kenalog-40) (40 mg/mL) injection 40 mg 40 mg, Intra-articular, ONCE, 1 dose, On Mon04/05/24 at 0900, Routine Given 04/05/2024 9:01 AM EST 40 mg documented in this encounter Care Teams Stove Cleaner Relationship Specialty Start Date End Date Bhakti Nieves MD [address] [place] [address] PCP - General Family Medicine 04/08/22 documented as of this encounter
--- OUTSIDE RECORDS SUMMARY | 2024-04-26 01:59 | XMS_ITS | Encounter Summary ---
Author Organization [facility] Address One [facility] [place] [address] Care Team Providers Care Fiberglass Luggage Molder Name Role Phone Bhakti Nieves MD Primary Care Provider [phone] Encounter Details Date Type Department Care Team (Latest Contact Info) Description 03/01/2024 Travel Social History Tobacco Use Types Packs/Day Years Used Date Smoking Tobacco: Never Smokeless Tobacco: Never Alcohol Use Standard Drinks/Week Comments Never 0 (1 standard drink = 0.6 oz pur e alcohol) [facility] Utilities Answer Date Recorded In the [...] any time in the past 12 m [facility], were you homeless or living in a longterm (including now)? No 12/12/2023 IPV Inpatient Questions [...] 9:00 AM EDT [place] [address] Zac Rousseau MD [facility] [place] [address] documented as of this encounter Visit Diagnoses Not on filedocumented in this encounter Care Teams Fiberglass Luggage Molder Relationship Specialty Start Date End Date Bhakti Nieves MD [address] [place] [address] PCP - General Family Medicine 04/08/22 documented as of this encounter
--- OUTSIDE RECORDS SUMMARY | 2024-04-26 01:59 | XMS_ITS | Encounter Summary ---
Author Organization [facility] Address [facility] [place] [address] Care Team Providers Care Table Games Dual Rate Supervisor Name Role Phone Bhakti Nieves MD Primary Care Provider [phone] Encounter Details Date Type Department Care Team (Late st Contact Info) Description 12/21/2023 10:40 AM EDT Office [place] [address] Daniel Miranda MD [facility] [place] [address] Arachnoid cyst Social History Tobacco Use Types Packs/Day Years Used Date Smoking Tobacco: Never Smokeless Tobacco: Never Alcohol Use Standard Drinks/Week Comments Never 0 (1 standard drink = 0.6 oz pur e alcohol) [facility] Utilities Answer Date Recorded In the past 12 months has [employer], gas, oil, or water [employer] threatened to shut off services in your [...] any time in the past 12 m [facility], were you homeless or living in a fpc (including now)? No 12/12/2023 DH IPV Inpatient [...] Sign Reading Time Taken Comments Blood Pressure 119/81 12/21/2023 10:46 AM EDT Pulse 73 12/21/2023 10:46 AM EDT Temperature 36.5 ??C (97.7 ??F) 12/21/2023 1 0:46 AM EDT Respiratory Rate 17 12/21/2023 10:4 6 AM EDT Oxygen Saturation 96% 12/21/2023 10: 46 AM EDT Inhaled Oxygen Concentration - - Weight 60.2 kg (132 lb 12.8 oz) 024 10:46 AM EDT Height 170.2 cm (5' 7.01) 12/21/2023 1 0:46 AM EDT Body Mass Index 20.79 12/21/2023 10:46 AM EDT documented in this encounter Progress Notes * Daniel Miranda MD - 12/21/2023 10:40 AM EDT [facility] SECTION OF NEUROSURGERY DATE: 12/21/2023 NAME: Alyson Valverde is a 63 y/o right-handed female seen in clinic for evaluation and management of a large symptomatic arachnoid cyst. The arachnoid cyst had previously been identified and monitored. Unfortunately, she was recently admitted to the hospital following a fall from a horse in which it was noted that there was some cystic hemorrhage as well as significant enlargement of the lesion with increased mass effect. She has also subsequently had a seizure and is now on Keppra. Since discharge from the hospital she has not experienced any additional seizures. Both the patient and her , however, note significant ongoing symptoms including headaches, slowed cognition and speech, as well as left hemiparesis. In general her symptoms have been improving since discharge but are nevertheless persistent. + constipation. Her past medical history, medications, and allergies were reviewed and are up to date in Epic. EXAM: Vitals Flowsheet Row Office Visit from 12/21/2023 in Neurosurgery at [facility] [place] Weight 60.2 kg (132 lb 12.8 oz) Height 170.2 cm (5' 7.01) BSA (Calculated - sq m) 1.69 sq meters BMI (Calculated) 20.79 Temp 36.5 ??C (97.7 ??F) Temp src Temporal Heart Rate 73 Resp 17 BP 119/81 Patient Position Sitting SpO2 96 % On examination she was pleasant and interactive. Her spontaneous speech was fluent but sparse. Naming and repetition intact. PERRL. EOMI. VFF. No facial asymmetry. Her strength was 5/5 on segmental motor exam in the RUE and RLE and 4+/5 in the LUE and LLE. No pronator drift. LT sensation was intactand symmetric. Her respirations were even and unlabored. No peripheral edema or calf tenderness. IMAGING: MRI of the brain was reviewed. There is a R frontal arachnoid cyst that measures approximately 9 x 6 cm and is associated with significant mass effect, brain compression, and midline shift. There areblood products layering within the cyst. The cyst has enlarged in size significantly in comparison to the head CT from 2018. A/P: 63 y/o female seen in clinic for evaluation of a large symptomatic arachnoid cyst. During the appointment we reviewed the imaging at length with discussion of the differential diagnosis, naturalhistory of arachnoid cysts, and relevant surrounding anatomy. The cyst has enlarged in size significantly since 2018 and is associated with increased mass effect and now midline shift. Her symptoms are certainly related to the cyst and urgent treatment is advised. We discussed options for treatmentincluding a cystoperitoneal shunt as well as endoscopic fenestration of the lesion into the adjacent lateral ventricle. The nuances between the procedures were discussed as well as the risks and benefits. She would like to proceed with an attempt at fenestration which is reasonable. I have provideda prescription for Diamox in the interim to temporize symptoms as well as medications for her constipation. All questions were answered and she is comfortable with the plan as outlined. Daniel Miranda MD documented in this encounter Plan of Treatment Upcoming Encounters Date Type Department Care Team (Late st Contact Info) Description 09/03/2024 9:00 AM EDT Office [place] [address] Zac Rousseau MD [facility] [place] [address] documented as of this encounter Visit Diagnoses Diagnosis Arachnoid cyst Cerebral cysts documented in this encounter Care Teams Table Games Dual Rate Supervisor Relationship Specialty Start Date End Date Bhakti Nieves MD [address] [place] [address] PCP - General Family Medicine 04/08/22 documented as of this encounter
--- OUTSIDE RECORDS SUMMARY | 2024-04-26 01:59 | XMS_ITS | Encounter Summary ---
Author Organization [facility] Address One [facility] [place] [address] Care Team Providers Care Medical Front Desk Specialist Name Role Phone Bhakti Nieves MD Primary Care Provider [phone] Encounter Details Date Type Department Care Team (Latest Contact Info) Description 12/21/2023 Travel Social History Tobacco Use Types Packs/Day Years Used Date Smoking Tobacco: Never Smokeless Tobacco: Never Alcohol Use Standard Drinks/Week Comments Never 0 (1 standard drink = 0.6 oz pur e alcohol) [facility] Utilities Answer Date Recorded [...] any time in the past 12 m [facility], were you homeless or living in a jail (including now)? No 12/12/2023 IPV Inpatient Questions Answer Date Recorded Does Anyone Try to Keep You From Having Contact with Others or Doing Things Outside Your Home? no 12/11/2023 Feels Threatened by Someone no 11/29 Feels Unsafe at Home or Work/School no 12/11/2023 Physical Signs of Abuse Present no 12/11/2023 Sex and Gender Information Value Date Recorded Sex Assigned at Not on file Gender Identity Not on file Sexual Orientation Not on file documented as of this encounter Plan of Treatment Upcoming Encounters Date Type Department Care Team (Late st Contact Info) Description 09/03/2024 9:00 AM EDT [place] [address] Zac Rousseau MD [facility] [place] [address] documented as of this encounter Visit Diagnoses Not on filedocumented in this encounter Care Teams Medical Front Desk Specialist Relationship Specialty Start Date End Date Bhakti Nieves MD [address] [place] [address] PCP - General Family Medicine 04/08/22 documented as of this encounter
--- OUTSIDE RECORDS SUMMARY | 2024-04-26 01:59 | XMS_ITS | Encounter Summary ---
Author Organization [facility] Address [facility] [place] [address] Care Team Providers Care Song Lyricist Name Role Phone Bhakti Nieves MD Primary Care Provider [phone] Reason for Visit * Consultation (Routine) - Authorized Specialty Diagnoses / Procedures Referred By Capo reyna Referred To Contact Neurology Diagnoses Cerebral cysts Bhakti Nieves MD [address] [place] [address] [facility] Neu[facility] [address] [place] [address] Referral ID Status Reason Start Date Expiration Date Visits Requested Visits Authorized [id number] Authorized Consult, Test & Treat PCP Updated and/or Approved 12/08/2023 12/07/2024 6 6 Encounter Details Date Type Department Care Team (Late st Contact Info) Description 03/01/2024 9:30 AM EDT [place] [address] Zac Rousseau MD [facility] [place] [address] Focal epilepsy; Seizures Social History Tobacco Use Types Packs/Day Years [...] any time in the past 12 m [facility], were you homeless or living in a usp (including now)? No 12/12/2023 IPV Inpatient Questions [...] Pulse 70 03/01/2024 9:22 AM EDT Temperature - - Respiratory Rate - - Oxygen Saturation - - Inhaled Oxygen Concentration - - Weight 60.8 kg (134 lb) 03/01/2024 9:22 AM EDT Height 170.2 cm (5' 7) 03/01/2024 9:22 AM EDT Body Mass Index 20.99 03/01/2024 9:22 AM EDT documented in this encounter Progress Notes * Zac Rousseau MD - 03/01/2024 9:30 AM EDT Images from the original note were not included. [facility] Department of Neurology I saw Alyson Valverde at the request of Bhakti Nieves MD for the evaluation and treatment of anti-seizure medication management. 63yo female with hx of an arachnoid cyst, dx at [facility], lost to follow-up since 2018, which [...] Betadine [Povidone-Iodine] Rash Medications: Current Outpatient Medications: divalproex ER (Depakote ER) 250 mg ER 24 hr tablet, Take 1 tablet by mouth daily for 7 days, THEN 1tablet 2 times daily for 23 days., Disp: 53 tablet, Rfl: 0 acetaZOLAMIDE (Diamox) 250 mg tablet, Take 1 tablet by mouth daily., Disp: 30 tablet, Rfl: 0 acetaminophen (Tylenol) 500 mg tablet, Take 2 tablets by mouth every 6 hours as needed for Pain. (Patient taking differently: Take 1,000 mg by mouth as needed for Pain.), Disp: 30 tablet, Rfl: 1 celecoxib (CeleBREX) 200 mg capsule, Take 1 capsule by mouth 2 times daily. (Patient not taking: Reported on 01/30/2024), Disp: 30 capsule, Rfl: 1 levETIRAcetam (Keppra) 1,000 mg tablet, Take 1 tablet by mouth 2 times daily., Disp: 60 tablet, Rfl: 12 multivitamin (THERAGRAN) Tablet, Take 1 tablet by mouth daily., Disp: , Rfl: SUMAtriptan (IMITREX) 5 mg/actuation Sylvia, Non-Aerosol, USE 2 SPRAYS IN EACH NOSTRIL ONCE DAILY ASNEEDED, Disp: , Rfl: Medical history & active problems Patient Active Problem List Diagnosis Code Primary osteoarthritis of left knee M17.12 Primary osteoarthritis of right knee M17.11 Arachnoid cyst G93.0 Intracranial arachnoid cysts G93.0 No past medical history on file. Past Surgical History: Procedure Laterality Date PRO NEUROENDOSCOP, DISS ADHESION/FENESTRATION Right 12/25/2023 @NEUROENDOSCOPY, IC, W/ DISSECT ADHESIONS, FENESTRATION PELLUCIDUM OR CYSTS (WRVU 21.23) performed by Daniel Miranda MD at [facility] PRO STEREOTACTIC CPTR ASSTD PX CRANIAL, INTRADURAL N/A 12/25/2023 STEREOTACTIC COMPUTER-ASSTD NAVIGATIONAL CRANIAL INTRADURAL (WRVU 3.75) performed by Daniel Miranda MD at [facility] OBGYN: Postmenopausal Social History Socioeconomic History [...] across midline Deep tendon reflexes: symmetric Coordination: Orxexq-eqyt-qijynl testing intact Xozm-bq-pnjd No truncal ataxia Finger tapping with normal [...] (Bezet) ms [phone] Calculated P [place] degrees 70 62 61 Calculated R [place] degrees 61 49 40 Calculated T [place] degrees 49 39 35 Recent neuroimaging & [...] the event and tolerating LEV 500 bid much better than prior 1000 mg bid dosing. Given desire to return to driving and full activity including outdoor sports, would recommend continuing this dose for the time being and then repeating EEG with consideration of wean in 9-[address] Jaime to contact us if any symptoms concerning for seizure were to resurfaceor if there were problems with medications. Alternatives to levetiracetam would include lamotrigineor lacosamide. Seizure safety including risk of injury with driving, working at heights, or swimming were discussed. Medication side effects and toxicity reviewed. Return to care 6-9 months I spent a total of 60 minutes on this krrp-yc-apjl encounter on the date of service. This included: [x] Preparing to see the patient, review of laboratory test results and medical record [x] Independently interpreting neuroimaging or neurophysiological results [] Obtaining and/or reviewing separately obtained history (eg, outside records, caregiver) [x] Counseling and educating the patient/family/caregiver [] Referring and communicating with other health cardiac care nurse [x] Documenting clinical information in the electronic or other health record [] Care coordination Zac Rousseau MD [facility] Department of Neurology [facility] documented in this encounter Plan of Treatment Upcoming Encounters Date Type Department Care Team (Late st Contact Info) Description 09/03/2024 9:00 AM EDT [place] [address] Zac Rousseau MD [facility] [place] [address] documented as of this encounter Results * Levetiracetam level (03/01/2024 11:00 AM EDT) [facility] Signature Levetiracetam Lvl August 17.8 10.0 - 40.0 mcg/mL 03/03/2024 1:04 PM EST [facility] [place] Comment: ADDITIONAL INFORMATION This test was developed and its performance characteristics determined by [facility] in a manner consistent with CLIA requirements. This test has not been cleared or approved by the U.S. Food and Drug Administration. 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
--- OUTSIDE RECORDS SUMMARY | 2024-04-26 01:59 | XMS_ITS | Encounter Summary ---
Author Organization [facility] Address [facility] [place] [address] Care Team Providers Care Homicide Squad Sergeant Name Role Phone Bhakti Nieves MD Primary Care Provider [phone] Encounter Details Date Type Department Care Team (Late st Contact Info) Description 12/14/2023 [place] [address] Jorge Boston MD [facility] [address] Social History Tobacco Use Types Packs/Day Years Used Date Smoking Tobacco: Never Smokeless Tobacco: Never Alcohol Use Standard Drinks/Week Comments Never 0 (1 standard drink = 0.6 oz pur e alcohol) [facility] Utilities Answer Date Recorded In the past 12 months has [employer], gas, oil, or water [employer] threatened to shut off services in your [...] any time in the past 12 m [facility], were you homeless or living in a halfway (including now)? No 12/12/2023 IPV Inpatient Questions [...] encounter Miscellaneous Notes * Telephone Encounter - Jorge Boston MD - 12/14/2023 6:16 PM EDT paged by patient's . Pharmacy in which Keppra was prescribed cannot fill in prescription until Monday. Will prescribe Keppra x5 days in a different pharmacy documented in this encounter Plan of Treatment Upcoming Encounters Date Type Department Care Team (Late st Contact Info) Description 09/03/2024 9:00 AM EDT [place] [address] Zac Rousseau MD [facility] [place] [address] documented as of this encounter Visit Diagnoses Not on filedocumented in this encounter Care Teams Homicide Squad Sergeant Relationship Specialty Start Date End Date Bhakti Nieves MD [address] [place] [address] PCP - General Family Medicine 04/08/22 documented as of this encounter
--- OUTSIDE RECORDS SUMMARY | 2024-04-26 01:59 | XMS_ITS | Encounter Summary ---
Author Organization [facility] Address [facility] [place] [address] Care Team Providers Care Sales Vendor Name Role Phone Bhakti Nieves MD Primary Care Provider [phone] Encounter Details Date Type Department Care Team (Latest Contact Info) Description 01/30/2024 Travel Social History Tobacco Use Types Packs/Day Years Used Date Smoking Tobacco: Never Smokeless Tobacco: Never Alcohol Use Standard Drinks/Week Comments Never 0 (1 standard drink = 0.6 oz pur e alcohol) [facility] Utilities Answer Date Recorded In the [...] any time in the past 12 m [facility], were you homeless or living in [...] 9:00 AM EDT [place] [address] Zac Rousseau MD [facility] [place] [address] documented as of this encounter Visit Diagnoses Not on filedocumented in this encounter Care Teams Sales Vendor Relationship Specialty Start Date End Date Bhakti Nieves MD [address] [place] [address] PCP - General Family Medicine 04/08/22 documented as of this encounter
--- OUTSIDE RECORDS SUMMARY | 2024-04-26 01:59 | XMS_ITS | Encounter Summary ---
Author Organization [facility] Address One [facility] [place] [address] Care Team Providers Care Director Game Name Role Phone Bhakti Nieves MD Primary Care Provider [phone] Encounter Details Date Type Department Care Team (Latest Contact Info) Description 01/08/2024 Travel Social History Tobacco Use Types Packs/Day Years Used Date Smoking Tobacco: Never Smokeless Tobacco: Never Alcohol Use Standard Drinks/Week Comments Never 0 (1 standard drink = 0.6 oz pur e alcohol) [facility] Utilities Answer Date Recorded In the past [...] any time in the past 12 m [facility], were you homeless or living in a snf (including now)? No 12/12/2023 IPV Inpatient Questions [...] 9:00 AM EDT Office [place] [address] Zac Rousseau MD [facility] [place] [address] documented as of this encounter Visit Diagnoses Not on filedocumented in this encounter Care Teams Director Game Relationship Specialty Start Date End Date Bhakti Nieves MD [address] [place] [address] PCP - General Family Medicine 04/08/22 documented as of this encounter
--- OUTSIDE RECORDS SUMMARY | 2024-04-26 01:59 | XMS_ITS | Encounter Summary ---
[place] [address] Care Team Providers Care Dark Room Attendant Name Role Phone Bhakti Nieves MD Primary Care Provider [phone] Reason for Referral * Consultation (Routine) - Authorized Specialty Diagnoses / Procedures Referred By Contac t Referred To Contact Neurology Diagnoses Cerebral cysts Bhakti Nieves MD [address] [place] [address] [facility] Neurology [address] [place] [phone] Referral ID Status Reason Start Date Expiration Date Visits Requested Visits Authorized [id number] Authorized Consult, Test & Treat PCP Updated and/or Approved 12/08/2023 12/07/2024 6 6 Encounter Details Date Type Department Care Team (Late st Contact Info) Description 12/22/2023 Transcribe Orders eDH Incoming Referrals [phone] Bhakti Nieves MD [address] [place] [address] Cerebral cysts Social History Tobacco Use Types Packs/Day Years Used Date Smoking Tobacco: Never Smokeless Tobacco: Never Alcohol Use Standard Drinks/Week Comments Never 0 (1 standard drink = 0.6 oz pur e alcohol) [facility] Utilities Answer Date Recorded In the [...] time in the past 12 m [facility], were you homeless or living in a correction (including now)? No 12/12/2023 IPV Inpatient Questions [...] 9:00 AM EDT [place] [address] Zac Rousseau MD [facility] [place] [address] Scheduled Referrals Name Type Priority Associated Diagnoses Orde r Schedule Referral to Neurology Outpatient Referral Routine Cerebral cysts Ordered: 12/22/2023 documented as of this encounter Visit Diagnoses Diagnosis Cerebral cysts documented in this encounter Care Teams Dark Room Attendant Relationship Specialty Start Date End Date Bhakti Nieves MD [address] [place] [address] PCP - General Family Medicine 04/08/22 documented as of this encounter
--- OUTSIDE RECORDS SUMMARY | 2024-04-26 01:59 | XMS_ITS | Encounter Summary ---
Author Organization [facility] Address One [facility] [place] [address] Care Team Providers Care Director Home Name Role Phone Bhakti Nieves MD Primary Care Provider [phone] Encounter Details Date Type Department Care Team (Latest Contact Info) Description 03/29/2024 Travel Social History Tobacco Use Types Packs/Day Years Used Date Smoking Tobacco: Never Smokeless Tobacco: Never Alcohol Use Standard Drinks/Week Comments Never 0 (1 standard drink = 0.6 oz pur e alcohol) [facility] Utilities Answer Date Recorded In the [...] any time in the past 12 m [facility], were you homeless or living in a fpc (including now)? No 12/12/2023 IPV Inpatient Questions [...] 9:00 AM EDT [place] [address] Zac Rousseau MD [facility] [place] [address] documented as of this encounter Visit Diagnoses Not on filedocumented in this encounter Care Teams Director Home Relationship Specialty Start Date End Date Bhakti Nieves MD [address] [place] [address] PCP - General Family Medicine 04/08/22 documented as of this encounter
--- OUTSIDE RECORDS SUMMARY | 2024-04-26 01:59 | XMS_ITS | Encounter Summary ---
Author Organization [facility] Address One [facility] [place] [address] Care Team Providers Care White Sidewall Tire Buffer Name Role Phone Bhakti Nieves MD Primary Care Provider [phone] Encounter Details Date Type Department Care Team (Latest Contact Info) Description 02/24/2024 Travel Social History Tobacco Use Types Packs/Day Years Used Date Smoking Tobacco: Never Smokeless Tobacco: Never Alcohol Use Standard Drinks/Week Comments Never 0 (1 standard drink = 0.6 oz pur e alcohol) [facility] Utilities Answer Date Recorded In the past [...] any time in the past 12 m [facility], were you homeless or living in a retirement (including now)? No 12/12/2023 IPV Inpatient Questions [...] 9:00 AM EDT Office [place] [address] Zac Rousseau MD [facility] [place] [address] documented as of this encounter Visit Diagnoses Not on filedocumented in this encounter Care Teams White Sidewall Tire Buffer Relationship Specialty Start Date End Date Bhakti Nieves MD [address] [place] [address] PCP - General Family Medicine 04/08/22 documented as of this encounter
--- OUTSIDE RECORDS SUMMARY | 2024-04-26 01:59 | XMS_ITS | Encounter Summary ---
Author Organization [facility] [place] [address] Care Team Providers Care Industrial Spraypainter Name Role Phone Bhakti Nieves MD Primary Care Provider Reason for Referral * Diagnostic Test (Routine) - Closed Specialty Diagnoses / Procedures Referred By Contac t Referred To Contact Radiology Diagnoses Arachnoid cyst Procedures CT Head wo Contrast (Generic) Alison Ramos PA [facility] [place] [address] [facility] [place] [address] Referral ID Status Reason Start Date Expiration Date V isits Requested Visits Authorized [id number] Closed Specialty Service Requested 01/12/2024 03/11/2024 1 1 Reason for Visit * Diagnostic Test (Routine) - Closed Specialty Diagnoses / Procedures Referred By Contac t Referred To Contact Radiology Diagnoses Arachnoid cyst Procedures CT Head wo Contrast (Generic) Alison Ramos PA [facility] [place] [address] [facility] [place] [address] Referral ID Status Reason Start Date Expiration Date V isits Requested Visits Authorized [id number] Closed Specialty Service Requested 01/12/2024 03/11/2024 1 1 Encounter Details Date Type Department Care Team (Latest Contact Info) Description 01/23/2024 9:21 AM EDT - 01/23/2024 11:59 PM EDT Hospital Encounter CT Scan [place] [facility] [place] [address] Daniel Miranda MD [facility] [place] [address] Arachnoid cyst Discharge Disposition: Home Social History Tobacco Use Types Packs/Day Years Used Date Smoking Tobacco: Never Smokeless Tobacco: Never Alcohol Use Standard Drinks/Week Comments Never 0 (1 standard drink = 0.6 oz pur e alcohol) [facility] Utilities Answer Date Recorded In the [...] any time in the past 12 m [facility], were you homeless or living in a long-term (including now)? No 12/12/2023 [facility] Inpatient Questions Answer Date Recorded Does Anyone [...] on file documented as of this encounter Medications at Time of Discharge Medication Sig Dispensed Refills Start Date End Date multivitamin (THERAGRAN) Tablet Take 1 tablet by mouth daily. SUMAtriptan (IMITREX) 5 mg/actuation [place], Non-Aerosol USE 2 SPRAYS IN EACH NOSTRIL ONCE DAILY NEEDED 04/27/2022 acetaZOLAMIDE (Diamox) 250 mg tablet Take 1 tablet by mouth daily. 30 tablet 01/03/2024 03/01/2024 acetaminophen (Tylenol) 500 mg tablet Take 2 tablets by mouth every 6 hours as needed for Pain. 30 tablet 1 12/14/2023 03/04/2024 celecoxib (CeleBREX) 200 mg capsule Take 1 capsule by mouth 2 times daily. 30 capsule 1 12/14/2023 03/01/2024 levETIRAcetam (Keppra) 1,000 mg tablet Take 1 tablet by mouth 2 times daily. 60 tablet 12 12/14/2023 03/04/2024 documented as of this encounter Plan of Treatment Upcoming Encounters Date Type Department Care Team (Late st Contact Info) Description 09/03/2024 9:00 AM EDT [place] [address] Zac Rousseau MD [facility] [place] [address] documented as of this encounter Procedures Procedure Name Priority Date/Time Associated Diagnosis Comments CT HEAD WO CONTRAST (GENERIC) Routine 01/23/2024 9:29 AM EDT Arachnoid cyst documented in this encounter Results * CT Head wo Contrast (Generic) (01/23/2024 9:29 AM EDT) [employer] Signature WORKSTATION ID [id number] [facility] Anatomical Region Laterality Modality Head Computed [...] who have questions please contact the health certified caregiver that requested your imaging first. ? Narrative [...] patients who have questions please contactthe health certified caregiver that requested your imaging first. Daniel Miranda MD IMG CT ORDERABLES documented in this encounter Visit Diagnoses Diagnosis Arachnoid cyst Cerebral cysts documented in this encounter Care Teams Industrial Spraypainter Relationship Specialty Start Date End Date Bhakti Nieves MD [address] [place] [address] PCP - General Family Medicine 04/08/22 documented as of this encounter
--- OUTSIDE RECORDS SUMMARY | 2024-04-26 01:59 | XMS_ITS | Encounter Summary ---
Author Organization [facility] Address [facility] [place] [address] Care Team Providers Care Senior Construction Project Manager Name Role Phone Bhakti Nieves MD Primary Care Provider [phone] Encounter Details Date Type Department Care Team (Late st Contact Info) Description 03/08/2024 [place] [phone] Jaguar Morrison MD [facility] [place] [address] Social History Tobacco Use Types Packs/Day Years Used Date Smoking Tobacco: Never Smokeless Tobacco: Never Alcohol Use Standard Drinks/Week Comments Never 0 (1 standard drink = 0.6 oz pur e alcohol) [facility] Utilities Answer Date Recorded In the past 12 months has e [employer], gas, oil, or water [employer] threatened to shut off services in your [...] any time in the past 12 m [facility], were you homeless or living in a custodial (including now)? No 12/12/2023 IPV Inpatient Questions [...] encounter Miscellaneous Notes * Telephone Encounter - Jyoti Paredes - 03/08/2024 3:08 PM EST Patient's request for injection appointment of the Left Knee has been reviewed by Clinical Support. Is it too soon for patient to have this injection? No Date of last injection? 10/24/23 Is this a high dollar injection? No Enter High Dollar Prior Auth if Synvisc or Orthovisc injection. Does this injection need to be scheduled in radiology under fluoro? no Have orders been placed? not applicable Injection within 3 months prior to joint arthroplasty or arthroscopy is associated with increased rates of postoperative infection: this includes, hip, knee, and shoulder. documented in this encounter Plan of Treatment Upcoming Encounters Date Type Department Care Team (Late st Contact Info) Description 09/03/2024 9:00 AM EDT [place] [phone] Zac Rousseau MD [facility] [place] [address] documented as of this encounter Visit Diagnoses Not on filedocumented in this encounter Care Teams Senior Construction Project Manager Relationship Specialty Start Date End Date Bhakti Nieves MD [address] [place] [address] PCP - General Family Medicine 04/08/22 documented as of this encounter
--- OUTSIDE RECORDS SUMMARY | 2024-04-26 01:59 | XMS_ITS | Encounter Summary ---
Author Organization Counts Include [facility] Address [facility] [place] [address] Care Team Providers Care Facility Service Associate Name Role Phone Bhakti Nieves MD Primary Care Provider [phone] Encounter Details Date Type Department Care Team (Late st Contact Info) Description 02/19/2024 Telephone [place] [phone] Alice Flowers, RN Social History Tobacco Use Types Packs/Day Years Used Date Smoking Tobacco: Never Smokeless Tobacco: Never Alcohol Use Standard Drinks/Week Comments Never 0 (1 standard drink = 0.6 oz pur e alcohol) [facility] Utilities Answer Date Recorded In the [...] were you homeless or living in a assisted (including now)? No 12/12/2023 IPV Inpatient Questions [...] encounter Miscellaneous Notes * Telephone Encounter - Alice Flowers RN - 02/19/2024 2:12 PM EDT Copied from CRM #[id number]. Topic: Specialty Dept CRMs - Generic Call >> Feb 19, 2024 8:04 AM Phi Landrum wrote: Specialist: Maria R Robertson APRN Relationship (if other than patient-full name): self Reason for Call: Patient is calling with question in regards to her lab orders. Patient was under the impression she was supposed to have one placed to determine her Keppra levels. ____ Spoke to Alyson to explain that we do not need labs to come off keppra, the labs we sent was for abaseline to start depakote. documented in this encounter Plan of Treatment Upcoming Encounters Date Type Department Care Team (Late st Contact Info) Description 09/03/2024 9:00 AM EDT Office [place] [address] Zac Rousseau MD [facility] [place] [address] documented as of this encounter Visit Diagnoses Not on filedocumented in this encounter Care Teams Facility Service Associate Relationship Specialty Start Date End Date Bhakti Nieves MD [address] [place] [address] PCP - General Family Medicine 04/08/22 documented as of this encounter
--- OUTSIDE RECORDS SUMMARY | 2024-04-26 01:59 | XMS_ITS | Encounter Summary ---
Author Organization [facility] Address [facility] [place] [address] Care Team Providers Care Mammalogist Name Role Phone Bhakti Nieves MD Primary Care Provider [phone] Encounter Details Date Type Department Care Team (Late st Contact Info) Description 02/16/2024 [place] [phone] Alice Flowers, RN Social History Tobacco Use Types Packs/Day Years Used Date Smoking Tobacco: Never Smokeless Tobacco: Never Alcohol Use Standard Drinks/Week Comments Never 0 (1 standard drink = 0.6 oz pur e alcohol) [facility] Utilities Answer Date Recorded In the [...] time in the past 12 m [facility], were you homeless or living in a prison (including now)? No 12/12/2023 IPV Inpatient Questions [...] Telephone Encounter - Alice Flowers RN - 02/16/2024 2:57 PM EDT Spoke to Alyson to tell her that we can taper her off the keppra once she starts depakote. Order already sent to pharmacy. She knows to get lab work done before starting depakote and will use lab order from portal and go locally. She will also come here to check labs in 2 weeks on 03/01. After starting the depakote she will lower keppra to 500mg BID for one week then discontinue it and increase depakote to 500mg BID. She verbalized understanding. documented in this encounter Plan of Treatment Upcoming Encounters Date Type Department Care Team (Late st Contact Info) Description 09/03/2024 9:00 AM EDT [place] [address] Zac Rousseau MD [facility] [place] [address] documented as of this encounter Visit Diagnoses Not on filedocumented in this encounter Care Teams Mammalogist Relationship Specialty Start Date End Date Bhakti Nieves MD [address] [place] [address] PCP - General Family Medicine 04/08/22 documented as of this encounter
--- OUTSIDE RECORDS SUMMARY | 2024-04-26 01:59 | XMS_ITS | Encounter Summary ---
Author Organization [facility] Address One [facility] [place] [address] Care Team Providers Care Sweatband Separator Name Role Phone Bhakti Nieves MD Primary Care Provider [phone] Encounter Details Date Type Department Care Team (Latest Contact Info) Description 01/05/2024 Travel Social History Tobacco Use Types Packs/Day Years Used Date Smoking Tobacco: Never Smokeless Tobacco: Never Alcohol Use Standard Drinks/Week Comments Never 0 (1 standard drink = 0.6 oz pur e alcohol) [facility] Utilities Answer Date Recorded In [...] were you homeless or living in a skilled nursing (including now)? No 12/12/2023 IPV Inpatient Questions [...] 9:00 AM EDT Office [place] [address] Zac Rousseau MD [facility] [place] [address] documented as of this encounter Visit Diagnoses Not on filedocumented in this encounter Care Teams Sweatband Separator Relationship Specialty Start Date End Date Bhakti Nieves MD [address] [place] [address] PCP - General Family Medicine 04/08/22 documented as of this encounter
--- OUTSIDE RECORDS SUMMARY | 2024-04-26 01:59 | XMS_ITS | Encounter Summary ---
Author Organization [facility] Address [facility] [place] [address] Care Team Providers Care Watcher Lookout Tower Name Role Phone Bhakti Nieves MD Primary Care Provider [phone] Reason for Visit * Reason Onset Date Comments Other 04/04/2024 Anxiety 04/04/2024 Anxiety and Nigh tmares Encounter Details Date Type Department Care Team (Late st Contact Info) Description 04/04/2024 [place] [phone] Zac Rousseau MD [facility] [place] [address] Other; Anxiety ( Anxiety and Nightmares ) Social History Tobacco Use Types Packs/Day Years Used Date Smoking Tobacco: Never Smokeless Tobacco: Never Alcohol Use Standard Drinks/Week Comments Never 0 (1 standard drink = 0.6 oz pur e alcohol) [facility] Utilities Answer Date Recorded In the past 12 months has e electric, gas, oil, or water company [...] in a intermediate (including now)? No 12/12/2023 [facility] IPV Inpatient [...] encounter Miscellaneous Notes * Telephone Encounter - Sumaya Baptiste - 04/09/2024 1:08 PM EST Patient called back to check on the status of this request. Patient stated that she continues to have symptoms with no worsening or improvement. Please call patient back to discuss further. * Telephone Encounter - Gogo Alcocer RN - 04/04/2024 9:44 AM EST Copied from [facility] #[id number]. Topic: Specialty Dept CRMs - Triage >> Apr 04, 2024 9:15 AM Sumaya Concepcion wrote: Triage Message Specialist: Zac Rousseau MD Relationship (if other than patient-full name): Patient Symptom: Anxiety and Nightmares Has patient experienced symptom before: yes If patient has experienced symptom before, when was the last time this occurred: last week of january Is patient currently having symptom: yes When did symptom begin: worsening since 03/30/24 Additional Comments: Patient called stating that these symptoms have started to return, even while on the lower dose of levETIRAcetam (Keppra) and wonders if they are related to the medication. Patient stated that the nightmares are typically about dying but denied concern to harm self or others. Patient stated that symptoms have been getting increasingly worse since Monday when she had anticipated that the should improve after the holiday. Please call patient to discuss symptoms and medications further. documented in this encounter Plan of Treatment Upcoming Encounters Date Type Department Care Team (Late st Contact Info) Description 09/03/2024 9:00 AM EDT [place] [address] Zac Rousseau MD [facility] [place] [address] documented as of this encounter Visit Diagnoses Not on filedocumented in this encounter Care Teams Watcher Lookout Tower Relationship Specialty Start Date End Date Bhakti Nieves MD [address] [place] [address] PCP - General Family Medicine 04/08/22 documented as of this encounter
--- OUTSIDE RECORDS SUMMARY | 2024-04-26 01:59 | XMS_ITS | Encounter Summary ---
Author Organization [facility] Address [facility] [place] [address] Care Team Providers Care Take Up Supervisor Name Role Phone Bhakti Nieves MD Primary Care Provider [phone] Encounter Details Date Type Department Care Team (Late st Contact Info) Description 02/16/2024 Orders [place] [address] Maria R Robertson TERMITE RENEWAL INSPECTOR [facility] [place] [address] Arachnoid cyst Social History Tobacco Use Types Packs/Day Years Used Date Smoking Tobacco: Never Smokeless Tobacco: Never Alcohol Use Standard Drinks/Week Comments Never 0 (1 standard drink = 0.6 oz pur e alcohol) [facility] Utilities Answer Date Recorded In the past 12 months has [employer], gas, oil, or water [employer] threatened to shut off services in your [...] any time in the past 12 m [facility], were you homeless or living in a mcfp (including now)? No 12/12/2023 IPV Inpatient Questions [...] 9:00 AM EDT Office [place] [address] Zac Rousseau MD [facility] [place] [place] [address] Scheduled Orders Name Type Priority Associated Diagnoses Orde r Schedule CBC (with Diff) Lab Routine Arachnoid cyst Expected: 02/16/2024, Expires: 03/18/2024 Hepatic Function Panel Lab Routine Arachnoid cyst Expected: 02/16/2024, Expires: 03/18/2024 documented as of this encounter Visit Diagnoses Diagnosis Arachnoid cyst Cerebral cysts documented in this encounter Care Teams Take Up Supervisor Relationship Specialty Start Date End Date Bhakti Nieves MD [address] [place] [address] PCP - General Family Medicine 04/08/22 documented as of this encounter
--- OUTSIDE RECORDS SUMMARY | 2024-04-26 01:59 | XMS_ITS | Encounter Summary ---
Author Organization [facility] [place] [address] Care Team Providers Care Second Operator Name Role Phone Bhakti Nieves MD Primary Care Provider [phone] Encounter Details Date Type Department Care Team (Late st Contact Info) Description 03/01/2024 11:35 AM EDT Laboratory Appointment Lab [address] [place] [address] Seizures Social History Tobacco Use Types Packs/Day Years Used Date Smoking Tobacco: Never Smokeless Tobacco: Never Alcohol Use Standard Drinks/Week Comments Never 0 (1 standard drink = 0.6 oz pur e alcohol) [facility] Utilities Answer Date Recorded In the [...] 9:00 AM EDT Office [place] [address] Zac Rousseau MD [facility] [place] [address] documented as of this encounter Procedures Procedure Name Priority Date/Time Associated Diagnosis Comments LEVETIRACETAM LEVEL Routine 03/01/2024 1 1:00 AM EDT Seizures documented in this encounter Results * Levetiracetam level (03/01/2024 11:00 AM EDT) Levetiracetam Lvl August 17.8 10.0 - 40.0 mcg/mL 03/03/2024 1:04 PM EST [facility] Comment: ADDITIONAL INFORMATION This test was developed and its performance characteristics determined by [facility] in a manner consistent with CLIA requirements. This test has not been cleared or approved by the U.S. Food and Drug Administration. Blood VENOUS BLOOD SPECIMEN / Unknown Venipuncture / Unknown 03/01/2024 11:00 AM EDT 03/01/2024 11:00 AM EDT Narrative [facility] - 03/03/2024 1:04 PM EST Test Performed by: [facility] [address] [place] [address] Saturator: Manny Gabriel Ph.D.; CLIA# [id number] Zac Rousseau MD LAB SEND OUT ORDERAB LES REF LAB [address] documented in this encounter Visit Diagnoses Diagnosis Seizures Other convulsions documented in this encounter Care Teams Second Operator Relationship Specialty Start Date End Date Bhakti Nieves MD [address] [place] [address] PCP - General Family Medicine 04/08/22 documented as of this encounter
--- OUTSIDE RECORDS SUMMARY | 2024-04-26 01:59 | XMS_ITS | Encounter Summary ---
Author Organization [facility] Address [facility] [place] [address] Care Team Providers Care Retail Supervisor Name Role Phone Bhakti Nieves MD Primary Care Provider [phone] Encounter Details Date Type Department Care Team (Late st Contact Info) Description 12/27/2023 Telephone [place] [phone] Karen Hillman, DIANA [facility] [place] [place] [address] Social History Tobacco Use Types Packs/Day Years Used Date Smoking Tobacco: Never Smokeless Tobacco: Never Alcohol Use Standard Drinks/Week Comments Never 0 (1 standard drink = 0.6 oz pur e alcohol) [facility] Utilities Answer Date Recorded In the past 12 months has e [employer], gas, oil, or water [employer] threatened to shut off services in your [...] any time in the past 12 m [facility], were you homeless or living in a [...] encounter Miscellaneous Notes * Telephone Encounter - Ema Schulz - 12/27/2023 9:48 AM EDT Images from the original note were not included. LM for patient regarding appointments 01/02 Video visit with Rachel 01/07 HCK with HERMINIA EPPERSON 01/29 HCK with Rachel. RE: Follow up scheduling question Received: Yesterday Karen Hillman PA Michaels, Melissa G; Alison Ramos PA Thank you for letting me know, Ema. Alison Ramos said she would be able to see Alyson via telehealth next week instead. ----- Message ----- From: Karen Hillman PA Sent: 12/26/2023 12:10 PM EDT To: [facility] Neuro[facility] Outsole Paraffiner Subject: Inpatient Notes Mary Anne Shields is s/p craniotomy for arachnoid cyst fenestration. She needs: - follow up in 1 week via telehealth with Dr. Miranda - follow up in 2 weeks (on or around 01/07) with RN for suture removal - follow up in 4-6 weeks with Alison Ramos for post op She does not need imaging. Thank you! -Karen documented in this encounter Plan of Treatment Upcoming Encounters Date Type Department Care Team (Late st Contact Info) Description 09/03/2024 9:00 AM EDT Office [place] [address] Zac Rousseau MD [facility] [place] [address] documented as of this encounter Visit Diagnoses Not on filedocumented in this encounter Care Teams Retail Supervisor Relationship Specialty Start Date End Date Bhakti Nieves MD [address] [place] [address] PCP - General Family Medicine 04/08/22 documented as of this encounter
--- OUTSIDE RECORDS SUMMARY | 2024-04-26 01:59 | XMS_ITS | Encounter Summary ---
[facility] Organization [facility] [place] [address] Care Team Providers Care Senior Tech Manufacturing Engineering Name Role Phone Bhakti Nieves MD Primary Care Provider [phone] Reason for Visit * Auth/Cert (Routine) Specialty Diagnoses / Procedures Referred By Capo reyna Referred To Contact Diagnoses Arachnoid cyst arachnoid cyst. increased intracranial pressure Procedures PRO NEUROENDOSCOP, DISS ADHESION/FENESTRATION PRO STEREOTACTIC CPTR ASSTD PX CRANIAL, INTRADURAL @NEUROENDOSCOPY, IC, W/ DISSECT ADHESIONS, FENESTRATION PELLUCIDUM OR CYSTS (WRVU 21.23) STEREOTACTIC COMPUTER-ASSTD NAVIGATIONAL CRANIAL INTRADURAL (WRVU 3.75) MODIFIER, AXIEM, SHUNT Daniel Miranda MD [facility] [place] [address] [place] [address] [facility] Referral ID Status Reason Start Date Expiration Date Visits Re quested Visits Authorized [id number] 1 1 Encounter Details Date Type Department Care Team (Late st Contact Info) Description 12/25/2023 7:30 AM EDT - 12/25/2023 11:25 AM EDT [facility] [place] [address] Daniel Miranda MD [facility] [place] [address] [place] [address] @NEUROENDOSCOPY, IC, W/ DISSECT ADHESIONS, FENESTRATION PELLUCIDUM OR CYSTS (WRVU 21.23) Social History Tobacco Use Types Packs/Day Years Used Date Smoking Tobacco: Never Smokeless Tobacco: Never Alcohol Use Standard Drinks/Week Comments Never 0 (1 standard drink = 0.6 oz pur e alcohol) [facility] Utilities Answer Date Recorded In [...] any time in the past 12 m [facility], were you homeless or living [...] Sign Reading Time Taken Comments Blood Pressure 144/98 12/25/2023 11:15 AM EDT Pulse 55 12/25/2023 11:15 AM EDT Temperature 36.4 ??C (97.5 ??F) 12/25/2023 10:48 AM E DT Respiratory Rate 9 12/25/2023 11:15 AM EDT Oxygen Saturation 99% 12/25/2023 11:15 AM EDT Inhaled Oxygen Concentration - - [...] had been diagnosedwith an arachnoid cyst at [facility], lost to f/u since 2018. Cyst appears to have enlarged since prior imaging. A craniotomy for arachnoid cyst fenestration operation was offered and the patient elected to proceed. Hospital Course: On 12/25/23, Alyson Valverde was admitted to [facility] for Right craniotomy for arachnoid cyst fenestration; [...] who have questions please contact the health care associate that requestedyour imaging first. Electronically signed by: Gaby Moore MD, [facility] ([phone]), at 12/25/2023 1:26 PM Scan Doc: Telemetry [...] who have questions please contact the health care associate that requested your imaging first. Electronically signed by: Daquan Beasley MD, [facility] ([phone]), at 12/11/2023 8:[address] Head & [...] care of this patient. If you are ealth care provider and have any questions regarding this report, please contact the number below.For patients who have questions please contact the health care associate that requested your imaging first. Electronically signed by: Henrry Acosta MD, [facility] ([phone]), at 12/11/2023 4:29 PM Film Library- Storage [...] Future Orders Complete By Expires Referral to Home Health [REF34 Custom] As directed Process Instructions: If no progress note charted, please enter Clinical details in comments. Scheduling Instructions: Comments: Please evaluate Alyson Valverde for admission to [facility]. [address] [address] (home) Date of : 1960 Inpatient DOCUMENTATION FOR VNA SERVICES (INCLUDING THOSE PATIENTS WITH MEDICARE COVERAGE REQUIRING HOME VNA SERVICES AND/OR HOSPICE SERVICES) PATIENT'S LOCATION: Alyson Valverde [address] [address] (home) Cell: Telephone Information: Film Editor's Name: Alyson In discussion with the attending physician, it is certified that this patient is under their care and that they, or a Nurse Practitioner, Clinical Nurse specialist or Physician Explosive Ordnance Handler who is working directly with them, had [...] for managing ADLs. HOME HEALTH CARE AGENCY: [facility]. [address] [place] [phone] START OF CARE: Home Health services requested to start in 24-48 hours but Home Health, with limited availability of this service at this time, plan for a SOC (12/27/23). The multidisciplinary team members and patient are aware. Please note that any additional orders needs or changes will need to be obtained from this patient's PCP: Bhakti Nieves MD [address] / [place] [address] . All VNA agencies which cover the area of patient's residence have been reviewed, either verbally or in writing, and patient/family have chosen the home health care agency noted. Questions: Disciplines Requested: Physical Therapy Occupational Therapy Referral to Neurology [REF46 Custom] As directed Process Instructions: If no progress note charted, please enter Clinical details in comments. Scheduling Instructions: Questions: Requested department: [facility] NEUROLOGY 3C Speciality Clinic: Epilepsy My question [...] [Povidone-Iodine] Rash Commonly used phone numbers Neuro-oncology [phone] Radiation oncology [phone] Endocrinology [phone] Infectious disease [phone] Neurology [phone] Hematology/Oncology [phone] Plastic Surgery [phone] Trauma/General Surgery [phone] Urology [phone] Instructions Given to Patient at Discharge: Patient Instructions CRANIOTOMY FOR ARACHNOID CYST FENESTRATION DISCHARGE INSTRUCTIONS PRESCRIPTION INSTRUCTIONS: Please see the medication reconciliation list on this discharge summary for a current list of your medications. Stop the use of blood thinning medications until instructed otherwise by your surgical team. This includes medications known as antiplatelet, anticoagulant, and non-steroidal anti-inflammatory (NSAIDs) drugs. Common fkom-ijy-nkxrnlp medications which should be avoided include Aspirin, [...] STEPHON. Please call the Neurosurgery Office at [phone] if you do not receive a scheduled [...] hours (after 5pm or before 8am): Call [phone] and ask the air press operator to page the Neurosurgery Resident/Advanced Practice Provider collection support specialist. *Your surgeon may not be marketing editor (especially after office hours or on the weekend) so be ready totell about yourself and your surgery when you call. Neurosurgery Providers Adult Neurosurgery Dr. Lv Mehta Pediatric Neurosurgery Dr. Ria Gracia Advanced Practice Providers Alyson Gonzáles, Nurse Practitioner (outpatient telehealth) Alison Ramos, Physician Explosive Ordnance Handler (inpatient/outpatient: neuro-oncology) Karen Hillman, Physician Explosive Ordnance Handler (inpatient) Irena Hunt, Physician Explosive Ordnance Handler (inpatient) Nakul Mariee, Physician Explosive Ordnance Handler (inpatient) Mart Abbasi, Nurse Practitioner (outpatient: pediatric) Maria R Robertson, Nurse Practitioner (outpatient: vascular) Tessa Moscoso, Physician Explosive Ordnance Handler (outpatient: spine) Chaim Carrasco, Physician Explosive Ordnance Handler (outpatient) Outpatient Nurses DIANA Loja 12/26/2023 A total of 45 minutes was spent performing discharge day services, greater than 30% of which was spent in direct [id number] education and coordination of care. documented in [...] anticoagulant, and non-steroidal anti-inflammatory (NSAIDs) drugs. Common yone-kdc-mpzcdsy medications which should be avoided include Aspirin, [...] STEPHON. Please call the Neurosurgery Office at [phone] if you do not receive a scheduled [...] hours (after 5pm or before 8am): Call [phone] and ask the air press operator to page the Neurosurgery Resident/Advanced Practice Provider collection support specialist. *Your surgeon may not be marketing editor (especially after office hours or on the weekend) so be ready totell about yourself and your surgery when you call. Neurosurgery Providers Adult Neurosurgery Dr. Lv Mehta Pediatric Neurosurgery Dr. Ria Gracia Advanced Practice Providers Alyson Gonzáles, Nurse Practitioner (outpatient telehealth) Alison Ramos, Physician Explosive Ordnance Handler (inpatient/outpatient: neuro-oncology) Karen Hillman, Physician Explosive Ordnance Handler (inpatient) Irena Hunt Physician Explosive Ordnance Handler (inpatient) Nakul Mariee, Physician Explosive Ordnance Handler (inpatient) Mart Abbasi, Nurse Practitioner (outpatient: pediatric) Maria R Robertson, Nurse Practitioner (outpatient: vascular) Tessa Moscoso, Physician Explosive Ordnance Handler (outpatient: spine) Chaim Carrasco, Physician Explosive Ordnance Handler (outpatient) Outpatient Nurses documented in this encounter Medications at Time of Discharge Medication Sig Dispensed Refills Start Date End Date multivitamin (THERAGRAN) Tablet Take 1 tablet by mouth daily. SUMAtriptan (IMITREX) 5 mg/actuation [place], Non-Aerosol USE 2 SPRAYS IN EACH NOSTRIL [...] Blake MD - 12/26/2023 10:15 AM EDT [facility] NEUROSURGERY Progress NOTE ID: Alyson Valverde, 63 [...] for pain/tylenol - SBP 90-160 - home [place] Neurosurgery Pagers New Consults: [phone] Established Patients: [id number] Berry Blake MD 12/26/2023 10:15 AM * Berry Blake MD - 12/25/2023 11:54 AM EDT [facility] NEUROSURGERY POST-OP NOTE ID: Alyson Valverde, 63 [...] Miranda and MRI wwo in 2 weeks. Interval [...] - home keppra Neurosurgery Pagers New Consults: [phone] Established Patients: [id number] Berry Balke MD 12/25/2023 11:55 AM * Katelyn Joshi [...] Blake MD - 12/25/2023 7:02 AM EDT [facility] Neurosurgery Pre-Op H&P Alyson Valverde was [...] wwo in 2 weeks. Pt returns to [facility] for R cyst fenestration 12/25/23 Exam: NAD [...] by mouth daily. SUMAtriptan (IMITREX) 5 mg/actuation [place], Non-Aerosol USE 2 SPRAYS IN EACH NOSTRIL [...] Partner Violence: Patient Unable To Answer (12/25/2023) IPV Inpatient Questions Prevent Contact with Others: [...] Discharge: Patient is insured through: Primary Insurance: [employer] [place] Pay[place] [employer] [place] / Plan[place] / Product Type: *No Product type* / Secondary Insurance: N/A Last Physical Therapy Recommendation: with Last Occupational Therapy Recommendation: with Plan for discharge is: Home w/ Services Outpatient Agency/Support Group Needs: Homecare agency Agency Referrals: I have met with the patient to: discuss discharge planning needs. provide the [facility], Office of Care Management letter from the School Photographs Detailer pertaining to rehab referrals. provide a letter describing our affiliations within the [facility] and educate about their right to choose where referrals are sent. provide a list of Home Health Agencies / Durable Medical Equipment vendors which serve their preferred geographic area. provided patient with [facility] Star Quality Rating handout. They have requested referrals to: [facility] [employer]. [address] [place] [phone] Note routed to a Practice Specialist who will communicate referrals to facilities and [...] Miranda MD - 12/25/2023 10:04 PM EDT [facility] SECTION OF NEUROSURGERY DATE: 12/25/2023 NAME: Alyson Valverde SURGEONS: MD Berry Avilez MD PRE-OP DIAGNOSIS: Arachnoid cyst Mass effect w/ brain compression Seizures POST-OP DIAGNOSIS: Arachnoid cyst Mass effect w/ brain compression Seizures PROCEDURES: Endoscopic fenestration of arachnoid cyst (06786) Computer-assisted stereotactic neuronavigation (91365) INDICATIONS: 63 y/o female referred for evaluation [...] Operative Note Patient Name: Alyson Valverde : [id number] MR#: [id number] Case Date: 12/25/2023 Surgeon: Surgeons and Role: [...] 9:00 AM EDT [place] [address] Zac Rousseau MD [facility] [place] [address] Scheduled Referrals Name Type Priority Associated Diagnoses [...] cyst Stereotactic Cptr Asstd Px Cranial, Intradural (14793) Yes 12/25/2023 7:34 AM EDT Arachnoid cyst Neuroendoscop, Diss Adhesion/Fenestration (97639) Yes 12/25/2023 7:34 AM EDT Arachnoid cyst STEREOTACTIC COMPUTER-ASSTD NAVIGATIONAL CRANIAL INTRADURAL Routine 12/25/2023 5:47 AM EDT Arachnoid cyst NEURENDOSC, IC, W/ DISSECT ADHESIONS, FENESTR PELLUCIDUM OR CYSTS Routine 12/25/2023 5:47 AM EDT Arachnoid cyst IMPLANTABLE DEVICES SCAN 12/25/2023 12:00 AM EDT documented in this encounter Results * CT Head wo Contrast (Generic) (12/25/2023 1:14 PM EDT) WORKSTATION ID [id number] RAD Anatomical Region Laterality Modality Head Computed [...] who have questions please contact the health care associate that requested your imaging first. ? Electronically signed by: aGby Moore MD, [facility] ([phone]), at 12/25/2023 1:26 PM Narrative 12/25/2023 1:26 [...] patients who have questions please contactthe health care associate that requested your imaging first. Electronically signed by: Gaby Moore MD, [facility]([phone]), at 12/25/2023 1:26 PM Daniel Miranda MD [facility] CT ORDERABLES * Scan Doc: Implantable Devices (12/25/2023 12:00 AM EDT) Narrative 12/25/2023 12:00 AM EDT Ordered by an unspecified provider. Scanning Provider MEDIA MGR SCAN EXT O RDR/RSLT documented in this encounter Visit Diagnoses Diagnosis Intracranial arachnoid cysts- Primary Cerebral cysts Arachnoid cyst Cerebral cysts Arachnoid cyst Cerebral cysts documented in this encounter Admitting [...] Given 12/25/2023 8:12 PM EDT 250 mg bacitracin zinc-polymyxin B (Polysporin) ointment PRN, Starting on Mon12/25/23 at 1002, Until Mon12/26/23 at 1444, Intra-Operative (Intra-Procedure) Given 12/25/2023 10:02 AM EDT 1 Tube 19- Surgical Site bisacodyL (Dulcolax) suppository 10 mg 10 mg, [...] BUPivacaine (pf) (Marcaine) (2.5 mg/mL) 0.25% injection PRN, Starting on Mon12/25/23 at 0850, Until Mon12/26/23 at 1444, Intra-Operative (Intra-Procedure), Routine Given 12/25/2023 8:50 AM EDT 10 mLs 19- Surgical Site celecoxib (CeleBREX) capsule 200 mg 200 mg, Oral, 2 TIMES DAILY, First dose on Mon12/25/23 at 1445, Until Discontinued, Routine Given 12/26/2023 8:45 AM EDT 200 mg Given 12/25/2023 8:12 PM EDT 200 mg Given 12/25/2023 2:47 PM EDT 200 mg gelatin adsorbable 12-7 mm sponge PRN, Starting on Mon12/25/23 at 0915, Until Mon12/26/23 at 1444, Intra-Operative (Intra-Procedure) Given 12/25/2023 9:15 AM EDT 1 each 19- Surgical Site hydrALAZINE (Apresoline) (20 mg/mL) injection 10 mg 10 mg, Intravenous, EVERY 2 HOURS PRN, Starting on Mon12/25/23 at 1302, Until Mon12/26/23 at 1444, High Blood Pressure, For systolic blood pressure (SBP) greater than 160 mmHg. May repeat once in 15 minutes if blood pressure remains greater than 160 mmHg. Use if labetaloL ineffective after 2 doses, Routine labetaloL (Normodyne) (5 mg/mL) injection solution 20 [...] 2:57 PM EDT 1,000 mLs 100 mL/hr thrombin (bovine) (Thrombin-Jmi) solution PRN, Starting on Mon12/25/23 at 0915, Until Mon12/26/23 at 1444, Intra-Operative (Intra-Procedure) Given 12/25/2023 9:15 AM EDT 5,000 Units 19- Surgical Site documented in this encounter Active and Recently [...] 2200 (Given - Provider: Shaquille Suero RN) 0552 (Given - Provider: Shaquille Suero RN) acetaZOLAMIDE (Diamox) tablet 250 mg 250 mg, Oral, 2 TIMES DAILY, First dose on Mon12/25/23 at 2100, Until Discontinued, Routine 2011 (Given - Provider: Shaquille Suero RN) 0845 (Given - Provider: Ivone Harris RN) ceFAZolin (Ancef) 2 g vial attach to sodium chloride 0.9% 100 mL Mini-Bag Plus (COMPLETED) 2 g, Intravenous, EVERY 8 HOURS, 3 doses, First dose on Mon12/25/23 at 1330, Last dose on Mon12/26/23 at 0530, Administer over 30 Minutes, Recovery (Recovery-Hospital Unit), Indication for (Active or Suspected): Prophylaxis 1453 (New Bag - Provider: Marichuy Cosme RN)1523 (Stopped - Provider: Marichuy Cosme RN)220 (New Bag - Provider: Shaquille Suero RN)2231 (Stopped - Provider: Shaquille Suero RN) 0553 (New Bag - Provider: Shaquille Suero RN)0623 (Stopped - Provider: Shaquille Suero RN) celecoxib (CeleBREX) capsule 200 mg 200 mg, Oral, 2 TIMES DAILY, First dose on Mon12/25/23 at 1445, Until Discontinued, Routine 144 (Given - Provider: Marichuy Cosme RN)2011 (Given - Provider: Shaquille Suero RN) 0845 (Given - Provider: Ivone Harris RN) levETIRAcetam (Keppra) tablet 1,000 mg 1,000 mg, Oral, 2 TIMES DAILY, First dose on Mon12/25/23 at 1445, Until Discontinued, Routine 1447 (Given - Provider: Marichuy Cosme RN)2012 (Given - Provider: Shaquille Suero RN) 0845 (Given - Provider: Ivone Harris RN) lidocaine (pf) (Xylocaine) (10 mg/mL) 1% injection [...] Cosme RN) 0845 (Given - Provider: Ivone Harris, ZEENAT) polyethylene glycoL (Miralax) packet 17 g 17 [...] Discontinued, Hold for loose stool. , Routine 0900 (Not Given - Provider: Ivone Harris RN - Reason: See comment - Comment: duplicate) senna-docusate (Pericolace) 8.6-50 mg per tablet 2 tablet 2 tablet, Oral, 2 TIMES DAILY, First dose on Mon12/25/23 at 2130, Until Discontinued, Hold for loose stool. , Routine 220 (Given - Provider: Shaquille Suero RN) 0845 [...] Unit), Routine 1457 (Given - Provider: Marichuy Cosme RN)2013 (Given - Provider: Shaquille Suero RN) [...] third. documented in this encounter Care Teams Senior Tech Manufacturing Engineering Relationship Specialty Start Date End Date Bhakti Nieves MD [address] [place] [address] PCP - General Family Medicine 04/08/22 documented as of this encounter
--- OUTSIDE RECORDS SUMMARY | 2024-04-26 01:59 | XMS_ITS | Encounter Summary ---
Author Organization [facility] [address] Care Team Providers Care Human Resources Benefits Coordinator Name Role Phone Bhakti Nieves MD Primary Care Provider [phone] Reason for Referral * Diagnostic Test (Routine) - New Request Specialty Diagnoses / Procedures Referred By Capo reyna Referred To Contact Radiology Diagnoses Intracranial arachnoid cysts Procedures MRI Brain wwo Contrast (Generic) Alison Ramos PA [facility] [place] [address] [place] [address] Referral ID Status Reason Start Date Expiration Date Visits Requested Visits Authorized [id number] New Request Specialty Service Requested 02/01/2024 08/01/2025 1 1 Encounter Details Date Type Department Care Team (Late st Contact Info) Description 01/30/2024 2:20 PM EDT [place] [address] Alison Ramos PA [facility] [place] [address] Intracranial arachnoid cysts Social History Tobacco Use Types Packs/Day Years Used Date Smoking Tobacco: Never Smokeless Tobacco: Never Alcohol Use Standard Drinks/Week Comments Never 0 (1 standard drink = 0.6 oz pur e alcohol) [facility] Utilities Answer Date Recorded In the past [...] any time in the past 12 m [facility], were you homeless or living in a [...] Sign Reading Time Taken Comments Blood Pressure 114/72 01/30/2024 2:24 PM EDT Pulse 68 01/30/2024 2:24 PM EDT Temperature 36.1 ??C (97 ??F) 01/30/2024 2:24 PM EDT Respiratory Rate 16 01/30/2024 2:24 PM EDT Oxygen Saturation 99% 01/30/2024 2:24 PM EDT Inhaled Oxygen Concentration - - Weight 60.5 kg (133 lb 6.4 oz) 01/30/2024 2:24 P M EDT Height 170.2 cm (5' 7) 01/30/2024 2:24 PM EDT Body Mass Index 20.89 01/30/2024 2:24 PM EDT documented in this encounter Progress Notes * Alison Ramos PA - 01/30/2024 2:20 PM EDT SECTION OF NEUROSURGERY CHIEF COMPLAINT (in bold): Intracranial arachnoid cysts Overview Note: an arachnoid cyst, dx at [facility], lost to follow-up since 2018, which was found to be enlarged compared to prior imaging on work-up for concern for seizure activity with LEFT sided weakness after a fall off a horse on 12/05/2023 s/p fenestration on 12/25/[address] Miranda HISTORY: Alyson Benitomikymackenzie is a 63yo female with hx of an arachnoid cyst, dx at [facility], lost to follow-up since 2018, which was found to be enlarged compared to prior imaging on work-up for concern for seizure activity with LEFT sided weakness after a fall off a horse on 12/05/2023 s/p fenestration on 12/25/[address] Miranda with immediate post-op CT Head showing interval partial drainage who presents today for her HCK. Reports she has had no migraine headaches since surgery. She still usually wakes with a headache and brain fog but this typically goes away on its own as she starts her day. She has only need tylenolonce her prescription of celebrex ran out last week. Has been taking diamox daily. Continues keppraas prescribed; no concern for seizure-like activity. 01/03/2024: Today Alyson reports that she is doing well. Reports developing diarrhea after dischargefrom the hospital, which has since resolved. Notes low grade headaches that respond to Tylenol and Celebrex. Endorses increased thirstiness and intermittent lightheadedness. Denies positional headaches or recent seizure-like activity. Notes the [facility]NA is likely going to be discharging her from home PT/OT in the next day or so. Continues to take diamox twice daily. No concerns with incision, is healing well. Is wondering how long she will need to be on keppra. Patient Vitals for the past 24 hrs: Temp Pulse Resp BP SpO2 01/30/24 1424 36.1 ??C (97 ??F) 68 16 114/72 99 % PHYSICAL EXAM: No acute distress Awake, Alert, Interactive Face symmetric Moving all extremities with grossly symmetric and full strength Cranial incision healing well without erythema, dehiscence or pseudomeningocele IMAGING & OTHER RESULTS: CT Head wo from 01/23/2024 personally reviewed. Interval partial drainage/fenestration of large right frontal cyst with decreased mass effect. ASSESSMENT: 63yo female with hx of an arachnoid cyst, dx at [facility], lost to follow-up since 2018, which was found to be enlarged compared to prior imaging on work-up for concern for seizure activity with LEFT sided weakness after a fall off a horse on 12/05/2023 s/p fenestration on 12/25/[address] Miranda with interval CT Head continue to show improvement in mass effect with partial drainage of cyst, and who hashad not return of daily migraines. Reviewed CT Head with patient. All questions answered. PLAN: Discontinue diamox Ok for OTC ibuprofen if needed Recommend refraining from helmeted activities for 3-6mn post surgery Plan for follow-up in 1 year with MRI wwo Follow up with Neurology for ASM management; continue keppra 1g twice daily for now Discussed symptoms of concern that would prompt need for earlier follow-up Discussed with Dr. Miranda Total time spent on date of service: 35 minutes, of which 20 minutes spent in counseling about the patient's condition, reviewing imaging, and addressing questions regarding natural course history and treatment options. SRIDEVI StoddardC documented in this encounter Plan of Treatment Upcoming Encounters Date Type Department Care Team (Late st Contact Info) Description 09/03/2024 9:00 AM EDT [place] [address] Zac Rousseau MD [facility] [place] [address] Scheduled Orders Name Type Priority Associated Diagnoses Orde r Schedule MRI Brain wwo Contrast (Generic) Imaging Routine Intracranial arachnoid cysts Expected: 01/31/2025 (Approximate), Expires: 08/01/2025 documented as of this encounter Visit Diagnoses Diagnosis Intracranial arachnoid cysts Cerebral cysts documented in this encounter Care Teams Human Resources Benefits Coordinator Relationship Specialty Start Date End Date Bhakti Nieves MD [address] [place] [address] PCP - General Family Medicine 04/08/22 documented as of this encounter
--- OUTSIDE RECORDS SUMMARY | 2024-04-26 01:59 | XMS_ITS | Encounter Summary ---
Author Organization [facility] Address One [facility] [place] [address] Care Team Providers Care Nurse Discharge Name Role Phone Bhakti Nieves MD Primary Care Provider [phone] Encounter Details Date Type Department Care Team (Latest Contact Info) Description 01/16/2024 Travel Social History Tobacco Use Types Packs/Day Years Used Date Smoking Tobacco: Never Smokeless Tobacco: Never Alcohol Use Standard Drinks/Week Comments Never 0 (1 standard drink = 0.6 oz pur e alcohol) [facility] Utilities Answer Date Recorded In the past [...] 9:00 AM EDT [place] [address] Zac Rousseau MD [facility] [place] [place] [address] documented as of this encounter Visit Diagnoses Not on filedocumented in this encounter Care Teams Nurse Discharge Relationship Specialty Start Date End Date Bhakti Nieves MD [address] [place] [address] PCP - General Family Medicine 04/08/22 documented as of this encounter
--- OUTSIDE RECORDS SUMMARY | 2024-04-26 01:59 | XMS_ITS | Encounter Summary ---
Author Organization [facility] Address One [facility] [place] [address] Care Team Providers Care Reverse Unit Operator Fisherman Name Role Phone Bhakti Nieves MD Primary Care Provider [phone] Encounter Details Date Type Department Care Team (Latest Contact Info) Description 01/23/2024 Travel Social History Tobacco Use Types Packs/Day Years Used Date Smoking Tobacco: Never Smokeless Tobacco: Never Alcohol Use Standard Drinks/Week Comments Never 0 (1 standard drink = 0.6 oz pur e alcohol) [facility] Utilities Answer Date Recorded In [...] any time in the past 12 m [facility], were you homeless or [...] 9:00 AM EDT Office [place] [address] Zac Rousseau MD [facility] [place] [address] documented as of this encounter Visit Diagnoses Not on filedocumented in this encounter Care Teams Reverse Unit Operator Fisherman Relationship Specialty Start Date End Date Bhakti Nieves MD [address] [place] [address] PCP - General Family Medicine 04/08/22 documented as of this encounter
--- OUTSIDE RECORDS SUMMARY | 2024-04-26 01:59 | XMS_ITS | Encounter Summary ---
Author Organization [facility] Address [facility] Zechariah [facility] [place] [address] Care Team Providers Care Petroleum Sampler Name Role Phone Bhakti Nieves MD Primary Care Provider [phone] Encounter Details Date Type Department Care Team (Late st Contact Info) Description 01/08/2024 10:00 AM EDT Office [place] [id number] Encounter for removal of belinda Social History Tobacco Use Types Packs/Day Years Used Date Smoking Tobacco: Never Smokeless Tobacco: Never Alcohol Use Standard Drinks/Week Comments Never 0 (1 standard drink = 0.6 oz pur e alcohol) [facility] Utilities Answer Date Recorded In the [...] were you homeless or living in a [facility] (including now)? No 12/12/2023 DH IPV Inpatient [...] Sign Reading Time Taken Comments Blood Pressure 129/81 01/08/2024 9:41 AM EDT Pulse 60 01/08/2024 9:41 AM EDT Temperature 36.7 ??C (98 ??F) 01/08/2024 9:41 AM EDT Respiratory Rate 16 01/08/2024 9:41 AM EDT Oxygen Saturation 100% 01/08/2024 9:41 AM EDT Inhaled Oxygen Concentration - - Weight 60.8 kg (134 lb 0.6 oz) 01/08/2024 9:41 A M EDT Height 170.2 cm (5' 7.01) 01/08/2024 9:41 AM ED T Body Mass Index 20.99 01/08/2024 9:41 AM EDT documented in this encounter Progress Notes * Alice Flowers RN - 01/08/2024 10:00 AM EDT Alyson Valverde 1960 63 y.o. [id number] Procedures: NEUROENDOSCOPY, IC, W/ DISSECT ADHESIONS, FENESTRATION PELLUCIDUM OR CYSTS Alyson Keyana Valverde is is alert, oriented, and appropriate in NAD. Her speech is clear. Her ambulation is steady with narrow-based gait. Tandem walk is stead, Romberg is negative. She endorses slight dizziness upon getting up from bed, subsides in a few seconds. She knows to get out of slowly. Shereports this is improving over time. She denies numbness or tingling in upper and lower extremities. She endorses slight blurriness in eyes after starting diamox but this has improved over time. Denies diplopia. EOM full without nystagmus. Hearing is intact. Facial features are symmetrical. Denies pain. Endorses occasion PAGE but controlled with medication. Incision is well healed with skin edges well approximated. All sutures were removed. Current Outpatient Medications: Current Outpatient Medications: acetaZOLAMIDE (Diamox) 250 mg tablet, Take 1 tablet by mouth daily., Disp: 30 tablet, Rfl: 0 acetaminophen (Tylenol) 500 mg tablet, Take 2 tablets by mouth every 6 hours as needed for Pain., Disp: 30 tablet, Rfl: 1 celecoxib (CeleBREX) 200 mg capsule, Take 1 capsule by mouth 2 times daily., Disp: 30 capsule, Rfl:1 levETIRAcetam (Keppra) 1,000 mg tablet, Take 1 tablet by mouth 2 times daily., Disp: 60 tablet, Rfl: 12 multivitamin (THERAGRAN) Tablet, Take 1 tablet by mouth daily., Disp: , Rfl: SUMAtriptan (IMITREX) 5 mg/actuation [place], Non-Aerosol, USE 2 SPRAYS IN EACH NOSTRIL ONCE DAILY ASNEEDED, Disp: , Rfl: documented in this encounter Plan of Treatment Upcoming Encounters Date Type Department Care Team (Late st Contact Info) Description 09/03/2024 9:00 AM EDT Office [place] [address] Zac Rousseau MD [facility] [place] [address] documented as of this encounter Visit Diagnoses Diagnosis Encounter for removal of belinda Encounter for removal of sutures documented in this encounter Care Teams Petroleum Sampler Relationship Specialty Start Date End Date Bhakti Nieves MD [address] [place] [address] PCP - General Family Medicine 04/08/22 documented as of this encounter
--- OUTSIDE RECORDS SUMMARY | 2024-04-26 01:59 | XMS_ITS | Encounter Summary ---
Author Organization [facility] Address [facility] [place] [address] Care Team Providers Care Mold Closer Helper Name Role Phone Bhakti Nieves MD Primary Care Provider [phone] Encounter Details Date Type Department Care Team (Latest Contact Info) Description 04/05/2024 9:04 AM EST - 04/05/2024 11:59 PM [facility] Hospital Encounter XRay at [address] [place] [address] Chronic pain of both knees Discharge Disposition: Home Social History Tobacco Use Types Packs/Day Years Used Date Smoking Tobacco: Never Smokeless Tobacco: Never Alcohol Use Standard Drinks/Week Comments Never 0 (1 standard drink = 0.6 oz pur e alcohol) [facility] Utilities Answer Date Recorded In the past 12 months has e [employer] gas, oil, or water [employer] threatened to shut off services in your [...] any time in the past 12 m [facility], were you homeless or living in a nursing home (including now)? No 12/12/2023 IPV Inpatient Questions [...] Sig Dispensed Refills Start Date End Date Ibuprofen 200 mg Capsule Take 200 mg by mouth as needed. levETIRAcetam (Keppra) 500 mg tablet Take 1 tablet by mouth 2 times daily. 60 tablet 12 03/04/2024 multivitamin (THERAGRAN) Tablet Take 1 tablet by mouth daily. SUMAtriptan (IMITREX) 5 mg/actuation [place], Non-Aerosol USE 2 SPRAYS IN EACH NOSTRIL ONCE DAILY NEEDED 04/27/2022 documented as of this encounter Plan of Treatment Upcoming Encounters Date Type Department Care Team (Late st Contact Info) Description 09/03/2024 9:00 AM EDT [place] [address] Zac Rousseau MD [facility] [place] [address] Scheduled Orders Name Type Priority Associated Diagnoses Orde r Schedule XR Knee 4 or more views Left Imaging Routine Chronic pain of both knees 1 Occurrences starting 04/05/2024 until 04/05/2024 XR Knee 4 or more views Right Imaging Routine Chronic pain of both knees 1 Occurrences starting 04/05/2024 until 04/05/2024 documented as of this encounter Procedures Procedure Name Priority Date/Time Associated Diagnosis Comments XR KNEE STANDING ALIGNMENT AP LAT [place] SKYLINE BILAT Routine 04/05/2024 9:31 AM EST Chronic pain of both knees documented in this encounter Results * XR Knee Standing Alignment AP Lat [place] Winder Bilat (04/05/2024 9:31 AM EST) WORKSTATION ID [id number] RAD Anatomical Region Laterality Modality Bilateral Digital [...] who have questions please contact the health career development coordinator/teacher that requested your imaging first. ? Electronically signed by: Sandy Clemons MD, [facility] ([phone]), at 04/05/2024 11:57 AM Narrative 04/05/2024 11:57 [...] patients who have questions please contactthe health career development coordinator/teacher that requested your imaging first. Electronically signed by: Sandy Clemons MD, [facility]([phone]), at 04/05/2024 11:57 AM Diana Ferraro OPERATIONS LOGISTICS ANALYST IMG DX ORDERABLES documented in this encounter Visit Diagnoses Diagnosis Chronic pain of both knees documented in this encounter Care Teams Mold Closer Helper Relationship Specialty Start Date End Date Bhakti Nieves MD [address] [place] [address] PCP - General Family Medicine 04/08/22 documented as of this encounter
--- OUTSIDE RECORDS SUMMARY | 2024-04-26 02:00 | XMS_ITS | Encounter Summary ---
Author Organization [facility] Address [facility] [place] [address] Care Team Providers Care Parking Enforcement Manager Name Role Phone Bhakti Nieves MD Primary Care Provider [phone] Reason for Visit * Reason Comments Follow-up Left knee injection Encounter Details Date Type Department Care Team (Latest Contact Info) Description 10/11/2022 1:50 PM EDT Office [place] [address] Jaguar Morrison MD [facility] [place] [address] Primary osteoarthritis of left knee Social History Tobacco Use Types Packs/Day Years Used Date Smoking Tobacco: Never Smokeless Tobacco: Never Sex and Gender Information Value Date Recorded Sex Assigned at Not on file Gender Identity Not on file Sexual Orientation Not on file documented as of this encounter Last Filed Vital Signs Vital Sign Reading Time Taken Comments Blood Pressure - - Pulse - - Temperature - - Respiratory Rate - - Oxygen Saturation - - Inhaled Oxygen Concentration - - Weight 68 kg (150 lb) 10/11/2022 1:49 PM EDT Height 170.2 cm (5' 7) 10/11/2022 1:49 PM EDT Body Mass Index 23.49 10/11/2022 1:49 PM EDT documented in this encounter Progress Notes * Joe Gibson MD - 10/11/2022 1:50 PM EDT Images from the original note were not included. Department of Orthopaedics Division of Adult Joint Reconstructive Surgery CHIEF COMPLAINT: Chief Complaint Patient presents with Follow-up Left knee injection ARTHROPLASTY/ORTHOPAEDIC HISTORY: Bilateral knee pain HPI: Alyson Valverde presents for follow-up for bilateral knee pain, at this point time she ishere for evaluation of her left knee. She had an injection back in May with Dr. Morrison. She statesshe got roughly 3 to 3-1/2 months of relief of her symptoms with this injection until began wearingoff around July. She states that the pain is relatively the same other than having intermittent feeling of catching in the anterior medial portion of her knee. She states that she is interested in another injection today into the left knee. She otherwise denies any other significant changes in herhealth or functional status. Alyson dnies fevers, chills, night sweats, nausea, or vomiting. Medications 10/11/22 1349 Medication Sig Taking? multivitamin (THERAGRAN) Tablet Take 1 tablet by mouth daily. Yes SUMAtriptan (IMITREX) 5 mg/actuation [place], Non-Aerosol USE 2 SPRAYS IN EACH NOSTRIL ONCE DAILY NEEDED Yes Ibuprofen 200 mg Capsule Take by mouth. No Known Allergies SIGNIFICANT MEDICAL COMORBIDITIES: Patient Active Problem List Diagnosis Code Primary osteoarthritis of left knee M17.12 Primary osteoarthritis of right knee M17.11 QUESTIONNAIRE RESPONSES: 10/10/2022 9:57 PM [facility] Surgical Followup Visit KOOS JR Scores 57.14 10/10/2022 9:57 PM [facility] Response KOOS JR Scores 57.14 10/10/2022 9:57 PM Spine [facility] Response KOOS JR Scores 57.14 PHYSICAL EXAM: Vitals: 10/11/22 1349 Weight: 68 kg (150 lb) Height: 170.2 cm (5' 7) Well-appearing female in no acute distress. Alert and Oriented x 3 and answers all questions appropriately. Knee Exam: Left Knee ROM: Extension:0 Flexion: 120 Alignment: 0-4 degrees Varus Stability: A/P Translation <5mm Varus <5mm Valgus <5mm Extension La degrees or less Patella Tracking: Normal Pulses Palpable: Left PT:Yes Left DP:Yes Motor/Sensory: Distal Motor: Normal Distal Sensory: Normal Quadriceps Strength: 5 IMAGING: No new images today. ASSESSMENT AND PLAN: Ms. Valverde is a 61 y.o. year old female who has osteoarthritis of the bilateral knees presenting today with left knee pain and requesting left knee corticosteroid injection. This was performed inclinic today and the patient tolerated the procedure well, please refer to the procedure portion ofthis note for more details. The patient can return in 3 months for repeat injection or can schedulean appointment at any other time to discuss total knee arthroplasty if she feels she is at the point for a replacement. PROCEDURE: I had a thorough discussion with [...] my injection site using a pen. The Left knee was prepped using chloraprep . A 22-gauge needle was inserted from a superolateral approach into the knee joint. The joint was entered smoothly and without resistance. Medications were injected without resistance. The patient tolerated the procedure well and a Band-Aid was applied after applying pressure to stop bleeding. A combination of the following medications was injected: Kenalomg (1mL) 1% Lidocaine: 2 mL 0.25% Bupivacaine: 2mL Signed: Joe Gibson MD 10/11/2022 * Jaguar Morrison MD - 10/11/2022 1:50 PM EDT I saw and evaluated the patient and I agree with the note as documented by Dr. Gibson. documented in this encounter Plan of Treatment Upcoming Encounters Date Type Department Care Team (Late st Contact Info) Description 09/03/2024 9:00 AM EDT [place] [address] Zac Rousseau MD [facility] [place] [address] documented as of this encounter Visit Diagnoses Diagnosis Primary osteoarthritis of left knee Primary localized osteoarthrosis, lower leg documented in this encounter Care Teams Parking Enforcement Manager Relationship Specialty Start Date End Date Bhakti Nieves MD [address] [place] [address] PCP - General Family Medicine 04/08/22 documented as of this encounter
--- OUTSIDE RECORDS SUMMARY | 2024-04-26 02:00 | XMS_ITS | Encounter Summary ---
Author Organization [facility] Address [facility] [place] [address] Care Team Providers Care Tongue And Quarter Stitcher Name Role Phone Bhakti Nieves MD Primary Care Provider [phone] Encounter Details Date Type Department Care Team (Latest Contact Info) Description 10/17/2023 Travel Social History Tobacco Use Types Packs/Day [...] 9:00 AM EDT Office [place] [address] Zac Rousseau MD [facility] [place] [address] documented as of this encounter Visit Diagnoses Not on filedocumented in this encounter Care Teams Tongue And Quarter Stitcher Relationship Specialty Start Date End Date Bhakti Nieves MD [address] [place] [address] PCP - General Family Medicine 04/08/22 documented as of this encounter
--- OUTSIDE RECORDS SUMMARY | 2024-04-26 02:00 | XMS_ITS | Encounter Summary ---
Author Organization [facility] [place] [address] Care Team Providers Care Biomedical Service Engineer Name Role Phone Bhakti Nieves MD Primary Care Provider Encounter Details Date Type Department Care Team (Latest Contact Info) Description 04/27/2023 Travel Social History Tobacco Use Types Packs/Day [...] 9:00 AM EDT Office [place] [address] Zac Rousseau MD [facility] [place] [place] [address] documented as of this encounter Visit Diagnoses Not on filedocumented in this encounter Care Teams Biomedical Service Engineer Relationship Specialty Start Date End Date Bhakti Nieves MD [address] [place] [address] PCP - General Family Medicine 04/08/22 documented as of this encounter
--- OUTSIDE RECORDS SUMMARY | 2024-04-26 02:00 | XMS_ITS | Encounter Summary ---
Author Organization [facility] Address [facility] Zechariah [facility] [place] [place] [address] Care Team Providers Care Surgical Garment Assembler Name Role Phone Bhakti Nieves MD Primary Care Provider [phone] Encounter Details Date Type Department Care Team (Late st Contact Info) Description 12/05/2023 5:15 PM EDT Ancillary Procedure Radiology Library at [facility] [place] [address] Reinier Toledo MD [facility] [place] [address] Social History Tobacco Use Types Packs/Day Years [...] 9:00 AM EDT Office Visit Neurology at [facility] [place] [place] [address] Zac Rousseau MD [facility] [place] [address] documented as of this encounter Procedures Procedure Name Priority Date/Time Associated Diagnosis Comments FILM LIBRARY- STORAGE ONLY CT FACE Routine 12/05/2023 5:12 PM EDT documented in this encounter Results * Film Library-Storage Only CT Face (12/05/2023 5:12 PM EDT) Narrative JANA JUARES - 12/05/2023 5:12 PM EDT This exam is auto-finalizing. It's purpose is for storage only. Reinier Toledo MD IMG FILM LIBRARY OR DERABLES Performing Organization Address City/State/[facility] Co de Phone Number [place], [place] documented in this encounter Visit Diagnoses Not on filedocumented in this encounter Care Teams Surgical Garment Assembler Relationship Specialty Start Date End Date Bhakti Nieves MD [address] [place] [address] PCP - General Family Medicine 04/08/22 documented as of this encounter
--- OUTSIDE RECORDS SUMMARY | 2024-04-26 02:00 | XMS_ITS | Encounter Summary ---
Author Organization [facility] Address [facility] Zechariah [facility] [place] [address] Care Team Providers Care Lining Cementer Name Role Phone Bhakti Nieves MD Primary Care Provider Encounter Details Date Type Department Care Team (Late st Contact Info) Description 12/05/2023 3:55 PM EDT Ancillary Procedure Radiology Library [place] [address] Reinier Toledo MD [facility] [place] [address] Social History Tobacco Use Types Packs/Day Years [...] 9:00 AM EDT Office Visit Neurology at [place] [address] Zac Rousseau MD [facility] [place] [address] documented as of this encounter Procedures Procedure Name Priority Date/Time Associated Diagnosis Comments FILM LIBRARY STORAGE ONLY CT HEAD AND SPINE Routine 12/05/2023 3:49 PM EDT documented in this encounter Results * Film Library- Storage Only CT Head And Spine (12/05/2023 3:49 PM EDT) Narrative [facility] - 12/05/2023 3:49 PM EDT This exam is auto-finalizing. It's purpose is for storage only. Reinier Toledo MD IMG FILM LIBRARY OR DERABLES Performing Organization Address City/State/[facility] Co de Phone Number [place], [place] documented in this encounter Visit Diagnoses Not on filedocumented in this encounter Care Teams Lining Cementer Relationship Specialty Start Date End Date Bhakti Nieves MD [address] [place] [address] PCP - General Family Medicine 04/08/22 documented as of this encounter
--- OUTSIDE RECORDS SUMMARY | 2024-04-26 02:00 | XMS_ITS | Encounter Summary ---
Author Organization [facility] [place] [address] Care Team Providers Care Florist'S Decorator Name Role Phone Unavailable Primary Care Provider Unavailabl e Encounter Details Date Type Department Care Team (Late st Contact Info) Description 06/10/2017 Ancillary Procedure Radiology Library at [facility] [place] [address] Reinier Toledo MD [facility] [place] [place] [address] Social History Tobacco Use Types Packs/Day Years Used Date Smoking Tobacco: Never Assessed Sex and Gender Information Value Date Recorded Sex Assigned at Not on file Gender Identity Not on file Sexual Orientation Not on file documented as of this encounter Plan of Treatment Upcoming Encounters Date Type Department Care Team (Late st Contact Info) Description 09/03/2024 9:00 AM EDT Office [place] [address] Zac Rousseau MD [facility] [place] [address] documented as of this encounter Procedures Procedure Name Priority Date/Time Associated Diagnosis Comments FILM LIBRARY STORAGE ONLY CT HEAD Routine 06/10/2017 12:00 AM EST documented in this encounter Results * Film Library- Storage Only CT Head (06/10/2017 12:00 AM EST) Narrative JANA JUARES - 12/05/2023 5:14 PM EDT This exam is auto-finalizing. It's purpose is for storage only. Reinier Toledo MD IMG FILM LIBRARY OR DERABLES Performing Organization Address City/State/[facility] Co de Phone Number JANA JUARES [place], [place] documented in this encounter Visit Diagnoses Not on filedocumented in this encounter
--- OUTSIDE RECORDS SUMMARY | 2024-04-26 02:00 | XMS_ITS | Encounter Summary ---
Author Organization [facility] [place] [address] Care Team Providers Care Funeral Arrangement Director Name Role Phone Bhakti Nieves MD Primary Care Provider [phone] Reason for Referral * Consultation (Routine) - Closed Specialty Diagnoses / Procedures Referred By Capo reyna Referred To Contact Orthopaedics Diagnoses Knee pain, unspecified chronicity, unspecified laterality Bhakti Nieves MD [address] [place] [address] [facility] [address] [place] [phone] Referral ID Status Reason Start Date Expiration Date V isits Requested Visits Authorized [id number] Closed Consult, Test & Treat PCP Updated and/or Approved 04/08/2022 04/08/2023 12 12 Encounter Details Date Type Department Care Team (Latest Contact Info) Description 04/08/2022 Transcribe Orders eDH Incoming Referrals [phone] Bhakti Nieves MD [address] [place] [address] Knee pain, unspecified chronicity, unspecified laterality Social History Tobacco Use Types Packs/Day Years [...] 9:00 AM EDT Office [place] [address] Zac Rousseau MD [facility] [place] [address] Scheduled Referrals Name Type Priority Associated Diagnoses Orde r Schedule Referral to Orthopaedics Outpatient Referral Routine Knee pain, unspecified chronicity, unspecified laterality Ordered: 04/08/2022 documented as of this encounter Visit Diagnoses Diagnosis Knee pain, unspecified chronicity, unspecified laterality documented in this encounter Care Teams Funeral Arrangement Director Relationship Specialty Start Date End Date Bhakti Nieves MD [address] [place] [address] PCP - General Family Medicine 04/08/22 documented as of this encounter
--- OUTSIDE RECORDS SUMMARY | 2024-04-26 02:00 | XMS_ITS | Encounter Summary ---
Author Organization [facility] Address [facility] [place] [address] Care Team Providers Care Container Shop Welder Name Role Phone Bhakti Nieves MD Primary Care Provider [phone] Encounter Details Date Type Department Care Team (Late st Contact Info) Description 12/05/2023 7:10 PM EDT Ancillary Procedure Radiology Library at [facility] [place] [address] Daniel Miranda MD [facility] [place] [address] Social History Tobacco Use Types Packs/Day Years [...] 9:00 AM EDT Office Visit Neurology at [facility] [place] [address] Zac Rousseau MD [facility] [place] [address] documented as of this encounter Procedures Procedure Name Priority Date/Time Associated Diagnosis Comments FILM LIBRARY STORAGE ONLY CT HEAD Routine 12/05/2023 7:05 PM EDT documented in this encounter Results * Film Library- Storage Only CT Head (12/05/2023 7:05 PM EDT) Narrative JANA JUARES - 12/05/2023 7:05 PM EDT This exam is auto-finalizing. It's purpose is for storage only. Daniel Miranda MD IMG FILM LIBRARY ORD ERABLES [place], [place] documented in this encounter Visit Diagnoses Not on filedocumented in this encounter Care Teams Container Shop Welder Relationship Specialty Start Date End Date Bhakti Nieves MD [address] [place] [address] PCP - General Family Medicine 04/08/22 documented as of this encounter
--- OUTSIDE RECORDS SUMMARY | 2024-04-26 02:00 | XMS_ITS | Encounter Summary ---
[place] [address] Care Team Providers Care Senior Administrative Assistant Name Role Phone Bhakti Nieves MD Primary Care Provider [phone] Reason for Visit * Reason Onset Date Comments Referral 12/06/2023 Appointment 12/06/2023 Encounter Details Date Type Department Care Team (Late st Contact Info) Description 12/06/2023 [place] [id number] Ema Schulz Referral; Appointment Social History Tobacco Use Types Packs/Day Years Used Date Smoking Tobacco: Never Smokeless Tobacco: Never Sex and Gender Information Value Date Recorded Sex Assigned at Not on file Gender Identity Not on file Sexual Orientation Not on file documented as of this encounter Miscellaneous Notes * Telephone Encounter - Linda Spencer - 12/07/2023 9:57 AM EDT Pt has been scheduled on 12/20 at 1040 am. Verbal consent from pt to speak with Zac. No appt card needed Closing encounter * Telephone Encounter - Ema Schulz - 12/06/2023 12:09 PM EDT LMOM for patient to call back to schedule. PSC Scheduling Instructions Provider: Daniel Miranda MD Visit Type: NEW Appt Notes (copy entirely): NEW, Enlarging R frontal arachnoid cyst w/ acute SAH vs intracystic hemorrhage, MRI Brain +/- prior Imaging appt needed?: MRI PSC to ask patient Screening Questions? Yes (DOES NOT APPLY TO XRAY) PSC to coordinate same day appt with Radiology? Yes (DOES NOT APPLY TO XRAY) Additional Info Needed: Schedule on/around 12/19/23 No referral received inform patient to have PCP fax one if insurance requires a referral. Update this encounter when patient calls back. ~~~~~~~~~~~~~~~~~~~~~~~~~~~~~~~~ ----- Message from Jorge Boston sent at 12/05/2023 6:43 PM EDT ----- Please schedule o/p f/u apt with Dr. Miranda with MRI brain wwo in 2 weeks for evaluation of enlarging R frontal arachnoid cyst w/ acute SAH vs intracystic hemorrhage. Thank you documented in this encounter Plan of Treatment Upcoming Encounters Date Type Department Care Team (Late st Contact Info) Description 09/03/2024 9:00 AM EDT [place] [address] Zac Rousseau MD [facility] [place] [address] documented as of this encounter Visit Diagnoses Not on filedocumented in this encounter Care Teams Senior Administrative Assistant Relationship Specialty Start Date End Date Bhakti Nieves MD [address] [place] [address] PCP - General Family Medicine 04/08/22 documented as of this encounter
--- OUTSIDE RECORDS SUMMARY | 2024-04-26 02:00 | XMS_ITS | Encounter Summary ---
Author Organization [facility] Address [facility] [place] [address] Care Team Providers Care Glass Cut Off Tender Name Role Phone Bhakti Nieves MD Primary Care Provider [phone] Encounter Details Date Type Department Care Team (Latest Contact Info) Description 12/11/2023 Travel Social History Tobacco Use Types Packs/Day Years Used Date Smoking Tobacco: Never Smokeless Tobacco: Never Alcohol Use Standard Drinks/Week Comments Never 0 (1 standard drink = 0.6 oz pur e alcohol) [facility] Utilities Answer Date Recorded In the [...] any time in the past [facility], were you homeless or living in [...] 9:00 AM EDT Office [place] [address] Zac Rousseau MD [facility] [place] [address] documented as of this encounter Visit Diagnoses Not on filedocumented in this encounter Care Teams Glass Cut Off Tender Relationship Specialty Start Date End Date Bhakti Nieves MD [address] [place] [address] PCP - General Family Medicine 04/08/22 documented as of this encounter
--- OUTSIDE RECORDS SUMMARY | 2024-04-26 02:00 | XMS_ITS | Encounter Summary ---
Author Organization [facility] Address [facility] [place] [address] Care Team Providers Care Spice Grinder Name Role Phone Bhakti Nieves MD Primary Care Provider [phone] Encounter Details Date Type Department Care Team (Late st Contact Info) Description 12/05/2023 4:00 PM EDT Ancillary Procedure Radiology Library at [facility] [place] [address] Reinier Toledo MD [facility] [address] Social History Tobacco Use Types Packs/Day Years [...] EDT Office Visit Neurology at [facility] [place] [address] Zac Rousseau MD [facility] [address] documented as of this encounter Procedures Procedure Name Priority Date/Time Associated Diagnosis Comments FILM LIBRARY STORAGE ONLY CT SPINE Routine 12/05/2023 3:50 PM EDT documented in this encounter Results * Film Library- Storage Only CT Spine (12/05/2023 3:50 PM EDT) Narrative JANA JUARES - 12/05/2023 3:50 PM EDT This exam is auto-finalizing. It's purpose is for storage only. Reinier Toledo MD IMG FILM LIBRARY OR DERABLES Performing Organization Address City/State/[facility] Co de Phone Number [place], [place] documented in this encounter Visit Diagnoses Not on filedocumented in this encounter Care Teams Spice Grinder Relationship Specialty Start Date End Date Bhakti Nieves MD [address] [place] [address] PCP - General Family Medicine 04/08/22 documented as of this encounter
--- OUTSIDE RECORDS SUMMARY | 2024-04-26 02:00 | XMS_ITS | Encounter Summary ---
Author Organization [facility] Address [facility] [place] [address] Care Team Providers Care Lotus Notes Developer Name Role Phone Bhakti Nieves MD Primary Care Provider [phone] Encounter Details Date Type Department Care Team (Late st Contact Info) Description 12/05/2023 Telephone [place] [address] Berry Blake MD [facility] [place] [address] Social History Tobacco Use Types Packs/Day Years Used Date Smoking Tobacco: Never Smokeless Tobacco: Never Sex and Gender Information Value Date Recorded Sex Assigned at Not on file Gender Identity Not on file Sexual Orientation Not on file documented as of this encounter Miscellaneous Notes * Telephone Encounter - Berry Blake MD - 12/05/2023 7:44 PM EDT [facility] Neurosurgery Telephone Consult Note Date: 12/05/23 Patient: Alyson Valverde : 1960 Facility: [facility] Patient status: ED Called by OSH provider regarding above patient for follow up review of imaging. 63 y.o. female on no a/p a/c, Hx migraines and R frontal arachnoid cyst with interval increase in size compounded by small hemorrhage secondary to acute fall from horse. Rpt CTH is stable to slight improvement in hyperdensity. Pt is BIG1 classification. Provider notified of updated plan below: Plan/Recs: -Keppra loading dose, followed by 500 BID x 7 days -Pt can f/u o/p w/ our service and MRI w wo in [address] Miranda Case reviewed with Dr. Miranda, neurosurgery attending. documented in this encounter Plan of Treatment Upcoming Encounters Date Type Department Care Team (Late st Contact Info) Description 09/03/2024 9:00 AM EDT Office [place] [address] Zac Rousseau MD [facility] [place] [place] [address] documented as of this encounter Visit Diagnoses Not on filedocumented in this encounter Care Teams Lotus Notes Developer Relationship Specialty Start Date End Date Bhakti Nieves MD [address] [place] [address] PCP - General Family Medicine 04/08/22 documented as of this encounter
--- OUTSIDE RECORDS SUMMARY | 2024-04-26 02:00 | XMS_ITS | Encounter Summary ---
Author Organization [facility] [place] [address] Care Team Providers Care Clinical Support Specialist Name Role Phone Bhakti Nieves MD Primary Care Provider [phone] Encounter Details Date Type Department Care Team (Latest Contact Info) Description 10/10/2022 Travel Social History Tobacco Use Types Packs/Day [...] 9:00 AM EDT [place] [address] Zac Rousseau MD [facility] [place] [address] documented as of this encounter Visit Diagnoses Not on filedocumented in this encounter Care Teams Clinical Support Specialist Relationship Specialty Start Date End Date Bhakti Nieves MD [address] [place] [address] PCP - General Family Medicine 04/08/22 documented as of this encounter
--- OUTSIDE RECORDS SUMMARY | 2024-04-26 02:00 | XMS_ITS | Encounter Summary ---
Author Organization [facility] [place] [address] Care Team Providers Care Electronics Engineering Manager Name Role Phone Unavailable Primary Care Provider Unavailabl e Encounter Details Date Type Department Care Team (Late st Contact Info) Description 03/14/2022 Ancillary Procedure Radiology Library at [facility] [place] [address] Jaguar Morrison MD [facility] [place] [address] Social History Tobacco Use Types Packs/Day Years [...] AM EDT Office [place] [address] Zac Rousseau MD [facility] [place] [address] documented as of this encounter Procedures Procedure Name Priority Date/Time Associated Diagnosis Comments FILM LIBRARY STORAGE ONLY DX KNEE Routine 03/14/2022 12:00 AM EST documented in this encounter Results * Film Library- Storage Only DX Knee (03/14/2022 12:00 AM EST) Narrative JANA JUARES - 05/05/2022 8:34 AM EST This exam is auto-finalizing. It's purpose is for storage only. Jaguar Morrison MD IMG FILM LIBRARY ORD ERABLES Performing Organization Address City/State/[facility] Co de Phone Number [place], [place] documented in this encounter Visit Diagnoses Not on filedocumented in this encounter
--- OUTSIDE RECORDS SUMMARY | 2024-04-26 02:00 | XMS_ITS | Encounter Summary ---
Author Organization [facility] Address [facility] [place] [address] Care Team Providers Care Director Of Marketing Operations Name Role Phone Bhakti Nieves MD Primary Care Provider [phone] Encounter Details Date Type Department Care Team (Late st Contact Info) Description 12/11/2023 11:50 AM EDT Telehealth [place] [address] Telehealth, Neurology None Social History Tobacco Use Types Packs/Day Years Used Date Smoking Tobacco: Never Smokeless Tobacco: Never Alcohol Use Standard Drinks/Week Comments Never 0 (1 standard drink = 0.6 oz pur e alcohol) [facility] Utilities Answer Date Recorded In the past [...] in a mcfp (including now)? No 12/12/2023 DH IPV Inpatient [...] as of this encounter Miscellaneous Notes * Consult Note - Orlando Tomlinson MD - 12/11/2023 11:50 AM EDT [facility] TELENEUROLOGY EMERGENT TELENEUROLOGY CONSULT NOTE Date 12/11/23 Patient: Alyson Valverde : 1960 Gender: female VISIT Requesting Location: [facility] ([facility]) Requesting Physician: Viraj Amin MD Diagnosis/Reason for Consult: Seizure Arrival Date: 12/11/2023 Arrival Time: 9:17 AM Consult Request Time: 11:55 AM Start Time of Video Consult: 12:10 PM PROVIDER History: 63-year-old woman with past medical history of migraine headache and large right frontal arachnoid cyst last imaged in 2018 who presented last time to the emergency room on 12/04 after she fell off her horse and had generalized convulsive seizure. She presented to the emergency room and there was bleeding in the right hemisphere that was considered either consistent with subarachnoid hemorrhage versus intracystic. Neurosurgery consultation suggested brain MRI and a visit with Dr. Miranda as outpatient. Yesterday around 5 PM she had another generalized convulsive seizure lasted for 45 seconds at least and resulted in loss of consciousness. It was witnessed by her daughter. They presented today for evaluation. They said that after her last ED discharge the patient continued to have deficit and increasing fatigue and left-sided weakness throughout the days. Past Medical History: Patient Active Problem List Diagnosis Code Primary osteoarthritis of left knee M17.12 Primary osteoarthritis of right knee M17.11 Migraine Headache Current Medications: multivitamin (THERAGRAN) Tablet SUMAtriptan (IMITREX) 5 mg/actuation [place], Non-Aerosol Ibuprofen 200 mg Capsule Keppra 500 mg BID Allergies:No Known Allergies Neurologic Social History: Are you a current smoker or have you ever smoked: N/A Do you consume alcohol: N/A Vitals: Pulse: 56 Blood pressure: 126/84 NIH STROKE SCALE 1A. Level of Consciousness 1 1B. LOC Questions 0 1C. LOC Commands 0 2. Best Gaze 0 3. Visual 0 4. Facial Pals 0 5. Motor Arm Left Arm 1 Right Arm 0 6. Motor Leg Left Leg 1 Right Leg 0 7. Limb Ataxia 1 8. Sensory 0 9. Best Language 0 10. Dysarthria 1 11. Extinction and Inattention (formerly neglect) 0 TOTAL 5 Additional Neurologic Examination Findings: Gait was deferred Pronator drift in the left side Weak left upper and lower limb on focus motor exam Radiology Imaging Imaging/Results: Head CT scan shows similar size of right frontal large arytenoid cyst compared to the head CT scan from 12/04 with mass effect and midline shift and noticeable expansion from the imaging in 2018. There is increased streaks of blood within the cyst compared to the 1 done few days ago. Labs: N/A CLINICAL IMPRESSION/DIAGNOSIS: Patient's presentation is consistent with symptomatic convulsive generalized seizure in the setting of intracystic acute hemorrhage, that is mostly posttraumatic. The weakness on the left side is highly concerning for post hemorrhagic parenchymal impact especially that the symptoms were ongoing even before the last seizure yesterday indicating that the weakness is not from Raúl's paralysis. RECOMMENDATIONS/PLAN: -Load with Keppra 2 g IV now then 1 g twice daily as maintenance -Neurosurgery consultation and transferred to service -Brain MRI wwo -Avoid antiplatelets and anticoagulations -Blood pressure to be maintained <160/100 -Upright position 30 degrees as possible -Compression boots for DVT prophylaxis OBSERVATION/ADMISSION/TRANSFER: Transferred to tertiary center for neurosurgery service Orlando Tomlinson MD [facility] TeleNeurology documented in this encounter Plan of Treatment Upcoming Encounters Date Type Department Care Team (Late st Contact Info) Description 09/03/2024 9:00 AM EDT [place] [address] Zac Rousseau MD [facility] [place] [address] documented as of this encounter Visit Diagnoses Not on filedocumented in this encounter Care Teams Director Of Marketing Operations Relationship Specialty Start Date End Date Bhakti Nieves MD [address] [place] [address] PCP - General Family Medicine 04/08/22 documented as of this encounter
--- OUTSIDE RECORDS SUMMARY | 2024-04-26 02:00 | XMS_ITS | Encounter Summary ---
Author Organization [facility] Address [facility] [place] [address] Care Team Providers Care It Web Development Consultant Name Role Phone Bhakti Nieves MD Primary Care Provider [phone] Encounter Details Date Type Department Care Team (Late st Contact Info) Description 12/05/2023 3:50 PM EDT Ancillary Procedure Radiology Library [place] [facility] [place] [address] Reinier Toledo MD [facility] [place] [address] Social History Tobacco Use Types Packs/Day Years [...] 9:00 AM EDT Office Visit Neurology at [facility] [place] [address] Zac Rousseau MD [facility] [place] [address] documented as of this encounter Procedures Procedure Name Priority Date/Time Associated Diagnosis Comments FILM LIBRARY STORAGE ONLY CT CHEST ABDOMEN PELVIS Routine 12/05/2023 3:48 PM EDT documented in this encounter Results * Film Library- Storage Only CT Chest Abdomen Pelvis (12/05/2023 3:48 PM EDT) Narrative [facility] - 12/05/2023 3:48 PM EDT This exam is auto-finalizing. It's purpose is for storage only. Reinier Toledo MD IMG FILM LIBRARY OR DERABLES Performing Organization Address City/State/[facility] Co de Phone Number [place], [place] documented in this encounter Visit Diagnoses Not on filedocumented in this encounter Care Teams It Web Development Consultant Relationship Specialty Start Date End Date Bhakti Nieves MD [address] [place] [address] PCP - General Family Medicine 04/08/22 documented as of this encounter
--- OUTSIDE RECORDS SUMMARY | 2024-04-26 02:00 | XMS_ITS | Encounter Summary ---
Author Organization [facility] [place] [address] Care Team Providers Care Tape Stringer Name Role Phone Bhakti Nieves MD Primary Care Provider [phone] Encounter Details Date Type Department Care Team (Latest Contact Info) Description 05/02/2023 Travel Social History Tobacco Use Types Packs/Day [...] 9:00 AM EDT [place] [address] Zac Rousseau MD [facility] [place] [address] documented as of this encounter Visit Diagnoses Not on filedocumented in this encounter Care Teams Tape Stringer Relationship Specialty Start Date End Date Bhakti Nieves MD [address] [place] [address] PCP - General Family Medicine 04/08/22 documented as of this encounter
--- OUTSIDE RECORDS SUMMARY | 2024-04-26 02:00 | XMS_ITS | Encounter Summary ---
Author Organization [facility] [address] Care Team Providers Care Marine Electrician Apprentice Name Role Phone Bhakti Nieves MD Primary Care Provider [phone] Reason for Visit * Reason Comments Follow-up NXR L KNEE INJECT ION Encounter Details Date Type Department Care Team (Latest Contact Info) Description 10/24/2023 11:00 AM EDT Office [place] [address] Jaguar Morrison MD [facility] [place] [address] Primary osteoarthritis of left knee Social History Tobacco Use Types Packs/Day Years Used Date Smoking Tobacco: Never Smokeless Tobacco: Never Sex and Gender Information Value Date Recorded Sex Assigned at Not on file Gender Identity Not on file Sexual Orientation Not on file documented as of this encounter Progress Notes * Jaguar Morrison MD - 10/24/2023 11:00 AM EDT Orthopaedic Surgery Follow-Up Clinic Note Alyson Valverde is a 62 y.o. female who follows up for the following issue: Left knee pain Interval History: Alyson Valverde follows up today for her left knee. The last injection done in May has helped quite a bit. She is ready for another 1 today. No changes significantly in the pain. Physical Exam: Awake/Alert, NAD Exam of the left knee demonstrates 1+ effusion. Stable to varus and valgus stress. Range of motion unchanged. Distally neurovascularly intact. Questionnaire Responses: 10/17/2023 General Health, Prior Treatments, PreExisting Condition, Health Habits, About You PROMIS-10 General Health Very Good PROMIS-10 Quality of Life Very Good PROMIS-10 Physical Health Very Good PROMIS-10 Mental Health Good PROMIS-10 Social Activity Good PROMIS-10 Everyday Activities Completely PROMIS-10 Pain 5 PROMIS-10 Fatigue Mild PROMIS-10 Social Roles Very Good PROMIS-10 Anxious or Depressed Rarely PROMIS PHYSICAL SCORE (range 16-68) 50.8 PROMIS MENTAL SCORE (range 21-68) 48.3 Treatments Tried Orthotics Over the counter anti-inflammatory drugs (e.g Advil, Aspirin, Aleve) Injection of steroids or cortisone KOOS JR Scores 61.58 TKA Grade 4 Multiple values from one day are sorted in reverse-chronological order 10/17/2023 Orthopeadics [facility] Response KOOS JR Scores 61.58 10/17/2023 Spine [facility] Response KOOS JR Scores 61.58 Medical decision making/Assessment: Alyson Valverde is a 62 y.o. female with severe left knee arthritis doing well with injectionson a biannual basis currently. We discussed the progression of arthritis and the potential for needfor knee replacement at some point. She will follow-up as needed for repeat injection or to discuss left or right knee arthroplasty. PROCEDURE: I had a thorough discussion with [...] pen. The Left knee was prepped using chloraprep. A 22-gauge [...] 1% Lidocaine: 2 mL 0.25% Bupivacaine: 2mL Jaguar Morrison MD [facility] Orthopaedic Surgery Pager: [phone] documented in this encounter Plan of Treatment Upcoming Encounters Date Type Department Care Team (Late st Contact Info) Description 09/03/2024 9:00 AM EDT Office [place] [address] Zac Rousseau MD [facility] [place] [address] documented as of this encounter Visit Diagnoses Diagnosis Primary osteoarthritis of left knee Primary localized osteoarthrosis, lower leg documented in this encounter Care Teams Marine Electrician Apprentice Relationship Specialty Start Date End Date Bhakti Nieves MD [address] [place] [address] PCP - General Family Medicine 04/08/22 documented as of this encounter
--- OUTSIDE RECORDS SUMMARY | 2024-04-26 02:00 | XMS_ITS | Encounter Summary ---
Author Organization [facility] Address [facility] [place] [address] Care Team Providers Care Compensation Consulting Manager Name Role Phone Bhakti Nieves MD Primary Care Provider [phone] Reason for Visit * Reason Comments Establish Care Bilateral knee pain * Consultation (Routine) - Closed Specialty Diagnoses / Procedures Referred By Capo reyna Referred To Contact Orthopaedics Diagnoses Knee pain, unspecified chronicity, unspecified laterality Bhakti Nieves MD [address] [place] [address] [facility] [address] [place] [phone] Referral ID Status Reason Start Date Expiration Date V isits Requested Visits Authorized [id number] Closed Consult, Test & Treat PCP Updated and/or Approved 04/08/2022 04/08/2023 12 12 Encounter Details Date Type Department Care Team (Latest Contact Info) Description 05/05/2022 8:00 AM EST [place] [address] Jaguar Morrison MD [facility] [place] [address] Primary osteoarthritis of left knee; Primary osteoarthritis of right knee Social History Tobacco Use Types Packs/Day Years Used Date Smoking Tobacco: Never Smokeless Tobacco: Never Tobacco Cessation:Counseling Given: No Sex and Gender Information Value Date Recorded Sex Assigned at Not on file Gender Identity Not on file Sexual Orientation Not on file documented as of this encounter Last Filed Vital Signs Vital Sign Reading Time Taken Comments Blood Pressure 105/71 05/05/2022 8:07 AM EST Pulse 67 05/05/2022 8:07 AM EST Temperature - - Respiratory Rate - - Oxygen Saturation - - Inhaled Oxygen Concentration - - Weight 68 kg (150 lb) 05/05/2022 8:07 AM EST Height 168.9 cm (5' 6.5) 05/05/2022 8:07 AM EST Body Mass Index 23.85 05/05/2022 8:07 AM EST documented in this encounter Progress Notes * Jaguar Morrison MD - 05/05/2022 8:00 AM EST Orthopedic Surgery Clinic Note Chief Complaint: Chief Complaint Patient presents with ??? Establish Care Bilateral knee pain The patient is a 61 y.o. female who presents to see me at the request of Bhakti Nieves MD [address] [place] [phone] for the above chief complaint. HPI: The patient is a very pleasant 61-year-old female who comes in today with left worse than right bilateral knee pain. This has been going on for years. She describes pain on the left knee in the anterior medial aspect of the knee and states that it is pretty similar on the right side. Sometimes she gets a burning pain across the anterior aspect of the knee from the patella towards the medial side.It does swell off and on. No numbness or tingling in either foot. No prior knee surgeries or orthopedic surgeries in the past however about 15 years ago when she was hiking in [place] she developed a significant amount of swelling which she describes like a grapefruit. When she came back she did geta cortisone injection in the left knee. She takes occasional ibuprofen for the pain. She walks about 30 to 45 minutes/day but she used to run marathons. She did ski quite a bit previously and at somepoint suffered a gastrocnemius tear and has a knot on the left side behind the knee ever since. No injections in the right knee. She was seen by her PCPs office and x-rays were obtained at [facility] however we do not have those available here for review today yet. There is no problem list on file for this patient. No past medical history on file. No past surgical history on file. Medications were reviewed with the patient today and are up to date. Family History: No family history on file. Social History: Social History Socioeconomic History ??? Marital status: Spouse name: Not on file ??? Number of children: Not on file ??? Years of education: Not on file ??? Highest education level: Not on file Occupational History ??? Not on file Tobacco Use ??? Smoking status: Never ??? Smokeless tobacco: Never Vaping Use ??? Vaping Use: Never used Substance and Sexual Activity ??? Alcohol use: Not on file ??? Drug use: Not on file ??? Sexual activity: Not on file Other Topics Concern ??? Not on file Social History Narrative ??? Not on file Social Determinants of Health Financial Resource Strain: Not on file Food Insecurity: Not on file Transportation Needs: Not on file Physical Activity: Not on file Housing Stability: Not on file Imaging studies: xrays of both knees ap and lateral views show left knee medial severe osteoarthritis with tricompartmental osteophytes and medial joint space narrowing. On the right knee is moderate to severe medialjoint space narrowing with tricompartmental osteophyte formation. Physical Exam: Awake/Alert, NAD examination of the right knee demonstrates 5 degrees lack of full extension, flexion 130 stable to varus and valgus stress stable anterior and posterior drawer. Page Ia. Sensation and motor intactdistally. Some crepitus with patellofemoral grinding and only 1 quadrant of glide of the patella. She does have moderate lateral joint line tenderness and no significant medial joint line tenderness. Examination of the left knee demonstrates a flexion contracture of 5 degrees similar to the right knee but perhaps slightly better. Flexion 130 stable to varus and valgus stress. Page stable anterior and posterior drawer stable. 1+ effusion. Tenderness is present over the medial joint line but not so much over the lateral joint line. 2 quadrants of glide and there is also patellar crepitus with grinding. Distally neurovascular intact. Questionnaire Responses: General Health, Prior Treatments, PreExisting Condition, Health Habits, About You 05/05/2022 PROMIS-10 General Health Very Good PROMIS-10 Quality of Life Excellent PROMIS-10 Physical Health Very Good PROMIS-10 Mental Health Very Good PROMIS-10 Social Activity Very Good PROMIS-10 Everyday Activities Mostly PROMIS-10 Pain 6 PROMIS-10 Fatigue Mild PROMIS-10 Social Roles Good PROMIS-10 Anxious or Depressed Rarely PROMIS PHYSICAL SCORE (range 16-68) 47.7 PROMIS MENTAL SCORE (range 21-68) 56 Treatments Tried Heat and ice therapy, Brace, Orthotics, Over the counter anti- inflammatory drugs (e.g Advil, Aspirin, Aleve) KOOS JR Scores 59.38 TKA Grade 3 Alzheimers or dementia No Cirrohosis or liver disease No HIV/AIDS No Pain in more than one joint in legs Yes Back or neck pain No Heart attack No Heart failure No Unclog/bypass leg arteries No Stroke, blood clot, TIA No Asthma Yes Take medication for asthma No Emphysema, chronic bronchities, or COPD No Stomach ulcers/peptic ulcer disease No Diabetes No Poor kidney function No Rheumatic condtions No Cancer No Weight (lbs) 150 Height (feet) 5 feet Height (Inches) 6 BMI 24.21 (Normal) Ever used tobacco products No Ever used alcoholic beverages Yes Alcohol frequency Weekly WHO - Alcohol Advice 4 (You are at risk of health and other problems from your current pattern of alcohol use.) Live Alone No Marital situation Schooling More than 4 - year college Combined Household Income Prefer not to answer # People Supported 2 Telugu, , No, not Telugu// Race White Health Literacy Extremely Currently working No Not working because: Retired [facility] Response 05/05/2022 KOOS JR Scores 59.38 Spine [facility] Response 05/05/2022 KOOS JR Scores 59.38 Medical decision making/Assessment: The patient is a 61 y.o. female with severe left knee and moderate to severe right knee arthritis. Worse symptomatically on the left knee. We discussed options including physical therapy to work on her flexion contractures that are about 5 degrees bilaterally, cortisone injections, hyaluronic acid/PRP therapy, total knee arthroplasty. At this point she elected to proceed with left knee injection. She will follow-up as needed in the future to discuss total knee arthroplasty or repeat injection on the left knee in 3 months or longer or injection on the right knee. Or we could have her see Dr. Elizabeth for discussion of ultrasound- guided PAGE or PRP injections. PROCEDURE: I had a thorough discussion with [...] Jaguar Morrison MD MS Orthopaedic Surgery Pager: [phone] documented in this encounter Plan of Treatment Upcoming Encounters Date Type Department Care Team (Late st Contact Info) Description 09/03/2024 9:00 AM EDT [place] [address] Zac Rousseau MD [facility] [place] [address] documented as of this encounter Visit Diagnoses Diagnosis Primary osteoarthritis of left knee Primary localized osteoarthrosis, lower leg Primary osteoarthritis of right knee Primary localized osteoarthrosis, lower leg documented in this encounter Administered Medications Inactive Administered Medications - up to 3 most recent administrations Medication Order MAR Action Action Date Dose Rate Site triamcinolone acetonide (Kenalog-40) (40 mg/mL) injection 40 mg 40 mg, Intra-articular, ONCE, 1 dose, On Rani 05/05/22 at 0945, Routine Given 05/05/2022 9:22 AM EST 40 mg documented in this encounter Care Teams Compensation Consulting Manager Relationship Specialty Start Date End Date Bhakti Nieves MD [address] [place] [address] PCP - General Family Medicine 04/08/22 documented as of this encounter
--- OUTSIDE RECORDS SUMMARY | 2024-04-26 02:00 | XMS_ITS | Encounter Summary ---
[place] [address] Care Team Providers Care Senior Administrative Assistant Name Role Phone Bhakti Nieves MD Primary Care Provider [phone] Encounter Details Date Type Department Care Team (Late st Contact Info) Description 12/05/2023 [place] [address] Jorge Boston MD [facility] [place] [address] Social History Tobacco Use Types Packs/Day Years Used Date Smoking Tobacco: Never Smokeless Tobacco: Never Sex and Gender Information Value Date Recorded Sex Assigned at Not on file Gender Identity Not on file Sexual Orientation Not on file documented as of this encounter Miscellaneous Notes * Telephone Encounter - Jorge Boston MD - 12/05/2023 6:27 PM EDT [facility] Neurosurgery Telephone Consult Note Date: 12/05/23 Patient: Alyson Benitomikymackenzie : 1960 Facility: [facility] Patient status: ED Provider: Tristen Banerjee DO Called by OSH provider regarding above patient, 63 y.o. female on no a/p a/c, Hx migraines and R frontal arachnoid cyst presented after thrown of a horse on a wall with LOC and symptoms concerning for seizures/ concussion. CTH concerning for enlarging R frontal arachnoid cyst w/ acute SAH vs intracystic hemorrhage. Plan/Recs: -SBP <140 -hold a/p a/c -Keppra loading dose, followed by 500 BID x 7 days -rCTH in 4hrs (from 1st CTH) or if pt has changes in neuro exam -if hyperdensity concerning for hemorrhage is stable on rHCT, pt can f/u o/p w/ our service and MRIw wo in 2 weeks. Case discussed with Dr. Miranda, neurosurgery attending. Jorge Boston MD [facility] Neurosurgery 12/05/2023 6:27 PM documented in this encounter Plan of Treatment Upcoming Encounters Date Type Department Care Team (Late st Contact Info) Description 09/03/2024 9:00 AM EDT [place] [address] Zac Rousseau MD [facility] [place] [address] documented as of this encounter Visit Diagnoses Diagnosis Intracranial arachnoid cyst- Primary Cerebral cysts documented in this encounter Care Teams Senior Administrative Assistant Relationship Specialty Start Date End Date Bhakti Nieves MD [address] [place] [address] PCP - General Family Medicine 04/08/22 documented as of this encounter
--- OUTSIDE RECORDS SUMMARY | 2024-04-26 02:00 | XMS_ITS | Encounter Summary ---
Author Organization [facility] Address [facility] [place] [address] Care Team Providers Care Radiology Manager Name Role Phone Bhakti Nieves MD Primary Care Provider [phone] Encounter Details Date Type Department Care Team (Latest Contact Info) Description 10/24/2023 Travel Social History Tobacco Use Types Packs/Day [...] 9:00 AM EDT Office [place] [address] Zac Rousseau MD [facility] [place] [address] documented as of this encounter Visit Diagnoses Not on filedocumented in this encounter Care Teams Radiology Manager Relationship Specialty Start Date End Date Bhakti Nieves MD [address] [place] [address] PCP - General Family Medicine 04/08/22 documented as of this encounter
--- OUTSIDE RECORDS SUMMARY | 2024-04-26 02:00 | XMS_ITS | Encounter Summary ---
Author Organization [facility] [place] [address] Care Team Providers Care Mobile Development Manager Name Role Phone Bhakti Nieves MD Primary Care Provider [phone] Reason for Referral * Home Health Care (Routine) - Authorized Specialty Diagnoses / Procedures Referred By Capo reyna Referred To Contact Diagnoses Arachnoid cyst Bhakti Nieves MD [address] [place] [phone] Referral ID Status Reason Start Date Expiration Date Visits Requested Visits Authorized [id number] Authorized Consult, Test & Treat 12/14/2023 06/11/2024 999 999 Reason for Visit * Reason Comments Head Injury Thrown from horse on mon, Transferred from [facility] for ICH * Auth/Cert (Routine) Specialty Diagnoses / Procedures Referred By Capo reyna Referred To Contact Diagnoses Arachnoid cyst Seizure Procedures EMERGENCY IPI Shashi Zelaya MD [facility] [place] [address] [facility] Referral ID Status Reason Start Date Expiration Date Visits Re quested Visits Authorized [id number] 1 1 Encounter Details Date Type Department Care Team (Latest Contact Info) Description 12/11/2023 3:23 PM EDT - 12/14/2023 3:30 PM EDT Hospital Encounter Neuro Special Care Unit Level 3 Wing C at [facility] [place] [address] Pasha Harrell MD [facility] [place] [address] Екатерина Alexander MD [facility] [place] [address] Shashi Zelaya MD [facility] [place] [address] Bradycardia; Arachnoid cyst Discharge Disposition: Home with VNA Social History Tobacco Use Types Packs/Day Years Used Date Smoking Tobacco: Never Smokeless Tobacco: Never Alcohol Use Standard Drinks/Week Comments Never 0 (1 standard drink = 0.6 oz pur e alcohol) [facility] Utilities Answer Date Recorded In the past 12 months has th e Proficiency, gas, oil, or water Kenzei threatened to shut off services in your [...] any time in the past 12 m [facility], were you homeless or living in a usp (including now)? No 12/12/2023 DH IPV Inpatient [...] Sign Reading Time Taken Comments Blood Pressure 119/84 12/14/2023 12:00 PM EDT Pulse 59 12/14/2023 12:00 PM EDT Temperature 36.5 ??C (97.7 ??F) 12/14/2023 12:00 PM E DT Respiratory Rate 17 12/14/2023 12:00 PM EDT Oxygen Saturation 96% 12/14/2023 12:00 PM EDT Inhaled Oxygen Concentration - - Weight 61.7 kg (136 lb 1.6 oz) 12/11/2023 8:43 P M EDT Height 170.2 cm (5' 7) 12/11/2023 8:43 PM EDT Body Mass Index 21.32 12/11/2023 8:43 PM EDT documented in this encounter Discharge Summaries * Alison Ramos PA - 12/14/2023 7:31 AM EDT Patient Name: Alyson Valverde Patient Age: 63 y.o. Admit date: 12/11/2023 Discharge Date and Time: 12/14/23 2:06 PM Attending Physician: Shashi Zelaya MD Discharging Provider: DIANA Arias Discharging Service: NEUROSURGERY Operations/Major Procedures: N/A Active Hospital Problems: Active Hospital Problems Diagnosis Arachnoid cyst Resolved Hospital Problems No resolved problems to display. Active Non Hospital Problems: Active Non-Hospital Problems Diagnosis Primary osteoarthritis of left knee Primary osteoarthritis of right knee History of Presentation: Per review of relevant records Alyson Valverde is a 63 y.o. female with past medical history of migraines, large right frontal cystic lesion, and head trauma following fall of a horse 12/04 presented to an OSH with an episode concerning for seizure, LUE/LLE weakness, AMS, and HCT showing a large right frontal cyst with intracystic hemorrhage evolution and MLS. We recommended transfer to our ED for further evaluation. The right frontal cystic lesion has been diagnosed as an arachnoid cyst in [place] and patient was managedgetting f/u with imaging studies until 2018. Patient had who presented last time to the emergency room on 12/04 after she fell off her horse with symptoms concerning for concussion and seizure. At that time CTH was concerning for enlarging R frontal arachnoid cyst w/ acute SAH vs intracystic hemorrhage and was stable at 6hrs rCTH. We had recommended Keppra loading dose, followed by 500 BID x 7 daysand f/u o/p w/ Dr. Miranda and MRI wwo in 2 weeks. Hospital Course: Alyson Valverde presented 12/11/2023 and was admitted in transfer from OSH for further work-up and management of RIGHT frontal cystic lesion c/f arachnoid cyst. She was started on dexamethasone for cerebral edema. MRI Brain was obtained for further characterization of the lesion. Keppra 500 BIDwas started for seizure ppx with EEG placed showing c/f sharps arising from RIGHT parietal region but no discrete seizures. Keppra was increased, and sharps resolved on EEG, which was removed 12/12. With seizures controlled, plant to discharge home with close outpatient follow-up to discuss surgicaloptions. Patient was evaluated by rehab services and deemed appropriate for home with VNA. Patient was discharged in stable condition 12/14/23 At time of discharge patient is afebrile, tolerating a regular diet, ambulating with a walker and assistance, voiding spontaneously, and managing pain with oral painmedications. Important Studies and Lab Data: Labs: Recent Results (from the past 24 hour(s)) POC, GLUCOSE Result Value Ref Range Glucometer, POC 138 65 - 199 mg/dL Studies: Results for orders placed or performed during the hospital encounter of 12/11/23 CT Head & Cervical Spine wo Contrast (Generic) (Exam End: 12/11/2023 4:08 PM) Result Value WORKSTATION ID [id number] Impression CT head: 1. Acute hemorrhage within the large right frontal arachnoid cyst is similar in volume but slightly decreased in density. 2. No additional significant change. CT cervical spine: No acute fracture or subluxation. Thank you for letting us participate in the care of this patient. If you are a health care provider and have any questions regarding this report, please contact the number below. For patients who have questions please contact the health emergency care attendant that requested your imaging first. Brain wwo Contrast (Generic) (Exam End: 12/11/2023 7:58 PM) Result Value WORKSTATION ID [id number] Impression impression: Similar appearance of large right frontal [...] who have questions please contact the health emergency care attendant that requested your imaging first. Pending Studies and Lab Data: N/A Discharge Condition: Stable Discharge to: Home Future Appointments and Orders Future Appointments and Orders Future Appointments Provider Department Dept Phone 12/21/2023 10:40 AM Daniel Miranda MD Neurosurgery at [facility] Arrive at: Sales Correspondent Area [phone] Future Orders Complete By Expires [employer] [EQ161 Custom] As directed Process Instructions: Scheduling Instructions: Comments: FWW Questions: Device Needed: WALKER (E0143) Patient Height (cm): 170.2 cm (5' 7) Patient Weight: 61.7 kg (136 lb 1.6 oz) Diagnosis: Brain lesion Referral to Home Health [REF34 Custom] As directed Process Instructions: If no progress note charted, please enter Clinical details in comments. Scheduling Instructions: Comments: Please evaluate Alyson Valverde for admission to Home Health. [address] [place] [phone] (home) Date of : 1960 Inpatient: [id number] [place] [address] PT and OT for strengthening, training, endurance and for ADLs Questions: Disciplines Requested: Physical Therapy Occupational Therapy Discharge Medications: Your Medications New Medications Dose Details acetaminophen 500 mg tablet Commonly known as: Tylenol Take 2 tablets by mouth every 6 hours as needed for Pain. 1,000 mg Quantity: 30 tablet Refills: 1 celecoxib 200 mg capsule Commonly known as: CeleBREX Take 1 capsule by mouth 2 times daily. 200 mg Quantity: 30 capsule Refills: 1 dexAMETHasone 1 mg tablet Commonly known as: Decadron 4tabs tonight, then 4 tabs twice daily for 3 days, 2 tabs twice daily for 3 days, 1 tab twice dailyfor 3 days, 1 tab daily for 3 days, then stop. Quantity: 49 tablet Refills: 0 levETIRAcetam 1,000 mg tablet Commonly known as: Keppra Take 1 tablet by mouth 2 times daily. 1,000 mg Quantity: 60 tablet Refills: [address] pantop[address] EC [address] tablet Commonly known as: Protonix Take 1 tablet by mouth daily. While taking steroids (dexamethasone) Start taking on: December 15, 2023 40 mg Quantity: 90 tablet Refills: 0 polyethylene glycoL 17 gram oral powder packet Commonly known as: Miralax Take 17 g by mouth daily as needed (constipation). 17 g Refills: 0 Continued medications, unchanged Dose Details multivitamin Tablet Commonly known as: THERAGRAN Take 1 tablet by mouth daily. 1 tablet Refills: 0 SUMAtriptan 5 mg/actuation nasal spray Commonly known as: Imitrex USE 2 SPRAYS IN EACH NOSTRIL ONCE DAILY NEEDED Refills: 0 STOPPED Medications Ibuprofen 200 mg Capsule Updated Allergies/ADRs: No Known Allergies Follow-up Recommendations for Providers: Please see Discharge Instructions Commonly Used Phone Numbers: Neuro-oncology [phone] Radiation oncology [phone] Hematology/Oncology [phone] Endocrinology [phone] Ophthalmology [phone] Infectious disease [phone] Neurology [phone] Plastic Surgery [phone] ENT [phone] Trauma/General Surgery [phone] Urology [phone] Instructions Given to Patient at Discharge: Patient Instructions CRANIOTOMY FOR BRAIN LESION DISCHARGE INSTRUCTIONS PRESCRIPTION INSTRUCTIONS: Please see the medication reconciliation list on this discharge summary for a current list of your medications. Stop the use of blood thinning medications until instructed otherwise by your surgical team. This includes medications known as antiplatelet, anticoagulant, and non-steroidal anti-inflammatory (NSAIDs) drugs. Common smhj-dce-yjqfqhp medications which should be avoided include Aspirin, [...] please contact us for prescription assistance. [x] You have had a seizure. This medications is prescribed to prevent another seizure from occurring. You cannot drive after having a seizure. [] You have not been diagnosed with a seizure. This medication is prescribed to prevent a seizure from occurring (prophylaxis). [x] Steroids - anti-inflammatory: Decadron (dexamethasone) Steroids are commonly prescribed after surgery to reduce swelling in the brain. Side effects can include: mood changes, sleep disturbance, high blood sugar, fluid retention, weight gain or increased appetite, and stomach irritation/ulcers. This medication is often gradually reduced until discontinued or to a lower level to be assessed again at follow up. If you experience any symptoms during the tapering schedule, please call the Neurosurgery office. Decadron taper as follows: 1mg tablets - 4 tabs tonight, then 4 tabs twice daily for 3 days, 2 tabs twice daily for 3 days, 1 tab twice daily for 3 days, 1 tab daily for 3 days, then stop. To protect your stomach, take with food. If you are taking the steroid two times per day, take the first dose when you wake up in the morning and the second dose at 2pm to help prevent difficulty sleeping. If prescribed a daily dose of steroid, take the medication when you wake up in the morning. If you have diabetes you may notice an increase in your blood sugars. If you need assistance managing this please contact our office or your primary care physician. If you have questions about this taper please call our offices or ask your pharmacist. [x] PPIs or H2 blockers - Gastrointestinal prophylaxis: medications such Protonix or Pepcid (famotidine) PPIs or H2 blockers are commonly prescribed after surgery to protect your stomach while you are taking steroids. Once you have finished taking the steroids you may stop this medication. [x] Celebrex - Pain relief: Take for 1-2 weeks after surgery for pain control then stop. May take over the counter tylenol in addition if needed. [x] Stool softeners - Constipation relief: medications such as docusate or senakot Stool softeners are commonly used after surgery to help make stools easier to pass. These medications can be obtained dyuy-rtr-isfuqou and their use is recommended on an as needed basis for hard or difficult stools. They should be discontinued for loose stools and diarrhea. WHEN TO SEEK MEDICAL CARE: Signs or [...] - Chest pain or shortness of breath DIET: - You may resume your usual [...] not drive while taking narcotic pain medication. [] Do NOT drive until cleared by Neurosurgery. [x] You have had a seizure and driving is prohibited (see state regulations). Speak to your doctor for further recommendations. FOLLOW UP PLAN: Appointments: Please follow up in the Neurosurgery Clinic on 12/21/[address] Miranda. Please call the Neurosurgery Office at [phone] if you need to change this appointment. The MRI schedule for prior to thisappointment will be canceled. HOW TO REACH NEUROSURGERY Office Hours (Monday through Monday 8am-5pm): Call On weekends or after office hours (after 5pm or before 8am): Call [phone] and ask the well drill operator helper cable tool to page the Neurosurgery Resident/Advanced Practice Provider convention planner. *Your surgeon may not be director call center sales (especially after office hours or on the weekend) so be ready totell about yourself and your surgery when you call. Neurosurgery Providers Adult Neurosurgery Dr. Lv Mehta Pediatric Neurosurgery Dr. Ria Gracia Advanced Practice Providers Alyson Gonzáles, Nurse Practitioner (outpatient telehealth) Alison Ramos, Physician Newspaper Editor (inpatient/outpatient: neuro-oncology) Karen Hillman Physician Newspaper Editor (inpatient) Irena Hunt Physician Newspaper Editor (inpatient) Nakul Mariee Physician Newspaper Editor (inpatient) Mart Abbasi Nurse Practitioner (outpatient: pediatric) Nurse Afsaneh Pardo (outpatient: vascular) Physician Mer Newspaper Editor (outpatient: spine) Chaim Carrasco Physician Newspaper Editor (outpatient) Outpatient Nurses HOW TO REACH NEUROSURGERY Office Hours (Monday through Monday 8am-5pm): Call On weekends or after office hours (after 5pm or before 8am): Call [phone] and ask the well drill operator helper cable tool to page the Neurosurgery Resident/Advanced Practice Provider convention planner. *Your surgeon may not be director call center sales (especially after office hours or on the weekend) so be ready totell about yourself and your surgery when you call. Neurosurgery Providers Adult Neurosurgery Dr. Lv Mehta Pediatric Neurosurgery Dr. Ria Gracia Advanced Practice Providers Alyson Gonzáles, Nurse Practitioner (outpatient telehealth) Alison Ramos Physician Newspaper Editor (inpatient/outpatient: neuro-oncology) Karen Hillman Physician Newspaper Editor (inpatient) Physician sAhlyn Graham (inpatient) Physician Ashlyn Ritchie (inpatient) Mart Abbasi Nurse Practitioner (outpatient: pediatric) Nurse Edvin Practitioner (outpatient: vascular) Physician Mer Newspaper Editor (outpatient: spine) Chaim Carrasco Physician Newspaper Editor (outpatient) Outpatient Nurses A total of 40 minutes was spent performing discharge day services, greater than 50% of which was spent in the direct kjbi-qt-gygx education and coordination of care. DIANA Arias 12/14/2023 documented in this encounter Discharge Instructions * Patient Instructions* Alison Ramos PA - 12/12/2023 8:02 AM EDT CRANIOTOMY FOR BRAIN LESION DISCHARGE INSTRUCTIONS PRESCRIPTION INSTRUCTIONS: Please see the medication reconciliation list on this discharge summary for a current list of your medications. Stop the use of blood thinning medications until instructed otherwise by your surgical team. This includes medications known as antiplatelet, anticoagulant, and non-steroidal anti-inflammatory (NSAIDs) drugs. Common puzv-wct-gecqilk medications which should be avoided include Aspirin, [...] please contact us for prescription assistance. [x] You have had a seizure. This medications is prescribed to prevent another seizure from occurring. You cannot drive after having a seizure. [] You have not been diagnosed with a seizure. This medication is prescribed to prevent a seizure from occurring (prophylaxis). [x] Steroids - anti-inflammatory: Decadron (dexamethasone) Steroids are commonly prescribed after surgery to reduce swelling in the brain. Side effects can include: mood changes, sleep disturbance, high blood sugar, fluid retention, weight gain or increased appetite, and stomach irritation/ulcers. This medication is often gradually reduced until discontinued or to a lower level to be assessed again at follow up. If you experience any symptoms during the tapering schedule, please call the Neurosurgery office. Decadron taper as follows: 1mg tablets - 4 tabs tonight, then 4 tabs twice daily for 3 days, 2 tabs twice daily for 3 days, 1 tab twice daily for 3 days, 1 tab daily for 3 days, then stop. To protect your stomach, take with food. If you are taking the steroid two times per day, take the first dose when you wake up in the morning and the second dose at 2pm to help prevent difficulty sleeping. If prescribed a daily dose of steroid, take the medication when you wake up in the morning. If you have diabetes you may notice an increase in your blood sugars. If you need assistance managing this please contact our office or your primary care physician. If you have questions about this taper please call our offices or ask your pharmacist. [x] PPIs or H2 blockers - Gastrointestinal prophylaxis: medications such Protonix or Pepcid (famotidine) PPIs or H2 blockers are commonly prescribed after surgery to protect your stomach while you are taking steroids. Once you have finished taking the steroids you may stop this medication. [x] Celebrex - Pain relief: Take for 1-2 weeks after surgery for pain control then stop. May take over the counter tylenol in addition if needed. [x] Stool softeners - Constipation relief: medications such as docusate or senakot Stool softeners are commonly used after surgery to help make stools easier to pass. These medications can be obtained qlgh-wnk-yxazbuk and their use is recommended on an as needed basis for hard or difficult stools. They should be discontinued for loose stools and diarrhea. WHEN TO SEEK MEDICAL CARE: Signs or [...] - Chest pain or shortness of breath DIET: - You may resume your usual [...] not drive while taking narcotic pain medication. [] Do NOT drive until cleared by Neurosurgery. [x] You have had a seizure and driving is prohibited (see state regulations). Speak to your doctor for further recommendations. FOLLOW UP PLAN: Appointments: Please follow up in the Neurosurgery Clinic on 12/21/[address] Miranda. Please call the Neurosurgery Office at [phone] if you need to change this appointment. The MRI schedule for prior to thisappointment will be canceled. HOW TO REACH NEUROSURGERY Office Hours (Monday through Monday 8am-5pm): Call On weekends or after office hours (after 5pm or before 8am): Call [phone] and ask the well drill operator helper cable tool to page the Neurosurgery Resident/Advanced Practice Provider convention planner. *Your surgeon may not be director call center sales (especially after office hours or on the weekend) so be ready totell about yourself and your surgery when you call. Neurosurgery Providers Adult Neurosurgery Dr. Lv Mehta Pediatric Neurosurgery Dr. Ria Gracia Advanced Practice Providers Alyson Gonzáles, Nurse Practitioner (outpatient telehealth) Alison Ramos, Physician Newspaper Editor (inpatient/outpatient: neuro-oncology) Karen Hillman, Physician Newspaper Editor (inpatient) Irena Hunt, Physician Newspaper Editor (inpatient) Nakul Mariee, Physician Newspaper Editor (inpatient) Mart Abbasi, Nurse Practitioner (outpatient: pediatric) Maria R Robertson, Nurse Practitioner (outpatient: vascular) Tessa Moscoso, Physician Newspaper Editor (outpatient: spine) Chaim Carrasco, Physician Newspaper Editor (outpatient) Outpatient Nurses documented in this encounter Medications at Time of Discharge Medication Sig Dispensed Refills Start Date End Date multivitamin (THERAGRAN) Tablet Take 1 tablet by mouth daily. SUMAtriptan (IMITREX) 5 mg/actuation [place], Non-Aerosol USE 2 SPRAYS IN EACH NOSTRIL ONCE DAILY NEEDED 04/27/2022 acetaminophen (Tylenol) 500 mg tablet Take 2 tablets by mouth every 6 hours as needed for Pain. 30 tablet 1 12/14/2023 03/04/2024 celecoxib (CeleBREX) 200 mg capsule Take 1 capsule by mouth 2 times daily. 30 capsule 1 12/14/2023 03/01/2024 polyethylene glycoL (Miralax) 17 gram oral powder packet Take 17 g by mouth daily as needed (constipation). 12/14/2023 01/03/2024 dexAMETHasone (Decadron) 1 mg tablet 4tabs tonight, then 4 tabs twice daily for 3 days, 2 tabs twice daily for 3 days, 1 tab twice daily for 3 days, 1 tab daily for 3 days, then stop. 49 tablet 12/14/2023 12/26/2023 documented as of this encounter Progress Notes * Tea Box, OT - 12/14/2023 3:10 PM EDT Occupational Therapy Evaluation Patient profile: Alyson Valverde is a 63 y.o. female admitted on 12/11/2023 with past medical history of migraines, large right frontal cystic lesion, and head trauma following fall of a horse 12/04 presented to an OSH with an episode concerning for seizure, LUE/LLE weakness, AMS, and HCT showinga large right frontal cyst with intracystic hemorrhage evolution and MLS. No past medical history on file. No past surgical history on file. Social History: Home set-up: Pt lives with her Radha in a multi-level home where all needs can be met on the first floor. Bathroom Set-up: walk-in shower with seat Stairs: 2STE with rail Baseline Mobility/ADLs: Pt is typically fully independent with all ADLs, IADLs, and mobility at baseline. She ambulates without a device and drives. Since her fall from her horse, she has demonstrated impaired mobility and cognition, and has been providing 21/11 care. Equipment at home: crutches Fall history: fall from horse with seizure Precautions/Special Considerations: at risk to fall, SBP 90-160 Lines: PIV, tele Activity Orders: activity as tolerated Diet: regular Subjective: I enjoy riding horses Objective: Seen today for OT evaluation. Cognitive Status/Behavior: Behavior / Mood: Alert, pleasant, willing to participate Alert and oriented to: person, place, month, year, and situation Follows commands: 1 step, 2 step, 100% of the time, and requires increased time Attention: requires cues to redirect Safety awareness: mild impairment; decreased insight Vision & Perception: corrective lenses part time; Able to read the clock from across the room Communication: WFL Range of motion, strength, coordination: Hand dominance: right Bilateral UE/LE ROM are within functional limitations. Generalized weakness from prolonged bedrest Sensation: Intact Activities of Daily Living: Self-feeding: Set up Grooming: Stood sinkside to complete oral care with supervision for the task; CGA for balance Dressing: Donned socks with supervision seated EOB; Posterior lean noted, but able to self correct Bathing: Washed face standing sinkside with supervision. Has a shower chair for home use Toileting: Transfer: CGA for the transfer Hygiene: Supervision Functional Mobility: Supine to sit: Supervision to R side of the bed with HOB slightly elevated Sit to stand: CGA up to a RW; Cues for hand placement Ambulation: Ambulated 100 feet with CGA, use of a RW. Slow pace. Cues for walker use Stand to sit: CGA Sit to supine: Supervision Balance: Sitting balance: Fair; Posterior lean noted, but able to self correct with cues Standing balance: Fair; benefits from support of the RW Vitals: Supine: BP 127/85; EOB 134/93 Pain: Mild PAGE Education: patient and significant other have been educated on Role of occupational therapy/rehabilitation, Transfers, Assistive device/technique, ADL, Positioning, Safety, Functional Mobility, Balance, Recommendations, Family training, and Discharge planning and verbalizes understanding. Patient status, treatment, and mobility recommendations discussed with nursing. Assessment: Pt has been seen for occupational therapy evaluation. Patient presented as alert, pleasant and willing to participate. Mild baseline cognitive loss, but oriented x 4. She demonstrated theability to transfer, ambulate and complete ADL tasks at a supervised/CGA level with support of a RW. Her notes that she appears to be at her baseline and feels comfortable providing 24/7 hands on assist. She will benefit from a RW. At this time, patient is safe to d/c to home with his support and HHS. Anticipate that pt will return home with assistance once medically ready. Do not anticipate further OT needs while hospitalized. Equipment Needs Upon Discharge (OT): walker, front wheeled Anticipated Discharge Disposition (OT): home with home health, home with supervision/hands on assist Plan: OT: Therapy Frequency (OT): evaluation only Total Minutes, Occupational Therapy: 33 OT Evaluation Code Rationale: Diagnosis & Pertinent Co-Morbidities affecting Plan of Care: see PMHx Occupational Profile & Client History: Brief Expanded Extensive x Assessment of Occupational Performance: 1-3 performance deficits 3-5 performance deficits 5 + performance deficits x Clinical Decision Making: Low Moderate High x Clinical decision making of low complexity using standardized patient assessment instrument and measurable assessment of functional outcome. Pager: [phone] [place] OTR/L Occupational Therapy Rehabilitation Department * Caroline Huntley RN - 12/14/2023 12:26 PM EDT The Patient has been provided a list of Home Health Agencies which serve their preferred geographicarea. A letter describing our affiliations was reviewed with them and they were educated about their right to choose where referrals are placed. Provided patient with [facility] Star Quality Rating for Home care Patient requests referral to : For PT and OT [facility] [address] [place] [address] [facility] [address], [address] [place] [address] [facility] [address] [place] [id number] Overall Star Rating:CCCBA Expected date of discharge: 12/14/23 Referral routed to the Central Supply Supervisor for matching with agency/vendor and to provide any required information. * Carleen العراقي, PT - 12/14/2023 10:27 AM EDT Physical Therapy Evaluation Patient profile: Alyson Valverde is a 63yoF w/ multiple seizures s/p fall with small ICH with known Arachnoid cyst. Patient with the following active problems: No past medical history on file. Active Non-Hospital Problems Diagnosis Primary osteoarthritis of left knee Primary osteoarthritis of right knee No past surgical history on file. Social History: Home set-up: Pt lives with her Radha in a multi-level home where all needs can be met on the first floor. Bathroom Set-up: walk-in shower with seat Stairs: 2STE with rail Baseline Mobility: Pt is typically fully independent with all ADLs, IADLs, and mobility at baseline. She ambulates without a device and drives. Since her fall from her horse, she has demonstrated impaired mobility and cognition, and has been providing 21/11 care. Equipment at home: crutches Fall history: fall from horse with seizure Precautions/Special Considerations: at risk to fall, SBP 90-160 Lines: PIV, tele Activity Orders: activity as tolerated Diet: regular Mobility and Positioning Recommendations: Pt. to utilize FWW and 1 assist for ambulation and transfers with nursing. Please encourage up to chair for meal times as able. Pt encouraged to ambulate frequently with staff, getting into the bathroom for toileting and walking out in the orr >/= 3 times daily as able. Subjective: ???My headache has abated... see, I used a big word just for you?? Objective: Pt seen for evaluation today. Pain: Reports improvement in PAGE discomfort Vital Signs: At Rest With Activity SpO2 (RA) 95% BP 127/85 134/93 HR 71bpm Mental Status: alert, oriented, pleasant and cooperative. Impaired processing, delayed initiation, frequent cueing required for attention to task. Dec insight into deficits. Vision: corrective lenses FT Skin: visible skin appears intact Musculoskeletal: ROM: WFL Strength: WFL Sensation: subjectively intact Bed Mobility: Supine to Sit: SBA to initiate, VCs for sequencing, CGA for posterior support I/s/o lean Sit to Supine: SBA Transfers: Sit to Stand: CGA with FWW, VCs for hand placement Stand to Sit: CGA, dec ecc control Gait: Distance: 100' Device used: FWW Level of assist: CGA Gait mechanics: demo's discontinuous gait, requiring freq cues for sequencing and attention to task. Short step length, fair walker mgmt, intermittent L inattention noted when negotiating obstacles/doorways. No overt LOB. Stairs: NA Balance: Sitting Static: fair(-), demo's significant posterior lean at EOB, impaired awareness, able to correct with external cue Sitting Dynamic: fair(-) Standing Static: fair with FWW Standing Dynamic / Gait: fair with FWW Education: patient and significant other have been educated on Bed mobility, Transfers, Assistive device/technique, Positioning, Safety , Precautions/protocol, Gait , Role of therapy, Balance, and Discharge planning and verbalize and demonstrate understanding. Patient status, treatment, and mobility recommendations discussed with nursing. Assessment: Alyson Ridley Chasidymackenzie was seen today for physical therapy evaluation. Pt presents following multiple seizures s/p fall from horse with small ICH with known Arachnoid cyst. Pt was pleasant and agreeable to participate in mobility assessment, and her was present throughout to observe pt's performance. Upon evaluation, patient presents with impaired balance, impaired activity rachana ance, impaired gait mechanics, impaired attention, impaired safety awareness, and decreased insight, resulting in functional limitation. Pt's mobility appears to be most limited d/t impaired sequencing, coordination and attention to task, however her notes that she was functioning at a similar level at home prior to admission. Pt's verbalizes comfort with plan to provide 24/7 hands-on assist at home, and pt is in agreement to receive home PT services to maximize function and safety. Will continue to monitor pt while in-house, however cleared for d/c once medically ready. Discharge Recommendations: Based on the current findings, Anticipated Discharge Disposition (PT): home with supervision, home with home health when medically ready for hospital discharge. Discharge recommendation is based on the patient's current physical impairments, prior functional status, potential to return to prior level of function, patient motivation, reported home support, potential for functional gains, current level of endurance, reported home environment and anticipated trajectory of progress and may change based on patient progress during this hospitalization. Consult Recommendations: No other consults recommended at this time. Equipment needs: Anticipated Equipment Needs at Discharge (PT): walker, front wheeled Plan: Therapy Frequency (PT): Monitor. Patient/family understand and agree with plan as stated above. 2017 PT Evaluation Code Rationale: Diagnosis & Pertinent Co-Morbidities, personal factors, and present illness affecting Plan of Care: (see above); Additional personal factors or co- morbidities that impact plan: Total # of Factors: 0 1-2 3+ X Examination of body system impairments, functional limitations and behaviors, and/or participation restrictions. Addressing 1-2 elements Addressing 3 + elements X Addressing 4 + elements Clinical presentation: See assessment above. Stable/Uncomplicated Evolving/Fluctuating Symptoms Unstable/Unpredictable X- impaired sequencing, delayed processing Clinical decision making of moderate complexity based on pt's functional performance as outlined inthis evaluation. Time IN / OUT: 4390-5124 Total Minutes, Physical Therapy: 31 Billing Code: mod complexity eval Carleen العراقي PT, DPT, NCS Pager: [phone] Physical Therapy Inpatient Rehabilitation Department * Berry Blake MD - 12/14/2023 9:15 AM EDT [facility] Neurosurgery Inpatient Progress Note 12/14/23 9:15 AM Patient Name: Alyson Valverde Patient Age: 63 y.o. Birthdate: 1960 Admit date: 12/11/2023 3:23 PM Length of stay: 3 Attending Physician: PASHA HARRELL MELANIE R SIMMONS, NATHAN E Reason for admission / consult: Arachnoid cyst/seizures HPI: Alyson Valverde is a 63 y.o. female 63-year-old woman with past medical history of migraines, large right frontal cystic lesion, and head trauma following fall of a horse 8/6 presented to an [place] with an episode [...] Miranda and MRI wwo in 2 weeks. INTERVAL HX: No seizures ON. Neurostable. MEDICATIONS: Scheduled Meds: heparin (porcine) 5,000 Units Subcutaneous Q8H THELMA levETIRAcetam 1,000 mg Oral BID Or levETIRAcetam 1 g Intravenous BID dexAMETHasone 4 mg Intravenous Q6H Or dexAMETHasone 4 mg Oral Q6H pantoprazole EC 40 mg Oral Daily Or pantoprazole 40 mg Intravenous Daily Continuous Infusions: PRN: acetaminophen, 1,000 mg, Q6H PRN Or acetaminophen, 975 mg, Q6H PRN Or acetaminophen, 650 mg, Q6H PRN hydrALAZINE, 10 mg, Q2H PRN polyethylene glycoL, 17 g, Daily PRN ondansetron ODT, 4 mg, Q8H PRN Or ondansetron, 4 mg, Q8H PRN prochlorperazine, 10 mg, Q6H PRN Or prochlorperazine, 10 mg, Q6H PRN VITALS: Temp: [36.3 ??C (97.3 ??F)-36.7 ??C (98.1 ??F)] Heart Rate: [48-73] Resp: [14-19] BP: (104-159)/(68-99) SpO2: [93 %-98 %] Heart Rate from SpO2: [49 bpm-70 bpm] INS/OUTS: Intake/Output Summary (Last 24 hours) at 12/14/2023 0915 Last data filed at 12/14/2023 0600 Gross per 24 hour Intake 355 ml Output 1850 ml Net -1495 ml ENeuro Exam: Wide awake, alert, oriented x4 Conversational, speech slow PERRL, EOMI Left pronator drift MOTOR: Power 5/5; exception 4+/5 LUE Sensation grossly intact to light touch x4 LABS: CBC: Recent Labs 12/12/23 0115 12/11/23 1543 WBC 5.64 4.54 HGB 12.7 11.8 PLATELET 231 243 BMP: Recent Labs 12/12/23 0006 12/11/23 1543 NA 141 142 K 3.8 3.6 CL 106 104 CO2 24 24 BUN 9 9 CREATININE 0.63* 0.67* Coags: Recent Labs 12/11/23 1543 PT 11.6 INR 1.0 IMAGING: MRI Brain with known arachnoid cyst with MLS ASSESSMENT: 63yoF w/ multiple seizures s/p fall with small ICH with known Arachnoid cyst. No seizures on cEEG past 24hrs. Concern for clinical seizures. Keppra increased to 1000 BID PLAN/RECS: -No acute neurosurgery - seizures appear controlled on 1000 Keppra BID; will plan for outpatient management of Arachnoid cyst with Dr. Miranda -formerly [facility], [facility] neurochecks; Pt can work w PT then dc home with hh and f/u in neurosurgery clinic -SBP 90-160 -DVT ppx with SCDs, SQH -Regular diet Consult service will continue to follow patient. We're signing off. Recommendations above, page if further consultation required. Neurosurgery Pager: [phone] Berry Blake MD 12/14/2023 9:15 AM Clinical Documentation Improvement: Active Hospital Problems Diagnosis Arachnoid cyst Resolved Hospital Problems No resolved problems to display. * Edie Sidhu MSW - 12/13/2023 3:48 PM EDT Met with patient and spouse to check in on them.Patient is waiting for a PT/OT assessment in order to determine what next steps are.Spouse and patient report that communication with the team has beentough but they think they have it worked out after a conversation with them this morning. Edie ENGLISH ,CONTRACT ANALYST [phone] , * Berry Blake MD - 12/13/2023 9:34 AM EDT [facility] Neurosurgery Inpatient Progress Note 12/13/23 9:34 AM Patient Name: Alyson Valverde Patient Age: 63 y.o. Birthdate: 1960 Admit date: 12/11/2023 3:23 PM Length of stay: 2 Attending Physician: PASHA HARRELL, SHASHI FRENCH Reason for admission / consult: Arachnoid cyst/seizures HPI: Alyson Valverde is a 63 y.o. [...] Miranda and MRI wwo in 2 weeks. INTERVAL HX: CEEG ON; No acute events MEDICATIONS: Scheduled Meds: levETIRAcetam 1,000 mg Oral BID Or levETIRAcetam 1 g Intravenous BID dexAMETHasone 4 mg Intravenous Q6H Or dexAMETHasone 4 mg Oral Q6H pantoprazole EC 40 mg Oral Daily Or pantoprazole 40 mg Intravenous Daily Continuous Infusions: PRN: acetaminophen, 1,000 mg, Q6H PRN Or acetaminophen, 975 mg, Q6H PRN Or acetaminophen, 650 mg, Q6H PRN labetaloL, 20 mg, Q2H PRN hydrALAZINE, 10 mg, Q2H PRN polyethylene glycoL, 17 g, Daily PRN ondansetron ODT, 4 mg, Q8H PRN Or ondansetron, 4 mg, Q8H PRN prochlorperazine, 10 mg, Q6H PRN Or prochlorperazine, 10 mg, Q6H PRN VITALS: Temp: [36.4 ??C (97.6 ??F)-36.7 ??C (98.1 ??F)] Heart Rate: [56-88] Resp: [16-22] BP: (117-140)/(76-85) SpO2: [93 %-98 %] Heart Rate from SpO2: [55 bpm-88 bpm] INS/OUTS: Intake/Output Summary (Last 24 hours) at 12/13/2023 0934 Last data filed at 12/13/2023 0400 Gross per 24 hour Intake 200 ml Output 250 ml Net -50 ml ENeuro Exam: Wide awake, alert, oriented x4 Conversational, speech slow, PERRL, EOMI Left pronator drift MOTOR: Power 5/5; exception 4+/5 LUE Sensation grossly intact to light touch x4 LABS: CBC: Recent Labs 12/12/23 0115 12/11/23 1543 WBC 5.64 4.54 HGB 12.7 11.8 PLATELET 231 243 BMP: Recent Labs 12/12/23 0006 12/11/23 1543 NA 141 142 K 3.8 3.6 CL 106 104 CO2 24 BUN 9 9 CREATININE 0.63* 0.67* Coags: Recent Labs 12/11/23 1543 PT 11.6 INR 1.0 IMAGING: MRI Brain with known arachnoid cyst with MLS ASSESSMENT: 63yoF w/ multiple seizures s/p fall with small ICH with known Arachnoid cyst. No seizures on cEEG past 24hrs. Concern for clinical seizures. Keppra increased to 1000 BID PLAN/RECS: -No acute neurosurgery - if seizures remain controlled on medication will plan for outpatient management of Arachnoid cyst with Dr. Miranda -[facility] neurochecks for another day -AED management per neurology -cEEG -SBP 90-160 -DVT ppx with SCDs, SQH -Regular diet Consult service will continue to follow patient. We're signing off. Recommendations above, page if further consultation required. Neurosurgery Pager: [phone] Berry Blake MD 12/13/2023 9:34 AM Clinical Documentation Improvement: Active Hospital Problems Diagnosis Arachnoid cyst Resolved Hospital Problems No resolved problems to display. * Yolie Rossi RN - 12/13/2023 3:23 AM EDT Page Confirmation To Pager number: [phone] From Submitter: Yolie Rossi Urgency Level: Call Me Callback Number: [phone] The following Message was sent: [Call Me] - Callback:[phone] Royce garg, new onset confusion, call me - Yolie Rossi The following status was returned from the food and beverage server: Page for [phone] successfully sent to [phone] having status of Available. Pt having new onset of confusion/illogical speech and is being more impulsive trying to get out of bed without calling) Neuro sx paged. Full neuro assessment done and LLE seems to be weaker than previous 0200 assessment, conveyed this to the resident when called. *V/S documented, see neuro assessment. * Berry Blake MD - 12/12/2023 7:32 AM EDT [facility] Neurosurgery Inpatient Progress Note 12/12/23 11:58 PM Patient Name: Alyson Valverde Patient Age: 63 y.o. Birthdate: 1960 Admit date: 12/11/2023 3:23 PM Length of stay: 1 Attending Physician: PASHA HARRELL MELANIE R SIMMONS, NATHAN E Reason for admission / consult: Arachnoid cyst/seizures HPI: Alyson Valverde is a 63 y.o. [...] Miranda and MRI wwo in 2 weeks. INTERVAL HX: CEEG ON; No acute events MEDICATIONS: Scheduled Meds: levETIRAcetam 1,000 mg Oral BID Or levETIRAcetam 1 g Intravenous BID dexAMETHasone 4 mg Intravenous Q6H Or dexAMETHasone 4 mg Oral Q6H pantoprazole EC 40 mg Oral Daily Or pantoprazole 40 mg Intravenous Daily Continuous Infusions: PRN: acetaminophen, 1,000 mg, Q6H PRN Or acetaminophen, 975 mg, Q6H PRN Or acetaminophen, 650 mg, Q6H PRN labetaloL, 20 mg, Q2H PRN hydrALAZINE, 10 mg, Q2H PRN polyethylene glycoL, 17 g, Daily PRN ondansetron ODT, 4 mg, Q8H PRN Or ondansetron, 4 mg, Q8H PRN prochlorperazine, 10 mg, Q6H PRN Or prochlorperazine, 10 mg, Q6H PRN VITALS: Temp: [36.4 ??C (97.6 ??F)-36.7 ??C (98 ??F)] Heart Rate: [47-88] Resp: [15-22] BP: (117-138)/(75-98) SpO2: [95 %-98 %] Heart Rate from SpO2: [47 bpm-88 bpm] INS/OUTS: No intake or output data in the 24 hours ending 12/12/23 2358 ENeuro Exam: Wide awake, alert, oriented x4 Conversational, speech slow, PERRL, EOMI, VFF, FS, TML, shoulder shrug 5/5 Left pronator drift MOTOR: Power 5/5; exception 4+/5 LUE Sensation grossly intact to light touch x4 FTN intact No hyperreflexia LABS: CBC: Recent Labs 12/12/23 0115 12/11/23 1543 WBC 5.64 4.54 HGB 12.7 11.8 PLATELET 231 243 BMP: Recent Labs 12/12/23 0006 12/11/23 1543 NA 141 142 K 3.8 3.6 CL 106 104 CO2 24 BUN 9 9 CREATININE 0.63* 0.67* Coags: Recent Labs 12/11/23 1543 PT 11.6 INR 1.0 IMAGING: MRI Brain with known arachnoid cyst with MLS ASSESSMENT: 63yoF w/ multiple seizures s/p fall with small ICH with known Arachnoid cyst. PLAN/RECS: -q2h neurochecks -AED management per neurology -cEEG -Will d/w Dr. Zelaya arachnoid cyst surgical plan/timing -SBP 90-160 -DVT ppx with SCDs, SQH -Regular diet Consult service will continue to follow patient. We're signing off. Recommendations above, page if further consultation required. Neurosurgery Pager: [phone] Berry Blake MD 12/12/2023 11:58 PM Clinical Documentation Improvement: Active Hospital Problems Diagnosis Arachnoid cyst Resolved Hospital Problems No resolved problems to display. documented in this encounter H&P Notes * Shashi Zelaya MD - 12/11/2023 5:26 PM EDT [facility] NEUROSURGERY H&P NOTE ID: Alyson Valverde 63 y.o. female : 1960 PCP: Bhakti Nieves MD HISTORY OF PRESENT ILLNESS: Alyson Valverde is a 63 y.o. female [...] Miranda and MRI wwo in 2 weeks. Patient seen and examined in ED Presently denies headache, nausea, vomiting, numbness, weakness, paresthesias, LOC, difficulties with balance, visual or auditory symptoms. Denies bowel or bladder symptoms. PAST MEDICAL HISTORY: No past medical history on file. PAST SURGICAL HISTORY: No past surgical history on file. MEDICATIONS: No current facility-administered medications on file prior to encounter. Current Outpatient Medications on File Prior to Encounter Medication Sig Dispense Refill multivitamin (THERAGRAN) Tablet Take 1 tablet by mouth daily. SUMAtriptan (IMITREX) 5 mg/actuation [place], Non-Aerosol USE 2 SPRAYS IN EACH NOSTRIL ONCE DAILY NEEDED Ibuprofen 200 mg Capsule Take by mouth. ALLERGIES: No Known Allergies SOCIAL HISTORY: Social History Socioeconomic History Marital status: Spouse name: Not on file Number of children: Not on file Years of education: Not on file Highest education level: Not on file Occupational History Not on file Tobacco Use Smoking status: Never Smokeless tobacco: Never Vaping Use Vaping status: Never Used Substance and Sexual Activity Alcohol use: Not on file Drug use: Not on file Sexual activity: Not on file Other Topics Concern Not on file Social History Narrative Not on file Social Determinants of Health Financial Resource Strain: Not on file Food Insecurity: Not on file Transportation Needs: Not on file Physical Activity: Not on file Intimate Partner Violence: Not At Risk (12/11/2023) IPV Inpatient Questions Prevent Contact with Others: no Feels Threatened by Someone: no Feels Unsafe at Home: no Physical Signs of Abuse Present: no Housing Stability: Not on file FAMILY HISTORY: No family history on file. REVIEW OF SYSTEMS: As above in HPI, otherwise non-contributory. VITAL SIGNS: Visit Vitals Blood Pressure 138/89 Pulse 60 Temperature 36.6 ??C (97.9 ??F) Respiration 18 Height 170 cm (5' 6.93) Weight 68 kg (150 lb) Oxygen Saturation 98% Body Mass Index 23.54 kg/m?? PHYSICAL EXAM: General: NAD HEENT: Normocephalic Pulmonary: Nonlabored breathing Neuro Exam: Wide awake, alert, oriented x4 Conversational, speech slow, PERRL, EOMI, VFF, FS, TML, shoulder shrug 5/5 Left pronator drift MOTOR: RUE:5/5 LUE:5/5 RLE: 5/5 LLE: 5/5 Sensation grossly intact to light touch x4 FTN intact No hyperreflexia LABS: CBC: Lab Results Component Value Date/Time WBC 4.54 12/11/2023 03:43 PM HGB 11.8 12/11/2023 03:43 PM PLATELET 243 12/11/2023 03:43 PM BMP: Lab Results Component Value Date/Time NA 142 12/11/2023 03:43 PM K 3.6 12/11/2023 03:43 PM CL 104 12/11/2023 03:43 PM CO2 24 12/11/2023 03:43 PM BUN 9 12/11/2023 03:43 PM CREATININE 0.67 (L) 12/11/2023 03:43 PM Coags: Lab Results Component Value Date International Normalization Ratio 1.0 12/11/2023 Prothrombin Time 11.6 12/11/2023 Partial Thromboplastin Time 26 12/11/2023 IMAGING: pending ASSESSMENT: 63 y.o. female not on any antiplatelets/anticoagulants 63-year-old woman with past medical history of migraines, large right frontal cystic lesion, and head trauma following fall of a horse 12/04 presented [place] with LUE/LLE weakness, and AMS, and HCT showing a large right frontal cystwith intracystic hemorrhage evolution and MLS. We recommended transfer to our ED for further evaluation. On our exam patient is AOX4 and has a L pronator drift. Given the increase in size of the cystic lesion that now has MLS and intracystic hyperdense component on CT, we will get an MRI wwo for further characterization of the lesion. PLAN/RECS: -No acute neurosurgical intervention indicated -Q4 neuro checks -SBP 90-160 -DVT ppx with SCDs, hold antiplatelets/anticoagulants -MRI wwo -Dex 4q6 -Admit per nsgy Case discussed with Dr. Olvera PGY-7, neurosurgery chief resident. Case will be discussed with Dr. Zelaya, neurosurgery attending. Future Appointments Date Time Provider Department Center 12/21/2023 6:10 AM [facility] MR 3 MH MRI [facility] Rad 12/21/2023 10:40 AM Daniel Miranda MD [facility] [id number] [facility] Neurosurgery Pager: [phone] Jorge Boston MD 12/11/2023 5:32 PM Clinical Documentation Improvement: There are no hospital problems to display for this patient. Attending Attestation and Certification Please see Jorge Boston MD's note for details of the patient history of presentation and data. I have discussed, reviewed and agree with the documented History, Physical findings, Assessment and Plan of care. I have examined the patient myself and personally reviewed all studies. In addition, I certify thatI am a [facility] credentialed attending provider with admitting privileges and that the patient meets or has met medical necessity to require an inpatient IPI level of care meeting a minimum of two midnights or is on the [facility] inpatient only procedure list (status C) due to: acute injury, physiologic or anatomic insult requiring close monitoring; IV fluid resuscitaiton and/or IV medication; lab/imaging evaluation and has potential for urgent operative intervention. Pt with enlarging arach cyst and new seizures. WIll monitor for seizure control. No acute surgical needs at this time though we did discuss potential need for cyst fenestration documented in this encounter Procedure Notes * Shoaib Maria MD - 12/13/2023 3:11 PM EDT [facility] Department of Neurology Inpatient Continuous Video EEG Report Name of the Patient: Alyson Valverde Date of : 1960 Patient Location: [facility] Date of Service: 12/11/2023 Referring physician: Jeanne Patino MD Reading Fellow: Reading Attending: Shoaib Maria MD Initial time and date cEEG monitoring started: 21:59:39 on 12/11/2023 (Head study 7 hours) Daily report EEG start time: 12/13/23 0500 Daily report EEG end time: 12/13/23 1406 (Tail study 9 hours 6 minutes) Total recording time: 16 hours 6 minutes Indication for cvEEG: Seizure BRIEF HISTORY: Alyson Valverde is a 63 y.o. female with past medical history of migraines, large right frontal cystic lesion, and head trauma following fall of a horse 12/04 presented to an [place] with an episode concerning for seizure, LUE/LLE weakness, AMS, and HCT showing a large right frontal cyst with intracystic hemorrhage evolution and MLS. MEDICATIONS: Levetiracetam 500mg BID PRIOR EEG(s): No prior EEG available. METHODS: A 21 channel digitized continuous electroencephalogram with video was set up and recording started at 21:59:39 on 12/11/2023. Following explanation of the procedure, the 10/20 international system ofelectrode placement was used to determine electrode placement and disposable MRI conditional electrodes were applied using the paste/collodion method of application. In addition to EEG the patient was monitored for EKG. Video was recorded during the session. ELECTROENCEPHALOGRAPHER'S REPORT Background: The background was continuous and spontaneously reactive composed of normal voltage, with well organized anterior to posterior gradient with frontally predominant beta and posterior alpha frequencies. There was a 9-10 Hz posterior dominant rhythm that attenuated with eye opening. Focal Asymmetries: Continuous slow: 0.5-1.5 Hz; 30-80 uV; lateralized right hemisphere, polymorphic, persistent, sharply contoured, reactive Sleep: Sleep was marked by decreased myogenic artifact and increased slowing. Asymmetric N2 sleep transients including sleep spindles and K complexes, attenuated over the R hemisphere. REM was not recorded. Interictal Activity: 1) Frequent-abundant right parietal sharp waves (30-100 uV), maximal P4 with a field to O2. Periodic discharges (LPDs) are rarely seen at <1 Hz frequency. Patient Events or Seizures: No patient events or electrographic seizures were recorded. Provocative Maneuvers: Hyperventilation and photic stimulation were not performed. EKG: Single lead EKG was regular Technical Limitations: None INTERPRETATION: This 9 hour tail recording of continuous video EEG was abnormal due to the presence of: Interictal: 1) Sharp waves, regional, right parietal 2) Continuous slow, lateralized, right hemisphere Ictal: 1) No discrete seizures were seen CLINICAL CORRELATION: This EEG demonstrates increased risk for seizures arising from the R parietal region with no discrete seizures seen. Periodic discharges (LPDs) are no longer seen. R hemispheric cerebrocortical dysfunction consistent with known structural abnormality in this region. No seizures recorded. EEG discontinued per the request of the neurology team. Shoaib Maria MD [facility] Department of Neurology * Shoaib Maria MD - 12/13/2023 6:28 AM EDT Images from the original note were not included. [facility] Department of Neurology Inpatient Continuous Video EEG Report Name of the Patient: Alyson Valverde Date of : 1960 Patient Location: [facility] Date of Service: 12/11/2023 Referring physician: Jeanne Patino MD Reading Fellow: Reading Attending: Shoaib Maria MD Initial time and date cEEG monitoring started: 21:59:39 on 12/11/2023 Daily report EEG start time: 12/12/23 0500 Daily report EEG end time: 12/13/23 0500 Total recording time: 24 hours Indication for cvEEG: Seizure BRIEF HISTORY: Alyson Valverde is a 63 y.o. female with past medical history of migraines, large right frontal cystic lesion, and head trauma following fall of a horse 12/04 presented to an [place] with an episode concerning for seizure, LUE/LLE weakness, AMS, and HCT showing a large right frontal cyst with intracystic hemorrhage evolution and MLS. MEDICATIONS: Levetiracetam 500mg BID PRIOR EEG(s): No prior EEG available. METHODS: A 21 channel digitized continuous electroencephalogram with video was set up and recording started at 21:59:39 on 12/11/2023. Following explanation of the procedure, the 10/20 international system ofelectrode placement was used to determine electrode placement and disposable MRI conditional electrodes were applied using the paste/collodion method of application. In addition to EEG the patient was monitored for EKG. Video was recorded during the session. ELECTROENCEPHALOGRAPHER'S REPORT Background: The background was continuous and spontaneously reactive composed of normal voltage, with well organized anterior to posterior gradient with frontally predominant beta and posterior alpha frequencies. There was a 9-10 Hz posterior dominant rhythm that attenuated with eye opening. Focal Asymmetries: Continuous slow: 0.5-1.5 Hz; 30-80 uV; lateralized right hemisphere, polymorphic, persistent, sharply contoured, reactive Sleep: Sleep was marked by decreased myogenic artifact and increased slowing. Asymmetric N2 sleep transients including sleep spindles and K complexes, attenuated over the R hemisphere. REM was not recorded. Interictal Activity: 1) Frequent-abundant right parietal sharp waves (30-100 uV), maximal P4 with a field to O2. Periodic discharges (LPDs) are rarely seen at <1 Hz frequency. Patient Events or Seizures: No patient events or electrographic seizures were recorded. Provocative Maneuvers: Hyperventilation and photic stimulation were not performed. EKG: Single lead EKG was regular Technical Limitations: None INTERPRETATION: This 24 hour recording of continuous video EEG was abnormal due to the presence of: Interictal: 1) Sharp waves, regional, right parietal 2) Continuous slow, lateralized, right hemisphere Ictal: 1) No discrete seizures were seen CLINICAL CORRELATION: This EEG demonstrates increased risk for seizures arising from the R parietal region with no discrete seizures seen. Periodic discharges (LPDs) are no longer seen. R hemispheric cerebrocortical dysfunction consistent with known structural abnormality in this region. No seizures recorded. Sohaib Maria MD [facility] Department of Neurology * Gallo Bowman MD - 12/11/2023 10:49 PM EDT Preliminary continuous video EEG Note: 12/11/2023 - 10:49 PM Start Time: 2150 Review of the first 58 minutes of this cEEG recording shows frequent-abundant lateralized periodic discharges maximal in R parietal region (P4) with no discrete seizures seen. Continuous slowing and attenuation of R hemisphere. Asymmetric sleep structures including sleep spindles, K complexes attenuated over R hemisphere. Findings communicated to Neurosurgery resident convention planner. Formal report will follow. Gallo Bowman MD * Radha Rousseau MD - 12/11/2023 10:04 PM EDTAssociated Order(s): EEG CONTINUOUS MONITORING INPATIENT Images from the original note were not included. [facility] Department of Neurology Inpatient Continuous Video EEG Report Name of the Patient: Alyson Valverde Date of : 1960 Patient Location: [facility] Date of Service: 12/11/2023 Referring physician: Jeanne Patino MD Reading Fellow: Gallo Bowman MD Reading Attending: Radha Rousseau MD Initial time and date cEEG monitoring started: 21:59:39 on 12/11/2023 Daily report EEG start time: 12/11/232158 Daily report EEG end time: 12/12/23 0500 Total recording time: 7 hour 1 minute Indication for cvEEG: Seizure BRIEF HISTORY: Alyson Valverde is a 63 y.o. female with past medical history of migraines, large right frontal cystic lesion, and head trauma following fall of a horse 12/04 presented to [place] with an episode concerning for seizure, LUE/LLE weakness, AMS, and HCT showing a large right frontal cyst with intracystic hemorrhage evolution and MLS. MEDICATIONS: Levetiracetam 500mg BID PRIOR EEG(s): No prior EEG available. METHODS: A 21 channel digitized continuous electroencephalogram with video was set up and recording started at 21:59:39 on 12/11/2023. Following explanation of the procedure, the 10/20 international system ofelectrode placement was used to determine electrode placement and disposable MRI conditional electrodes were applied using the paste/collodion method of application. In addition to EEG the patient was monitored for EKG. Video was recorded during the session. SUPERVISOR COLOR PASTE MIXING'S REPORT: Performed by: NW At the onset of the recording the patient was awake and cooperative. Movement and other artifact was not significant. Comments: ELECTROENCEPHALOGRAPHER'S REPORT Background: The background was continuous and spontaneously [...] attenuation Ictal: 1)No discrete seizures were seen CLINICAL CORRELATION: This EEG demonstrates increased risk for seizures arising from the R parietal region with no discrete seizures seen. R hemispheric cerebrocortical dysfunction consistent with known structural abnormality in this region. Gallo Bowman MD PGY-6 Clinical Instructor - Epilepsy Fellow [facility] Department of Neurology 12/12/2023 I personally reviewed this neurodiagnostic study. This report represents my interpretation. Radha Rousseau MD Attending Physician [facility] Neurology/Epilepsy 12/13/23 7:51 AM documented in this encounter ED Notes * Bryce Rhoades MD - 12/11/2023 3:42 PM EDT ED Resident Note HPI: Alyson Valverde is a 63 y.o. female who presents to the Emergency Department as a transfer from [facility]. She fell from a horse on 12/04, after which a head CT showed a cystic brain lesion with associated hemorrhage. She was discharged after this encounter with neurosurgical follow up and on Keppra. Yesterday, she had a witnessed suspect generalized tonic clonic seizure, prompting presentation to [facility] ED. In the emergency department, she had a CT that showed persistent hemorrhage and cystic lesion. She was given 1g of Keppra and transferred to [facility]. She reports some LUE and LLE weakness with shuffling gait since her fall. Denies headache, vision changes, nausea. ROS as per HPI Vitals: ED Triage Vitals [12/11/23 1528] BP: (!) 152/97 Heart Rate: 64 Resp: 16 Temp: 36.6 ??C (97.9 ??F) Temp src: n/a SpO2: 98 % O2 Device: n/a O2 Flow Rate (L/min): n/a Physical Exam Constitutional: General: She is not in acute distress. HENT: Head: Normocephalic. Cardiovascular: Rate and Rhythm: Normal rate. Pulses: Normal pulses. Pulmonary: Effort: Pulmonary effort is normal. No respiratory distress. Musculoskeletal: General: No swelling or deformity. Neurological: General: No focal deficit present. Mental Status: She is alert and oriented to person, place, and time. Mental status is at baseline. Cranial Nerves: No cranial nerve deficit. Sensory: No sensory deficit. Motor: No weakness. ED Course: ED Course as of 12/11/23 1617 MonDec 11, 2023 1600 I discussed patient's case with neurosurgery. Plan for repeat CT, MRI brain wwo contrast 1613 Neurosurgery at bedside MRI Brain wwo Contrast (Generic) Final Result impression: Similar appearance of large right frontal [...] who have questions please contact the health emergency care attendant that requested your imaging first. Head & Cervical Spine wo Contrast (Generic) Final Result CT head: 1. Acute hemorrhage within the large right frontal arachnoid cyst is similar in volume but slightly decreased in density. 2. No additional significant change. CT cervical spine: No acute fracture or subluxation. Thank you for letting us participate in the care of this patient. If you are a health care provider and have any questions regarding this report, please contact the number below. For patients who have questions please contact the health emergency care attendant that requested your imaging first. Request For 2nd Read CT Head (Results Pending) Assessment and Plan: 63 y.o. female with seizure after recent head trauma and known intracranial cystic mass presenting with [facility] ED as a transfer for neurosurgical consultation. She is alert with normal vital signs and has no gross neuro deficits on my exam. I discussed her case with neurosurgery and she was evaluatedby neurosurgery in the ED. MRI brain wwo contrast ordered to better characterize her intracranial mass and hemorrhage. She was admitted to neurosurgery for further management. Bryce Rhoades MD Resident 12/13/23 0550 Associated attestation - Pasha Harrell MD - 01/13/2024 6:50 AM EDT ED ATTENDING ATTESTATION NOTE The patient was seen in conjunction with the resident physician. I have independently performed thekey portions of the history and physical exam. I have reviewed the diagnostic studies including labs, imaging studies and EKGs. I have discussed the details of the case with the resident and agree with the assessment and plan as described in the resident note unless noted below or in my separate note. Brief Summary: 63 y.o. female with transfer from [facility]SH after fall off horse, with subsequent seizure like activity, CT imaging notable for brain lesion with associated hemorrhage. Patient is awake, alert, non-toxic appearing without gross deficits. Neurosurgery consulted, MRI imaging pending. Anticipate admission. * Cirilo Alonso MD - 12/11/2023 12:09 PM EDT EM attending brief transfer acceptance note: Alyson Valverde is a 63 y.o. who I accepted in transfer from [facility] The patient will be evaluated in the Emergency Department for ICH, seizures, left sided weakness. keep NPO, SBP <160 The EM team will contact the Neurosurgery when pt arrives. The OSH does not agree to take the patient back in transfer after our evaluation and treatment. Transfer and stabilization prior to transfer were discussed Cirilo Alonso MD 12/11/23 1211 documented in this encounter Miscellaneous Notes * Plan of Care - Eliseo Rodriguez RN - 12/14/2023 6:28 AM EDT Summary: NAEO SB/SR at 40-60's, otherwise hemodynamically. On RA, not in any respiratory distress. Neuro status unchanged, a/o x4 but with intermittent disorientation, directable. Plan: CPOC SFP PT/OT follow up Problem: Adult Inpatient Plan of Care Goal: [...] Outcome: Ongoing (Interventions Implemented as Appropriate) Problem: Fall Injury Risk Goal: Absence of Fall and Fall-Related Injury Outcome: Ongoing (Interventions Implemented as Appropriate) * Plan of Care - Jen Reynoso RN - 12/13/2023 2:00 PM EDT Problem: Adult Inpatient Plan of Care [...] Outcome: Ongoing (Interventions Implemented as Appropriate) Problem: Fall Injury Risk Goal: Absence of Fall and Fall-Related Injury Outcome: Ongoing (Interventions Implemented as Appropriate) * Consult Note - George Darnell MD - 12/13/2023 12:48 PM EDT Neurology Consult Note - 12/13/2023 Admit date: 12/11/2023 Attending: Shashi Zelaya MD ID: 63yo female w/ pmh migraines, large R frontal arachnoid cyst, and head trauma after fall from horse on 12/04 here for seizures, AMS, and progressive L- sided weakness after fall. Interval History: Patient's Keppra increased to 1000mg BID yesterday afternoon, no seizures seen. Temporary confusionovernight, on interview this morning patient presents cognitively the same as yesterday. Patient reports no worsening weakness or headache compared to yesterday. EEG report 12/11: This EEG demonstrates increased risk for seizures arising from the R parietal region with no discrete seizures seen. Periodic discharges (LPDs) are no longer seen. R hemispheric cerebrocortical dysfunction consistent with known structural abnormality in this region. No seizures recorded. Hospital Medications: Current Facility-Administered Medications Medication Dose Route Frequency Provider Last Rate Last Admin heparin (porcine) (5,000 units/1 mL) subcutaneous injection 5,000 Units 5,000 Units Subcutaneous Q8H Berry Rolon MD levETIRAcetam (Keppra) tablet 1,000 mg 1,000 mg Oral BID Karen Hillman PA 1,000 mg at 12/13/23 0918 Or levETIRAcetam (Keppra) (100 mg/mL) IV injection 1 g 1 g Intravenous BID Karen Hillman PA acetaminophen (Tylenol) (32.02 mg/mL) oral liquid 1,000 mg 1,000 mg Oral Q6H PRN Jeanne Patino MD Or acetaminophen (Tylenol) tablet 975 mg 975 mg Oral Q6H PRN Jeanne Patino MD 975 mg at 12/13/23 0415 Or acetaminophen (Tylenol) suppository 650 mg 650 mg Rectal Q6H PRN Jeanne Patino MD dexAMETHasone (Decadron) injection 4 mg 4 mg Intravenous Q6H Jeanne Patino MD 4 mg at 12/12/23 0005 Or dexAMETHasone (Decadron) tablet 4 mg 4 mg Oral Q6H Jeanne Patino MD 4 mg at 12/13/23 0918 pantoprazole EC (Protonix) tablet 40 mg 40 mg Oral Daily Jeanne Patino MD 40 mg at 12/13/23 0918 Or pantoprazole (Protonix) injection 40 mg 40 mg Intravenous Daily Jeanne Patino MD hydrALAZINE (Apresoline) (20 mg/mL) injection 10 mg 10 mg Intravenous Q2H PRN Jeanne Patino MD polyethylene glycoL (Miralax) packet 17 g 17 g Oral Daily PRN Jeanne Patino MD ondansetron ODT (Zofran-ODT) disintegrating tablet 4 mg 4 mg Oral Q8H PRN Jeanne Patino MD Or ondansetron (pf) (Zofran) (2 mg/mL) injection 4 mg 4 mg Intravenous Q8H PRN Jeanne Patino MD prochlorperazine (Compazine) tablet 10 mg 10 mg Oral Q6H PRN Jeanne Patino MD Or prochlorperazine (Compazine) (5 mg/mL) injection 10 mg 10 mg Intravenous Q6H PRN Jeanne Patino MD Home Medications: No current facility-administered medications on file prior to encounter. Current Outpatient Medications on File Prior to Encounter Medication Sig Dispense Refill multivitamin (THERAGRAN) Tablet Take 1 tablet by mouth daily. SUMAtriptan (IMITREX) 5 mg/actuation [place], Non-Aerosol USE 2 SPRAYS IN EACH NOSTRIL ONCE DAILY NEEDED Ibuprofen 200 mg Capsule Take by mouth. Past Medical History: No past medical history on file. No history of seizures No past surgical history on file. Allergies: No Known Allergies Physical Exam: Gen: EEG leads on, awake, alert and sitting up in bed. Interactive, speech slightly slow Neuro: MSE: ANO x 4 Able to follow commands CN: EOMI, no facial asymmetry, sensation intact and symmetric bilaterally Motor: L pronator drift, doesn't drift to bed. LUE 4/5, RUE 5/5, L hip flexion 4/5, rest of LLE 5/5RLE 5/5 Sensation intact to light touch and equal bilaterally Coordination: Finger to nose intact, no ataxia w/ [id number] Reflexes: reflexes 2+ throughout Babinski absent Diagnostic Tests and Imaging: Results for orders placed or performed during the hospital encounter of 12/11/23 CT Head & Cervical Spine wo Contrast (Generic) (Exam End: 12/11/2023 4:08 PM) Result Value WORKSTATION ID [id number] Impression [address] head: 1. Acute hemorrhage within the large right frontal arachnoid cyst is similar in volume but slightly decreased in density. 2. No additional significant change. CT cervical spine: No acute fracture or subluxation. Thank you for letting us participate in the care of this patient. If you are a health care provider and have any questions regarding this report, please contact the number below. For patients who have questions please contact the health emergency care attendant that requested your imaging first. Brain wwo Contrast (Generic) (Exam End: 12/11/2023 7:58 PM) Result Value WORKSTATION ID [id number] Impression impression: Similar appearance of large right frontal [...] who have questions please contact the health emergency care attendant that requested your imaging first. Assessment: Alyson Valverde is a 63 y.o. female with past medical history of migraines, large right frontal cystic lesion, and head trauma following fall off of a horse 12/04 [place] with an episode concerning for seizure, LUE/LLE weakness, AMS, and HCT showing a large right frontal cyst with intracystic hemorrhage evolution and mid-line shift. Patient received loading dose of 2g Keppra at outside hospital 12/10, 12/11 Keppra dose increased from 500mg BID to 1000mg BID. Reassuringly, no seizures seen during hospitalization and LPDs no longer seen on EEG since increasing Keppra dose. We recommend continuing Keppra 1000mg BID, we will check a Keppra level while she is here, and recommend PT/OT evaluation prior to discharge. Recommendations: - Continue Keppra to 1000mg BID - Check Keppra level - PT/OT evaluation prior to discharge - Discontinue EEG Neurology signing off. Please reach back out with any additional questions. Jean-Paul Acevedo MD Neurology PGY1 General Neurology Consults #[id number] 12/13/2023 Neurology Attending I saw and evaluated the patient with the neurology team. I have reviewed the history during the visit and I agree with the details as written. My physical examination confirms the reported findings. The assessment and plan were formulated in discussion with me at the time of the visit and I agree with them as documented. Major issues addressed and plan: History: With history of right frontal arachnoid cyst has had fall from horse with hemorrhage into the cyst.At present according to her she is mentally somewhat below baseline in terms of attention and focus, and has greater weakness on the left. Patient has had seizure and EEG showing periodic late ralized epileptiform discharges (PLEDs) now resolved. Exam: Seems mentally clear with normal speech, mild left hemiparesis. Data: CT scan shows slight enlargement of right frontal cyst with bright signal consistent with hemorrhage. Slight shift across midline Impression and plan: The patient is doing surprisingly well. Seizures appear to be controlled. EEG is improved. I think we should maintain her on Keppra 1000 mg twice daily. Will probably need some rehabilitation. In the long run, depending on what happens to the cyst, she may need a shunting procedure. Will defer to neurosurgery in that regard. George Darnell MD [place] [address] Pager #[phone] Email: [email or web address] * Plan of Care - Yolie Rossi RN - 12/13/2023 4:57 AM EDT Problem: Fall Injury Risk Goal: Absence of Fall and Fall-Related Injury Outcome: Ongoing (Interventions Implemented as Appropriate) Problem: Adult Inpatient Plan of Care Goal: Plan of Care Review Outcome: Ongoing (Interventions Implemented as Appropriate) Goal: Patient-Specific Goal (Individualized) Outcome: Ongoing (Interventions Implemented as Appropriate) Goal: Absence of Hospital-Acquired Illness or Injury Outcome: Ongoing (Interventions Implemented as Appropriate) Goal: Optimal Comfort and Wellbeing Outcome: Ongoing (Interventions Implemented as Appropriate) Goal: Readiness for Transition of Care Outcome: Ongoing (Interventions Implemented as Appropriate) See prog. Note for changes. *neuro status has returned to baseline * Consult Note - Jean-Paul Acevedo MD - 12/12/2023 12:19 PM EDT Neurology Consult Note - 12/12/2023 Admit date: 12/11/2023 Attending: Shashi Zelaya MD ID: 63yo female w/ pmh migraines, large R frontal arachnoid cyst, and head trauma after fall from horse on 12/04 here for seizures, AMS, and progressive L- sided weakness after fall. HPI: from patient, spouse, and EMR Alyson Valverde is a 63 y.o. female with past medical history of migraines, large right frontal cystic lesion, and head trauma following fall off of a horse 12/04 presented to an [place] with an episode concerning for seizure, LUE/LLE weakness, AMS, and HCT showing a large right frontal cyst with intracystic hemorrhage evolution and MLS. The right frontal cystic lesion has been diagnosed as an arachnoid cyst in [place] and pt patient was managed getting f/u with imaging studies until 2018. Patientpresented to the emergency room on 12/04 after she fell off her horse with symptoms concerning for concussion and seizure immediately after fall. At that time CTH was concerning for enlarging R frontalarachnoid cyst w/ acute SAH vs intracystic hemorrhage and was stable at 6hrs rCTH. Patient was put on Keppra 500mg BID at that time and discharged. Patient and report decline in mental clarity and increasing weakness and difficulty walkingsince that time. On the evening of 12/09, patient had witnessed seizure-like episode where she fell out of a chair, hit her head on the floor and had shaking of her entire body for about 45 seconds. Patient presented to ED the following day where she was admitted by neurosurgery and placed on continu ous EEG. Presently has mild frontal headache, denies nausea, vomiting, numbness, paresthesias, visual or auditory symptoms. EEG report 12/10: This EEG demonstrates increased risk for seizures arising from the R parietal region with no discrete seizures seen. R hemispheric cerebrocortical dysfunction consistent with known structural abnormality in this region. MRI Brain 12/10: Similar appearance of large right frontal region arachnoid cyst compared to the CT performed today, but it has increased in size when compared with the study of 06/10/2017 and now has considerable mass effect as well as evidence of hemorrhage within the cyst. ROS negative except as above. Hospital Medications: Current Facility-Administered Medications Medication Dose Route Frequency Provider Last Rate Last Admin acetaminophen (Tylenol) (32.02 mg/mL) oral liquid 1,000 mg 1,000 mg Oral Q6H PRN Jeanne Patino MD Or acetaminophen (Tylenol) tablet 975 mg 975 mg Oral Q6H PRN Jeanne Patino MD 975 mg at 12/12/23 0905 Or acetaminophen (Tylenol) suppository 650 mg 650 mg Rectal Q6H PRN Jeanne Patino MD dexAMETHasone (Decadron) injection 4 mg 4 mg Intravenous Q6H Jeanne Patino MD 4 mg at 12/12/23 0005 Or dexAMETHasone (Decadron) tablet 4 mg 4 mg Oral Q6H Jeanne Patino MD 4 mg at 12/12/23 0616 pantoprazole EC (Protonix) tablet 40 mg 40 mg Oral Daily Jeanne Patino MD 40 mg at 12/12/23 0904 Or pantoprazole (Protonix) injection 40 mg 40 mg Intravenous Daily Jeanne Patino MD labetaloL (Normodyne) (5 mg/mL) injection solution 20 mg 20 mg Intravenous Q2H PRN Jeanne Patino MD hydrALAZINE (Apresoline) (20 mg/mL) injection 10 mg 10 mg Intravenous Q2H PRN Jeanne Patino MD levETIRAcetam (Keppra) tablet 500 mg 500 mg Oral BID Jeanne Patino MD 500 mg at 12/12/23 0904 Or levETIRAcetam (Keppra) (100 mg/mL) IV injection 500 mg 500 mg Intravenous BID Jeanne Patino MD polyethylene glycoL (Miralax) packet 17 g 17 g Oral Daily PRN Jeanne Patino MD ondansetron ODT (Zofran-ODT) disintegrating tablet 4 mg 4 mg Oral Q8H PRN Jeanne Patino MD Or ondansetron (pf) (Zofran) (2 mg/mL) injection 4 mg 4 mg Intravenous Q8H PRN Jeanne Patino MD prochlorperazine (Compazine) tablet 10 mg 10 mg Oral Q6H PRN Jeanne Patino MD Or prochlorperazine (Compazine) (5 mg/mL) injection 10 mg 10 mg Intravenous Q6H PRN Jeanne Patino MD Home Medications: No current facility-administered medications on file prior to encounter. Current Outpatient Medications on File Prior to Encounter Medication Sig Dispense Refill multivitamin (THERAGRAN) Tablet Take 1 tablet by mouth daily. SUMAtriptan (IMITREX) 5 mg/actuation [place], Non-Aerosol USE 2 SPRAYS IN EACH NOSTRIL ONCE DAILY NEEDED Ibuprofen 200 mg Capsule Take by mouth. Past Medical History: No past medical history on file. No history of seizures No past surgical history on file. Allergies: No Known Allergies Physical Exam: Gen: EEG leads on, awake, alert and sitting up in bed. Interactive, speech slightly slow Neuro: MSE: Oriented to person, knew she was in [facility] but thought she was still in the ED, oriented to month and reason for hospitalization but needed to help patient fill in details/ notes patient not at her baseline cognitively. Able to follow commands, WORLD spelled correctly forwards and backwards CN: EOMI, no facial asymmetry, sensation intact and symmetric bilaterally Motor: L pronator drift, doesn't drift to bed. LUE 4/5, RUE 5/5, L hip flexion 4/5, rest of LLE 5/5RLE 5/5 Sensation intact to light touch and equal bilaterally Coordination: Finger to nose intact, no dysdiadochokinesia, no ataxia w/ [id number] Reflexes: reflexes 2+ right side, 3+ L side. Babinski absent Diagnostic Tests and Imaging: Results for orders placed or performed during the hospital encounter of 12/11/23 CT Head & Cervical Spine wo Contrast (Generic) (Exam End: 12/11/2023 4:08 PM) Result Value WORKSTATION ID [id number] Impression CT head: 1. Acute hemorrhage within the large right frontal arachnoid cyst is similar in volume but slightly decreased in density. 2. No additional significant change. CT cervical spine: No acute fracture or subluxation. Thank you for letting us participate in the care of this patient. If you are a health care provider and have any questions regarding this report, please contact the number below. For patients who have questions please contact the health emergency care attendant that requested your imaging first. Brain wwo Contrast (Generic) (Exam End: 12/11/2023 7:58 PM) Result Value WORKSTATION ID [id number] Impression impression: Similar appearance of large right frontal [...] who have questions please contact the health emergency care attendant that requested your imaging first. Assessment: Alyson Valverde is a 63 y.o. female with past medical history of migraines, large right frontal cystic lesion, and head trauma following fall off of a horse 12/04 presented to an [place] with an episode concerning for seizure, LUE/LLE weakness, AMS, and HCT showing a large right frontal cyst with intracystic hemorrhage evolution and mid-line shift. Patient received loading dose of 2g Keppra at outside hospital on 12/10 and has not had seizure activity since admission to hospital, however, EEG continuing to show increased risk of seizure activity and had likely seizure on 500mgBID dose at home on12/09. Would recommend increasing Keppra dose, especially in preparation for neurosurgical intervention. Recommendations: - Increase Keppra to 1000mg BID Jean-Paul Acevedo MD Neurology PGY1 General Neurology Consults #[id number] 12/12/2023 Associated attestation - Alexa Pham MD - 12/12/2023 5:28 PM EDT Attending Physician Attestation I saw and evaluated the patient with the resident. I have reviewed the medical records and the patient's history during the visit, and I agree with the details as written. My physical examination confirms the documented findings. The assessment and plan were formulated in discussion with me at the time of the visit, and I agree with them as documented. Alexa Pham MD * Care Management - Sahra Guaman, KIER BOILER - 12/12/2023 11:41 AM EDT OFFICE OF CARE MANAGEMENT PROGRESS NOTE LOS: Hospital Day 1 day Chart reviewed, care reviewed with primary team and at interdisciplinary rounds. Patient continues to meet inpatient level of care related to: Arachnoid cyst Functional status prior to admission: Independent Home Environment: Others in the home: pet(s), spouse. Current Living Arrangements: home/apartment/condo. Accessibility Concerns: 3 level home including basement. Current Functional Ability: DME used at home: none DME Needed at Discharge: tbd Patient is insured through: Primary Insurance: [employer] [place] Payor[place] [email or web address] [place] / Plan[place] / Product Type: *No Product type* / Secondary Insurance: [employer] [place] Last Physical Therapy Recommendation: with Last Occupational Therapy Recommendation: with Plan for discharge is: return home at in Agency Referrals: tbd Transportation: spouse Barriers to discharge: none reported Plan going forward: Care Management will continue to follow and assist with discharge planning and coordination of care as indicated. Anticipated Date of Discharge: 12/15/2023 AMADOR Tan * Initial Assessments - Sahra Guaman MSW - 12/12/2023 11:40 AM EDT Office of Care Management Initial Assessment AMADOR Maya reviewed record and discussed patient with Care Team. Source of Information: Team, bedside nurse, medical record, and Patient, Chart Review KIER BOILER Introduced self/reviewed role; services accepted. Admitted From: Transfer from another hospital Location: [facility] Reason for Hospitalization: yes Past medical History: No past medical history on file. Hospitalizations Within the Past 30 Days: no previous admission in last 30 days Current Decision-Making Capacity: Self If AD's have not been completed the following surrogate would be surrogate decision maker per [place] decision making law. (Only good for 180 days) Any patient receiving care in [place] must abide by [place] law. The hierarchy for surrogate decision making is: (a) Patient???s spouse or civil union partner unless there is a divorce proceeding, separation agreement, or restraining order limiting that person???s relationship with the patient. (b) Any adult son or daughter of the patient. (c) Either parent of the patient. (d) Any adult brother or sister of the patient. (e) Any adult grandchild of the patient. (f) Any grandparent of the patient. (g) Any adult aunt, uncle, niece, or nephew of the patient. (h) A close friend of the patient. (i) The agent with financial power of housekeeping/laundry or a conservator appointed in accordance with RSA 464-A. (j) The guardian of the patient???s estate. Advance Care Planning: Attempt Cardiopulmonary Resuscitation - Inpatient <no information> -Advanced Directive: Yes, not on file Who is your DPOA-HC?: Spouse (Spouse - Radha Sanders) Current Coping/Education/Information Needs: Coping ok Current Functional Ability: Functional Status Prior to Admission: Independent Prior ADLs & IADLs: Independent with all ADLs & IADLs Home Environment: Others in the home: pet(s), spouse. Current Living Arrangements: home/apartment/condo. Accessibility Concerns:3 level home including basement. In the last 12 months, was there a time when you were not able to pay the mortgage or rent on time?: No In the past 12 months, how many times have you moved where you were living?: 0 At any time in the past 12 months, were you homeless or living in a usp (including now)?: No In the past 12 months has the Proficiency, gas, oil, or water Kenzei threatened to shut off services in your home?: No Within the past 12 months, you worried that your food would run out before you got the money to buymore.: Never true Within the past 12 months, the food you bought just didn't last and you didn't have money to get more.: Never true Resource / Environmental Concerns: Resource/Environmental Concerns: none In the past 12 months, has lack of transportation kept you from medical appointments or from getting medications?: No In the past 12 months, has lack of transportation kept you from meetings, work, or from getting things needed for daily living?: No Current DME: none Home Address listed as: [address] [place] [id number] Social & Family Supports: All names listed below confirmed with patient as current and correct Extended Emergency Contact Information Primary Emergency Contact: radha sanders Address: [address] [place] [address] Mobile Relation: Spouse Current Care Provided by: self Provides Primary Care For: pet(s) Caregiver if needed: spouse Quality of Family relationships: helpful, involved, supportive Community Resources being provided currently: none Behavioral Health History: Denies Substance Use/Abuse listed: Social History Tobacco Use Smoking Status Never Smokeless Tobacco Never In the past year have you used an illegal drug or used a prescription medication for non-medical reasons?: No 0 No problems reported 1-2 Low level 3-5 Moderate level 6-8 Substantial level 9- 10 Severe level In the past year have you had 4 or more drinks a day containing alcohol?: No 0 to 7 points: Low risk 8 to 15 points: Medium risk 16 to 19 points: High risk 20 to 40 points: Addiction likely Other Pertinent/Service Specific Information: Health/Prescription Coverage: Primary Insurance: [email or web address] [place] Pay[place] [email or web address] [place] / Plan[place] / Product Type: *No Product type* / Secondary Insurance: [email or web address] [place] ; Prescription Coverage: Yes Preferred Pharmacy: [id number] - [place], [place] - [address] [facility] [address] [facility] [address] Status: Patient is a : No Primary Care Provider listed: Bhakti Nieves MD [phone] Patient/Caregiver Goals of Treatment: Return home Potential Needs for Transition of Care: Agency Referrals: tbd Transportation: no concerns Transportation Anticipated: family or friend will provide Concerns to be Addressed: denies needs/concerns at this time Assessment: Patient is admitted to [facility] service for Arachnoid cyst Plan going forward: Return home at in Care Management team will continue to follow and assist with discharge planing and coordination of care as indicated. AMADOR Tan * Consult Note - Felicia Barraza RN - 12/12/2023 11:02 AM EDTSummary: VAS Rounding During VAS Purposeful Rounding, an assessment of your patient's venous access was performed fby theVascular Access Service. The following tasks were performed if needed and communicated to the bedside RN Choose all that apply: [] PIV(s) checked for patency if daily need for flush needs to be performed [] CVAD was checked for patency if daily flush needs to be performed [] IV tubing clamped or capped if needed [] Visual inspection of your patient's central line dressing integrity [] Review of indications for vascular access [] A photo was taken of your patient's central line [x] Visual inspection of your patient's IV dressing integrity [] Other While rounding an intervention was needed and communicated to the bedside RN Choose all that apply: [] Nonocclusive IV dressing addressed [] Nonocclusive CVAD dressing (please identify type of line) [] Infusion site leaking [] IV not patent and removed [] IV not indicated [] IV placed [] IV restarted [] Implanted Port, PICC or ML dressing changed if needed (either PRN or weekly) [x] Other Reinforced left FA IV * Plan of Care - Yolie Rossi RN - 12/12/2023 2:57 AM EDT Problem: Adult Inpatient Plan of [...] Outcome: Ongoing (Interventions Implemented as Appropriate) Problem: Fall Injury Risk Goal: Absence of Fall and Fall-Related Injury Outcome: Ongoing (Interventions Implemented as Appropriate) Pt rested well. On continuous EEG monitoring. V/S q2 and neuro assessment q2hr. Still have weaknesson both LUE and LLE. VSS BP <160 throughout shift. documented in this encounter Plan of Treatment Upcoming Encounters Date Type Department Care Team (Late st Contact Info) Description 09/03/2024 9:00 AM EDT [place] [phone] Radha Rousseau MD [facility] [place] [address] Scheduled Referrals Name Type Priority Associated Diagnoses Orde r Schedule Referral to Home Health Outpatient Referral Routine Arachnoid cyst Ordered: 12/14/2023 documented as of this encounter Procedures Procedure Name Priority Date/Time Associated Diagnosis Comments POC, GLUCOSE Routine 12/14/2023 5:38 AM EDT LEVETIRACETAM LEVEL Routine 12/13/2023 1 :37 PM EDT EKG 12-LEAD STAT 12/13/2023 11:09 AM EDT Bradycardia POC, GLUCOSE Routine 12/13/2023 4:18 AM EDT CBC (WITH DIFF) Routine 12/12/2023 1:15 AM EDT BASIC METABOLIC PANEL Routine 12/12/2023 12:06 AM EDT EEG CONTINUOUS MONITORING INPATIENT Routine 12/11/2023 10:04 PM EDT MRI BRAIN WWO CONTRAST (GENERIC) STAT 12/11/2023 7:58 PM EDT EKG 12-LEAD STAT 12/11/2023 4:[address] HEAD AND CERVICAL SPINE WO CONTRAST STAT 12/11/2023 4:08 PM EDT POC, GLUCOSE Routine 12/11/2023 3:49 PM EDT TSH CASCADE STAT 12/11/2023 3:43 PM EDT HC PARTIAL THROMBOPLASTIN TIME STAT 12/11/2023 3:43 PM EDT PROTHROMBIN TIME STAT 12/11/2023 3:43 PM EDT CBC (WITH DIFF) STAT 12/11/2023 3:43 PM EDT COMPREHENSIVE METABOLIC PANEL STAT 12/11/2023 3:43 PM EDT documented in this encounter Results * POC, GLUCOSE (12/14/2023 5:38 AM EDT) [facility] Glucometer, POC 138 65 - 199 mg/dL 12/14/2023 5:38 AM EDT [facility] Comment:Supplemental ranges: <140 mg/dL before meals <180 mg/dL all other times of the day. Blood CAPILLARY BLOOD / Unknown 12/14/2023 5:38 AM EDT 12/14/2023 5:38 AM EDT Shashi Zelaya MD POINT OF CARE TEST O RDERABLES Performing Organization Address [facility] Co de Phone Number [facility] [place] [address] * Levetiracetam level (12/13/2023 1:37 PM EDT) Pathologist [facility] Levetiracetam Lvl August 35.2 10.0 - 40.0 mcg/mL 12/14/2023 4:14 PM EDT [facility] Comment: ADDITIONAL INFORMATION This test was developed and its performance characteristics determined by [facility] in a manner consistent with CLIA requirements. This test has not been cleared or approved by the U.S. Food and Drug Administration. Blood VENOUS BLOOD SPECIMEN / Unknown IP Care Team Draw / Unknown 12/13/2023 1:37 PM EDT 12/13/2023 1:54 PM EDT Narrative [facility] - 12/14/2023 4:14 PM EDT Test Performed by: [address] [address] Goal Umpire: Manny Gabriel Ph.D.; CLIA# [id number] Shashi Zelaya MD LAB SEND OUT ORDERAB LES Performing Organization Address City/[facility] Co de Phone Number [facility] [address] [address], [facility] * EKG 12 Lead (12/13/2023 11:09 AM EDT) Ventricular rate 52 BPM MUSE SYSTEM Atrial Rate 52 BPM MUSE SYSTEM P-R Interval 154 ms MUSE SYSTEM QRS Duration 88 ms MUSE SYSTEM Q-T Interval 472 ms MUSE SYSTEM QTC Calculated (Bezet) 438 ms MUSE SYSTEM Calculated P [place] 61 degrees MUSE SYSTEM Calculated R [place] 40 degrees MUSE SYSTEM Calculated T [place] 35 degrees MUSE SYSTEM INTERPRETATION Sinus bradycardia with sinus arrhythmia Increased R/S ratio in V1, consider early transition or posterior infarct Abnormal ECG When compared with ECG of 11-DEC-2023 20:12, No significant change was found Confirmed by MD Fernando, Moo ([id number]) on 12/13/2023 1:56:38 PM MUSE SYSTEM 12/13/2023 11:0 9 AM EDT 12/13/2023 1:56 PM EDT Parish Thomas APRN ECG ORDERABLES Performing Organization Address City/[facility]/ZIP Co de Phone Number MUSE SYSTEM * POC, GLUCOSE (12/13/2023 4:18 AM EDT) Glucometer, POC 143 65 - 199 mg/dL 12/13/2023 4:18 AM EDT [facility] Comment:Supplemental ranges: <140 mg/dL before meals <180 mg/dL all other times of the day. Blood CAPILLARY BLOOD / Unknown 12/13/2023 4:18 AM EDT 12/13/2023 4:18 AM EDT Shashi Zelaya MD POINT OF CARE TEST O RDERABLES Performing Organization Address City/[facility]/ZIP Co de Phone Number [facility] [place] [place] [address] * (ABNORMAL) CBC (with Diff) (12/12/2023 1:15 AM EDT) White Blood Cell 5.64 4.00 - 9.50 x10(3)/mc L 12/12/2023 1:28 AM EDT [facility] Red Blood Cell 4.05 4.00 - 5.21 x10(6)/mc L 12/12/2023 1:28 AM EDT [facility] Hemoglobin 12.7 11.7 - 15.5 g/dL 12/12/2023 1:28 AM EDT [facility] Hematocrit 35.8 35.7 - 45.8 % 12/12/2023 1:28 AM [facility] Mean Cell Volume 88.4 82.6 - 94.4 fL 12/12/2023 1:28 AM [facility] Mean Cell Hemoglobin 31.4 27.1 - 32.0 pg 12/12/2023 1:28 AM [facility] Mean Cell Hemoglobin Concentration 35.5(H) 31.7 - 35.0 g/dL 12/12/2023 1:28 AM [facility] Platelet 231 145 - 357 x10(3)/mc L 12/12/2023 1:28 AM [facility] Mean Platelet Volume 11.2 7.6 - 12.9 fL 12/12/2023 1:28 AM [facility] RDW Standard Deviation 41.1 37.0 - 46.0 fL 12/12/2023 1:28 AM [facility] RDW coefficient of variation 12.7 11.5 - 14.1 % 12/12/2023 1:28 AM [facility] NRBC% auto 0.0 % 12/12/2023 1:28 AM [facility] NRBC Absolute 0.00 0.00 - 0.00 x10(3)/mc L 12/12/2023 1:28 AM [facility] Neutrophil % 80.9 % 12/12/2023 1:28 AM [facility] Neutrophil Absolute (ANC) - Automated 4.56 1.70 - 6.10 x10(3)/mc L 12/12/2023 1:28 AM [facility] Lymph % 11.3 % 12/12/2023 1:28 AM [facility] Lymph Absolute 0.64(L) 0.90 - 3.20 x10(3)/mc L 12/12/2023 1:28 AM [facility] Monocyte % 3.9 % 12/12/2023 1:28 AM [facility] Monocyte Absolute 0.22(L) 0.30 - 0.90 x10(3)/mc L 12/12/2023 1:28 AM EDT [facility] Eos % 2.8 % 12/12/2023 1:28 AM EDT [facility] Eos Absolute 0.16 0.00 - 0.40 x10(3)/mc L 12/12/2023 1:28 AM EDT [facility] Basophil % 0.7 % 12/12/2023 1:28 AM EDT [facility] Baso Absolute 0.04 0.00 - 0.10 x10(3)/mc L 12/12/2023 1:28 AM EDT [facility] Immature Gran % 0.4 % 1:28 AM EDT [facility] Immature Gran Absolute 0.02 0.00 - 0.04 x10(3)/mc L 12/12/2023 1:28 AM EDT [facility] Blood VENOUS BLOOD SPECIMEN / Unknown IP Care Team Draw / Unknown 12/12/2023 1:15 AM EDT 12/12/2023 1:24 AM EDT Shashi Zelaya MD HEMATOLOGY ORDERABLE S [facility] [place] [address] * (ABNORMAL) Basic Metabolic Panel (12/12/2023 12:06 AM EDT) Glucose 110 65 - 199 mg/dL 12/12/2023 12:47 AM EDT [facility] Comment:Glucose Concentratio n >=200 mg/dL plus symptoms is consistent with Diabetes Mellitus. Blood Urea Nitrogen 9 8 - 18 mg/dL 12/12/2023 12:47 AM EDT [facility] Creatinine 0.63(L) 0.70 - 1.20 mg/dL 12/12/2023 12:47 AM EDT [facility] Sodium 141 135 - 145 mMol/L 12/12/2023 12:47 AM EDT [facility] Potassium 3.8 3.5 - 5.0 mMol/L 12/12/2023 12:47 AM EDT [facility] Chloride 106 98 - 107 mMol/L 12/12/2023 12:47 AM EDT [facility] Carbon Dioxide 24 22 - 31 mMol/L 12/12/2023 12:47 AM [facility] Anion Gap 11 5 - 15 mMol/L 12/12/2023 12:47 AM EDT [facility] Calcium 9.6 8.5 - 10.5 mg/dL 12/12/2023 12:47 AM [facility] Est Glomerular Filtration Rate - Female 101 mL/min/1. 73 m?? 12/12/2023 12:47 AM [facility] Comment: This patient's estimated GFR was calculated using the 2020 CKD-EPI equation. The estimated GFR can vary from the measured GFR by up to 30% in the absence of rapidly changing kidney function. Assessment of the estimated GFR is not appropriate when creatinine concentrations are rapidly changing. For clinical situations in which a more precise estimate of GFR is necessary, consider alternative methods of GFR estimation such as a 24-hour urine creatinine clearance. Assignment of CKD stage 1 - 5 for patients with an eGFR near the transition point between stages may be based on clinical assessment of muscle mass and symptoms in addition to eGFR. Link: eGFR Calculator [employer] Blood VENOUS BLOOD SPECIMEN / Unknown Venipuncture / Unknown 12/12/2023 12:06 AM EDT 12/12/2023 12:16 AM EDT Shashi Zelaya MD CHEMISTRY ORDERABLES [facility] [place] [address] * EEG Continuous Monitoring Inpatient (12/11/2023 10:04 PM EDT) Narrative Radha Rousseau MD - 12/11/2023 10:04 PM EDT Radha Rousseau MD ? 12/13/2023 ??7:51 AM [facility] Department of Neurology Inpatient Continuous Video EEG Report Name of the Patient: ??Alyson Valverde Date of : ?1960 Patient Location: [facility] Date of Service: 12/11/2023 Referring physician: Jeanne Patino MD Reading Fellow: ??Gallo Bowman MD Reading Attending: Radha Rousseau MD Initial time and date cEEG monitoring started: 21:59:39 on 12/11/2023 Daily report EEG start time: 12/11/239 Daily report EEG end time: 12/12/23 0500 Total recording time: 7 hour 1 minute Indication for cvEEG: Seizure BRIEF HISTORY: Alyson Valverde is a 63 y.o. female with past medical history of migraines, large right frontal cystic lesion, and head trauma following fall of a horse 12/04 presented to an [place] with an episode concerning for seizure, LUE/LLE weakness, AMS, and HCT showing a large right frontal cyst with intracystic hemorrhage evolution and MLS. ?? MEDICATIONS: Levetiracetam 500mg BID PRIOR EEG(s): No prior EEG available. ?? METHODS: A 21 channel digitized continuous electroencephalogram with video was set up and recording started at 21:59:39 on 12/11/2023. Following explanation of the procedure, the 10/20 international system of electrode placement was used to determine electrode placement and disposable MRI conditional electrodes were applied using the paste/collodion method of application. ??In addition to EEG the patient was monitored for EKG. Video was recorded during the session. SUPERVISOR COLOR PASTE MIXING'S REPORT: Performed by: NW At the onset of the recording the patient was awake and cooperative. Movement and other artifact was not significant. Comments: ELECTROENCEPHALOGRAPHER'S REPORT Background: The background was continuous and spontaneously reactive composed of normal voltage, with well organized anterior to posterior gradient with frontally predominant beta and posterior alpha frequencies. ??There was a 9-10 Hz posterior dominant rhythm [...] attenuation Ictal: 1)No discrete seizures were seen CLINICAL CORRELATION: This EEG demonstrates increased risk for seizures arising from the R parietal region with no discrete seizures seen. R hemispheric cerebrocortical dysfunction consistent with known structural abnormality in this region. ?? Gallo Bowman MD PGY-6 Clinical Instructor - Epilepsy Fellow [facility] Epilepsy Program Department of Neurology 12/12/2023 I personally reviewed this neurodiagnostic study. This report represents my interpretation. Radha Rousseau MD Attending Physician [facility] Neurology/Epilepsy 12/13/23 7:51 AM Екатерина Alexander MD NEUROLOGY ORDERABLES * MRI Brain wwo Contrast (Generic) (12/11/2023 7:58 PM EDT) [employer] Signature WORKSTATION ID [id number] [facility] Anatomical Region Laterality Modality Head Magnetic Resonan ce Impressions 12/11/2023 8:10 PM EDT impression: Similar appearance of large right frontal [...] who have questions please contact the health emergency care attendant that requested your imaging first. ? Narrative 12/11/2023 8:10 PM EDT EXAMINATION: . CLINICAL HISTORY: ICH, head trauma, [...] has signal intensity slightly greater than CSF on T1-weighted images except for layering blood products identified in the dependent aspect. On T2-weighted images it is hyperintense again with blood products seen posteriorly. Findings are consistent with hemorrhage into an arachnoid cyst. There is a significant midline shift from right to left. Measured at the level of the anterior septal callosal interface this is approximately 1.5 cm. This cyst compresses the right lateral ventricular body and frontal [...] is identified. There is no restricted diffusion Procedure Note Daquan Beasley MD - 12/11/2023 EXAMINATION: . CLINICAL HISTORY: ICH, head trauma, known cystic lesion, study to better characterize location of hemorrhage and cyst TECHNIQUE: MRI of the brain was performed before and after the intravenousadministration of cc Dotarem. COMPARISON: CT the brain 12/11/2023 CT of the brain 2018 FINDINGS: Large right frontal region extra-axial cyst is identified. It isextra-axial appearances best appreciated on the old study of 06/10/2017. This cystmeasures 6 cm in transverse diameter by 6.5 cm in height by 8.4 cm inanteroposterior diameter. It has signal intensity slightly greater than CSF onT1-weighted images except for layering blood products identified in the dependentaspect. On T2-weighted images it is hyperintense again with blood products seen posteriorly. Findings are consistent with hemorrhage into an arachnoidcyst. There is a significant midline shift from right to left. Measured at thelevel of the anterior septal callosal interface this is approximately 1.5 cm.This cyst compresses the right lateral ventricular body and frontal horn. Italso results in mass effect on the left lateral ventricular system. Dilatationof the left lateral ventricle particularly in the occipital region and lateral ventricular body may indicate obstruction at the foramen of Burton. Thishowever is not changed since the study earlier today at 4:06 PM No abnormal enhancement of the cyst is identified. There is norestricted diffusion IMPRESSION impression: Similar appearance of large right frontal region arachnoidcyst compared to the CT performed today, but it has increased in size whencompared with the study of 06/10/2017 and now has considerable mass effect as wellas evidence of hemorrhage within the cyst. Thank you for letting us participate in the care of this patient. If youare a health care provider and have any questions regarding this report,please contact the number below. For patients who have questions please contactthe health emergency care attendant that requested your imaging first. Pasha Harrell MD IMG MRI ORDERABLES * EKG 12 Lead (12/11/2023 4:10 PM EDT) Ventricular rate 67 BPM MUSE SYSTEM Atrial Rate 67 BPM MUSE SYSTEM P-R Interval 152 ms MUSE SYSTEM QRS Duration 72 ms MUSE SYSTEM Q-T Interval 432 ms MUSE SYSTEM QTC Calculated (Bezet) 456 ms MUSE SYSTEM Calculated P [place] 70 degrees MUSE SYSTEM Calculated R [place] 61 degrees MUSE SYSTEM Calculated T [place] 49 degrees MUSE SYSTEM INTERPRETATION Normal sinus rhythm Normal ECG No previous ECGs available Confirmed by MD Fernando, Moo ([id number]) on 12/12/2023 1:45:44 PM MUSE SYSTEM 12/11/2023 4:10 PM EDT 12/12/2023 1:45 PM EDT Pasha Harrell MD ECG ORDERABLES MUSE SYSTEM * CT Head & Cervical Spine wo Contrast (Generic) (12/11/2023 4:08 PM EDT) WORKSTATION ID [id number] [facility] Anatomical Region Laterality Modality Head Computed Tomogra phy Impressions 12/11/2023 4:[address] head: 1. ??Acute hemorrhage within the large right frontal arachnoid cyst is similar in volume but slightly decreased in density. 2. ??No additional significant change. CT cervical spine: No acute fracture or subluxation. Thank you for letting us participate in the care of this patient. ??If you are a health care provider and have any questions regarding this report, please contact the number below. ??For patients who have questions please contact the health emergency care attendant that requested your imaging first. ? Narrative 12/11/2023 4:29 PM EDT EXAMINATION: CT HEAD AND CERVICAL SPINE WO CONTRAST (GENERIC) CLINICAL HISTORY: seizure, Fall, neck pain, known R frontal arachnoid cyst with traumatic [...] shift on the order of 14 mm. The basal cisterns are crowded but there is no downward transtentorial herniation. No hydrocephalus or evidence of large acute infarction. No acute osseous abnormality. CT cervical spine: No acute fracture or subluxation. The vertebral bodies are maintained in height. No prevertebral soft tissue swelling. Moderate degenerative disc changes in the mid to lower cervical spine. No significant osseous spinal canal stenosis. Procedure Note Henrry Acosta MD - 12/11/2023 EXAMINATION: CT HEAD AND CERVICAL SPINE WO CONTRAST (GENERIC) CLINICAL HISTORY: seizure, Fall, neck pain, known R frontal arachnoid cystwith traumatic hemorrhage ~1 week ago TECHNIQUE: CT head and cervical spine performed without intravenous contrast administration. COMPARISON: CT head 12/11/2023 at 1020 FINDINGS: CT head: A large right frontal arachnoid cyst is again seen. Small amount ofinternal hemorrhage is again noted which is slightly decreased in density butsimilar in volume. Local mass effect from the cyst is unchanged including right toleft midline shift on the order of 14 mm. The basal cisterns are crowded butthere is no downward transtentorial herniation. No hydrocephalus or evidence oflarge acute infarction. No acute osseous abnormality. CT cervical spine: No acute fracture or subluxation. The vertebral bodies are maintained inheight. No prevertebral soft tissue swelling. Moderate degenerative disc changesin the mid to lower cervical spine. No significant osseous spinal canalstenosis. IMPRESSION CT head: 1. Acute hemorrhage within the large right frontal arachnoid cyst issimilar in volume but slightly decreased in density. 2. No additional significant change. CT cervical spine: No acute fracture or subluxation. Thank you for letting us participate in the care of this patient. If youare a health care provider and have any questions regarding this report,please contact the number below. For patients who have questions please contactthe health emergency care attendant that requested your imaging first. Pasha Harrell MD IMG CT ORDERABLES * POC, GLUCOSE (12/11/2023 3:49 PM EDT) Glucometer, POC 106 65 - 199 mg/dL 12/11/2023 3:49 PM EDT [facility] Comment:Supplemental ranges: <140 mg/dL before meals <180 mg/dL all other times of the day. Blood CAPILLARY BLOOD / Unknown 12/11/2023 3:49 PM EDT 12/11/2023 3:49 PM EDT Unknown POINT OF CARE TEST O RDERABLES [facility] [place] [address] * (ABNORMAL) Comprehensive metabolic panel (12/11/2023 3:43 PM EDT) Glucose 98 65 - 199 mg/dL 12/11/2023 5:20 PM EDT [facility] Comment:Glucose Concentratio n >=200 mg/dL plus symptoms is consistent with Diabetes Mellitus. Blood Urea Nitrogen 9 8 - 18 mg/dL 12/11/2023 5:20 PM EDT [facility] Creatinine 0.67(L) 0.70 - 1.20 mg/dL 12/11/2023 5:20 PM EDT [facility] Sodium 142 135 - 145 mMol/L 12/11/2023 5:20 PM EDT [facility] Potassium 3.6 3.5 - 5.0 mMol/L 12/11/2023 5:20 PM EDT [facility] Chloride 104 98 - 107 mMol/L 12/11/2023 5:20 PM EDT [facility] Carbon Dioxide 24 22 - 31 mMol/L 12/11/2023 5:20 PM EDT [facility] Anion Gap 14 5 - 15 mMol/L 12/11/2023 5:20 PM EDT [facility] Calcium 9.3 8.5 - 10.5 mg/dL 12/11/2023 5:20 PM EDT [facility] Protein, Total 6.3 6.1 - 8.0 g/dL 12/11/2023 5:20 PM EDT [facility] Albumin 4.0 3.2 - 5.2 g/dL 12/11/2023 5:20 PM EDT [facility] Aspartate Aminotransferase 33(H) <=30 unit/L 12/11/2023 5:20 PM EDT [facility] Alanine Aminotransferase 22 0 - 30 unit/L [facility]23 [facility] Alkaline Phosphatase 84 35 - 105 unit/L 12/11/2023 5:20 PM EDT [facility] Bilirubin, Total 0.6 <=1.3 mg/dL 12/11/2023 5:[facility] Est Glomerular Filtration Rate - Female 100 mL/min/1. 73 m?? 12/11/2023 5:20 PM EDT [facility] Comment: This patient's estimated GFR was calculated using the 2020 CKD-EPI equation. The estimated GFR can vary from the measured GFR by up to 30% in the absence of rapidly changing kidney function. Assessment of the estimated GFR is not appropriate when creatinine concentrations are rapidly changing. For clinical situations in which a more precise estimate of GFR is necessary, consider alternative methods of GFR estimation such as a 24-hour urine creatinine clearance. Assignment of CKD stage 1 - 5 for patients with an eGFR near the transition point between stages may be based on clinical assessment of muscle mass and symptoms in addition to eGFR. Link: eGFR Calculator [employer] Blood VENOUS BLOOD SPECIMEN / Unknown Venipuncture / Unknown 12/11/2023 3:43 PM EDT 12/11/2023 4:27 PM EDT Pasha Harrell MD CHEMISTRY ORDERABLES [facility] [place] [address] * TSH [place] (12/11/2023 3:43 PM EDT) Thyroid Stimulating Hormone 3.23 0.27 - 4.20 mcIU/mL 12/11/2023 5:20 PM EDT [facility] Comment: Reference Interval (mcIU/mL): ?? Females: ? First Trimester: 0.23-3.88 ? Second Trimester: 0.22-3.90 ? Third Trimester: 0.44-4.66 Blood VENOUS BLOOD SPECIMEN / Unknown Venipuncture / Unknown 12/11/2023 3:43 PM EDT 12/11/2023 4:27 PM EDT Pasha Harrell MD CHEMISTRY ORDERABLES Performing Organization Address [facility] Phone Number [facility] [place] [address] * APTT (12/11/2023 3:43 PM EDT) Partial Thromboplastin Time 26 25 - 37 sec 12/11/2023 4:51 PM EDT [facility] Comment: The PTT is NOT appropriate for heparin monitoring. Use the Anti-Xa level for heparin monitoring (HEP UFH) or LMWH monitoring (HEP LMW). A PTT less than 37 seconds generally indicates adequate hemostasis. Blood VENOUS BLOOD SPECIMEN / Unknown Venipuncture / Unknown 12/11/2023 3:43 PM EDT 12/11/2023 4:27 PM EDT Pasha Harrell MD HEMATOLOGY ORDERABLE S Performing Organization Address [facility] Co de Phone Number [facility] [place] [address] * Prothrombin Time (12/11/2023 3:43 PM EDT) Prothrombin Time 11.6 9.4 - 12.5 sec 12/11/2023 4:51 PM EDT [facility] International Normalization Ratio 1.0 <=4.9 12/11/2023 4:51 PM EDT [facility] Comment: An INR < 2.0 indicates adequate procoagulant activity for hemostasis in most patients without underlying bleeding disorders, though the INR may not adequately reflect hemostatic capacity in patients with liver disease and synthetic impairment. The recommended target INR range for therapeutic anticoagulation is 2.0 - 3.0 for most applications, though lower and higher ranges may be appropriate depending on clinical circumstances. Blood VENOUS BLOOD SPECIMEN / Unknown Venipuncture / Unknown 12/11/2023 3:43 PM EDT 12/11/2023 4:27 PM EDT Pasha Harrell MD HEMATOLOGY ORDERABLE S [facility] [place] [address] * (ABNORMAL) CBC (with Diff) (12/11/2023 3:43 PM EDT) White Blood Cell 4.54 4.00 - 9.50 x10(3)/mc L 12/11/2023 4:44 PM EDT [facility] Red Blood Cell 3.83(L) 4.00 - 5.21 x10(6)/mc L 12/11/2023 4:44 PM EDT [facility] Hemoglobin 11.8 11.7 - 15.5 g/dL 12/11/2023 4:44 PM EDT [facility] Hematocrit 33.9(L) 35.7 - 45.8 % 12/11/2023 4:44 PM EDT [facility] Mean Cell Volume 88.5 82.6 - 94.4 fL 12/11/2023 4:44 PM EDT [facility] Mean Cell Hemoglobin 30.8 27.1 - 32.0 pg 12/11/2023 4:44 PM EDT [facility] Mean Cell Hemoglobin Concentration 34.8 31.7 - 35.0 g/dL 12/11/2023 4:44 PM EDT [facility] Platelet 243 145 - 357 x10(3)/mc L 12/11/2023 4:44 PM EDT [facility] Mean Platelet Volume 11.5 7.6 - 12.9 fL 12/11/2023 4:44 PM [facility] RDW Standard Deviation 41.2 37.0 - 46.0 fL 12/11/2023 4:44 PM [facility] RDW coefficient of variation 12.8 11.5 - 14.1 % 12/11/2023 4:44 PM [facility] NRBC% auto 0.0 % 12/11/2023 4:44 PM [facility] NRBC Absolute 0.00 0.00 - 0.00 x10(3)/mc L 12/11/2023 4:44 PM [facility] Neutrophil % 61.7 % 12/11/2023 4:44 PM [facility] Neutrophil Absolute (ANC) - Automated 2.80 1.70 - 6.10 x10(3)/mc L 12/11/2023 4:44 PM [facility] Lymph % 22.9 % 12/11/2023 4:44 PM [facility] Lymph Absolute 1.04 0.90 - 3.20 x10(3)/mc L 12/11/2023 4:44 PM [facility] Monocyte % 10.6 % 12/11/2023 4:44 PM [facility] Monocyte Absolute 0.48 0.30 - 0.90 x10(3)/mc L 12/11/2023 4:44 PM [facility] Eos % 3.7 % 12/11/2023 4:44 PM [facility] Eos Absolute 0.17 0.00 - 0.40 x10(3)/mc L 12/11/2023 4:44 PM [facility] Basophil % 0.4 % 12/11/2023 4:44 PM [facility] Baso Absolute 0.02 0.00 - 0.10 x10(3)/mc L 12/11/2023 4:44 PM EDT [facility] Immature Gran % 0.7 % 4:44 PM EDT [facility] Immature Gran Absolute 0.03 0.00 - 0.04 x10(3)/mc L 12/11/2023 4:44 PM EDT [facility] Blood VENOUS BLOOD SPECIMEN / Unknown Venipuncture / Unknown 12/11/2023 3:43 PM EDT 12/11/2023 4:27 PM EDT Pasha Harrell MD HEMATOLOGY ORDERABLE S [facility] [place] [address] documented in this encounter Visit Diagnoses Diagnosis Arachnoid cyst- Primary Cerebral cysts Bradycardia Other specified cardiac dysrhythmias Arachnoid cyst Cerebral cysts documented in this encounter Admitting Diagnoses Diagnosis Arachnoid cyst Cerebral cysts documented in this encounter Administered Medications Inactive Administered Medications - up to 3 most recent administrations Medication Order MAR Action Action Date Dose Rate Site acetaminophen (Tylenol) (32.02 mg/mL) oral liquid 1,000 mg 1,000 mg, Oral, EVERY 6 HOURS PRN, Starting on 12/11/23 at 1850, Until Rani 12/14/23 at 1730, Pain, mild pain (1-3), - Maximum dose of acetaminophen is 4,000 mg from all sources in 24 hours. - Unless otherwise specified, when ordered PRN for pain, acetaminophen should be given first if other PRN pain medications are ordered., Routine acetaminophen (Tylenol) suppository 650 mg 650 mg, Rectal, EVERY 6 HOURS PRN, Starting on 12/11/23 at 1850, Until Rani 12/14/23 at 1730, Pain, mild pain (1-3), - Maximum dose of acetaminophen is 4,000 mg from all sources in 24 hours. - Unless otherwise specified, when ordered PRN for pain, acetaminophen should be given first if other PRN pain medications are ordered., Routine acetaminophen (Tylenol) tablet 975 mg 975 mg, Oral, EVERY 6 HOURS PRN, Starting on 12/11/23 at 1850, Until Rani 12/14/23 at 1730, Pain, mild pain (1-3), - Maximum dose of acetaminophen is 4,000 mg from all sources in 24 hours. - Unless otherwise specified, when ordered PRN for pain, acetaminophen should be given first if other PRN pain medications are ordered., Routine Given 12/14/2023 8:17 AM EDT 975 mg Given 12/13/2023 4:15 AM EDT 975 mg Given 12/12/2023 9:05 AM EDT 975 mg celecoxib (CeleBREX) capsule 200 mg 200 mg, Oral, 2 TIMES DAILY, First dose on Mon12/14/23 at 0945, Until Discontinued, Routine Given 12/14/2023 9:29 AM EDT 200 mg dexAMETHasone (Decadron) injection 4 mg 4 mg, Intravenous, EVERY 6 HOURS, First dose on Mon12/11/23 at 1910, Until Discontinued, Routine Given 12/12/2023 12:05 AM EDT 4 mg dexAMETHasone (Decadron) tablet 4 mg 4 mg, Oral, EVERY 6 HOURS, First dose on Mon12/11/23 at 1910, Until Discontinued, Routine Given 12/14/2023 1:19 PM EDT 4 mg Given 12/14/2023 5:54 AM EDT 4 mg Given 12/14/2023 1:26 AM EDT 4 mg gadoterate meglumine (Dotarem) (0.5 mMol/mL) injection solution 0-100 mL 0-100 mL, Intravenous, ONCE PRN, 1 dose, Starting on Mon12/11/23 at 1922, Until Mon12/11/23 at 1944, Per Protocol, Radiology Contrast, Routine Given 12/11/2023 7:44 PM EDT 14 mLs heparin (porcine) (5,000 units/1 mL) subcutaneous injection 5,000 Units 5,000 Units, Subcutaneous, EVERY 8 HOURS SCHEDULED, First dose on Mon12/13/23 at 1400, Until Discontinued, Routine Given 12/14/2023 1:19 PM EDT 5,000 Unit s Given 12/14/2023 5:36 AM EDT 5,000 Units A bdominal Tissue Given 12/13/2023 9:20 PM EDT 5,000 Units A bdominal Tissue hydrALAZINE (Apresoline) (20 mg/mL) injection 10 mg 10 mg, Intravenous, EVERY 2 HOURS PRN, Starting on Mon12/11/23 at 1850, Until Mon12/14/23 at 1730, High Blood Pressure, For systolic blood pressure (SBP) greater than 160 mmHg. May repeat once in 15 minutes if blood pressure remains greater than 160 mmHg. Use if labetaloL ineffective after 2 doses, Routine levETIRAcetam (Keppra) (100 mg/mL) IV injection 1 g 1 g, Intravenous, 2 TIMES DAILY, First dose (after last modification) on Mon12/12/23 at 2100, Until Discontinued, Doses administered via IV push over 5 minutes. Administer Undiluted., Routine levETIRAcetam (Keppra) tablet 1,000 mg 1,000 mg, Oral, 2 TIMES DAILY, First dose (after last modification) on Mon12/12/23 at 2100, Until Discontinued, Routine Given 12/14/2023 8:17 AM EDT 1,000 mg Given 12/13/2023 9:20 PM EDT 1,000 mg Given 12/13/2023 9:18 AM EDT 1,000 mg levETIRAcetam (Keppra) tablet 500 mg 500 mg, Oral, 2 TIMES DAILY, First dose on Mon12/11/23 at 2100, Until Discontinued, Routine Given 12/12/2023 9:04 AM EDT 500 mg Given 12/11/2023 8:48 PM EDT 500 mg levETIRAcetam (Keppra) tablet 500 mg 500 mg, Oral, ONCE, 1 dose, On Mon12/12/23 at 1615, Routine Given 12/12/2023 5:38 PM EDT 500 mg ondansetron (pf) (Zofran) (2 mg/mL) injection 4 mg 4 mg, Intravenous, EVERY 8 HOURS PRN, Starting on Mon12/11/23 at 1850, Until Mon12/14/23 at 1730, Nausea, Vomiting, May repeat times one in 30 minutes if ineffective. If multiple antiemetics are ordered, use ondansetron first, prochlorperazine second, and metoclopramide third. ondansetron ODT (Zofran-ODT) disintegrating tablet 4 mg 4 mg, Oral, EVERY 8 HOURS PRN, Starting on Mon12/11/23 at 1850, Until Rani 12/14/23 at 1730, Nausea, May repeat in 30 minutes if ineffective. If multiple antiemetics are ordered, use ondansetron first, prochlorperazine second, and metaclopramide third., Routine pantoprazole (Protonix) injection 40 mg 40 mg, Intravenous, DAILY, First dose on Mon12/11/23 at 1910, Until Discontinued, Reconstitute with 10 mL of normal saline to a concentration of 4 mg/mL and inject slowly over 2 minutes. Reconstitute with 10 mL of normal saline to a concentration of 4 mg/mL and inject slowly over 2 minutes., Routine pantoprazole EC (Protonix) tablet 40 mg 40 mg, Oral, DAILY, First dose on Mon12/11/23 at 1910, Until Discontinued, DO NOT CRUSH OR OPEN If unable to take PO, may give IV, Routine Given 12/14/2023 8:17 AM EDT 40 mg Given 12/13/2023 9:18 AM EDT 40 mg Given 12/12/2023 9:04 AM EDT 40 mg polyethylene glycoL (Miralax) packet 17 g 17 g, Oral, DAILY PRN, Starting on Mon12/11/23 at 1850, Until Mon12/14/23 at 1730, Constipation, Administer if no bowel movement within 48 hours to achieve: (1) One bowel movement at least every 48 hours, AND (2) without straining. If multiple PRN bowel medications ordered, start with polyethylene glycoL, then lactulose, then oral bisacodyL, then bisacodyL suppository, then magnesium citrate, then tap water enema. Multiple medications may be given concomitantly for constipation., Routine prochlorperazine (Compazine) (5 mg/mL) injection 10 mg 10 mg, Intravenous, EVERY 6 HOURS PRN, Starting on Mon12/11/23 at 1850, Until Mon12/14/23 at 1730, Nausea, Vomiting, If multiple antiemetics are ordered, use ondansetron first, prochlorperazine second, and metoclopramide third. , Routine prochlorperazine (Compazine) tablet 10 mg 10 mg, Oral, EVERY 6 HOURS PRN, Starting on Mon12/11/23 at 1850, Until Mon12/14/23 at 1730, Nausea, Vomiting, If multiple antiemetics are ordered, use ondansetron first, prochlorperazine second and metoclopramide third. PO Preferred. If patient unable to take PO, may give IV if ordered., Routine SUMAtriptan (Imitrex) (6 mg/0.5 mL) injection 6 mg 6 mg, Subcutaneous, ONCE, 1 dose, On Mon12/13/23 at 1115, Maximum 2 doses in 24 hours, STAT Given 12/13/2023 11:41 AM EDT 6 mg documented in this encounter Active and Recently Administered Medications Times are shown in EDT. Scheduled Medication Order 12/12/2023 12/13/2023 12/14/2023 celecoxib (CeleBREX) capsule 200 mg 200 mg, Oral, 2 TIMES DAILY, First dose on Mon12/14/23 at 0945, Until Discontinued, Routine 0929 (Given - Provider: Jyoti Ford RN) dexAMETHasone (Decadron) injection 4 mg(Linked Group 1) 4 mg, Intravenous, EVERY 6 HOURS, First dose on Mon12/11/23 at 1910, Until Discontinued, Routine 0005 (Given - Provider: Yolie Diaz RN)0616 (See Alternative - Provider: Yolie Diaz RN)1346 (See Alternative - Provider: Baldomero Torres RN)2023 (See Alternative - Provider: Yolie Diaz RN) 0018 (See Alternative - Provider: Yolie Diaz RN)0918 (See Alternative - Provider: Baldomero Torres RN)1326 (See Alternative - Provider: Baldomero Torres RN)2120 (See Alternative - Provider: Eliseo Rodriguez RN) 0126 (See Alternative - Provider: Eliseo Rodriguez RN)0554 (See Alternative - Provider: Eliseo Rodriguez RN)0710 (Canceled Entry - Provider: Eliseo Rodriguez RN - Reason: See comment)1319 (See Alternative - Provider: Jyoti Ford RN) dexAMETHasone (Decadron) tablet 4 mg(Linked Group 1) 4 mg, Oral, EVERY 6 HOURS, First dose on Mon12/11/23 at 1910, Until Discontinued, Routine 0005 (See Alternative - Provider: Yolie Rossi V RN)0616 (Given - Provider: Yolie Rossi V RN)1346 (Given - Provider: Baldomero Torres RN)2022 (Given - Provider: Yolie Diaz RN) 0018 (Given - Provider: Yolie Rossi V RN)0918 (Given - Provider: Baldomero Torres RN)1326 (Given - Provider: Baldomero Torres RN)212 (Given - Provider: Eliseo Rodriguez RN) 0126 (Given - Provider: Eliseo Rodriguez RN)0554 (Given - Provider: Eliseo Rodriguez RN)0710 (See Alternative - Provider: Eliseo Rodriguez RN)1319 (Given - Provider: Jyoti Ford, ZEENAT) heparin (porcine) (5,000 units/1 mL) subcutaneous injection 5,000 Units 5,000 Units, Subcutaneous, EVERY 8 HOURS SCHEDULED, First dose on Mon12/13/23 at 1400, Until Discontinued, Routine 1326 (Given - Provider: Baldomero Torres RN)212 (Given - Provider: Eliseo Rodriguez RN) 0536 (Given - Provider: Eliseo Rodriguez RN)1319 (Given - Provider: Jyoti Ford, ZEENAT) levETIRAcetam (Keppra) (100 mg/mL) IV injection 1 g(Linked Group 2) 1 g, Intravenous, 2 TIMES DAILY, First dose (after last modification) on Mon12/12/23 at 2100, Until Discontinued, Doses administered via IV push over 5 minutes. Administer Undiluted., Routine 2022 (See Alternative - Provider: Yolie Diaz RN) 0918 (See Alternative - Provider: Baldomero Torres RN)212 (See Alternative - Provider: Eliseo Rodriguez RN) 0817 (See Alternative - Provider: Jyoti Ford, ZEENAT) levETIRAcetam (Keppra) tablet 1,000 mg(Linked Group 2) 1,000 mg, Oral, 2 TIMES DAILY, First dose (after last modification) on Mon12/12/23 at 2100, Until Discontinued, Routine 2022 (Given - Provider: Yolie Diaz RN) 0918 (Given - Provider: Baldomero Torres RN)2119 (Given - Provider: Eliseo Rodriguez RN) 0817 (Given - Provider: Jytoi Ford, EZENAT) levETIRAcetam (Keppra) tablet 500 mg (CANCELED) 500 mg, Oral, 2 TIMES DAILY, First dose on Mon12/11/23 at 2100, Until Discontinued, Routine 0904 (Given - Provider: Baldomero Torres RN) levETIRAcetam (Keppra) tablet 500 mg (COMPLETED) 500 mg, Oral, ONCE, 1 dose, On Mon12/12/23 at 1615, Routine 1738 (Given - Provider: Jen Reynoso RN) pantoprazole (Protonix) injection 40 mg(Linked Group 3) 40 mg, Intravenous, DAILY, First dose on Mon12/11/23 at 1910, Until Discontinued, Reconstitute with 10 mL of normal saline to a concentration of 4 mg/mL and inject slowly over 2 minutes. Reconstitute with 10 mL of normal saline to a concentration of 4 mg/mL and inject slowly over 2 minutes., Routine 0904 (See Alternative - Provider: Baldomero Torres RN) 0918 (See Alternative - Provider: Baldomero Torres RN) 0817 (See Alternative - Provider: Jyoti Ford, ZEENAT) pantoprazole EC (Protonix) tablet 40 mg(Linked Group 3) 40 mg, Oral, DAILY, First dose on Mon12/11/23 at 1910, Until Discontinued, DO NOT CRUSH OR OPEN If unable to take PO, may give IV, Routine 0904 (Given - Provider: Baldomero Torres RN) 0918 (Given - Provider: Baldomero Torres RN) 0817 (Given - Provider: Jyoti Ford, ZEENAT) SUMAtriptan (Imitrex) (6 mg/0.5 mL) injection 6 mg (COMPLETED) 6 mg, Subcutaneous, ONCE, 1 dose, On Mon12/13/23 at 1115, Maximum 2 doses in 24 hours, STAT 1141 (Given - Provider: Baldomero Torres RN) PRN Medication Order 12/12/2023 12/13/2023 12/14/2023 acetaminophen (Tylenol) (32.02 mg/mL) oral liquid 1,000 mg(Linked Group 4) 1,000 mg, Oral, EVERY 6 HOURS PRN, Starting on Mon12/11/23 at 1850, Until Rani 12/14/23 at 1730, Pain, mild pain (1-3), - Maximum dose of acetaminophen is 4,000 mg from all sources in 24 hours. - Unless otherwise specified, when ordered PRN for pain, acetaminophen should be given first if other PRN pain medications are ordered., Routine 904 (See Alternative - Provider: Baldomero Torres RN) 414 (See Alternative - Provider: Yolie Diaz RN) 08 (See Alternative - Provider: Jyoti Ford RN) acetaminophen (Tylenol) suppository 650 mg(Linked Group 4) 650 mg, Rectal, EVERY 6 HOURS PRN, Starting on Mon12/11/23 at 1850, Until Rani 12/14/23 at 1730, Pain, mild pain (1-3), - Maximum dose of acetaminophen is 4,000 mg from all sources in 24 hours. - Unless otherwise specified, when ordered PRN for pain, acetaminophen should be given first if other PRN pain medications are ordered., Routine 904 (See Alternative - Provider: Baldomero Torres RN) 414 (See Alternative - Provider: Yolie Diaz RN) 08 (See Alternative - Provider: Jyoti Ford RN) acetaminophen (Tylenol) tablet 975 mg(Linked Group 4) 975 mg, Oral, EVERY 6 HOURS PRN, Starting on Mon12/11/23 at 1850, Until Rani 12/14/23 at 1730, Pain, mild pain (1-3), - Maximum dose of acetaminophen is 4,000 mg from all sources in 24 hours. - Unless otherwise specified, when ordered PRN for pain, acetaminophen should be given first if other PRN pain medications are ordered., Routine 904 (Given - Provider: Baldomero Torres RN) 414 (Given - Provider: Yolie Diaz RN) 0817 (Given - Provider: Jyoti Ford RN) hydrALAZINE (Apresoline) (20 mg/mL) injection 10 mg 10 mg, Intravenous, EVERY 2 HOURS PRN, Starting on Mon12/11/23 at 1850, Until Rani 12/14/23 at 1730, High Blood Pressure, For systolic blood pressure (SBP) greater than 160 mmHg. May repeat once in 15 minutes if blood pressure remains greater than 160 mmHg. Use if labetaloL ineffective after 2 doses, Routine ondansetron (pf) (Zofran) (2 mg/mL) injection 4 mg(Linked Group 5) 4 mg, Intravenous, EVERY 8 HOURS PRN, Starting on Mon12/11/23 at 1850, Until Rani 12/14/23 at 1730, Nausea, Vomiting, May repeat times one in 30 minutes if ineffective. If multiple antiemetics are ordered, use ondansetron first, prochlorperazine second, and metoclopramide third. ondansetron ODT (Zofran-ODT) disintegrating tablet 4 mg(Linked Group 5) 4 mg, Oral, EVERY 8 HOURS PRN, Starting on Mon12/11/23 at 1850, Until Rani 12/14/23 at 1730, Nausea, May repeat in 30 minutes if ineffective. If multiple antiemetics are ordered, use ondansetron first, prochlorperazine second, and metaclopramide third., Routine polyethylene glycoL (Miralax) packet 17 g 17 g, Oral, DAILY PRN, Starting on Mon12/11/23 at 1850, Until Rani 12/14/23 at 1730, Constipation, Administer if no bowel movement within 48 hours to achieve: (1) One bowel movement at least every 48 hours, AND (2) without straining. If multiple PRN bowel medications ordered, start with polyethylene glycoL, then lactulose, then oral bisacodyL, then bisacodyL suppository, then magnesium citrate, then tap water enema. Multiple medications may be given concomitantly for constipation., Routine prochlorperazine (Compazine) (5 mg/mL) injection 10 mg(Linked Group 6) 10 mg, Intravenous, EVERY 6 HOURS PRN, Starting on Mon12/11/23 at 1850, Until Rani 12/14/23 at 1730, Nausea, Vomiting, If multiple antiemetics are ordered, use ondansetron first, prochlorperazine second, and metoclopramide third. , Routine prochlorperazine (Compazine) tablet 10 mg(Linked Group 6) 10 mg, Oral, EVERY 6 HOURS PRN, Starting on Mon12/11/23 at 1850, Until Mon12/14/23 at 1730, Nausea, Vomiting, If multiple antiemetics are ordered, use ondansetron first, prochlorperazine second and metoclopramide third. PO Preferred. If patient unable to take PO, may give IV if ordered., Routine Linked Groups Order Group 1: dexAMETHasone (Decadron) injection 4 mgJump to med 4 mg, Intravenous, EVERY 6 HOURS, First dose on Mon12/11/23 at 1910, Until Discontinued, Routine Or dexAMETHasone (Decadron) tablet 4 mgJump to med 4 mg, Oral, EVERY 6 HOURS, First dose on Mon12/11/23 at 1910, Until Discontinued, Routine Group 2: levETIRAcetam (Keppra) tablet 1,000 mgJump to med 1,000 mg, Oral, 2 TIMES DAILY, First dose (after last modification) on Mon12/12/23 at 2100, Until Discontinued, Routine Or levETIRAcetam (Keppra) (100 mg/mL) IV injection 1 gJump to med 1 g, Intravenous, 2 TIMES DAILY, First dose (after last modification) on Mon12/12/23 at 2100, Until Discontinued, Doses administered via IV push over 5 minutes. Administer Undiluted., Routine Group 3: pantoprazole EC (Protonix) tablet 40 mgJump to med 40 mg, Oral, DAILY, First dose on Mon12/11/23 at 1910, Until Discontinued, DO NOT CRUSH OR OPEN If unable to take PO, may give IV, Routine Or pantoprazole (Protonix) injection 40 mgJump to med 40 mg, Intravenous, DAILY, First dose on Mon12/11/23 at 1910, Until Discontinued, Reconstitute with 10 mL of normal saline to a concentration of 4 mg/mL and inject slowly over 2 minutes. Reconstitute with 10 mL of normal saline to a concentration of 4 mg/mL and inject slowly over 2 minutes., Routine Group 4: acetaminophen (Tylenol) (32.02 mg/mL) oral liquid 1,000 mgJump to med 1,000 mg, Oral, EVERY 6 HOURS PRN, Starting on Mon12/11/23 at 1850, Until Rani 12/14/23 at 1730, Pain, mild pain (1-3), - Maximum dose of acetaminophen is 4,000 mg from all sources in 24 hours. - Unless otherwise specified, when ordered PRN for pain, acetaminophen should be given first if other PRN pain medications are ordered., Routine Or acetaminophen (Tylenol) tablet 975 mgJump to med 975 mg, Oral, EVERY 6 HOURS PRN, Starting on Mon12/11/23 at 1850, Until Rani 12/14/23 at 1730, Pain, mild pain (1-3), - Maximum dose of acetaminophen is 4,000 mg from all sources in 24 hours. - Unless otherwise specified, when ordered PRN for pain, acetaminophen should be given first if other PRN pain medications are ordered., Routine Or acetaminophen (Tylenol) suppository 650 mgJump to med 650 mg, Rectal, EVERY 6 HOURS PRN, Starting on Mon12/11/23 at 1850, Until Rani 12/14/23 at 1730, Pain, mild pain (1-3), - Maximum dose of acetaminophen is 4,000 mg from all sources in 24 hours. - Unless otherwise specified, when ordered PRN for pain, acetaminophen should be given first if other PRN pain medications are ordered., Routine Group 5: ondansetron ODT (Zofran-ODT) disintegrating tablet 4 mgJump to med 4 mg, Oral, EVERY 8 HOURS PRN, Starting on Mon12/11/23 at 1850, Until Rani 12/14/23 at 1730, Nausea, May repeat in 30 minutes if ineffective. If multiple antiemetics are ordered, use ondansetron first, prochlorperazine second, and metaclopramide third., Routine Or ondansetron (pf) (Zofran) (2 mg/mL) injection 4 mgJump to med 4 mg, Intravenous, EVERY 8 HOURS PRN, Starting on Mon12/11/23 at 1850, Until Rani 12/14/23 at 1730, Nausea, Vomiting, May repeat times one in 30 minutes if ineffective. If multiple antiemetics are ordered, use ondansetron first, prochlorperazine second, and metoclopramide third. Group 6: prochlorperazine (Compazine) tablet 10 mgJump to med 10 mg, Oral, EVERY 6 HOURS PRN, Starting on 12/11/23 at 1850, Until Rani 12/14/23 at 1730, Nausea, Vomiting, If multiple antiemetics are ordered, use ondansetron first, prochlorperazine second and metoclopramide third. PO Preferred. If patient unable to take PO, may give IV if ordered., Routine Or prochlorperazine (Compazine) (5 mg/mL) injection 10 mgJump to med 10 mg, Intravenous, EVERY 6 HOURS PRN, Starting on 12/11/23 at 1850, Until Rani 12/14/23 at 1730, Nausea, Vomiting, If multiple antiemetics are ordered, use ondansetron first, prochlorperazine second, and metoclopramide third. , Routine documented in this encounter Care Teams Mobile Development Manager Relationship Specialty Start Date End Date Bhakti Nieves MD [address] [place] [address] PCP - General Family Medicine 04/08/22 documented as of this encounter
--- OUTSIDE RECORDS SUMMARY | 2024-04-26 02:00 | XMS_ITS | Encounter Summary ---
Author Organization [facility] [place] [address] Care Team Providers Care Oven Tender Name Role Phone Unavailable Primary Care Provider Unavailabl e Encounter Details Date Type Department Care Team (Late st Contact Info) Description 03/14/2022 12:05 AM EST Ancillary Procedure Radiology Library at [facility] [place] [address] Jaguar Morrison MD [facility] [place] [address] Social History Tobacco Use Types Packs/Day Years [...] 9:00 AM EDT Office [place] [address] Zac Rousseau MD [facility] [place] [address] documented as of this encounter Procedures Procedure Name Priority Date/Time Associated Diagnosis Comments FILM LIBRARY STORAGE ONLY DX KNEE Routine 03/14/2022 12:05 AM EST documented in this encounter Results * Film Library- Storage Only DX Knee (03/14/2022 12:05 AM EST) Narrative JANA JUARES - 05/05/2022 8:36 AM EST This exam is auto-finalizing. It's purpose is for storage only. Jaguar Morrison MD IMG FILM LIBRARY ORD ERABLES [place], [place] documented in this encounter Visit Diagnoses Not on filedocumented in this encounter
--- OUTSIDE RECORDS SUMMARY | 2024-04-26 02:00 | XMS_ITS | Encounter Summary ---
Author Organization [facility] Address [facility] [place] [address] Care Team Providers Care Erosion Control Coordinator Name Role Phone Bhakti Nieves MD Primary Care Provider [phone] Encounter Details Date Type Department Care Team (Late st Contact Info) Description 12/07/2023 Telephone [place] [phone] Alice Flowers, RN Social History Tobacco Use Types Packs/Day Years Used Date Smoking Tobacco: Never Smokeless Tobacco: Never [facility] Utilities Answer Date Recorded [...] time in the past 12 m [facility], were you homeless or living in a senior care (including now)? No 12/12/2023 DH IPV Inpatient [...] Telephone Encounter - Alice Flowers RN - 12/07/2023 9:17 AM EDT Copied from [facility] #[id number]. Topic: Specialty Dept CRMs - Triage >> Dec 07, 2023 8:51 AM Cheri Alvarado wrote: Triage Message Specialist: Expected to see Dr. Ayers Relationship (if other than patient-full name): Spouse - Zac Sanders Symptom: recent head injury, lethargy, vomiting Has patient experienced symptom before n/a If patient has experienced symptom before, when was the last time this occurred n/a Is patient currently having symptom yes When did symptom begin Monday12/05/23 Additional Comments: Zac states he is concerned because patient's condition seems to be deteriorating. Zac states yesterday patient was lethargic and experienced vomiting today. Zac asked to speak to a nurse to find out what the proper protocol would be. Please call to advise. Spoke to Zac who reports Alyson slept most of the day yesterday and into today. She is also dizzy and off balance and almost fell in the shower. He reports the dizziness caused her to vomit once this morning. He reports she is out of it but not confused, just tired. documented in this encounter Plan of Treatment Upcoming Encounters Date Type Department Care Team (Late st Contact Info) Description 09/03/2024 9:00 AM EDT Office [place] [address] Zac Rousseau MD [facility] [place] [address] documented as of this encounter Visit Diagnoses Not on filedocumented in this encounter Care Teams Erosion Control Coordinator Relationship Specialty Start Date End Date Bhakti Nieves MD [address] [place] [address] PCP - General Family Medicine 04/08/22 documented as of this encounter
--- OUTSIDE RECORDS SUMMARY | 2024-04-26 02:00 | XMS_ITS | Encounter Summary ---
Author Organization [facility] Address [facility] [place] [address] Care Team Providers Care Medical Case Worker Name Role Phone Bhakti Nieves MD Primary Care Provider [phone] Reason for Visit * Reason Comments Follow-up NXR L KNEE INJECT ION Encounter Details Date Type Department Care Team (Latest Contact Info) Description 05/02/2023 2:40 PM EST Office [place] [address] Jaguar Morrison MD [facility] [place] [address] Primary osteoarthritis of left knee Social History [...] - Inhaled Oxygen Concentration - - Weight 65.8 kg (145 lb) 05/02/2023 2:33 PM EST Height 170.2 cm (5' 7) 05/02/2023 2:33 PM EST Body Mass Index 22.71 05/02/2023 2:33 PM EST documented in this encounter Progress Notes * Jaguar Morrison MD - 05/02/2023 2:40 PM EST Orthopaedic Surgery Follow-Up Clinic Note Alyson Valverde is a 62 y.o. female who follows up for the following issue: Left knee pain Interval History: lAyson Valverde follows up today for her left knee. Injection in 09/2022 lasted at least 3-4 months or longer ABle to hike and ski. Physical Exam: Awake/Alert, NAD LLE: TTP Medial joint line 1+ effusion 0-120 ROM Imaging studies: XR Left knee 2021 show medial narrowing, bone on bone, osteophytes all three compartments. Questionnaire Responses: 04/27/2023 General Health, Prior Treatments, PreExisting Condition, Health Habits, About You PROMIS-10 General Health Very Good PROMIS-10 Quality of Life Very Good PROMIS-10 Physical Health Very Good PROMIS-10 Mental Health Very Good PROMIS-10 Social Activity Very Good PROMIS-10 Everyday Activities Mostly PROMIS-10 Pain 6 PROMIS-10 Fatigue Mild PROMIS-10 Social Roles Good PROMIS-10 Anxious or Depressed Sometimes PROMIS PHYSICAL SCORE (range 16-68) 47.7 PROMIS MENTAL SCORE (range 21-68) 50.8 Treatments Tried Regular exercise Orthotics Over the counter anti-inflammatory drugs (e.g Advil, Aspirin, Aleve) Injection of steroids or cortisone KOOS JR Scores 59.38 TKA Grade 3 04/27/2023 Orthopeadics [facility] Response KOOS JR Scores 59.38 04/27/2023 Spine [facility] Response KOOS JR Scores 59.38 Medical decision making/Assessment: Alyson Valverde is a 62 y.o. female with L knee pain c/w severe degenerative changes but she is able to function overall quite well. She is able to ski and hike which she likes to do. She will be going skiing in [place] in June. We discussed that she is likely going to end up getting a knee replacement at some point but that that is a elective procedure. She will call if she would like to repeat the injection in the left knee or in the right knee. PROCEDURE: I had a thorough discussion with [...] Jaguar Morrison MD MS Orthopaedic Surgery Pager: [phone] documented in this encounter Plan of Treatment Upcoming Encounters Date Type Department Care Team (Late st Contact Info) Description 09/03/2024 9:00 AM EDT [place] [address] Zac Rousseau MD [facility] [place] [address] documented as of this encounter Visit Diagnoses Diagnosis Primary osteoarthritis of left knee Primary localized osteoarthrosis, lower leg documented in this encounter Administered Medications Inactive Administered Medications - up to 3 most recent administrations Medication Order MAR Action Action Date Dose Rate Site lidocaine (pf) (Xylocaine) (10 mg/mL) 1% injection 20 mg 20 mg, Intra-articular, ONCE, 1 dose, On Mon05/02/23 at 1530, Routine Given 05/02/2023 3:05 PM EST 20 mg triamcinolone acetonide (Kenalog-40) (40 mg/mL) injection 40 mg 40 mg, Intra-articular, ONCE, 1 dose, On Mon05/02/23 at 1530, Routine Given 05/02/2023 3:05 PM EST 40 mg documented in this encounter Care Teams Medical Case Worker Relationship Specialty Start Date End Date Bhakti Nieves MD [address] [place] [address] PCP - General Family Medicine 04/08/22 documented as of this encounter
--- OUTSIDE RECORDS SUMMARY | 2024-04-26 02:00 | XMS_ITS | Encounter Summary ---
Author Organization [facility] Address [facility] [place] [address] Care Team Providers Care Spindle Repairer Name Role Phone Bhakti Nieves MD Primary Care Provider [phone] Encounter Details Date Type Department Care Team (Late st Contact Info) Description 12/11/2023 11:15 AM EDT Ancillary Procedure Radiology Library at [facility] [place] [address] Rosie Alvarez MD [facility] [place] [address] Social History Tobacco Use Types Packs/Day Years Used Date Smoking Tobacco: Never Smokeless Tobacco: Never Alcohol Use Standard Drinks/Week Comments Never 0 (1 standard drink = 0.6 oz pur e alcohol) [facility] Utilities Answer Date Recorded In the past 12 months has [employer], gas, oil, or water [employer] threatened to shut off services in your [...] medical appointments or from getting medications? No 08/1 06/2023 In the past 12 months, has l [...] any time in the past 12 m [facility], were you homeless or living [...] 9:00 AM EDT [place] [address] Zac Rousseau MD [facility] [place] [address] documented as of this encounter Procedures Procedure Name Priority Date/Time Associated Diagnosis Comments FILM LIBRARY STORAGE ONLY CT HEAD Routine 12/11/2023 11:13 AM EDT documented in this encounter Results * Film Library- Storage Only CT Head (12/11/2023 11:13 AM EDT) Narrative [facility] - 12/11/2023 11:13 AM EDT This exam is auto-finalizing. It's purpose is for storage only. Rosie Alvarez MD G FILM LIBRARY ORD ERABLES [place], [place] documented in this encounter Visit Diagnoses Not on filedocumented in this encounter Care Teams Spindle Repairer Relationship Specialty Start Date End Date Bhakti Nieves MD [address] [place] [address] PCP - General Family Medicine 04/08/22 documented as of this encounter
--- OUTSIDE RECORDS SUMMARY | 2024-04-26 02:00 | XMS_ITS | Encounter Summary ---
Author Organization [facility] [place] [address] Care Team Providers Care Maxillofacial Prosthodontist Name Role Phone Bhakti Nieves MD Primary Care Provider [phone] Encounter Details Date Type Department Care Team (Latest Contact Info) Description 05/05/2022 Travel Social History Tobacco Use Types Packs/Day [...] 9:00 AM EDT Office [place] [address] Zac Rousseau MD [facility] [place] [address] documented as of this encounter Visit Diagnoses Not on filedocumented in this encounter Care Teams Maxillofacial Prosthodontist Relationship Specialty Start Date End Date Bhakti Nieves MD [address] [place] [address] PCP - General Family Medicine 04/08/22 documented as of this encounter
[2024-04-28 14:08] LABS: Levetiracetam 15.5 mcg/mL
== END 2024-04-26 01:51 | disposition home or self-care (01) ==
PROVIDERS: PCP Family Medicine; Visit Provider Student in an Organized Health Care Education/Training Program
DX: G40.109 Localization-related (focal) (partial) symptomatic epilepsy and epileptic syndromes with simple partial seizures, not intractable, without status epilepticus (principal)
CPT/HCPCS: 36415; 80177

== ENCOUNTER 2024-04-29 08:28 | Outpatient (CLI) | payer BC, SELFPAY ==
--- NOTE | 2024-04-29 08:30 | RT.EKG_ITS ---
APPROVED REPORT Exam: Resting ECG Patient Location: O HR:68 bpm ECG Measurements Heart Rate 68 AXIS VT 180 P 72 QRSd 77 QRS 58 QT 384 T 54 QTc 409 Conclusion Sinus rhythm...normal P axis, V-rate 50- 99 Normal Electrocardiogram
== END 2024-04-29 08:29 | disposition home or self-care (01) ==
PROVIDERS: PCP Family Medicine; Visit Provider Student in an Organized Health Care Education/Training Program
DX: R56.1 Post traumatic seizures (principal)
CPT/HCPCS: 93005; 93010

== ENCOUNTER 2024-04-29 13:54 | Outpatient (CLI) | payer BC, SELFPAY ==
[2024-05-02 09:41] LABS: Lacosamide 5.1 mcg/mL (1.0 - 10.0)
== END 2024-04-29 13:55 | disposition home or self-care (01) ==
LOC: LBO 13:55
PROVIDERS: PCP Family Medicine; Visit Provider Student in an Organized Health Care Education/Training Program
DX: G40.109 Localization-related (focal) (partial) symptomatic epilepsy and epileptic syndromes with simple partial seizures, not intractable, without status epilepticus (principal); Z51.81 Encounter for therapeutic drug level monitoring
CPT/HCPCS: 36415; 80235

== ENCOUNTER 2024-05-28 11:18 | Outpatient (REF) | payer BC, SELFPAY ==
[2024-05-28 15:30] LABS: HCT 37.2 % (36.0-46.0); HGB 12.2 g/dL (11.2-15.7); MCH 30.7 pg (27.0-33.0); MCHC 32.8 % (32.0-36.0); MCV 94 fL (80-95); MPV 10.9 fL (8.0-11.0); Platelet Count 252 10^3/uL (130-400); RBC 3.97 10^6/uL (3.93-5.22); RDW 12.3 % (11.7-14.6); WBC 3.98 10^3/uL (4.4-10.8)
[2024-05-28 16:06] LABS: ALT 53 U/L (14-59); AST 34 U/L (15-37); Albumin 3.8 g/dL (3.4-5.0); Alkaline Phosphatase 101 U/L (46-116); Bilirubin, Direct 0.1 mg/dL (0.0-0.2); Bilirubin, Total 0.64 mg/dL (0.2-1.0); GGT 72 U/L (5-55); Total Protein 6.6 g/dL (6.4-8.2)
== END 2024-05-28 11:19 | disposition home or self-care (01) ==
LOC: NCHCN 11:18
PROVIDERS: PCP Family Medicine; Visit Provider Family Medicine
DX: D64.9 Anemia, unspecified (principal); R74.8 Abnormal levels of other serum enzymes
CPT/HCPCS: 80076; 85027; 82977

== ENCOUNTER 2024-06-21 06:59 | Day surgery (SDC) | payer BC, SELFPAY ==
--- NOTE | 2024-06-20 19:28 | PDOC.DSDIS_ITS ---
Date of service: 06/21/24 Discharge Plan Disposition Patient Disposition: Home Condition: Good Discharge Details Reason For Visit: screening colonoscopy Attending Provider: Zac Kang Primary Care Provider: Bhakti Nieves Home Meds and New Rx's Prescriptions: Continued loratadine [Claritin] 10 mg tablet 10 mg PO DAILY ketoconazole 2 % cream 1 applic topical DAILY Qty: 120 6RF Rx Instructions: Apply to toenails once daily lacosamide 100 mg tablet 100 mg PO BID sumatriptan [Imitrex] 5 mg/actuation spray,non-aerosol 5 mg INTRANASAL ONCE PRN Discontinued bisacodyl [Dulcolax (bisacodyl)] 5 mg tablet,delayed release (DR/EC) 5 mg PO ONCE Qty: 4 0RF Rx Instructions: Take per colonoscopy instructions provided by ordering providers office polyethylene glycol 3350 17 gram/dose powder 17 g PO ONCE Qty: 238 0RF Rx Instructions: Take per colonoscopy instructions provided by ordering providers office Discharge Instructions Additional Instructions: Alyson, it was a pleasure meeting you today, and I hope you are comfortable through the procedure and that you make a quick recovery. Everything went very smoothly. Your prep was outstanding. Everything was normal today. This is slightly problematic in providing a recommendation for your future colonoscopies. There is not great consensus on how to manage patients who have had polyps in the past, and then negative colonoscopies thereafter. The most comprehensive and aggressive strategy is to continue on a 5-year course for your screening colonoscopies. In all truthfulness, my suspicion is that that will become the future recommendation from all of the major professional organ izations. At this point, others suggest that with multiple consecutive negative colonoscopies, a 10-year interval may also be appropriate. My general advice to patients is the following: If you tolerate colonoscopy okay with regards to the anticipation of the procedure, the prep, and the recovery, and assuming your health care will cover every 5 years, I would continue on that plan. Alternatively, if these are particularly stressful, or if you are stuck paying [id number], then somewhere in the 5 to 10-year range would be a reasonable alternative as well. If you need anything, or have any questions at all, please do not hesitate to ask. 1. If tolerated, consume a soft, low fiber diet for 1-2 days. 2[address] Do not drive, drink alcohol, operate machinery, make critical decisions, or do activities that require coordination or balance for 24 hours. 3. Because air was put into your colon during the procedure, expelling air from your rectum (passing gas or farting) is normal. 4. You may not have a bowel movement for 1-3 days because of the colonoscopy prep. This is normal. 5. Go directly to the emergency room if you notice any of the following: Develop chills (warm to touch), or if you have a thermometer and your temperature is above 101 Difficulty breathing or difficultly swallowing Persistent vomiting Severe abdominal pain, other than gas cramps Severe chest pain Black, tarry stools Any bleeding ? exceeding one tablespoon 6. Call your physician if the site where your intravenous was started becomes red, swollen, painful, and warm to touch. 7. Your physician has reviewed your pre-procedure medications. Please continue to take those medications as previously ordered. You will be given specific information/education regarding any changes to your medications before leaving. Activity:: Activity as Tolerated Diet:: As Tolerated Discharge Orders Discharge Orders: Discharge Order (Routine); Ordered 06/20/24 Ordered By: Zac Kang DS: Diagnosis Discharge Diagnosis (1) Encounter for screening colonoscopy: Status: Acute Asessment and Plan: Negative screening colonoscopy
--- NOTE | 2024-06-20 19:29 | W.COLOREPORT ---
Date of service: 06/21/24 Time of Service: 08:44 Colonoscopy Report Date of procedure: 06/21/24 Pre-op diagnosis general: screening colonoscopy Post-op diagnosis procedure note: other (Negative screening colonoscopy) Procedure: colonoscopy Surgeon: Zac Kang Anesthesia Type: General:No Airway Estimated blood loss (mL): 0 Pathology: none sent Complications: None Disposition: same day Indications: Alyson is a 63 year old woman with a history of adenomatous polyps who needs her next screening colonoscopy Prep: Miralax/Dulcolax Procedure Start Time: 08:18 Procedure End Time: 08:34 Retraction Time: 8 Findings: Negative screening colonoscopy Procedure Description: After the induction of anesthesia, and with the patient in left lateral decubitus position, I began by performing an external anorectal exam.? Perineum and skin were normal, as was the anal verge.? There was no evidence of external hemorrhoids.? Next, I performed a digital rectal exam.? I did not appreciate any abnormal findings.? Next, I advanced a colonoscope into the rectal vault.? I performed retroflexion.? This appeared normal.? Using insufflation, I then advanced the colonoscope beyond the rectal folds and into the sigmoid colon before advancing towards the cecum.? The quality of the prep was outstanding.? The terminal ileum and cecum were identified. The cecum was fully cannulated. I then began withdrawing the colonoscope using repeated irrigation as necessary for full evaluation of the colonic mucosa. ?Once the scope was withdrawn to the level of the rectum, great care was taken to examine portions of the rectal folds.? Finally, the scope was withdrawn and the patient was brought to the same-day surgery recovery unit as the anesthetic wore off. ?The findings and instructions were shared with the patient prior to discharge. Gaylord Bowel Prep Gaylord Bowel Prep Right Colon: 3 Left Colon: 3 Transverse Colon: 3 Total Score: 9
--- NOTE | 2024-06-20 20:34 | ANES.PREOP_ITS ---
General Info Date of Service Date Performed: 06/21/24 Height: 5 ft 7 in Weight: 63.503 kg Body Mass Index (BMI): 21.9 Surgical Procedure: Operation Date: 06/21/24 08:05 Proposed Procedure Side Surgeon p Saeed Kang MD Meds Allergies and Home Medications Allergies Allergy/AdvReac Type Severity Reaction Status Date / Time povidone-iodine (From Allergy Mild itchy and Verified 06/21/24 07:27 Betadine) red soap (From Betadine) Allergy Mild itchy and Verified 06/21/24 07:27 red Home Medication ?Medication ?Instructions ?Recorded loratadine 10 mg tablet (Claritin) 10 mg PO DAILY 04/15/24 ketoconazole 2 % topical cream 1 applic topical DAILY #120 grams 04/16/24 sumatriptan 5 mg/actuation nasal 5 mg intranasal ONCE PRN 04/16/24 spray (Imitrex) lacosamide 100 mg tablet 100 mg PO BID 06/06/24 Current Visit Medications: Current Medications Generic Name Dose Route Start Last Admin Trade Name Freq PRN Reason Stop Dose Admin Ringer's Solution 1,000 mls @ 80 mls/hr 06/21/24 06:00 IV 06/21/24 23:59 INFUSION FOR[facility] IV Miscellaneous Supplies 1 each 06/21/24 06:00 Iv Access IV 06/21/24 23:59 DIRECTED THELMA Ondansetron HCl 4 mg 06/20/24 19:30 Ondansetron 4 Mg/2 Ml Vial IVP 07/20/24 19:29 Q4H PRN PRN Nausea / Vomiting Sodium Chloride 0 ml 06/21/24 06:00 Normal Saline Flush 10 Ml Syr IV 06/21/24 23:59 PRN PRN Sodium Chloride 0 ml 06/21/24 06:00 Normal Saline 10 Ml Vial IJ 06/21/24 23:59 DIRECTED PRN Sterile Water 0 ml 06/21/24 06:00 Water,Injection,Sterile 10 Ml Vial IJ 06/21/24 23:59 DIRECTED PRN PFSH Active Problems Active Problems: Problem Status Onset Code Encounter for screening colonoscopy Acute Z12.11 Nail dystrophy Acute L60.3 Onychomycosis Acute B35.1 Hammertoe of left foot Acute M20.42 Hammertoe of right foot Acute M20.41 History of colon polyps Acute Z86.010 Medical History Medical History Amaurosis fugax Aortic insufficiency Per pt. states it was only slight calcification. ECHO was done in late early in [place] (facility unclear) Migraine Adenomatous polyps 03/13/13 w/ Dr. Galen Hickey @ [facility], Tubular adenoma 01/11/19 Dr Ciara Kohler, normal, repeat 5 years due to hx of tubular adenoma Surgical History Surgical History S/P craniotomy 11/2023 H/O brain surgery Per pt. states had a TBI brain bleed and cyst (arachnoid cyst) all from a fall from horse due to a seizure 12/05/23 [place] teeth extracted History of removal of ovarian cyst History of tubal ligation History of colonoscopy Tobacco Smoking/Tobacco Use Status: Never Alcohol Alcohol Intake: current Alcohol intake frequency: holidays/special occasions only Alcohol type: wine Substance Use Substance use: Never Substance use type: does not use Vital Signs and Lab Results Vital Signs Most Recent Vital Signs in EMR: Temp Pulse Resp BP Pulse Ox 36.5 C 61 16 116/86 100 06/21/24 07:29 06/21/24 07:29 06/21/24 07:29 06/21/24 07:29 06/21/24 07:29 Lab Results Blood Type / Crossmatch: No Data to Display Complete Blood Count: White Blood Count 3.98 10^3/uL (4.4-10.8) L 05/28/24 10:05 Red Blood Count 3.97 10^6/uL (3.93-5.22) 05/28/24 10:05 Hemoglobin 12.2 g/dL (11.2-15.7) 05/28/24 10:05 Hematocrit 37.2 % (36.0-46.0) 05/28/24 10:05 Platelet Count 252 10^3/uL (130-400) 05/28/24 10:05 Complete Metabolic Panel: Albumin 3.8 g/dL (3.4-5.0) 05/28/24 10:05 Liver Function Panel: Alanine Aminotransferase (ALT/SGPT) 53 U/L (14-59) 05/28/24 10: 05 Aspartate Amino Transf (AST/SGOT) 34 U/L (15-37) 05/28/24 10:05 Gamma Glutamyl Transpeptidase 72 U/L (5-55) H 05/28/24 10:05 Coagulation Panel: No Data to Display Cardiac Panel: No Data to Display Arterial Blood Gas: No Data to Display Venous Blood Gas: No Data to Display Pancreas Panel: No Data to Display Thyroid Panel: No Data to Display Infectious Disease: No Data to Display Blood Cultures: No Data to Display Toxicology Panel: No Data to Display Anesthesia Assessment and Plan Anesthesia History Personal History: Other Family History: No Family History of Anesthesia Complications Exercise Tolerance Exercise Tolerance: Metabolic Equivalents>4 Cardiac & Pulmonary Exam Cardiac Exam: Normal S1/S2 Heart Sounds Pulmonary Exam: Clear Bilateral Breath Sounds Implantable Cardiac Device Does patient have a Pacemaker or an ICD?: No Airway Exam Known Difficult Airway: No Mallampati Class: 3 Mouth Opening: Normal (> 3cm) Thyromental Distance: Greater than 3 cm Neck Range of Motion: Limited ROM Neck Circumference: Normal Teeth Condition: Normal Dentition ASA Classification ASA Score: ASA 2 Emergency Case?: No NPO Status NPO Status: NPO Clears >2 hours, Solids >8 hours Anesthesia Plan Resuscitation Status: Full Code Anesthesia Technique: General Anesthesia Airway Planned: Natural Airway Monitors Used: Standard Monitors Preoperative Comments:: 63 yo female for colo. Sig PMHx: AR, migraine, TBI/crani ( no sz since surgery), never smoker, occ EtOH. Diet related GERD. ECG: sinus. Previous Anes: - colo, prop, natural airway, no issues.
[2024-06-21 07:29] VITALS: BP 116/86; PULSE 61; RESP 16; TEMP 36.5; O2SAT 100
[2024-06-21] MEDS: Lactated Ringers 1,000 ML 80 ML IV (07:39)
[2024-06-21 07:54] VITALS: BMI 21.9
[2024-06-21 08:39] VITALS: BP 118/82; PULSE 64; RESP 18; TEMP 36.1; O2SAT 100
--- NOTE | 2024-06-21 08:43 | W.ANESPOSTOP ---
Postoperative Evaluation Date, Time and Location Date Performed: 06/21/24 Time Performed: 08:43 Patient Location: Day Surgery Unit Vital Signs Most Recent Imported Vital Signs: Most Recent Vital Signs Temp Pulse Resp BP Pulse Ox 36.1 C L 64 18 118/82 100 06/21/24 08:39 06/21/24 08:39 06/21/24 08:39 06/21/24 08:39 06/21/24 08:39 Assessment Mental Status: Awake (Alert & Oriented to Patient Baseline) Airway and Respiratory Function: Patent airway with normal (patient baseline) respiratory exam Cardiovascular Function: Hemodynamically Stable Hydration Status: Adequately Hydrated Nausea & Vomiting: No Nausea or Vomiting Pain: Pt. Denies Any Pain Peripheral Nerve Block: Patient did not receive a nerve block
[2024-06-21 08:58] VITALS: BP 135/85; PULSE 63; RESP 20; TEMP 36.2; O2SAT 100
== END 2024-06-21 09:24 | disposition home or self-care (01) ==
LOC: SUR 06:59
PROVIDERS: PCP Family Medicine; Visit Provider Surgery
PROC: 0DJD8ZZ Inspection of Lower Intestinal Tract, Via Natural or Artificial Opening Endoscopic (ICD-10-PCS; CPT 45378; principal; 2024-06-21 08:00)
DX: Z12.11 Encounter for screening for malignant neoplasm of colon (principal)
CPT/HCPCS: 45378; J2003; J2704

== ENCOUNTER 2025-01-15 14:41 | Observation (INO) | payer BC, SELFPAY ==
[2025-01-15] VITALS (36 sets, daily range): BP systolic 115–141; BP diastolic 69–82; PULSE 58–100; RESP 12–26; TEMP 37.6; O2SAT 89–100
--- NOTE | 2025-01-15 14:45 | RT.EKG_ITS ---
APPROVED REPORT Exam: Resting ECG Reason for Exam: Altered Mental Status Patient Location: E HR:94 bpm ECG Measurements Heart Rate 94 AXIS GA 183 P 70 QRSd 80 QRS 54 QT 362 T 41 QTc 454 Conclusion Sinus rhythm...normal P axis, V-rate 60- 99 Atrial premature complex...SV complex w/ short R-R interval
--- NOTE | 2025-01-15 15:00 | DI.CT_ITS ---
Exam(s) CT HEAD WO EXAM: CT HEAD WO CLINICAL HISTORY: seizures. TECHNIQUE: Imaging Protocol: Axial computed tomography images with coronal and sagittal reformatted images were created and reviewed COMPARISON: CT CT HEAD WO from 12/05/[address] HEAD WO from 12/11/2023 FINDINGS: The examination is limited due to patient motion artifact. Ventricles and Extra axial spaces: Normal in size and morphology for the patient's age. Hemorrhage: None. Cerebral parenchyma: The large cystic cavity in the right frontal lobe is unchanged. There is a normal kirk-white matter differentiation. There is no evidence of an acute infarct or acute mass effect. Midline shift: None. Brainstem/Cerebellum: Normal. Calvarium: Normal. There is a rosa elena hole again seen in the right frontal bone. Visualized Paranasal sinuses/Mastoids: Clear. Soft Tissues: Unremarkable. IMPRESSION: No acute intracranial process. RADIATION DOSE DELIVERED: 845.64mGy.cm Total DLP DATA REPOSITORY: All CT scans at this facility are submitted to the National Radiology Data Registry (NRDR) Dose Index Registry (DIR) with the [employer] (ACR). RADIATION OPTIMIZATION: All CT scans at this facility use at least one of these dose optimization techniques: automated exposure control; mA and/or kV adjustment per patient size (includes targeted exams where dose is matched to clinical indication); or iterative reconstruction.
--- NOTE | 2025-01-15 15:02 | ED.GENADUL_ITS ---
Discharge Plan Disposition Patient Disposition: Admit to [facility] Condition: Stable Discharge Details Clinical Impression: Seizures Primary Care Provider: Bhakti Nieves ED Provider: Parish Real Home Meds and New Rx's Prescriptions: No Action loratadine [Claritin] 10 mg tablet 10 mg PO DAILY ketoconazole 2 % cream 1 applic topical DAILY Qty: 120 6RF Rx Instructions: Apply to toenails once daily lacosamide 100 mg tablet 100 mg PO BID sumatriptan [Imitrex] 5 mg/actuation spray,non-aerosol 5 mg INTRANASAL ONCE PRN HPI General Mode of arrival: EMS . Date/Time Provider Initiated Documentation: 01/15/25 14:56 . Limitations to Documentation: no limitations . Information obtained by: patient . History of Present Illness 64 year old F presents to the emergency department with the chief complaint of seizures, described as moderate, Patient started experiencing this day(s) and it has been now resolved. No relieving factors improve symptom(s), No exacerbating factors reported . Related Data Home Medications ?Medication ?Instructions ?Recorded ?Confirmed loratadine 10 mg tablet (Claritin) 10 mg PO DAILY 03/3108/26/24 ketoconazole 2 % topical cream 1 applic topical DAILY #120 grams 04/16/24 08/26/24 sumatriptan 5 mg/actuation nasal 5 mg intranasal ONCE PRN 04/16/24 08/26/24 spray (Imitrex) lacosamide 100 mg tablet 100 mg PO BID 06/06/2408/26 Previous Rx's ?Medication ?Instructions ?Recorded ketoconazole 2 % topical cream 1 applic topical DAILY #120 grams 04/16/24 Allergies Allergy/AdvReac Type Severity Reaction Status Date / Time povidone-iodine (From Allergy Mild itchy and Verified 01/15/25 18:29 Betadine) red soap (From Betadine) Allergy Mild itchy and Verified 01/15/25 18:29 red General IKER: 2 Review of Systems Unobtainable due to mental status Exam Const General: lethargic [facility] Head: normal to inspection Ears: external ears normal General nose exam: external nose normal Mouth: moist mucous membranes Eyes General: appearance normal, both eyes and all related structures Alignment and Position: alignment normal Periorbital: periorbital findings normal Eyelids: eyelids normal Conjunctivae: conjunctivae normal Pupils: PERRL Neck Neck: normal visual inspection Resp Effort & Inspection: normal respiratory effort Cardio Rate: regular rate GI Palpation: soft Skin General skin exam: no rashes or lesions noted Neuro General: other (responds to painful stimuli, will localize with extremities) Extrem General: normal to inspection Medical Decision Making 64-year-old female comes in with EMS after reported seizure and has a history of seizures and a craniotomy for an arachnoid cyst prior seizures. EMS reports she had several tonic-clonic seizures and they gave 5 mg of midazolam which stopped tonic-clonic movements. She arrives lethargic, she will groan and localize painful stimuli. She has no signs of trauma to the head. Pupils are equal and reactive to light. She withdraws all extremities to painful stimuli. I suspect seizure but given her history I will obtain CT head to evaluate for new findings such as hemorrhage which she has had in the past and also check CBC CMP lactate and reassess. Will also give loading dose of Keppra while studies are pending. I suspect she is currently postictal and also has Versed on board which is causing her to be lethargic. Patient's labs showed a lactate of 1.9 and mild ISABELLA, suspect this is from the seizure and will repeat after fluids given. Patient and oriented x 4 and awake states she feels tired. states that she had 2 seizures at home and 1 with EMS so suspect he is postictal and also side effect from the Valium. Will obtain a teleneurology consult. pt evaluated by teleneurology who recommends increasing locasamide to 150mg bid and observing overnight since she had 3 seizures and obtaining MRI tomorrow, will discuss with hospitalist about admission Differential Diagnosis Differential Diagnosis: seizure, hemorrhage, electrolyte abnormality Medical Records Medical records reviewed: Yes I reviewed the patient's medical records. Lab Data Lab results reviewed: Yes I reviewed the patient's lab results. ECG Data Attestation: I personally reviewed and interpreted this ECG (s) as follows: Prior ECG tracings: available for review Interpretation: sinus rate of 94 no stemi PFSH All Active Problems (Updated 01/15/25 @ 17:41 by Parish Real MD) Seizures (Acute) Nail dystrophy (Acute) Onychomycosis (Acute) Hammertoe of left foot (Acute) Hammertoe of right foot (Acute) History of colon polyps (Acute) Medical History Amaurosis fugax Aortic insufficiency Per pt. states it was only slight calcification. ECHO was done in late s early in [place] (facility unclear) Migraine Adenomatous polyps 03/13/13 w/ Dr. Galen Hickey @ [facility], Tubular adenoma 01/11/19 Dr Ciara Kohler, normal, repeat 5 years due to hx of tubular adenoma Surgical History S/P craniotomy 11/2023 H/O brain surgery Per pt. states had a TBI brain bleed and cyst (arachnoid cyst) all from a fall from horse due to a seizure 12/05/23 [place] teeth extracted History of removal of ovarian cyst History of tubal ligation History of colonoscopy (~06/2024) Social History Smoking/Tobacco Use Status: Never Smoking risk assessment performed?: Yes Alcohol Intake: current Alcohol Intake frequency: holidays/special occasions only Alcohol type: wine Drug use: Never Substance use type: does not use Housing: house Do you feel safe at home: Yes Do you feel safe in your relationship?: Yes
[2025-01-15 15:12] LABS: Abs Immature Grans 0.03 10^3/uL (0.0-0.06); HCT 36.2 % (36.0-46.0); HGB 11.7 g/dL (11.2-15.7); Immature Grans % 0.4 %; MCH 30.7 pg (27.0-33.0); MCHC 32.3 % (32.0-36.0); MCV 95 fL (80-95); MPV 11.0 fL (8.0-11.0); Platelet Count 246 10^3/uL (130-400); RBC 3.81 10^6/uL (3.93-5.22); RDW 11.9 % (11.7-14.6); RDW-SD 41.6 fL; WBC 8.53 10^3/uL (4.4-10.8)
[2025-01-15 15:15] LABS: BE (Venous) -8 mmol/L (-2-3); HCO3 (Venous) 19 mmol/L (23-28); O2 Sat (Venous) 94 %; TCO2 (Venous) 18 mmol/L (24-29); pCO2 (Venous) 43 mmHg (41-51); pO2 (Venous) 77 mmHg
[2025-01-15] MEDS: levETIRAcetam 2,000 MG in Normal Saline 100 ML 400 MG IVPB (15:20)
[2025-01-15] MEDS: Normal Saline 1,000 ML 1000 ML IV ×2 (15:22→19:00)
[2025-01-15 15:30] LABS: ALT 57 U/L (14-59); AST 40 U/L (15-37); Albumin 3.8 g/dL (3.4-5.0); Alkaline Phosphatase 99 U/L (46-116); Anion Gap 19.8 mmol/L (3-11); BUN 15 mg/dL (7-18); Bilirubin, Total 0.7 mg/dL (0.2-1.0); CO2 18.2 mmol/L (21.0-32.0); Calcium 8.7 mg/dL (8.5-10.1); Chloride 99 mmol/L (98-107); Estimated GFR 42.54 (mL/min/1.73m2); Glucose 141 mg/dL (74-106); Magnesium 1.7 mg/dL (1.8-2.4); Potassium 3.3 mmol/L (3.5-5.1); Sodium 137 mmol/L (136-145); Total Protein 6.9 g/dL (6.4-8.2)
--- NOTE | 2025-01-15 18:42 | HPE_ITS ---
Date of service: 01/15/25 Time of Service: 18:42 Assessment and Plan Assessment and plan (1) Seizures: Status: Acute Assessment and plan: Will increase her lacosamide to 150 mg p.o. twice daily monitor overnight. Most likely for DC in the a.m. History of Present Illness History of Present Illness Chief Complaint: seizure Narrative: This is a 62-year-old female with a known history of seizure disorders as well as a history of arachnoid cyst that has been surgically removed. Patient did get her COVID as well as flu vaccination yesterday. Today she had 3 episodes of seizures and was brought into the ED for further evaluation and treatment. Her last seizure in the field was treated with midazolam with good effect. While she was in the ED workup was initiated which showed mild hypokalemia as well as hypomagnesemia. Her CT of her head was negative for any mass occupying lesions or bleeding. A consult to teleneurology was placed and the recommendation was made to increase her Locasamide from 100 mg p.o. twice daily to 250 mg p.o. twice daily. There is also recommendation to monitor overnight. Upon my discussion with the patient and her they both state that she is essentially back to her baseline mentation. Patient denies any type of events that would decrease her seizure threshold such as a UTI or pneumonia symptoms. Patient denies any significant dehydration. She is otherwise without complaint. Let me add that the patient states she is no longer taking Keppra. Review of Systems All systems reviewed & are unremarkable except as noted in HPI and below PFSH All Active Problems (Updated 01/15/25 @ 17:41 by Parish Real MD) Seizures (Acute) Nail dystrophy (Acute) Onychomycosis (Acute) Hammertoe of left foot (Acute) Hammertoe of right foot (Acute) History of colon polyps (Acute) Medical History Amaurosis fugax Aortic insufficiency Per pt. states it was only slight calcification. ECHO was done in late s early in [place] (facility unclear) Migraine Adenomatous polyps 03/13/13 w/ Dr. Galen Hickey @ [facility], Tubular adenoma 01/11/19 Dr Ciara Kohler, normal, repeat 5 years due to hx of tubular adenoma Surgical History S/P craniotomy 11/2023 H/O brain surgery Per pt. states had a TBI brain bleed and cyst (arachnoid cyst) all from a fall from horse due to a seizure 12/05/23 [place] teeth extracted History of removal of ovarian cyst History of tubal ligation History of colonoscopy (~06/2024) Social History Smoking/Tobacco Use Status: Never Smoking risk assessment performed?: Yes Alcohol Intake: current Alcohol Intake frequency: holidays/special occasions only Alcohol type: wine Drug use: Never Substance use type: does not use Housing: house Do you feel safe at home: Yes Do you feel safe in your relationship?: Yes Meds Allergies and Home Medications Allergies Allergy/AdvReac Type Severity Reaction Status Date / Time povidone-iodine (From Allergy Mild itchy and Verified 01/15/25 18:29 Betadine) red soap (From Betadine) Allergy Mild itchy and Verified 01/15/25 18:29 red Home Medications ?Medication ?Instructions ?Recorded ?Confirmed ?Type loratadine 10 mg tablet (Claritin) 10 mg PO DAILY 03/3108/26/24 History ketoconazole 2 % topical cream 1 applic topical DAILY #120 grams 04/16/24 08/26/24 Rx sumatriptan 5 mg/actuation nasal 5 mg intranasal ONCE PRN 04/16/24 08/26/24 History spray (Imitrex) lacosamide 100 mg tablet 100 mg PO BID 06/06/2408/26 History Exam Narrative Exam Narrative: Ears nose and throat-normocephalic atraumatic mucous membranes moist oropharynx is clear Neck-no lymphadenopathy no JVD no thyromegaly Cardiovascular-regular rate and rhythm no murmur rubs gallops Lungs-clear to auscultation bilaterally with good air exchange Abdomen-soft nontender nondistended bowel sounds active Neurologic-cranial nerves II through XII intact as tested reflexes upper extremity normal as tested Results Labs 01/15/25 14:00 01/15/25 14:00 Labs: Laboratory Results - last 24 hr 01/15/25 01/15/25 01/15/25 14:00 15:08 18:27 WBC 8.53 RBC 3.81 L Hgb 11.7 Hct 36.2 MCV 95 MCH 30.7 MCHC 32.3 RDW 11.9 Plt Count 246 MPV 11.0 Immature Gran % 0.4 Neutrophils % 56.4 Lymphocytes % 24.6 Monocytes % 17.1 Eosinophils % 0.9 Basophils % 0.6 Nucleated RBC % 0.0 Absolute Neutrophils 4.81 Absolute Lymphocytes 2.10 Absolute Monocytes 1.46 H Absolute Eosinophils 0.08 Absolute Basophils 0.05 VBG pH 7.26 L VBG pCO2 43 VBG pO2 77 VBG HCO3 19 L VBG Total CO2 18 L VBG O2 Saturation 94 VBG Base Excess -8 L VBG Lactate 9.1 H* 1.0 Sodium 137 Potassium 3.3 L Chloride 99 Carbon Dioxide 18.2 L Anion Gap 19.8 H BUN 15 Creatinine 1.4 H Est GFR (CKD-EPI 2020) 42.54 Glucose 141 H Calcium 8.7 Magnesium 1.7 L Total Bilirubin 0.7 AST 40 H ALT 57 Alkaline Phosphatase 99 Total Protein 6.9 Albumin 3.8 Ethyl Alcohol < 3.0 Last Vital Signs Temp 37.6 C H 01/15/25 15:22 Pulse 83 01/15/25 18:20 Resp 12 01/15/25 18:20 BP 118/74 01/15/25 15:22 Pulse Ox 98 01/15/25 18:20 Time Spent Time spent with Patient: 40-54 minutes Time was spent: preparing to see the patient(eg.review tests), obtaining and/or reviewing separately otained hiistory, ordering medications,tests, procedures, referring, communicating with other health child care team lead, indepentently interpreting results, counseling the patient and care coordination
[2025-01-15 18:46] LABS: Anion Gap 6.1 mmol/L (3-11); BUN 13 mg/dL (7-18); CO2 26.9 mmol/L (21.0-32.0); Calcium 8.3 mg/dL (8.5-10.1); Chloride 103 mmol/L (98-107); Estimated GFR 72.28 (mL/min/1.73m2); Glucose 119 mg/dL (74-106); Potassium 3.4 mmol/L (3.5-5.1); Sodium 136 mmol/L (136-145)
[2025-01-15] MEDS: MAGNESIUM SULFATE 1 GM/100 ML BAG IV_INF (19:32)
[2025-01-15] MEDS: Lacosamide 100 MG TAB 150 MG PO (19:33)
--- NOTE | 2025-01-15 20:34 | W.PC.ACHO ---
Registration Status: REG ER Primary Language: Preferred Language: Bulgarian ED Information & Data Chief Complaint Seizure 01/15/25 17:59 Chief Complaint Seizure 01/15/25 15:22 Triage Note Family member found PT 01/15/25 15:22 seizing (description consistent with tonic-clonic ) called 911. EMS arrived to find the PT seizing ending for a period of time, began seizing again with EMS. PT did not return to complete consciousness between seizures. recent Hx of head injury Medical / Surgical History (Last Reviewed 08/26/24 @ 10:51 by Rizwana Valel DPM) Amaurosis fugax Aortic insufficiency Migraine Adenomatous polyps (Last Reviewed 08/26/24 @ 10:51 by Rizwana Valle DPM) S/P craniotomy H/O brain surgery [place] teeth extracted History of removal of ovarian cyst History of tubal ligation History of colonoscopy (~06/2024) Most Recent Vital Signs Temperature 37.6 C H 01/15/25 15:22 Pulse 89 01/15/25 19:40 Pulse 86 01/15/25 19:40 Respiratory Rate 14 01/15/25 19:40 Respiratory Effort Normal 01/15/25 17:59 Respiratory Depth Normal 01/15/25 17:59 Respiratory Pattern Normal 01/15/25 17:59 Blood Pressure 141/82 H 01/15/25 20:16 Blood Pressure Mean 101 01/15/25 19:48 Blood Pressure Position Sitting 01/15/25 15:22 Pulse Oximetry 99 01/15/25 19:40 Oxygen Delivery Method Room Air 01/15/25 15:22 Oxygen Flow Rate 0 01/15/25 15:22 Allergies povidone-iodine (From Betadine) Allergy (Mild, Verified 01/15/25 18:29) itchy and red soap (From Betadine) Allergy (Mild, Verified 01/15/25 18:29) itchy and red Active Medications Generic Name Dose Route Start Last Admin Trade Name Freq PRN Reason Stop Dose Admin Lacosamide 150 mg 01/15/25 18:00 01/15/25 19:33 Lacosamide 100 Mg Tab PO 150 mg BID THELMA Administration IV IV Catheter Type [Right Hand] Saline Lock IV Catheter Type [Left Hand] Saline Lock IV Catheter Type [Left Saline Lock Antecubital] Diet Orders Category Date Time Status Regular/Normal [DIET] Nutrition 01/16/25 Breakfast Ordered Diagnostics 01/15/25 01/15/25 01/15/25 Range/Units 18:27 15:08 14:52 WBC (4.4-10.8) 10^3/uL RBC (3.93-5.22) 10^6/uL Hgb (11.2-15.7) g/dL Hct (36.0-46.0) % MCV (80-95) fL MCH (27.0-33.0) pg MCHC (32.0-36.0) % RDW (11.7-14.6) % Plt Count (130-400) 10^3/uL MPV (8.0-11.0) fL Immature Gran % % Neutrophils % % Lymphocytes % % Monocytes % % Eosinophils % % Basophils % % Nucleated RBC % (0.0-0.3) % Absolute Neutrophils (1.2-6.7) 10^3/uL Absolute Lymphocytes (1.2-3.4) 10^3/uL Absolute Monocytes (0.1-0.8) 10^3/uL Absolute Eosinophils (0.0-0.7) 10^3/uL Absolute Basophils (0.0-0.2) 10^3/uL VBG pH 7.26 L (7.31-7.41) VBG pCO2 43 (41-51) mmHg VBG pO2 77 mmHg VBG HCO3 19 L (23-28) mmol/L VBG Total CO2 18 L (24-29) mmol/L VBG O2 Saturation 94 % VBG Base Excess -8 L (-2-3) mmol/L VBG Lactate 1.0 9.1 H* (<or=2.0) mmol/L Sodium 136 (136-145) mmol/L Potassium 3.4 L (3.5-5.1) mmol/L Chloride 103 (98-107) mmol/L Carbon Dioxide 26.9 (21.0-32.0) mmol/L Anion Gap 6.1 (3-11) mmol/L BUN 13 (7-18) mg/dL Creatinine 0.9 (0.55-1.02) mg/dL Est GFR (CKD-EPI 2020) 72.28 (mL/min/1.73m2) Glucose 119 H (74-106) mg/dL Calcium 8.3 L (8.5-10.1) mg/dL Magnesium (1.8-2.4) mg/dL Total Bilirubin (0.2-1.0) mg/dL AST (15-37) U/L ALT (14-59) U/L Alkaline Phosphatase (46-116) U/L Total Protein (6.4-8.2) g/dL Albumin (3.4-5.0) g/dL Urine Opiates Screen Pending Ur Barbiturates Screen Pending Ur Tricyclics Screen Pending Ur Amphetamines Screen Pending U Benzodiazepines Scrn Pending Urine Cocaine Screen Pending Ur THC Screen Pending Ethyl Alcohol (<10) mg/dL 01/15/25 Range/Units 14:00 WBC 8.53 (4.4-10.8) 10^3/uL RBC 3.81 L (3.93-5.22) 10^6/uL Hgb 11.7 (11.2-15.7) g/dL Hct 36.2 (36.0-46.0) % MCV 95 (80-95) fL MCH 30.7 (27.0-33.0) pg MCHC 32.3 (32.0-36.0) % RDW 11.9 (11.7-14.6) % Plt Count 246 (130-400) 10^3/uL MPV 11.0 (8.0-11.0) fL Immature Gran % 0.4 % Neutrophils % 56.4 % Lymphocytes % 24.6 % Monocytes % 17.1 % Eosinophils % 0.9 % Basophils % 0.6 % Nucleated RBC % 0.0 (0.0-0.3) % Absolute Neutrophils 4.81 (1.2-6.7) 10^3/uL Absolute Lymphocytes 2.10 (1.2-3.4) 10^3/uL Absolute Monocytes 1.46 H (0.1-0.8) 10^3/uL Absolute Eosinophils 0.08 (0.0-0.7) 10^3/uL Absolute Basophils 0.05 (0.0-0.2) 10^3/uL VBG pH (7.31-7.41) VBG pCO2 (41-51) mmHg VBG pO2 mmHg VBG HCO3 (23-28) mmol/L VBG Total CO2 (24-29) mmol/L VBG O2 Saturation % VBG Base Excess (-2-3) mmol/L VBG Lactate (<or=2.0) mmol/L Sodium 137 (136-145) mmol/L Potassium 3.3 L (3.5-5.1) mmol/L Chloride 99 (98-107) mmol/L Carbon Dioxide 18.2 L (21.0-32.0) mmol/L Anion Gap 19.8 H (3-11) mmol/L BUN 15 (7-18) mg/dL Creatinine 1.4 H (0.55-1.02) mg/dL Est GFR (CKD-EPI 2020) 42.54 (mL/min/1.73m2) Glucose 141 H (74-106) mg/dL Calcium 8.7 (8.5-10.1) mg/dL Magnesium 1.7 L (1.8-2.4) mg/dL Total Bilirubin 0.7 (0.2-1.0) mg/dL AST 40 H (15-37) U/L ALT 57 (14-59) U/L Alkaline Phosphatase 99 (46-116) U/L Total Protein 6.9 (6.4-8.2) g/dL Albumin 3.8 (3.4-5.0) g/dL Urine Opiates Screen Ur Barbiturates Screen Ur Tricyclics Screen Ur Amphetamines Screen U Benzodiazepines Scrn Urine Cocaine Screen Ur THC Screen Ethyl Alcohol < 3.0 (<10) mg/dL Intake and Output - 24 Hour Total 01/15/25 14:33 thru 01/15/25 17:49 Intake Total 1120 Balance 1120 Weight 71.1 kg Intake: IV 1120 Falls Risk Assessment History of Falls No History 01/15/25 17:59 Contributing Factors No Factors 01/15/25 17:59 Ambulatory Aids Independent 01/15/25 17:59 Tubes/Lines None 01/15/25 17:59 Gait Evaluation No gait disturbance 01/15/25 17:59 Cognition No cognitive impairment 01/15/25 17:59 Fall Total Score 0 01/15/25 17:59 Level of Risk Standard/Low Risk 01/15/25 17:59 Problems (Last Reviewed 08/26/24 @ 10:51 by Rizwana Valle DPM) Seizures (Acute) v v v v v v v v v Sending and/or Receiving Nurses: Please use comment section below to note any information pertinent to the patient hand-off not included above. Information / Comments: Pt arrvies to EMS post 3 tonic clonic seziures with no return of consciousness between episodes. Pt recevied Versed in field, became post ictal shortly after admin. ED administered 2L NS bolus, Loading dose of 2g Keppra, 1 G Mag, and 150 Lacosamide. Pt is A&Ox4, VSS. Will be reveiing a MRI tomorrow and staying for observation overnight. Report received from: ERENDIRA Ryan
[2025-01-15] MEDS: levETIRAcetam 250 MG TAB 500 MG PO (21:59)
[2025-01-15] MEDS: Acetaminophen 325 MG TAB 650 MG PO (22:00)
[2025-01-15] MEDS: Normal Saline Flush 10 ML SYR IVP (22:03)
[2025-01-15 22:33] LABS: Cannabinoids THC Negative (Negative); METHADONE URINE SCREEN Negative (Negative)
--- NOTE | 2025-01-16 06:00 | DI.MRI_ITS ---
Exam(s) MR BRAIN WO/W EXAM: MR BRAIN WO/W CLINICAL HISTORY: h/o arachnoid cyst, recurrent seizure TECHNIQUE: Multiplanar multisequence MRI of the brain was performed. Both noninfused and contrast infused sequences were performed. IV Contrast injected was 13 cc Dotarem. COMPARISON: MR MRI BRAIN WWO from 12/11/2023 ([facility]) CT CT HEAD WO from 01/15/2025 FINDINGS: CEREBRAL PARENCHYMA: Again noted is the previously described large cystic mass in the right frontal lobe region with an overlying rosa elena hole in the right frontal bone of the skull. There is no evidence of acute hemorrhage within this finding, as was evident on the MRI study of November 2023 and there is no ring enhancement nor internal wall nodularity. There are foci of susceptibility artifact in the brain within and around the posterior aspect of this cystic finding. There is mild mass effect on the frontal horn of the right lateral ventricle, as evident on recent CT scan 01/15/2025. However, there is no shift of midline structures, as was evident on the November 2023 MRI images. Measurement of this finding is presently 7.7 cm x by 4.7 cm at its widest x 4.0 cm craniocaudal. There is no significant focal signal abnormality in the cerebellar hemispheres nor within the gertrudis, midbrain, and thalami. There are few tiny FLAIR bright foci of signal abnormality in the high white matter both supra ventricular regions, similar to previous. There are no areas of restricted diffusion. DWI: No areas of restricted diffusion to suggest acute ischemic event. There are no ring enhancing lesions in the brain. There is no abnormal meningeal enhancement. PITUITARY GLAND: No mass nor parasellar abnormality. No obvious abnormality in the cavernous sinuses. FLOW VOIDS: The expected flow void are noted. No evidence of obvious aneurysm nor obvious vascular malformation. PARANASAL SINUSES: The visualized paranasal sinuses appear unremarkable. ORBITS: No obvious abnormal findings. IMPRESSION: 1. Large cystic mass in the right frontal lobe region again noted with measurements as above and with no evidence of acute internal hemorrhage nor internal mural nodular enhancement nor ring-enhancement. Mild mass effect upon the ipsilateral frontal horn of the right lateral ventricle. No prominent brain edema and no shift of midline structures, as was evident on the prior outside MRI scan of 12/11/2023. There is an overlying right frontal bone rosa elena hole evident. DATA REPOSITORY:
[2025-01-16] MEDS: Acetaminophen 325 MG TAB 650 MG PO (06:32)
[2025-01-16 07:34] LABS: Anion Gap 9.1 mmol/L (3-11); BUN 10 mg/dL (7-18); CO2 25.9 mmol/L (21.0-32.0); Calcium 8.4 mg/dL (8.5-10.1); Chloride 106 mmol/L (98-107); Estimated GFR 83.26 (mL/min/1.73m2); Glucose 106 mg/dL (74-106); Magnesium 1.9 mg/dL (1.8-2.4); Potassium 3.3 mmol/L (3.5-5.1); Sodium 141 mmol/L (136-145)
[2025-01-16 07:52] VITALS: BP 124/78; PULSE 70; RESP 16; TEMP 36.8; O2SAT 97
[2025-01-16] MEDS: Normal Saline Flush 10 ML SYR IVP ×2 (08:24→15:37)
[2025-01-16] MEDS: Lacosamide 100 MG TAB 150 MG PO (08:25)
[2025-01-16] MEDS: Loratidine 10 MG TAB PO (08:25)
--- NOTE | 2025-01-16 09:29 | PDOC.CMIN ---
Date of service: 01/16/25 Time of Service: 09:29 Care Management Initial Assmt Initial Assessment Reason for Hospitalization: seizures Functional Status/Living Situation Patient Presentation: Leslie was sitting up in a chair when CM met with her. She was pleasant in interaction and easily engaged with CM. Leslie was admitted with seizures. She had a craniotomy last year to remove an arachnoid cyst and has had seizures since. She had an MRI today and a Teleneuro consult was requested. Leslie lives [place] in [facility] [place] [facility] [facility] with her Zac; they own the [employer]. They have 2 daughters who live oput of on [place] [facility]. One daughter is in [facility] and the other is in [place]. 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 She is independent at baseline and does not receive any community services. Town of Residence: [place] Resides with: Spouse ( Zac Sanders) Significant Other/Family: Out of area (2 daughters out of state) Natural Supports: family Employment Status: Retired Instrumental Activities of Daily Living (ADLs): Independent Medications Medication Management: No Issues/Barriers identified Physical Functioning/Mobility Assistive Device: none Advance Directives Advance Directives: Do you have an Advance Directive: Y 06/11/24, 12:57 AD On File at [facility]: Y 06/11/24, 12:57 Date Asked 06/11/24 06/11/24, 12:57 AD Date Reviewed 01/15/25 01/15/25, 14:55 COLST On File at [facility] COLST Date Scanned Code Status Resuscitation Status Full Code Insurance Coverage/Financial Issues Insurance: /[place] of [place] Care Team Visit Care Team Role Provider Type Bhakti Nieves Primary Care Provider NON-[facility] STAFF PHYSICIAN Parish Real MD Emergency Provider [facility] STAFF PHYSICIAN Jamin Chacon Admit Provider [facility] STAFF PHYSICIAN Attending Provider Discharge Potential Discharge Needs: Consult (possibly Neurology) and PCP F/U Appt Anticipated Barriers to Discharge: None Identified Patient/Family Education Needs: Review discharge instructions, discuss Ask Me Three Transportation: Private vehicle Plan: Anticipate Alyson will be discharged home with no new services when medically cleared. She will follow up with her PCP and plan of care and transport with family. CM will follow ands continue to support discharge planning efforts. Social Determinants of Health Screening Social Determinants of health last assessed in clinic: 01/16/25 Will the Patient Participate in the Screening?: Yes Do you worry about having a steady place to live?: yes What is your living situation today?: I have housing today, but am worried about losing it Problems where you live: no known problems In the past 12 months, have you had to go without electric, gas, oil or water in your home?: no 1. Within the past 12 months, we worried whether our food would run out before we got money to buy more.: Never true 2. Within the past 12 months, the food we bought just didn't last and we didn't have money to get more.: Never true Has lack of transportation kept you from medical appointments or from doing things needed for daily living?: no Has anyone in your life made you feel unsafe or unsupported?: no How hard is it for you to pay for the very basics like food, housing, medical care, and heating? Would you say it is:: Not hard at all Do you want help finding or keeping work or a job?: I do not need or want help If for any reason you need help with day-to-day activities such as bathing, preparing meals, shopping, managing finances, etc., do you get the help you need?: I don?t need any help How often do you feel lonely or isolated from those around you?: Never Do you speak a language other than Frisian at home?: No Does the patient want assistance with any of the above?: No Health Related Social Needs Health related social needs: housing instability, housed, with risk of homelessness (Z59.811) [facility] All Active Problems (Updated 01/15/25 @ 17:41 by Parish Real MD) Seizures (Acute) Nail dystrophy (Acute) Onychomycosis (Acute) Hammertoe of left foot (Acute) Hammertoe of right foot (Acute) History of colon polyps (Acute) Medical History Amaurosis fugax Aortic insufficiency Per pt. states it was only slight calcification. ECHO was done in late 's early in [place] (facility unclear) Migraine Adenomatous polyps 03/13/13 w/ Dr. Galen Hickey @ [facility], Tubular adenoma 01/11/19 Dr Ciara Kohler, normal, repeat 5 years due to hx of tubular adenoma Surgical History S/P craniotomy 11/2023 H/O brain surgery Per pt. states had a TBI brain bleed and cyst (arachnoid cyst) all from a fall from horse due to a seizure 12/05/23 [place] teeth extracted History of removal of ovarian cyst History of tubal ligation History of colonoscopy (~06/2024) Social History Smoking/Tobacco Use Status: Never Smoking risk assessment performed?: Yes Alcohol Intake: current Alcohol Intake frequency: holidays/special occasions only Alcohol type: wine Drug use: Never Substance use type: does not use Housing: house Do you feel safe at home: Yes Do you feel safe in your relationship?: Yes
[2025-01-16 11:17] VITALS: BP 97/70; PULSE 68; RESP 16; TEMP 37; O2SAT 98
--- NOTE | 2025-01-16 12:31 | CHAPLAIN ---
Alyson was sitting up in bed when I stopped in. Her was visiting with her. She's orginially from [place] and lives in [place] now. She is here because of seizure activity and is waiting to hear if she'll be discharged. Alyson and her were pleasant and easily engaged in conversation. I explained my role and offered support.
[2025-01-16] MEDS: Gadoterate meglumine 20 ML SYRINGE IVP (15:36)
--- NOTE | 2025-01-16 18:38 | W.PM.DS.N ---
Date of service: 02/05/25 Time of Service: 18:38 DS: Diagnosis Discharge Diagnosis (1) Seizures: Status: Acute Discharge Plan Disposition Patient Disposition: Home Condition: Good Discharge Details Reason For Visit: Seizure, Arachnoid Cyst Admit Date/Time: 01/15/25 18:08 Admit Provider: Jamin Chacon Attending Provider: Jamin Chacon Primary Care Provider: Bhakti Nieves Hospital Course Hospital Course: 64 yo F with history of migraines and seizure disorder assocaited with arachnoid cyst after a fall from a horse in 2023 who presented after a seizure the day after getting influenza and COVID vaccine boosters. She had a normal neurologic assessment and CT head in the ED. Telenuerology recommneding loading with keppra and increasing her lacosamide and getting MRI. MRI did not show significant changes to the cyst. She did not have additional events. She described psychotic symptoms in the past related to taking Keppra, so she did not want to resume this medication. Teleneurology was reconsulted and recommended increasing lacosamide to 200mg BID with outpatient follow up with her primary neurologist at [facility] in 1-2 weeks. Home Meds and New Rx's Prescriptions: New lacosamide 200 mg tablet 200 mg PO BID Qty: 180 0RF Continued loratadine [Claritin] 10 mg tablet 10 mg PO DAILY ketoconazole 2 % cream 1 applic topical DAILY Qty: 120 6RF Rx Instructions: Apply to toenails once daily sumatriptan [Imitrex] 5 mg/actuation spray,non-aerosol 5 mg INTRANASAL ONCE PRN Discontinued lacosamide 100 mg tablet 100 mg PO BID Discharge Instructions Instructions: Epilepsy in adults, Driving Restrictions Additional Instructions: 200mg lacosamide tablets were sent to [facility], you can take 2 of the 100mg until you pick this up. Follow seizure precautions including no driving or riding horses until cleared by neurology Activity:: Activity as Tolerated Equipment/Supplies:: No Equipment Needed Diet:: As Tolerated Discharge Orders Discharge Orders: Discharge Order (Routine); Ordered 01/16/25 Ordered By: Jamin Chacon DS: Summary Time Spent with Patient providing and/or coordinating discharge services: Greater than 30 minutes Status at Discharge Functional status at discharge: independent ambulation Overall status at discharge: patient is back to baseline Mental Status: mental status grossly normal Speech and Movement: speech and movement normal Mood: congruent mood Affect: normal affect Quality:SDOH Health Related Social Needs: Health related social needs risk of homeless Exam Narrative Exam Narrative: GEN: Alert and oriented, NAD, nl speech, nl thought process Cardiovascular-regular rate and rhythm no murmur rubs gallops Lungs-clear to auscultation bilaterally with good air exchange Neurologic-cranial nerves grossly intact, no focal weakness, normal gait. Psych Mental Status: mental status grossly normal Speech and Movement: speech and movement normal Mood: congruent mood Affect: normal affect DS: Data Vitals/I&O Vitals and I&O: Vital Signs Temperature 37 C 01/16/25 11:17 Temperature Source Temporal Artery Scan 01/16/25 11:17 Pulse 68 01/16/25 11:17 Pulse Rhythm Regular 01/15/25 21:16 Pulse 86 01/15/25 19:40 Respiratory Rate 16 01/16/25 11:17 Respiratory Effort Normal, Non-Labored 01/15/25 21:16 Respiratory Depth Normal 01/15/25 21:16 Respiratory Pattern Normal 01/15/25 21:16 Blood Pressure 97/70 L 01/16/25 11:17 Blood Pressure Mean 79 01/16/25 11:17 Blood Pressure Position Sitting 01/15/25 15:22 Pulse Oximetry 98 01/16/25 11:17 Oxygen Delivery Method Room Air 01/16/25 11:17 Oxygen Flow Rate 0 01/16/25 11:17 Pain Level 0 01/15/25 21:16 Comment off the floor at this time 01/16/25 15:23 Intake & Output 01/15/25 01/16/25 01/16/25 23:59 11:59 23:59 Intake Total 2620 / 2620 250 / 500 250 / 500 Output Total 950 / 950 Balance 1670 / 1670 250 / 500 250 / 500 Weight 66.7 kg 66.7 kg Intake: IV 2120 / 2120 Oral 500 / 500 250 / 500 250 / 500 Output: Urine 950 / 950 Other: Urine Color Yellow Urine Appearance Clear Comment independent Data Completed and Pending Labs on day of discharge: Labs from last 24 hours 01/16/25 01/15/25 01/15/25 06:50 22:02 18:27 Sodium 141 136 Potassium 3.3 L 3.4 L Chloride 106 103 Carbon Dioxide 25.9 26.9 Anion Gap 9.1 6.1 BUN 10 13 Creatinine 0.8 0.9 Est GFR (CKD-EPI 2020) 83.26 72.28 Glucose 106 119 H Calcium 8.4 L 8.3 L Magnesium 1.9 Urine Opiates Screen Negative Urine Methadone Screen Negative Ur Barbiturates Screen Negative Ur Tricyclics Screen Negative Ur Amphetamines Screen Negative U Benzodiazepines Scrn Positive A Urine Cocaine Screen Negative Ur THC Screen Negative PFSH All Active Problems (Updated 01/15/25 @ 17:41 by Parish Real MD) Seizures (Acute) Nail dystrophy (Acute) Onychomycosis (Acute) Hammertoe of left foot (Acute) Hammertoe of right foot (Acute) History of colon polyps (Acute) Medical History Amaurosis fugax Aortic insufficiency Per pt. states it was only slight calcification. ECHO was done in late s early in [place] (facility unclear) Migraine Adenomatous polyps 03/13/13 w/ Dr. Galen Hickey @ [facility], Tubular adenoma 01/11/19 Dr Ciara Kohler, normal, repeat 5 years due to hx of tubular adenoma Surgical History S/P craniotomy 11/2023 H/O brain surgery Per pt. states had a TBI brain bleed and cyst (arachnoid cyst) all from a fall from horse due to a seizure 12/05/23 [place] teeth extracted History of removal of ovarian cyst History of tubal ligation History of colonoscopy (~06/2024) Social History Smoking/Tobacco Use Status: Never Smoking risk assessment performed?: Yes Alcohol Intake: current Alcohol Intake frequency: holidays/special occasions only Alcohol type: wine Drug use: Never Substance use type: does not use Housing: house Do you feel safe at home: Yes Do you feel safe in your relationship?: Yes Time Spent with Patient Time Spent with Patient: <45 minutes Time was spent: preparing to see the patient(eg.review tests), obtaining and/or reviewing separately otained hiistory, ordering medications,tests, procedures, referring, communicating with other health manager primary care, indepentently interpreting results, counseling the patient and care coordination
== END 2025-01-16 21:06 | disposition home or self-care (01) ==
LOC: ER 17:41 → MS 20:34
PROVIDERS: Admitting Provider Family Medicine; Emergency Provider Emergency Medicine; PCP Family Medicine; Responsible Provider Family Medicine; Visit Provider Family Medicine
DX: G40.909 Epilepsy, unspecified, not intractable, without status epilepticus (principal); Z79.899 Other long term (current) drug therapy; E87.6 Hypokalemia; E83.42 Hypomagnesemia; B35.1 Tinea unguium; M20.42 Other hammer toe(s) (acquired), left foot; M20.41 Other hammer toe(s) (acquired), right foot; G43.909 Migraine, unspecified, not intractable, without status migrainosus; Z87.820 Personal history of traumatic brain injury; Z86.69 Personal history of other diseases of the nervous system and sense organs
CPT/HCPCS: 00123; 36415; 70553; 80048; 80053; 80307; 82805; 93005; 96361; 96365; 96366; 96367; 99285; 70450; 80320; 83605; 83735; 85025; 93010; 99222; 99238; G0378; J1953; J3475

== ENCOUNTER 2025-01-19 00:24 | Observation (INO) | payer BC, SELFPAY ==
[2025-01-19] VITALS (54 sets, daily range): BP systolic 118–159; BP diastolic 78–118; PULSE 63–143; RESP 12–51; TEMP 36.6–37.7; O2SAT 94–100
--- NOTE | 2025-01-19 00:14 | W.ED.GENAD ---
Discharge Plan Disposition Patient Disposition: Admit to [facility] Condition: Fair Discharge Details Clinical Impression: Seizures Primary Care Provider: Bhakti Nieves ED Provider: Sanjeev Young [place] Meds and New Rx's Prescriptions: No Action loratadine [Claritin] 10 mg tablet 10 mg PO DAILY ketoconazole 2 % cream 1 applic topical DAILY Qty: 120 6RF Rx Instructions: Apply to toenails once daily sumatriptan [Imitrex] 5 mg/actuation spray,non-aerosol 5 mg INTRANASAL ONCE PRN lacosamide 100 mg tablet 200 mg PO Q12H Patient Comments: TAKE 1 TABLET BY MOUTH EVERY 12 HOURS lacosamide 200 mg tablet 200 mg PO BID Qty: 180 0RF HPI General Mode of arrival: EMS. Date/Time Provider Initiated Documentation: 01/19/25 00:33. Limitations to Documentation: no limitations. Information obtained by: patient, EMS, RN notes reviewed and old records reviewed. HPI Narrative: Patient presents to ED due to seizures. Patient does have a history of seizures. She was admitted to this hospital from the to the due to a cluster of seizures. With those seizures she did not come to baseline in between episodes. She was discharged on an increased dose of her lacosamide. She has been taking 200 mg twice a day since discharge. She had a seizure this evening around 10 PM while sitting at the table. It was short-lived and she did return to baseline. She took an extra 50 mg of the lacosamide then. She went to bed and had a second seizure also short-lived with return to baseline. EMS was activated and patient was brought to hospital. While in ambulance had a third very short seizure. She arrives here at baseline with normal mentation, speech and functioning. Denies any headache. Denies any recent trauma. Has had no fever or illnesses since discharge from here on the . Related Data Home Medications ?Medication ?Instructions ?Recorded ?Confirmed loratadine 10 mg tablet (Claritin) 10 mg PO DAILY 04/15/24 01/19/25 ketoconazole 2 % topical cream 1 applic topical DAILY #120 grams 04/16/24 01/19/25 sumatriptan 5 mg/actuation nasal 5 mg intranasal ONCE PRN 04/16/24 01/19/25 spray (Imitrex) lacosamide 200 mg tablet 200 mg PO BID #180 tabs 01/16/25 01/19/25 lacosamide 100 mg tablet 200 mg PO Q12H 01/19/25 01/19/25 Previous Rx's ?Medication ?Instructions ?Recorded ketoconazole 2 % topical cream 1 applic topical DAILY #120 grams 04/16/24 lacosamide 200 mg tablet 200 mg PO BID #180 tabs 01/16/25 Allergies Allergy/AdvReac Type Severity Reaction Status Date / Time povidone-iodine (From Allergy Mild itchy and Verified 01/19/25 00:29 Betadine) red soap (From Betadine) Allergy Mild itchy and Verified 01/19/25 00:29 red General IKER: 2 Exam Narrative Exam Narrative: Const: WDWN female in NAD. VS per triage. HEENT: NC/AT. Normal facial exam. Eyes: PERRL and EOMI. Neck: Supple. Trachea midline. Lungs: Normal respiratory effort. Lungs are clear. Cor: RRR without murmur. Good radial pulses. Neuro: A+O x 3. Normal speech, mentation, gait. Cranial nerves II - XII grossly intact. No gross motor or sensory deficit. Ext: No C/C/E. Medical Decision Making Patient presenting to ED after a cluster of seizures, however, returned to baseline completely in between each episode. They are currently baseline and not postictal. She was brought in by basic EMS so we will place IV for potential recurrent seizures. Had both head CT and brain MRI on her admission 3 days ago. Does not need repeating tonight. Laboratory studies previously were unremarkable. I do note that there was no urinalysis performed though she denies any UTI symptoms. Will repeat a CBC and BMP tonight, obtain urine, obtain teleneurology consult. CBC and BMP unremarkable. Urinalysis is not infected. Patient seen by neurology with whom I then discussed patient and recommendations for medications. He is recommending to continue lacosamide at 200 mg twice a day and add Briviact 50 mg twice a day. Briviact is not on formulary here so I will need to provide a prescription at discharge. Will hold in ED till morning to be sure no further seizure activity. Will need follow-up with her primary neurologist at [facility], she has call to schedule an appointment but will need to call them back and ask for an expedited appointment. 03:30 - Patient with another seizure here. Stopped on own but given 1mg lorazepam since this is now the fourth seizure in 6 hours. Will discuss with hospitalist for admission. Briviact is not formulary here, but should be started on it prior to discharge given the recurrent multiple seizures. Medical Records Medical records reviewed: Yes I reviewed the patient's medical records. Medical records narrative: [facility] notes from November when first developed seizures. Lab Data Lab results reviewed: Yes I reviewed the patient's lab results. Lab results narrative: see MDM Quality:SDOH Health Related Social Needs: Health related social needs risk of homeless PFSH All Active Problems (Updated 01/19/25 @ 04:13 by Sanjeev Young MD) Seizures (Acute) Nail dystrophy (Acute) Onychomycosis (Acute) Hammertoe of left foot (Acute) Hammertoe of right foot (Acute) History of colon polyps (Acute) Medical History Amaurosis fugax Aortic insufficiency Per pt. states it was only slight calcification. ECHO was done in late s early s in [place] (facility unclear) Migraine Adenomatous polyps 03/13/13 w/ Dr. Galen Hickey @ [facility], Tubular adenoma 01/11/19 Dr Ciara Kohler, normal, repeat 5 years due to hx of tubular adenoma Surgical History S/P craniotomy 11/2023 H/O brain surgery Per pt. states had a TBI brain bleed and cyst (arachnoid cyst) all from a fall from horse due to a seizure 12/05/23 [place] teeth extracted History of removal of ovarian cyst History of tubal ligation History of colonoscopy (~06/2024) Social History Smoking/Tobacco Use Status: Never Smoking risk assessment performed?: Yes Alcohol Intake: current Alcohol Intake frequency: holidays/special occasions only Alcohol type: wine Drug use: Never Substance use type: does not use Housing: house Do you feel safe at home: Yes Do you feel safe in your relationship?: Yes
[2025-01-19 00:45] LABS: Abs Immature Grans 0.02 10^3/uL (0.0-0.06); HCT 34.5 % (36.0-46.0); HGB 11.6 g/dL (11.2-15.7); Immature Grans % 0.3 %; MCH 30.4 pg (27.0-33.0); MCHC 33.6 % (32.0-36.0); MCV 90 fL (80-95); MPV 10.6 fL (8.0-11.0); Platelet Count 223 10^3/uL (130-400); RBC 3.82 10^6/uL (3.93-5.22); RDW 12.0 % (11.7-14.6); RDW-SD 39.6 fL; WBC 6.16 10^3/uL (4.4-10.8)
[2025-01-19 00:56] LABS: Anion Gap 10.3 mmol/L (3-11); BUN 18 mg/dL (7-18); CO2 28.7 mmol/L (21.0-32.0); Calcium 9.3 mg/dL (8.5-10.1); Chloride 102 mmol/L (98-107); Estimated GFR 63.70 (mL/min/1.73m2); Glucose 131 mg/dL (74-106); Potassium 3.5 mmol/L (3.5-5.1); Sodium 141 mmol/L (136-145)
[2025-01-19 01:09] LABS: Glucose Negative (Negative)
[2025-01-19 01:15] LABS: C & S Indicated? No; RBC 0-2 HPF (0-2); WBC Negative HPF (0-5)
[2025-01-19] MEDS: LORazepam 20 MG/10 ML VIAL IVP (03:33)
--- NOTE | 2025-01-19 03:42 | NUR.NOTE ---
at 0333 PT started having seizure activity that lasted 1 min. PT was given Ativan 1 mg Nursing Note:
--- NOTE | 2025-01-19 04:06 | W.PM.HP.N ---
Date of service: 01/19/25 Time of Service: 04:07 Assessment and Plan Assessment and plan (1) Seizures: Start date: 01/19/25 Status: Acute Assessment and plan: This is a 64-year-old lady with a history of seizure disorder status post trauma to her head after falling from a horse in November 2023. She had a known, large right frontal lobe arachnoid cyst which was on imaging in 2018 with the patient having a history of migraine headaches. At this time without injury she does have a bleed into that cyst and required craniotomy for drainage. She has had seizures since that time and was stable on Keppra up to March 2024 but had to switch to lacosamide because of side effects. On lacosamide recently she has had breakthrough seizures in clusters with an increase in her lacosamide dosing to 200 mg every 12 hours. She had a tonic-clonic seizure and was postictal with increased seizures since her hospitalization 3 days ago despite the increase in her lacosamide. She did take an extra dose of lacosamide 50 mg prior to presentation to the ED. In the ED she had 4 seizures. Teleneurology did advise inpatient observation for treatment of recurrent seizures with initiation of Briviact 50 mg twice daily in addition to her lacosamide with this medication nonformulary. She did require Ativan IV for a recurrent seizure in the ED and will be admitted for observation while attempting to obtain this new medication and initiate therapy. She may need recurrent intervention for frequent seizures presently. The steel hanger of this exacerbation of seizures may have been recent COVID and flu vaccine though she is not symptomatic. She will be screened for COVID/flu/RSV. If Briviact is not available, follow-up on teleneurology may be necessary for updated plan until she can be seen as an outpatient at [facility] for recent change in status. She is a full code. (2) Intracranial arachnoid cyst: Status: Chronic Assessment and plan: Large persistent cyst of the right frontal lobe imaged in 2018 now status post craniotomy with partial resection after fall with intracystic bleed November 2023. There is mild mass effect which is unchanged from November 2023. Imaging was not repeated this ED visit. (3) H/O brain surgery: Assessment and plan: Status post craniotomy for partial resection of arachnoid cyst with bleed after fall from horse. The patient had a seizure at the time she fell from the horse in 2023 with no prior history of seizures but having migraine headaches. History of Present Illness History of Present Illness Chief Complaint: Cluster of seizures, status post traumatic arachnoid bleed. Narrative: This is a 64-year-old female patient who has a history of TBI falling from a horse last November 2023 with tonic-clonic seizures at that time and acute hemorrhage into a known right frontal arachnoid cyst. She was transferred to [facility] at that time and did have a craniotomy with partial resection of the cyst. The patient has a history of migraine headaches and did have imaging revealing this large right frontal lobe arachnoid cyst in 2018. This cyst does have minimal mass effect which is unchanged. The patient was on Keppra from November until March 2024 and then was switched to lacosamide because of side effects to Keppra with mood changes. The patient began to have increased breakthrough seizures just recently been hospitalized 3 days ago for a cluster of seizures having her lacosamide increased to 200 mg twice daily at that time. At home the patient has been having recurrent tonic-clonic seizures with postictal state and smaller seizures despite this change. She came to emergency room because of her recurrent tonic-clonic seizures with postictal state and her concerned about persisting and frequent seizures. In the ED she did have 4 seizures. She was given Ativan in the ED for her last seizure. Teleneurology did recommend initiation of Briviact 50 mg twice daily while observing because of her frequent, cluster of seizures with treatment of IV Ativan as needed. I saw the patient she was aware of her surroundings and did not appear postictal but back to baseline. Her baseline is continue to have some slight left-sided weakness from her event in November 2023 as well as her large arachnoid cyst present before that event. Recent possible contributor to the patient's change in seizure activity may be her vaccines with flu and COVID the day prior to onset, acute infection with COVID screening to be done, UTI which is not apparent and other drug use with patient drug screen recently being negative except for benzodiazepines which were given by EMS in the field. She has no high risk for self treatment with street drugs or history of use. Of note, the patient continues to ride horses. I interviewed the patient alone without her present. Patient is a full code. Review of Systems Narrative: 13 point review of systems otherwise unrevealing or stable. Patient has had no headaches or recent upper respiratory symptoms. GI review is negative. Neurological review is stable. PFSH All Active Problems (Updated 01/19/25 @ 04:24 by Chaim Gregg) Intracranial arachnoid cyst (Chronic) Seizures (Acute) Nail dystrophy (Acute) Onychomycosis (Acute) Hammertoe of left foot (Acute) Hammertoe of right foot (Acute) History of colon polyps (Acute) Medical History Amaurosis fugax Aortic insufficiency Per pt. states it was only slight calcification. ECHO was done in late early in [place] (facility unclear) Migraine Adenomatous polyps 03/13/13 w/ Dr. Galen Hickey @ [facility], Tubular adenoma 01/11/19 Dr Ciara Kohler, normal, repeat 5 years due to hx of tubular adenoma Surgical History S/P craniotomy 11/2023 H/O brain surgery Per pt. states had a TBI brain bleed and cyst (arachnoid cyst) all from a fall from horse due to a seizure 12/05/23 [place] teeth extracted History of removal of ovarian cyst History of tubal ligation History of colonoscopy (~06/2024) Social History Smoking/Tobacco Use Status: Never Smoking risk assessment performed?: Yes Alcohol Intake: current Alcohol Intake frequency: holidays/special occasions only Alcohol type: wine Drug use: Never Substance use type: does not use Housing: house Do you feel safe at home: Yes Do you feel safe in your relationship?: Yes Meds Allergies and Home Medications Allergies Allergy/AdvReac Type Severity Reaction Status Date / Time povidone-iodine (From Allergy Mild itchy and Verified 01/19/25 00:29 Betadine) red soap (From Betadine) Allergy Mild itchy and Verified 01/19/25 00:29 red Home Medications ?Medication ?Instructions ?Recorded ?Confirmed ?Type loratadine 10 mg tablet (Claritin) 10 mg PO DAILY 04/15/24 01/19/25 History ketoconazole 2 % topical cream 1 applic topical DAILY #120 grams 04/16/24 01/19/25 Rx sumatriptan 5 mg/actuation nasal 5 mg intranasal ONCE PRN 04/16/24 01/19/25 History spray (Imitrex) lacosamide 200 mg tablet 200 mg PO BID #180 tabs 01/16/25 01/19/25 Rx lacosamide 100 mg tablet 200 mg PO Q12H 01/19/25 01/19/25 History Exam Narrative Exam Narrative: General: Patient appears appropriate for age, flattened affect but good eye contact, alert and oriented to person, place and time. She has slow monotonous tone to voice. She appears in no acute distress. HEENT: Normocephalic status post right, frontal craniotomy, eyes with pupils equal and reactive to light symmetrically, extraocular movement intact and sclera anicteric. Oropharynx with moist mucosa and fair dentition. Neck: Supple without JVD. Back: Stooped posture without CVA tenderness. Lungs: Fair aeration clear to auscultation and percussion with no focalizing rales or rhonchi. Breast: Exam deferred. Heart: Regular rate and rhythm with no murmurs or gallops appreciated. Abdomen: Normal contour, soft and nontender to palpation with no palpable hepatosplenomegaly. Genitalia/rectal: Exam deferred. Extreme: Without clubbing, cyanosis or pitting edema. Peripheral pulses intact. Skin: Normal color, warm and dry. Neuro: Cranial nerves II through XII gross intact, no focalizing motor deficits with patient complaining of general left-sided weakness which is not apparent on exam. No Babinski's. DTRs are physiologic and symmetrical. Psych: Flattened affect with depressed mood though patient is not postictal she appears off baseline from her mood, no abnormal thought processes. Remote and recent memory grossly intact. Results Imaging Imaging Studies: EXAM: MR BRAIN WO/W Date of exam: 01/16/2025 CLINICAL HISTORY: h/o arachnoid cyst, recurrent seizure TECHNIQUE: Multiplanar multisequence MRI of the brain was performed. Both noninfused and contrast infused sequences were performed. IV Contrast injected was 13 cc Dotarem. COMPARISON: MR MRI BRAIN WWO from 12/11/2023 ([facility]) CT CT HEAD WO from 01/15/2025 FINDINGS: CEREBRAL PARENCHYMA: Again noted is the previously described large cystic mass in the right frontal lobe region with an overlying rosa elena hole in the right frontal bone of the skull. There is no evidence of acute hemorrhage within this finding, as was evident on the MRI study of November 2023 and there is no ring enhancement nor internal wall nodularity. There are foci of susceptibility artifact in the brain within and around the posterior aspect of this cystic finding. There is mild mass effect on the frontal horn of the right lateral ventricle, as evident on recent CT scan 01/15/2025. However, there is no shift of midline structures, as was evident on the November 2023 MRI images. Measurement of this finding is presently 7.7 cm x by 4.7 cm at its widest x 4.0 cm craniocaudal. There is no significant focal signal abnormality in the cerebellar hemispheres nor within the gertrudis, midbrain, and thalami. There are few tiny FLAIR bright foci of signal abnormality in the high white matter both supra ventricular regions, similar to previous. There are no areas of restricted diffusion. DWI: No areas of restricted diffusion to suggest acute ischemic event. There are no ring enhancing lesions in the brain. There is no abnormal meningeal enhancement. PITUITARY GLAND: No mass nor parasellar abnormality. No obvious abnormality in the cavernous sinuses. FLOW VOIDS: The expected flow void are noted. No evidence of obvious aneurysm nor obvious vascular malformation. PARANASAL SINUSES: The visualized paranasal sinuses appear unremarkable. ORBITS: No obvious abnormal findings. IMPRESSION: 1. Large cystic mass in the right frontal lobe region again noted with measurements as above and with no evidence of acute internal hemorrhage nor internal mural nodular enhancement nor ring-enhancement. Mild mass effect upon the ipsilateral frontal horn of the right lateral ventricle. No prominent brain edema and no shift of midline structures, as was evident on the prior outside MRI scan of 12/11/2023. There is an overlying right frontal bone rosa elena hole evident. Labs 01/19/25 00:33 01/19/25 00:33 Labs: Laboratory Results - last 24 hr 01/19/25 01/19/25 00:33 01:05 WBC 6.16 RBC 3.82 L Hgb 11.6 Hct 34.5 L MCV 90 D MCH 30.4 MCHC 33.6 RDW 12.0 Plt Count 223 MPV 10.6 Immature Gran % 0.3 Neutrophils % 56.8 Lymphocytes % 23.4 Monocytes % 10.1 Eosinophils % 8.8 Basophils % 0.6 Nucleated RBC % 0.0 Absolute Neutrophils 3.50 Absolute Lymphocytes 1.44 Absolute Monocytes 0.62 Absolute Eosinophils 0.54 Absolute Basophils 0.04 Sodium 141 Potassium 3.5 Chloride 102 Carbon Dioxide 28.7 Anion Gap 10.3 BUN 18 Creatinine 1.0 Est GFR (CKD-EPI 2020) 63.70 Glucose 131 H Calcium 9.3 Urine Color Yellow Urine Clarity Clear Urine pH 6.5 Ur Specific [place] 1.015 Urine Protein Trace Urine Ketones Negative Urine Blood Moderate H Urine Nitrite Negative Urine Bilirubin Negative Urine Urobilinogen 0.2 Ur Leukocyte Esterase Negative Urine RBC 0-2 Urine WBC Negative Ur Epithelial Cells Rare Urine Crystals Negative Urine Bacteria Negative Urine Mucus Negative Ur Culture Indicated? No Urine Glucose Negative Last Vital Signs Temp 36.8 C 01/19/25 00:15 Pulse 84 01/19/25 03:50 Resp 17 01/19/25 03:50 BP 142/86 H 01/19/25 03:45 Pulse Ox 95 01/19/25 03:50 Time Spent Time spent with Patient: >75 minutes Time was spent: preparing to see the patient(eg.review tests), obtaining and/or reviewing separately otained hiistory, ordering medications,tests, procedures, referring, communicating with other health career advisor, indepentently interpreting results and care coordination
[2025-01-19 05:34] LABS: COVID-19 PCR Negative (Negative); RSV PCR Negative (Negative)
--- NOTE | 2025-01-19 05:41 | W.PC.ACHO ---
Registration Status: REG ER Primary Language: Preferred Language: Croatian ED Information & Data Chief Complaint Seizure 01/19/25 00:27 Chief Complaint Seizure 01/19/25 00:15 Triage Note PT has had 3 seizures 01/19/25 00:15 tonight the last one was @ 0005. PT has not received any medication PT took 50mg of glycosamide after 2nd seizure. Medical / Surgical History (Last Reviewed 01/19/25 @ 04:07 by Chaim Gregg) Amaurosis fugax Aortic insufficiency Migraine Adenomatous polyps (Last Reviewed 01/19/25 @ 04:07 by Chaim Gregg) S/P craniotomy H/O brain surgery [place] teeth extracted History of removal of ovarian cyst History of tubal ligation History of colonoscopy (~06/2024) Most Recent Vital Signs Temperature 36.8 C 01/19/25 00:15 Pulse 84 01/19/25 05:20 Pulse 83 01/19/25 05:20 Respiratory Rate 20 01/19/25 05:20 Respiratory Effort Normal 01/19/25 00:27 Respiratory Depth Normal 01/19/25 00:27 Respiratory Pattern Normal 01/19/25 00:27 Blood Pressure 143/84 H 01/19/25 05:15 Blood Pressure Mean 103 01/19/25 05:15 Pulse Oximetry 97 01/19/25 05:20 Oxygen Delivery Method Room Air 01/19/25 00:15 Oxygen Flow Rate 0 01/19/25 00:15 Pain Level 0 01/19/25 00:15 Allergies povidone-iodine (From Betadine) Allergy (Mild, Verified 01/19/25 00:29) itchy and red soap (From Betadine) Allergy (Mild, Verified 01/19/25 00:29) itchy and red IV IV Catheter Type [Right Saline Lock Antecubital] IV Catheter Gauge [Right 18 Antecubital] Diagnostics 01/19/25 01/19/25 01/19/25 Range/Units 04:54 01:05 00:33 WBC 6.16 (4.4-10.8) 10^3/uL RBC 3.82 L (3.93-5.22) 10^6/uL Hgb 11.6 (11.2-15.7) g/dL Hct 34.5 L (36.0-46.0) % MCV 90 D (80-95) fL MCH 30.4 (27.0-33.0) pg MCHC 33.6 (32.0-36.0) % RDW 12.0 (11.7-14.6) % Plt Count 223 (130-400) 10^3/uL MPV 10.6 (8.0-11.0) fL Immature Gran % 0.3 % Neutrophils % 56.8 % Lymphocytes % 23.4 % Monocytes % 10.1 % Eosinophils % 8.8 % Basophils % 0.6 % Nucleated RBC % 0.0 (0.0-0.3) % Absolute Neutrophils 3.50 (1.2-6.7) 10^3/uL Absolute Lymphocytes 1.44 (1.2-3.4) 10^3/uL Absolute Monocytes 0.62 (0.1-0.8) 10^3/uL Absolute Eosinophils 0.54 (0.0-0.7) 10^3/uL Absolute Basophils 0.04 (0.0-0.2) 10^3/uL Sodium 141 (136-145) mmol/L Potassium 3.5 (3.5-5.1) mmol/L Chloride 102 (98-107) mmol/L Carbon Dioxide 28.7 (21.0-32.0) mmol/L Anion Gap 10.3 (3-11) mmol/L BUN 18 (7-18) mg/dL Creatinine 1.0 (0.55-1.02) mg/dL Est GFR (CKD-EPI 2020) 63.70 (mL/min/1.73m2) Glucose 131 H (74-106) mg/dL Calcium 9.3 (8.5-10.1) mg/dL Urine Color Yellow (Yellow) Urine Clarity Clear (Clear) Urine pH 6.5 (5-8) Ur Specific [place] 1.015 (1.005-1.025) Urine Protein Trace (Neg-Trace) mg/dL Urine Ketones Negative (Negative) mg/dL Urine Blood Moderate H (Negative) Urine Nitrite Negative (Negative) Urine Bilirubin Negative (Negative) Urine Urobilinogen 0.2 (Up to 0.2) mg/dL Ur Leukocyte Esterase Negative (Negative) Urine RBC 0-2 (0-2) HPF Urine WBC Negative (0-5) HPF Ur Epithelial Cells Rare (Negative) HPF Urine Crystals Negative (Negative) HPF Urine Bacteria Negative (Negative) HPF Urine Mucus Negative (Negative) Ur Culture Indicated? No Urine Glucose Negative (Negative) mg/dL COVID-19 Source Pending SARS-CoV-2 (PCR) Pending Influenza Type A (PCR) Pending Influenza Type B (PCR) Pending RSV (PCR) Pending Intake and Output - 24 Hour Total 01/19/25 00:09 thru 01/19/25 00:15 Weight 65.771 kg Falls Risk Assessment History of Falls No History 01/19/25 00:27 Contributing Factors No Factors 01/19/25 00:27 Ambulatory Aids Independent 01/19/25 00:27 Tubes/Lines None 01/19/25 00:27 Gait Evaluation No gait disturbance 01/19/25 00:27 Cognition No cognitive impairment 01/19/25 00:27 Fall Total Score 0 01/19/25 00:27 Level of Risk Standard/Low Risk 01/19/25 00:27 Problems (Last Reviewed 01/19/25 @ 04:07 by Chaim Gregg) Intracranial arachnoid cyst (Chronic) Seizures (Acute) Notes 01/19/25 03:42 Nursing Notes by Haresh Castro at 0333 PT started having seizure activity that lasted 1 min. PT was given Ativan 1 mg Nursing Note: Initialized on 01/19/25 03:42 - END OF NOTE v v v v v v v v v Sending and/or Receiving Nurses: Please use comment section below to note any information pertinent to the patient hand-off not included above. Information / Comments: No further questions. Report received from: Haresh Crane RN
[2025-01-19 06:17] LABS: TSH (W/Ref FT4) 10.11 uIU/mL (0.36-3.74)
[2025-01-19] MEDS: Lacosamide 100 MG TAB 200 MG PO ×2 (08:22→19:58)
[2025-01-19] MEDS: Enoxaparin 40 MG/0.4 ML SYR SC (08:23)
[2025-01-19] MEDS: Acetaminophen 325 MG TAB 650 MG PO (08:23)
[2025-01-19] MEDS: Ketoconazole 2% CREAM 15 GM TUBE TP (08:23)
[2025-01-19] MEDS: Loratidine 10 MG TAB PO (08:23)
[2025-01-19] MEDS: Normal Saline Flush 10 ML SYR IVP ×2 (08:24→20:02)
--- NOTE | 2025-01-19 09:54 | INITIAL_ITS ---
Date of service: 01/19/25 Time of Service: 09:55 Care Management Initial Assmt Initial Assessment Reason for Hospitalization: cluster seizures Functional Status/Living Situation Patient Presentation: Alyson presented to the ED early this morning for c/o seizures. She was admitted to this hospital from the to the due to a cluster of seizures. With those seizures she did not come to baseline in between episodes. She was discharged on an increased dose of her lacosamide. She reported that she had been taking the increased dose, but had a seizure last night before bed. She reorted it as short lived, and she took an extra 50mg of her lacosamide. She went to bed and had another seizure, with return to baseline. EMS was called, and she had another seizure in the ambulance, with return to baseline. It was felt that she did not need a repeat CT or MRI, as they were just done 3 days ago. She was going to be monitored in the ER overnight, but had another seizure - her 4th in just 6h. She was admitted to observation. Alyson has done well since admission. She had a neuro consult that suggested she start a new medication - brivarecetam. This med is unavailable at [facility] and Alyson's home pharmacy. [facility] does not stock in individual stores, but has it in it's central fill. Prescription has been sent to [facility] in [place] via fax. Successful transmission notice received. [facility] has stated that they can have the med delivered tomorrow. Alyson will stay the night tonight for continued monitoring while the prescription is filled. Alyson was sitting up in bed, reading, when CM met with her today. She was very pleasant. She is a bit bored, and would like to go home, but is aware of the situation with the new medication, and is very willing to stay. Alyson stated that it didn't matter what the cost of the medication is, it will be well worth it to be seizure free. 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[employer]) Instrumental Activities of Daily Living (ADLs): Independent and Requires support with Transportation (should not be driving due to seizures) Activities/Hobbies/SocialSupport: Enjoys reading and being outside Medications Medication Management: No Issues/Barriers identified Advance Directives Advance Directives: Do you have an Advance Directive: Y , 12:57 AD On File at [facility]: Y 06/11/24, 12:57 Date Asked 06/11/24 06/11/24, 12:57 AD Date Reviewed 01/15/25 01/15/25, 14:55 COLST On File at [facility] COLST Date Scanned Code Status Resuscitation Status Full Code Insurance Coverage/Financial Issues Insurance: /BS [facility] Care Team Visit Care Team Role Provider Type Carmencita Gudino NP NURSE PRACTITIONER Bhakti Nieves Primary Care Provider [facility] STAFF PHYSICIAN Sanjeev Young MD Emergency Provider [facility] STAFF PHYSICIAN Chaim Gregg Admit Provider NON-[facility] STAFF PHYSICIAN Attending Provider Discharge Potential Discharge Needs: PCP F/U Appt and Other (neurology f/u ) Anticipated Barriers to Discharge: Treatment delay (inability to get recommended medication today - needs to be ordered) Patient/Family Education Needs: Review discharge instructions, discuss Ask Me Three Transportation: Private vehicle Plan: Alyson will be discharged home with no new services when medically cleared. She will follow up with her PCP and plan of care and transport with family. CM will follow ands continue to support discharge planning efforts. Social Determinants of Health Screening Social Determinants of health last assessed in clinic: 01/19/25 Will the Patient Participate in the Screening?: Yes Do you worry about having a steady place to live?: no Problems where you live: no known problems In the past 12 months, have you had to go without electric, gas, oil or water in your home?: no 1. Within the past 12 months, we worried whether our food would run out before we got money to buy more.: Don't know/refused 2. Within the past 12 months, the food we bought just didn't last and we didn't have money to get more.: Don't know/refused Has lack of transportation kept you from medical appointments or from doing things needed for daily living?: no Has anyone in your life made you feel unsafe or unsupported?: no How hard is it for you to pay for the very basics like food, housing, medical care, and heating? Would you say it is:: Not hard at all Do you want help finding or keeping work or a job?: I do not need or want help If for any reason you need help with day-to-day activities such as bathing, preparing meals, shopping, managing finances, etc., do you get the help you need?: I don?t need any help How often do you feel lonely or isolated from those around you?: Rarely Do you speak a language other than Maltese at home?: No Does the patient want assistance with any of the above?: No Health Related Social Needs Health related social needs: feeling lonely/isolated (Z60.8) Health related social needs details: Patient rarely feels lonely. PFSH All Active Problems (Updated 01/19/25 @ 04:24 by Chaim Gregg) Intracranial arachnoid cyst (Chronic) Seizures (Acute) Nail dystrophy (Acute) Onychomycosis (Acute) Hammertoe of left foot (Acute) Hammertoe of right foot (Acute) History of colon polyps (Acute) Medical History Amaurosis fugax Aortic insufficiency Per pt. states it was only slight calcification. ECHO was done in late s early in [place] (facility unclear) Migraine Adenomatous polyps 03/13/13 w/ Dr. Galen Hickey @ [facility], Tubular adenoma 01/11/19 Dr Ciara Kohler, normal, repeat 5 years due to hx of tubular adenoma Surgical History S/P craniotomy 11/2023 H/O brain surgery Per pt. states had a TBI brain bleed and cyst (arachnoid cyst) all from a fall from horse due to a seizure 12/05/23 [place] teeth extracted History of removal of ovarian cyst History of tubal ligation History of colonoscopy (~06/2024) Social History Smoking/Tobacco Use Status: Never Smoking risk assessment performed?: Yes Alcohol Intake: current Alcohol Intake frequency: holidays/special occasions on ly Alcohol type: wine Drug use: Never Substance use type: does not use Housing: house Do you feel safe at home: Yes Do you feel safe in your relationship?: Yes
[2025-01-20 03:39] VITALS: BP 127/95; PULSE 71; RESP 18; TEMP 36.4; O2SAT 99
[2025-01-20 06:27] LABS: HCT 35.0 % (36.0-46.0); HGB 11.8 g/dL (11.2-15.7); MCH 30.6 pg (27.0-33.0); MCHC 33.7 % (32.0-36.0); MCV 91 fL (80-95); MPV 10.7 fL (8.0-11.0); Platelet Count 222 10^3/uL (130-400); RBC 3.85 10^6/uL (3.93-5.22); RDW 12.0 % (11.7-14.6); RDW-SD 39.8 fL; WBC 4.89 10^3/uL (4.4-10.8)
[2025-01-20 07:15] LABS: ALT 195 U/L (14-59); AST 377 U/L (15-37); Albumin 3.3 g/dL (3.4-5.0); Alkaline Phosphatase 110 U/L (46-116); Anion Gap 6.5 mmol/L (3-11); BUN 14 mg/dL (7-18); Bilirubin, Total 0.5 mg/dL (0.2-1.0); CO2 31.5 mmol/L (21.0-32.0); Calcium 9.5 mg/dL (8.5-10.1); Chloride 104 mmol/L (98-107); Estimated GFR 72.28 (mL/min/1.73m2); Glucose 105 mg/dL (74-106); Magnesium 1.9 mg/dL (1.8-2.4); Potassium 4.2 mmol/L (3.5-5.1); Sodium 142 mmol/L (136-145); Total Protein 6.5 g/dL (6.4-8.2)
[2025-01-20 07:22] VITALS: BP 126/86; PULSE 66; RESP 17; TEMP 36.5; O2SAT 96
[2025-01-20] MEDS: Acetaminophen 325 MG TAB 650 MG PO (07:33)
[2025-01-20] MEDS: Lacosamide 100 MG TAB 200 MG PO (07:37)
[2025-01-20] MEDS: Enoxaparin 40 MG/0.4 ML SYR SC (07:37)
[2025-01-20] MEDS: Loratidine 10 MG TAB PO (07:37)
[2025-01-20] MEDS: Normal Saline Flush 10 ML SYR IVP (07:38)
[2025-01-20 07:45] VITALS: PULSE 67
[2025-01-20] MEDS: Ketoconazole 2% CREAM 15 GM TUBE TP (08:56)
--- NOTE | 2025-01-20 10:30 | DSE_ITS ---
Date of service: 01/20/25 Time of Service: 10:30 DS: Diagnosis Discharge Diagnosis (1) Seizures: Status: Acute (2) Intracranial arachnoid cyst: Status: Chronic Discharge Plan Disposition Patient Disposition: Home Condition: Good Discharge Details Reason For Visit: Cluster seizures Admit Date/Time: 01/19/25 04:48 Admit Provider: Chaim Gregg Attending Provider: Chaim Gregg Primary Care Provider: Ezequiel,Bhakti [facility] Hospital Course: Reason for Admission Cluster of seizures in a patient with a history of traumatic right frontal lobe arachnoid cyst and post-craniotomy status. History of Present Illness 64-year-old female with a known large right frontal lobe arachnoid cyst (imaged 2017) and prior craniotomy for cyst drainage following a fall from a horse with traumatic intracystic hemorrhage in November 2023. * Post-craniotomy, she had tonic-clonic seizures and was stable on Keppra until March 2024, when she switched to lacosamide due to psychiatric side effects. * Recently developed breakthrough seizures despite lacosamide 200 mg BID. * Presented to the ED with multiple tonic-clonic seizures; received IV Ativan. * Teleneurology recommended initiation of Briviact 50 mg BID in addition to lacosamide for recurrent seizure clusters. * Possible seizure triggers: recent COVID and flu vaccines; COVID/flu/RSV screening planned. * Full code. Past Medical History * Traumatic brain injury, right frontal arachnoid cyst * Seizure disorder * Migraine * Amaurosis fugax * Aortic insufficiency * History of colon polyps Past Surgical History * Craniotomy for arachnoid cyst drainage (11/2023) * [place] teeth extraction * Ovarian cyst removal * Tubal ligation * Colonoscopy (~06/2024) Medications on Discharge * Lacosamide 200 mg PO BID * Briviact 50 mg PO BID * Loratadine 10 mg PO daily * Ketoconazole 2% topical cream daily * Sumatriptan nasal spray PRN Allergies * Povidone-iodine: mild rash/itching * Betadine soap: mild rash/itching Hospital Course * Multiple seizures in ED; controlled with IV Ativan. * Lacosamide dose 200 mg BID. * Initiated Briviact 50 mg BID for seizure control. * Patient remained alert, oriented, and at neurological baseline aside from mild left-sided weakness. * MRI brain showed stable large right frontal arachnoid cyst with mild mass effect; no acute hemorrhage. * Labs notable for mild anemia and hyperglycemia; otherwise unremarkable. Discharge Condition * Alert and oriented ?3, back to baseline neurologically. * No acute distress. * Hemodynamically stable. * Mild left-sided weakness persists (chronic from prior TBI). Discharge Instructions * Continue Lacosamide 200 mg PO BID and start Briviact 50 mg PO BID. * Monitor for breakthrough seizures; use Ativan as instructed if prescribed for home use. * Avoid activities with high seizure risk until stable. * Follow up with neurologist at [facility] for medication management and ongoing sei zure control. * Screen for COVID, flu, RSV if symptomatic. * Seek urgent care for any recurrent or prolonged seizures. Follow-Up * Neurology: outpatient follow-up at [facility] within 1?2 weeks. * Primary care: as scheduled. Home Meds and New Rx's Prescriptions: New Briviact 10 mg/mL solution 50 mg PO BID Qty: 300 0RF Briviact 50 mg tablet 50 mg PO BID Qty: 60 0RF Continued loratadine [Claritin] 10 mg tablet 10 mg PO DAILY ketoconazole 2 % cream 1 applic topical DAILY Qty: 120 6RF Rx Instructions: Apply to toenails once daily lacosamide 100 mg tablet 200 mg PO Q12H Patient Comments: TAKE 1 TABLET BY MOUTH EVERY 12 HOURS lacosamide 200 mg tablet 200 mg PO BID Qty: 180 0RF No Action sumatriptan [Imitrex] 5 mg/actuation spray,non-aerosol 5 mg INTRANASAL ONCE PRN Discharge Instructions Instructions: Brivaracetam Additional Instructions: Do NOT drive a motorized vehicle until cleared by your neurologist. Briviact (Brivaracetam) * Dose: 50 mg * How to take: Take one tablet by mouth twice daily (every 12 hours) * Important: Take it at the same time each day, with or without food. Do not stop this medication suddenly ? this may increase your risk of having seizures. Talk to your doctor before making any changes. When to Seek Immediate Medical Help: Call 911 or go to the ER if you experience: * A seizure lasting more than 5 minutes * Repeated seizures without full recovery in between * Difficulty breathing or turning blue * Serious injury during a seizure * A first-time seizure General Seizure Precautions: * Avoid driving or operating heavy machinery until cleared by your doctor * Avoid heights, swimming alone, or bathing without supervision * Wear a medical alert bracelet * Tell friends/family how to help you during a seizure Follow-Up: * Schedule an appointment with your neurologist or primary care provider within 1?2 weeks * Bring a seizure diary to track: * Date/time of seizures * Duration * Triggers or warning signs * Any side effects from medication Avoid: * Alcohol or recreational drugs (can lower seizure threshold) * Skipping doses of your medication * Sleep deprivation Side Effects of Briviact: * Drowsiness, dizziness * Mood changes (irritability, depression) * Fatigue, nausea Call your provider if side effects are severe or don?t go away. Stand Alone Forms: Nursing Discharge Form Referrals: NEUROSURGERY,[facility] [OTHER, Surgery] Referral Note: Follow up with your established neurologist. Bhakti Nieves [Primary Care Provider, Medicine] Referral Note: 1 week post hospitalization for seizure. Please call your PCP to make a follow-up appointment. Activity:: Activity as Tolerated Equipment/Supplies:: No Equipment Needed Diet:: As Tolerated Discharge Orders Discharge Orders: Discharge Order (Routine); Ordered 01/20/25 Ordered By: Jigna Victoria Discharge Data Discharge Date/Time-TO BE ENTERED AT DEPARTURE: 01/20/25 11:17 DS: Summary Time Spent with Patient providing and/or coordinating discharge services: Greater than 30 minutes Status at Discharge Functional status at discharge: independent ambulation Overall status at discharge: patient is back to baseline Mental Status: mental status grossly normal Speech and Movement: speech and movement normal Mood: congruent mood Affect: normal affect Quality:SDOH Health Related Social Needs: Health related social needs lonely/isolated Health related social needs details Patient rarely fee ls lonely. Health related social needs details: Patient rarely feels lonely. Exam Narrative Exam Narrative: General: Alert, oriented ?3, appropriate for age, interactive, pleasant, conversant - good eye contact, no acute distress. HEENT: Normocephalic, post right frontal craniotomy. Pupils equal, round, reactive to light. Extraocular movements intact. Sclera anicteric. Oropharynx moist, dentition good. Neck: Supple, no JVD. Back: Good posture, no CVA tenderness. Lungs: Clear to auscultation bilaterally, no rales or rhonchi. Heart: Regular rate and rhythm, no murmurs, rubs, or gallops. Abdomen: Soft, non-tender, normal contour, no hepatosplenomegaly. Extremities: No cyanosis, clubbing, or edema. Peripheral pulses intact. Skin: Warm, dry, normal color. Neurological: Cranial nerves II?XII grossly intact. Mild left-sided weakness reported by patient, not prominent on exam. DTRs normal and symmetric. No Babinski sign. Mental status alert, oriented, mood slightly depressed but not postictal. Remote and recent memory intact. Psych: Pleasant, interactive, thought processes intact, appropriate judgment and insight. Psych Mental Status: mental status grossly normal Speech and Movement: speech and movement normal Mood: congruent mood Affect: normal affect DS: Data Vitals/I&O Vitals and I&O: Vital Signs Temperature 36.5 C 01/20/25 07:22 Temperature Source Temporal Artery Scan 01/20/25 07:22 Pulse 67 01/20/25 07:45 Pulse Rhythm Regular 01/19/25 05:50 Pulse 87 01/19/25 05:40 Respiratory Rate 17 01/20/25 07:22 Respiratory Effort Normal, Non-Labored 01/19/25 05:50 Respiratory Depth Normal 01/19/25 05:50 Respiratory Pattern Normal 01/19/25 05:50 Blood Pressure 126/86 01/20/25 07:22 Blood Pressure Mean 99 01/20/25 07:22 Pulse Oximetry 96 01/20/25 07:22 Oxygen Delivery Method Room Air 01/20/25 07:22 Oxygen Flow Rate 0 01/20/25 07:22 Pain Level 3 01/20/25 08:33 Comment PT requested to let her sleep, Tele monitor on HR 63. MAT MACHINE OPERATOR witnessed rise and fall of chest. 01/19/25 22:53 Intake & Output 01/19/25 01/19/25 01/20/25 11:59 23:59 11:59 Intake Total 240 / 240 480 / 480 Output Total 900 / 900 225 / 225 Balance -900 / -660 240 / -660 255 / 255 Weight 63.3 kg 62.2 kg Intake: Oral 240 / 240 480 / 480 Output: Urine 900 / 900 225 / 225 Other: Urine Color Yellow Yellow Urine Appearance Clear Clear Urine Odor Normal Normal Comment Patient voided at the ED. Patient doe pants was wet with urine, remove pants and replace with disposable underwear. per pt voided x1 Pt voids ind. in toilet with stand by assist. Data Completed and Pending Labs on day of discharge: Labs from last 24 hours 01/20/25 06:00 WBC 4.89 RBC 3.85 L Hgb 11.8 Hct 35.0 L MCV 91 MCH 30.6 MCHC 33.7 RDW 12.0 Plt Count 222 MPV 10.7 Sodium 142 Potassium 4.2 Chloride 104 Carbon Dioxide 31.5 Anion Gap 6.5 BUN 14 Creatinine 0.9 Est GFR (CKD-EPI 2020) 72.28 Glucose 105 Calcium 9.5 Magnesium 1.9 Total Bilirubin 0.5 AST 377 H ALT 195 H Alkaline Phosphatase 110 Total Protein 6.5 Albumin 3.3 L PFSH All Active Problems (Updated 01/19/25 @ 04:24 by Chaim Gregg) Intracranial arachnoid cyst (Chronic) Seizures (Acute) Nail dystrophy (Acute) Onychomycosis (Acute) Hammertoe of left foot (Acute) Hammertoe of right foot (Acute) History of colon polyps (Acute) Medical History Amaurosis fugax Aortic insufficiency Per pt. states it was only slight calcification. ECHO was done in late s early in [place] (facility unclear) Migraine Adenomatous polyps 03/13/13 w/ Dr. Galen Hickey @ [facility], Tubular adenoma 01/11/19 Dr Ciara Kohler, normal, repeat 5 years due to hx of tubular adenoma Surgical History S/P craniotomy 11/2023 H/O brain surgery Per pt. states had a TBI brain bleed and cyst (arachnoid cyst) all from a fall from horse due to a seizure 12/05/23 [place] teeth extracted History of removal of ovarian cyst History of tubal ligation History of colonoscopy (~06/2024) Social History Smoking/Tobacco Use Status: Never Smoking risk assessment performed?: Yes Alcohol Intake: current Alcohol Intake frequency: holidays/special occasions only Alcohol type: wine Drug use: Never Substance use type: does not use Housing: house Do you feel safe at home: Yes Do you feel safe in your relationship?: Yes Time Spent with Patient Time Spent with Patient: 45-69 minutes Time was spent: preparing to see the patient(eg.review tests), ordering medications,tests, procedures, referring, communicating with other health family member caretaker, indepentently interpreting results, counseling the patient and care coordination
--- NOTE | 2025-01-20 11:35 | CMDISCH_ITS ---
Date of service: 01/20/25 Time of Service: 11:35 LACE Index Scoring Tool Questions: Length of Stay (in days): 1 Was the patient admitted via the E.D.?: Yes E.D. Visits: 2 Answers: Total Score: 6 Risk of Readmission: Low Risk Care Management Discharge Plan Reason for Hospitalization: cluster seizures Discharge Plan: Alyson was discharged home this morning with no new services. She was given a written prescription to fiber picker her new medication. Leslie will f/u with her PCP and her neurologist and continue per her plan of care. Leslie was transported home in a private vehicle. SDOH Health Related Social Needs: Health related social needs lonely/isolated Health related social needs details Patient rarely fee ls lonely. Health related social needs details: Patient rarely feels lonely.
== END 2025-01-20 11:17 | disposition home or self-care (01) ==
LOC: ER 05:05 → MS 05:42
PROVIDERS: Admitting Provider Family Medicine; Emergency Provider Emergency Medicine; PCP Family Medicine; Responsible Provider Nurse Practitioner Family; Visit Provider Family Medicine
DX: G40.409 Other generalized epilepsy and epileptic syndromes, not intractable, without status epilepticus (principal); G93.0 Cerebral cysts; Z87.820 Personal history of traumatic brain injury; G43.909 Migraine, unspecified, not intractable, without status migrainosus; B35.1 Tinea unguium; M20.42 Other hammer toe(s) (acquired), left foot; M20.41 Other hammer toe(s) (acquired), right foot; Z79.899 Other long term (current) drug therapy
CPT/HCPCS: 00123; 36415; 80048; 80053; 85027; 87637; 96372; 96374; 99285; J1650; 81003; 81015; 83735; 84439; 84443; 85025; 99233; 99239; G0378; J2060; J3490